=== PATIENT | female | born 1945 | race Hispanic/Latino ===

== ENCOUNTER 2017-03-20 16:22 | Inpatient (IN) | payer MEDICARE, MEDICAID ==
[2017-03-20 16:25] VITALS: BMI 25.6
--- NOTE | 2017-03-20 16:30 | EDPD ---
HPI Stroke - General Time Seen by Provider: 03/20/17 16:26 Historian: Patient - History of Present Illness Narrative History of Present Illness (Free Text): 03/20/17 16:27 72 year old female whose past medical history includes diabetes, hypertension, hepatitis c, liver cirrhosis on Lactulose, presents to the emergency department with right facial droop and right upper extremity and right lower extremity weakness since 15:30 today. Patient's glucose in the field was >130. History limited due to acuity of patient's condition. Date:: 03/20/17 rTPA Inclusion/Exclusion - Refusal of Treatment Patient Refused Treatment: No - Inclusion Criteria for Altepase Patient is 18 years or Older: Yes The Clinical Diagnosis of Ischemic Stroke That is Causing a Potentially Disabling Neurological Deficit: No Time of Onset is Well Established to be Less Than 270 Minute Before Treatment Would Begin: Yes Risk/Benefit Discussed With Patient/Family Member Present: Yes Past Medical History - Provider Review Nursing Documentation Reviewed: Yes - Past History Past History: Unable to Obtain - Infectious Disease Hx of Infectious Diseases: None - Tetanus Immunization Tetanus Immunization: Unknown - Cardiac Hx Cardiac Disorders: Yes Hx Hypertension: Yes - Neurological Hx Headaches: Yes - Endocrine/Metabolic Hx Diabetes Mellitus Type 2: Yes - Hematological/Oncological Hx Hepatitis C: Yes - Musculoskeletal/Rheumatological Hx Falls: No - Gastrointestinal Hx Gastrointestinal Disorders: Yes (HEPATIC ENCEPHALOPATHY) - Genitourinary/Gynecological Hx Genitourinary Disorders: No Hx Reproductive Disorders: No - Psychiatric Hx Depression: No Hx Emotional Abuse: No Hx Physical Abuse: No Hx Substance Use: No - Past Surgical History Past Surgical History: Unable to Obtain - Surgical History Hx Hysterectomy: Yes - Suicidal Assessment Feels Threatened In Home Enviroment: No Family/Social History - Family/Social History Family History: Non-Contributory - DrBaljinder Review Nursing documentation reviewed.: Yes Allergies/Home Meds Allergies/Adverse Reactions: Allergies No Known Allergies Allergy (Verified 03/20/17 16:32) Home Medications: Home Meds Medication Instructions Recorded Confirmed Metoprolol Tartrate [Lopressor] 25 mg PO BID 05/31/12 03/20/17 Rifaximin [Xifaxan] 550 mg PO BID 05/31/12 03/20/17 Vitamin B Complex & Vitamin C 1 tab PO DAILY 05/31/12 03/20/17 [Strovite] Insulin Glargine,Hum.rec.anlog 20 unit SC DAILY 08/30/12 03/20/17 [Lantus] Calcium Carbonate/Vitamin D3 1 each PO BID 03/20/17 03/20/17 [Oyster Shell Calcium-Vit D Tab] Enalapril Maleate [Vasotec] 2.5 mg PO DAILY 03/20/17 03/20/17 Ferrous Sulfate [Feosol] 325 mg PO BID 03/20/17 03/20/17 Folic Acid 1 mg PO DAILY 03/20/17 03/20/17 Furosemide [Lasix] 20 mg PO DAILY 03/20/17 03/20/17 Insulin Lispro [Humalog (Insulin 5 unit SQ AC 03/20/17 03/20/17 Lispro)] Lactulose 10 gm PO DAILY 03/20/17 03/20/17 Levothyroxine [Synthroid] 25 mcg PO DAILY 03/20/17 03/20/17 Olopatadine HCl [Pataday 2.5 ml] 2.5 ml OU DAILY 03/20/17 03/20/17 Pantoprazole [Protonix EC Tab] 20 mg PO DAILY 03/20/17 03/20/17 Potassium Chloride [Klor-Con M20] 20 meq PO DAILY 03/20/17 03/20/17 Review of Systems - Review of Systems Systems not reviewed;Unavailable: Acuity of Condition ED Stroke Physical Exam - Physical Exam Narrative Physical Exam (Text): - Physical exam Patient appears age appropriate - Systems Exam Head: Present: Atraumatic, Normocephalic Pupils: Present: PERRL Extraocular Muscles: Present: EOMI Conjunctiva: Present: Normal Mouth: Present: Moist Mucous Membranes Neck: Present: Normal Range of Motion. No: MIDLINE TENDERNESS, Paraspinal Tenderness Respiratory/Chest: Present: Protecting airway without difficulty, Clear to Auscultation, Good Air Exchange. No: Respiratory Distress, Accessory Muscle Use , Tachypneic Cardiovascular: Present: Regular Rate and Rhythm, Normal S1, S2, Peripheral Pulses Present. No: Murmurs Abdomen: Present: Normal Bowel Sounds, No: Tenderness, Peritoneal Signs, Rebound, Guarding, Distention Back: Present: Normal Inspection. No: Midline Tenderness, Paraspinal Tenderness Upper Extremity: Present: Normal Inspection. No: Cyanosis, Edema Lower Extremity: Present: Normal Inspection. No: Edema Neurological: Present: Following commands without difficulty. Right facial droop. Loss of right nasolabial fold. Unable to move right upper or right lower extremity. Skin: Present: Warm, Dry, Normal Color. No: Rashes Lymphatic: Present: OX3, NI, NC Psychiatric: Present: Alert, Normal Concentration Medical Decision Making ED Course and Treatment: Impression: 72 year old female whose past medical history includes hepatitis c, liver cirrhosis on Lactulose, presents to the emergency department with right facial droop and right upper extremity and right lower extremity weakness since 15:30 today. On physical exam, patient has right facial droop, loss of right nasolabial fold , unable to move right upper or right lower extremity. Differential Diagnosis include but are not limited to: Hemorrhagic stroke vs ischemic stroke vs TIA Plan: -- CT Head, EKG, Chest x-ray -- Labs -- Reassess and disposition Prior Visits: Notes and results from previous visits were reviewed. Patient last seen in the ED on 02/25/13 for confusion and weakness, and admitted for altered mental status. Progress Notes: 03/20/17 16:24 Code Stroke was called. 03/20/17 16:35 Case discussed in detail with Dr. Romain Arredondo, who states to to f/u CT brain and INR PROCEDURE: CT HEAD WITHOUT CONTRAST. Retail Pharmacy Manager : Sanjay Kingsley MD Report Date : 03/20/2017 16:45:59 IMPRESSION: Acute hemorrhage in the region of the posterior limb of the internal capsule on the left with a small amount of blood in both temporal horns. 03/20/17 16:55 Case discussed in detail with Dr. Jimenez who states he reviewed the images, and there is no intervention or suggestions from their standpoint. States to call neurologist for management. EKG shows NSR at [address]-segment elevations, normal intervals. with no prior for comparison. Interpreted by me. 03/20/17 17:[address] Micha Arredondo, who states to admit to ICU and follow up INR. No interventions at this time. 03/20/17 17:[address] Zavaleta from ICU who accepts patient. 03/20/17 17:[address] Richardson, accepted pt to his service Chest xray interpreted by ED physician shows no pneumothorax, no cardiomegaly, no infiltrates - Critical Care Critical Care Minutes: 30 minutes - RAD Interpretation Radiology Orders: 03/20/17 16:24 HEAD W/O (CODE STROKE) [CT] Stat Prospecting Driller: Radiologist - EKG Interpretation Interpreted by ED Physician: Yes Type: 12 lead EKG - Scribe Statement The provider has reviewed the documentation as recorded by the Ronaldoibe Joce Ly Provider Scribe Attestation: All medical record entries made by the Scribe were at my direction and personally dictated by me. I have reviewed the chart and agree that the record accurately reflects my personal performance of the history, physical exam, medical decision making, and the department course for this patient. I have also personally directed, reviewed, and agree with the discharge instructions and disposition. NIHSS Scale ([place]) Time Performed: 16:24 - How Severe is the Stoke Baseline Level of Consciousness: 0=Alert LOC to Questions: 0=Both comments correct LOC to commands: 0=Obeys both correctly Best Gaze: 0=Normal Visual: 0=No visual loss Facial: 2=Partial (lower face paralysis) Motor Arm - Left: 0=No drift Motor Arm - Right: 4=No movement Motor Leg - Left: 0=No drift Motor Leg - Right: 4=No movement Limb Ataxia: 0=Absent Sensory: 0=Normal Best Language: 0=No aphasia Dysarthia: 0=Normal articulation Extinction & Inattention (Neglect): 0=Normal, no object Score: 10 Risk Level: Mod Stroke Risk Disposition/Present on Arrival - Present on Arrival Any Indicators Present on Arrival: No History of DVT/PE: No History of Uncontrolled Diabetes: No Urinary Catheter: No History Surgical Site Infection Following: None - Disposition Have Diagnosis and Disposition been Completed?: Yes Diagnosis: Hemorrhagic stroke Disposition: HOSPITALIZED Disposition Time: 17:24 Patient Plan: Admission Condition: CRITICAL Referrals: Giovany Richardson MD [Primary Care Provider] - Follow up with primary
--- NOTE | 2017-03-20 16:48 | CT ---
PROCEDURE: CT HEAD WITHOUT CONTRAST. HISTORY: code stroke COMPARISON: None available. TECHNIQUE: Axial computed tomography images were obtained through the head/brain without intravenous contrast. Radiation dose: Total exam DLP = 789 mGy-cm. This CT exam was performed using one or more of the following dose reduction techniques: Automated exposure control, adjustment of the mA and/or kV according to patient size, and/or use of iterative reconstruction technique. FINDINGS: HEMORRHAGE: There is an acute hemorrhage in the left basal ganglia in the region of the posterior limb of the internal capsule. This measures 10 x 16 mm on image 30 series 2. A small amount of blood can also be seen in both temporal horns. Findings were discussed with Dr. Mcghee at 4:40 p.m. BRAIN: Chronic microvascular changes are seen in the periventricular white matter VENTRICLES: Unremarkable. No hydrocephalus. CALVARIUM: Unremarkable. PARANASAL SINUSES: Unremarkable as visualized. No significant inflammatory changes. MASTOID AIR CELLS: Unremarkable as visualized. No inflammatory changes. OTHER FINDINGS: None. IMPRESSION: Acute hemorrhage in the region of the posterior limb of the internal capsule on the left with a small amount of blood in both temporal horns.
[2017-03-20 16:50] LABS: ADD MANUAL DIFF? NO
[2017-03-20 17:00] LABS: EOS # 0.1 (0.0-0.7); EOS % 3.8 % (1.5-5.0); GRAN # 1.09 (1.4-6.5); GRAN % 32.1 % (50.0-68.0); HEMATOCRIT 32.7 % (36.0-48.0); LYMPH # 1.8 (1.2-3.4); LYMPH % 51.5 % (22.0-35.0); MEAN CELL VOLUME 94.8 fL (80.0-105.0); MEAN CORPUSCULAR HEMOGLOBIN 32.5 pg (25.0-35.0); MEAN CORPUSCULAR HGB CONC 34.3 g/dl (31.0-37.0); MEAN PLATELET VOLUME 12.7 fl (7.0-11.0); MONO # 0.4 (0.1-0.6); MONO % 12.6 % (1.0-6.0); PLATELET COUNT 56 10^3/uL (120.0-450.0); RED CELL DISTRIBUTION WIDTH 15.7 % (11.5-14.5); WHITE BLOOD COUNT 3.4 10^3/ul (4.5-11.0)
[2017-03-20 17:03] LABS: ALB/GLOB RATIO 0.7 (1.1-1.8); ALKALINE PHOSPHATASE 94 U/L (38-133); ALT/SGPT 77 U/L (7-56); AST/SGOT 88 U/L (15-39); BILIRUBIN,TOTAL 1.9 mg/dL (0.2-1.3); BLOOD UREA NITROGEN 16 mg/dL (7-21); CALCIUM 8.9 mg/dL (8.4-10.5); CARBON DIOXIDE 23 mmol/L (21-33); CHLORIDE 111 mmol/L (98-107); CHOLESTEROL 165 mg/dL (130-200); GFR AFRICAN-AMERICAN > 60; GLUCOSE,RANDOM 107 mg/dL (70-110); POTASSIUM 4.1 mmol/L (3.6-5.0); SODIUM 139 mmol/L (132-148)
[2017-03-20 17:14] LABS: TROPONIN I < 0.01 ng/mL
--- NOTE | 2017-03-20 17:43 | RAD ---
HISTORY: cva COMPARISON: 02/25/2013 FINDINGS: LUNGS: No active pulmonary disease. PLEURA: No significant pleural effusion identified, no pneumothorax apparent. CARDIOVASCULAR: Normal. OSSEOUS STRUCTURES: No significant abnormalities. VISUALIZED UPPER ABDOMEN: Normal. OTHER FINDINGS: None. IMPRESSION: No active disease.
[2017-03-20] MEDS ORDERED: Phytonadione 10 MG in Sodium Chloride 0.9% 50 ML IV ONE (17:44)
[2017-03-20] MEDS ORDERED: Metoprolol 1 mg/ml Inj IVP PRN (17:45)
[2017-03-20 17:46] LABS: INR 1.28 (0.93-1.08); PARTIAL THROMBOPLASTIN TIME 29.6 Seconds (23.7-30.8)
--- NOTE | 2017-03-20 17:58 | CP.PCM.CON ---
<Clem Hampton - Last Filed: 03/20/17 17:49> History of Present Illness - History of Present Illness History of Present Illness: Clem Hampton D.O., Internal Medicine Resident, ICU Consultation Note CC: right sided weakness since 3pm 72 year old [place] female with a PMH of HTN, DM, and hepatitis C from a transfusion in 1972 who [place] [facility] with complaints of sudden right sided weakness since 3pm today. Most of the history is provided by the daughter who is present at bedside. Per daughter, she received a call from the patient that she was feeling unwell. Patient usually walks around with a walker but does have some generalized weakness for a long time. Patient suddenly felt weaker than usual and had to sit down and then she made the call to the daughter. This has never happened before, daughter states the patient has not complained of any headaches or confusion recently, no notably inciting events, no issues last night as the daughter spoke to her at around 9pm last night. Daughter notes that she also seems to be slurring her words. Otherwise no other complaints, no aggravating or alleviating factors. PMH: as above PSH: hysterectomy SH: denied alcohol, tobacco, or drug use Meds: reviewed Allergies: NKA Review of Systems - Review of Systems Systems not reviewed;Unavailable: Altered Mental Status Past Patient History - Infectious Disease Hx of Infectious Diseases: None - Tetanus Immunizations Tetanus Immunization: Unknown - Past Social History Smoking Status: Never Smoked - CARDIAC Hx Cardiac Disorders: Yes Hx Hypertension: Yes - ENDOCRINE/METABOLIC Hx Diabetes Mellitus Type 2: Yes - HEMATOLOGICAL/ONCOLOGICAL Hx Hepatitis C: Yes - MUSCULOSKELETAL/RHEUMATOLOGICAL Hx Falls: No - GASTROINTESTINAL Hx Gastrointestinal Disorders: Yes (HEPATIC ENCEPHALOPATHY) - GENITOURINARY/GYNECOLOGICAL Hx Genitourinary Disorders: No Hx Reproductive Disorders: No - PSYCHIATRIC Hx Depression: No Hx Emotional Abuse: No Hx Physical Abuse: No Hx Substance Use: No - SURGICAL HISTORY Hx Hysterectomy: Yes - ANESTHESIA Hx Anesthesia: Yes Hx Anesthesia Reactions: No Hx Malignant Hyperthermia: No Meds Allergies/Adverse Reactions: Allergies Allergy/AdvReac Type Severity Reaction Status Date / Time No Known Allergies Allergy Verified 03/20/17 18:12 - Medications Medications: Current Medications Phytonadione 10 mg/ Sodium (Chloride) 51 mls @ 100 mls/hr IV ONCE ONE Stop: 03/20/17 18:14 Insulin Human Regular (Humulin R Low) 0 units SC ACHS MELINA PRN Reason: Protocol Lactulose (Enulose) 20 gm PO Q8H [facility]ELINA Metoprolol Tartrate (Lopressor) 5 mg IVP Q6H PRN PRN Reason: SBP >180 Ondansetron HCl (Zofran Inj) 4 mg IVP Q6H PRN PRN Reason: Nausea/Vomiting Pantoprazole Sodium (Protonix Inj) 40 mg IVP DAILY MELINA Rifaximin (Xifaxan) 550 mg NG BID MELINA PRN Reason: Protocol Physical Exam - Constitutional Additional comments: well developed, well nourished elderly [place] female in NAD - Head Exam Head Exam: ATRAUMATIC, NORMOCEPHALIC - Eye Exam Eye Exam: EOMI, PERRL. absent: Conjunctival injection, Scleral icterus - ENT Exam ENT Exam: Mucous Membranes Moist, Normal Oropharynx - Neck Exam Additional comments: soft, supple - Respiratory Exam Respiratory Exam: Clear to Auscultation Bilateral. absent: Rales, Rhonchi, Wheezes - Cardiovascular Exam Cardiovascular Exam: RRR, +S1, +S2. absent: Gallop, Rubs - GI/Abdominal Exam GI & Abdominal Exam: Normal Bowel Sounds, Soft. absent: Distended, Tenderness - Extremities Exam Additional comments: BL LE +2 pitting edema, small petechiae diffusely on legs - Neurological Exam Additional comments: awake, somewhat alert, follows simple commands in [place], right side 0/5 strength diffusely, left side 3/5 diffusely, 4-/5 left robotics technologist, right facial numbness, no tongue deviation, no ptosis - Skin Skin Exam: Dry, Intact, Petechiae (LE), Warm Results - Labs Result Diagrams: 03/20/17 16:47 03/20/17 16:47 Assessment & Plan - Assessment and Plan (Free Text) Assessment: 72 year old [place] female with a PMH of HTN, DM, and hepatitis C from a transfusion in 1972 who presented with complaints of sudden right sided weakness since 3pm today, found to have ICH. Plan: Neurologic Acute hemorrhage in left internal capsule, blood in both temporal horns on head CT Neurochecks q1h Vitals q2 Maintain SBP 120-140 ER discussed with neurosurgery Dr. Jimenez who reviewed images, no intervention ER also discussed with neurology Dr. Arredondo Ordered platelets due to thrombocytopenia Cardiovascular Maintain SBP 120-[address] Pulmonary Maintain O2Sat >92%, currently on R/A, maintaining airway GI Hx hepatitis C, pending PT/PTT NPO for now NG insertion for lactulose Continued home xifaxan Renal/Electrolytes/Fluids Ordered lasix x1 after platelet transfusions Strict IxOs Infectious disease Afebrile No leukocytosis Endocrine Hx hypothyrodisim on levothyroxine at home, DM on insulin Accuchecks q6h w/ RISS-low Hematologic Hx of anemia, on folic acid/B vitamins/ferrous sulfate Thrombocytopenia likely 2/2 GI/DVT ppx: protonix/SCDs/NO ANTICOAGULATION Patient was seen and examined at bedside and case was discussed at length with attending physician. - Date & Time Date: 03/20/17 Time: 17:30 <Vonda Zavaleta MD - Last Filed: 03/20/17 18:56> Meds - Medications Medications: Current Medications Furosemide (Lasix) 40 mg IVP ONCE ONE Stop: 03/21/17 00:02 Insulin Human Regular (Humulin R Low) 0 units SC Q6H MELINA PRN Reason: Protocol Last Admin: 03/20/17 18:30 Dose: Not Given Lactulose (Enulose) 20 gm PO Q8H [facility] Metoprolol Tartrate (Lopressor) 5 mg IVP Q6H PRN PRN Reason: SBP >180 Ondansetron HCl (Zofran Inj) 4 mg IVP Q6H PRN PRN Reason: Nausea/Vomiting Pantoprazole Sodium (Protonix Inj) 40 mg IVP DAILY [facility] Last Admin: 03/20/17 18:10 Dose: 40 mg Rifaximin (Xifaxan) 550 mg NG BID [facility] PRN Reason: Protocol Results - Vital Signs Recent Vital Signs: Last Vital Signs Temp 98 F 03/20/17 18:29 Pulse 68 03/20/17 18:29 Resp 19 03/20/17 18:29 BP 145/86 03/20/17 18:29 Pulse Ox 100 03/20/17 18:29 - Labs Result Diagrams: 03/20/17 16:47 03/20/17 16:47 Labs: Laboratory Results - last 24 hr 03/20/17 18:13 Blood Type Confirm A POSITIVE Attending/Attestation - Attestation I have personally seen and examined this patient.: Yes I have fully participated in the care of the patient.: Yes I have reviewed all pertinent clinical information: Yes Notes (Text): 03/20/17 18:49 72 y/o F who was brought in the ER with R sided weakness around 330 witnessed by the home care nurse. At that time the patient was also having slurred speech and lethargy. Found to have an ICH in the ER with depressed mental status Pt follows some simple commands but is very weak and lethargic Protecting her airway but is pooling some secretions and likely has LARRY Hx of Hep C > 30 yrs . TBILI 1.9, monitor NGT or DF to be placed and Lactulose to be started to prevent Hepatic encephalopathy Labs show Platelets 56k, will need to keep platelets > 100K in ICH. INR<1.5 . 6 pack platelets ordered .G.I to be consulted.Correct coagulopathy Neurochecks q1hrs SBp appx 140-160. Lopressor prn IVP as needed Neurosurgery consulted and Neurology as well. Repeat Head CT needed in the a.m. No surgical intervention at this point. Family requests Full code At risk for intubation dvt p SCD CC time 65 min
[2017-03-20] MEDS: Insulin Reg-LOW-Coverage SC SCH (18:30)
[2017-03-20] MEDS ORDERED: Phytonadione 10 mg/ml Inj (Adult) ONE (18:31)
[2017-03-20] MEDS ORDERED: Pneumococcal 23-Valent Vaccine IM ONE (19:40)
[2017-03-20] MEDS ORDERED: Insulin Reg-LOW-Coverage SC SCH (22:00)
[2017-03-21] MEDS: Insulin Reg-LOW-Coverage SC SCH ×4 (00:45→18:02)
[2017-03-21 01:02] LABS: ADD MANUAL DIFF? NO
[2017-03-21 01:07] LABS: EOS # 0.1 (0.0-0.7); EOS % 3.5 % (1.5-5.0); GRAN # 1.15 (1.4-6.5); GRAN % 40.4 % (50.0-68.0); HEMATOCRIT 29.6 % (36.0-48.0); LYMPH # 1.2 (1.2-3.4); LYMPH % 43.5 % (22.0-35.0); MEAN CELL VOLUME 93.7 fL (80.0-105.0); MEAN CORPUSCULAR HEMOGLOBIN 32.6 pg (25.0-35.0); MEAN CORPUSCULAR HGB CONC 34.8 g/dl (31.0-37.0); MEAN PLATELET VOLUME 10.9 fl (7.0-11.0); MONO # 0.4 (0.1-0.6); MONO % 12.6 % (1.0-6.0); PLATELET COUNT 80 10^3/uL (120.0-450.0); RED CELL DISTRIBUTION WIDTH 15.7 % (11.5-14.5)
[2017-03-21 01:15] LABS: WHITE BLOOD COUNT 2.9 10^3/ul (4.5-11.0)
[2017-03-21 06:19] LABS: ADD MANUAL DIFF? NO
[2017-03-21 06:23] LABS: EOS # 0.1 (0.0-0.7); EOS % 2.9 % (1.5-5.0); GRAN # 1.73 (1.4-6.5); GRAN % 62.5 % (50.0-68.0); HEMATOCRIT 26.7 % (36.0-48.0); LYMPH # 0.6 (1.2-3.4); LYMPH % 20.9 % (22.0-35.0); MEAN CELL VOLUME 93.4 fL (80.0-105.0); MEAN CORPUSCULAR HEMOGLOBIN 32.2 pg (25.0-35.0); MEAN CORPUSCULAR HGB CONC 34.5 g/dl (31.0-37.0); MEAN PLATELET VOLUME 9.3 fl (7.0-11.0); MONO # 0.4 (0.1-0.6); MONO % 13.7 % (1.0-6.0); PLATELET COUNT 123 10^3/uL (120.0-450.0); RED CELL DISTRIBUTION WIDTH 15.4 % (11.5-14.5)
[2017-03-21 06:28] LABS: WHITE BLOOD COUNT 2.8 10^3/ul (4.5-11.0)
[2017-03-21 06:31] LABS: INR 1.24 (0.93-1.08); PARTIAL THROMBOPLASTIN TIME 28.9 Seconds (23.7-30.8)
[2017-03-21 06:40] LABS: ALB/GLOB RATIO 0.8 (1.1-1.8); ALKALINE PHOSPHATASE 92 U/L (38-133); ALT/SGPT 71 U/L (7-56); AST/SGOT 72 U/L (15-39); BILIRUBIN,TOTAL 1.8 mg/dL (0.2-1.3); BLOOD UREA NITROGEN 14 mg/dL (7-21); CALCIUM 9.1 mg/dL (8.4-10.5); CARBON DIOXIDE 29 mmol/L (21-33); CHLORIDE 108 mmol/L (95-110); GFR AFRICAN-AMERICAN > 60; GLUCOSE,RANDOM 136 mg/dL (70-110); POTASSIUM 3.5 mmol/L (3.6-5.0); SODIUM 142 mmol/L (132-148); TOTAL PROTEIN 6.5 g/dL (5.8-8.3)
--- NOTE | 2017-03-21 07:58 | RAD ---
HISTORY: NGT insertion COMPARISON: 03/20/2017 at 5:15 p.m. FINDINGS: LUNGS: No active pulmonary disease. PLEURA: No significant pleural effusion identified, no pneumothorax apparent. CARDIOVASCULAR: Normal heart size. Nasogastric tube not visualized. OSSEOUS STRUCTURES: No significant abnormalities. VISUALIZED UPPER ABDOMEN: Normal. OTHER FINDINGS: None. IMPRESSION: No active disease.
--- NOTE | 2017-03-21 08:01 | RAD ---
HISTORY: placement of NG tube COMPARISON: 03/20/2017 FINDINGS: LUNGS: No active pulmonary disease. PLEURA: No significant pleural effusion identified, no pneumothorax apparent. CARDIOVASCULAR: Nasogastric tube extends to upper central abdomen. OSSEOUS STRUCTURES: No significant abnormalities. VISUALIZED UPPER ABDOMEN: Normal. OTHER FINDINGS: None. IMPRESSION: No active disease. Nasogastric tube in grossly appropriate position.
[2017-03-21] MEDS ORDERED: Magnesium Sulfate 2 GM in Sodium Chloride 0.9% 100 ML IVPB ONE (09:23)
--- NOTE | 2017-03-21 09:56 | CP.PCM.CON ---
<Crow Kerr - Last Filed: 03/21/17 13:12> History of Present Illness - History of Present Illness History of Present Illness: PGY4 GI Fellow Consult Note Patient is a 72yo Frisian speaking female with PMHx significant for HTN, DM and HCV (treatment naive) who presented to the hospital with sudden onset right sided weakness and slurred speech. At 3PM yesterday, the patient's caregiver noted sudden onset right sided hemiparesis, with slurred speech and called 911. On arrival to the ED, a CT head without contrast revealed a hemorrhagic CVA and patient was admitted to the CCU for ongoing care. Neurosurgery was consulted but have no plans for intervention at this juncture. The patient's daughter is at bedside and states that she has suffered with multiple bouts of hepatic encephalopathy from decompensated cirrhosis as a result of her untreated HCV infection. She is on Lactulose and Xifaxin at home, managed by her primary care provider. She has no primary supervisor packing or tree thinner. Patient currently is somnolent and does not respond verbally at present. She does react to tactile stimuli, though she has no movement in the right upper extremity with any stimulation. PMHx: See HPI PSHx: Hysterectomy FHx: Discussed with daughter at bedside and denies any significant family history Social: Denies tobacco, EtOH or illicit drug use Endo: >10 years ago at [facility]; no records available Review of Systems - Review of Systems Systems not reviewed;Unavailable: Acuity of Condition Past Patient History - Infectious Disease Hx of Infectious Diseases: None - Tetanus Immunizations Tetanus Immunization: Unknown - Past Social History Smoking Status: Never Smoked - CARDIAC Hx Cardiac Disorders: Yes Hx Hypertension: Yes - PULMONARY Hx Respiratory Disorders: No - NEUROLOGICAL Hx Neurological Disorder: Yes HX Cerebrovascular Accident: Yes (HEMORRHAGIC STROKE V/S ISCHEMIC STROKEV/S TIA 03-20-17) Hx Seizures: Yes (?03-20-17) Other/Comment: 03-20-17 CAT SCAN SHOWED HEMORRHAGE TO L BASAL GANGLIA 10X 16 MM. - HEENT Hx HEENT Problems: Yes Hx Cataracts: Yes (BILATERAL SX) - RENAL Hx Chronic Kidney Disease: No - ENDOCRINE/METABOLIC Hx Endocrine Disorders: Yes Hx Diabetes Mellitus Type 2: Yes Hx Hypothyroidism: Yes - HEMATOLOGICAL/ONCOLOGICAL Hx Blood Disorders: Yes Hx Hepatitis C: Yes (BLOOD TRANSFUSION IN [place] 1972) - INTEGUMENTARY Hx Dermatological Problems: Yes (MULTIPLE BRUISING,BILATERAL LE PITTING EDEMA) - MUSCULOSKELETAL/RHEUMATOLOGICAL Hx Musculoskeletal Disorders: Yes (INTRACTABLE BACK PAIN,PINCHED NERVE) Hx Back Pain: Yes (HAD STEROID INJECTIONS TO BACK) Hx Falls: Yes Hx Herniated Disk: Yes Hx Unsteady Gait: Yes (WALKER) - GASTROINTESTINAL Hx Gastrointestinal Disorders: Yes (HEPATIC ENCEPHALOPATHY) Hx Liver Failure: Yes (LIVER CIRRHOSIS) - GENITOURINARY/GYNECOLOGICAL Hx Genitourinary Disorders: No - PSYCHIATRIC Hx Psychophysiologic Disorder: No Hx Depression: No Hx Emotional Abuse: No Hx Physical Abuse: No Hx Substance Use: No - SURGICAL HISTORY Hx Surgeries: Yes (BILATERAL CATARACT SURGERY) Hx Hysterectomy: Yes - ANESTHESIA Hx Anesthesia: Yes Hx Anesthesia Reactions: No Hx Malignant Hyperthermia: No Meds Allergies/Adverse Reactions: Allergies Allergy/AdvReac Type Severity Reaction Status Date / Time No Known Allergies Allergy Verified 03/20/17 18:12 - Medications Medications: Current Medications Potassium Chloride (Potassium Chloride 10 Meq/100 Ml) 10 meq in 100 mls @ 100 mls/hr IVPB Q2H [facility] Stop: 03/21/17 10:14 Last Admin: 03/21/17 09:27 Dose: 100 mls/hr Magnesium Sulfate 2 gm/ Sodium (Chloride) 104 mls @ 102 mls/hr IVPB ONCE ONE Stop: 03/21/17 10:24 Insulin Human Regular (Humulin R Low) 0 units SC Q6H [facility]ELINA PRN Reason: Protocol Last Admin: 03/21/17 06:48 Dose: Not Given Lactulose (Enulose) 20 gm PO Q8H [facility] Last Admin: 03/21/17 09:27 Dose: 20 gm Metoprolol Tartrate (Lopressor) 5 mg IVP Q6H PRN PRN Reason: SBP >180 Ondansetron HCl (Zofran Inj) 4 mg IVP Q6H PRN PRN Reason: Nausea/Vomiting Pantoprazole Sodium (Protonix Inj) 40 mg IVP DAILY [facility] Last Admin: 03/20/17 18:10 Dose: 40 mg Potassium Chloride (Potassium Chloride Oral Soln) 40 meq PO Q4 [facility] Stop: 03/21/17 16:01 Rifaximin (Xifaxan) 550 mg NG BID MELINA PRN Reason: Protocol Last Admin: 03/21/17 09:26 Dose: 550 mg Physical Exam - Constitutional Additional comments: lethargic, difficult to arouse - Eye Exam Eye Exam: absent: PERRL (left pupil pinpoint) - ENT Exam ENT Exam: Mucous Membranes Dry Additional comments: NGT in place - Respiratory Exam Respiratory Exam: Clear to Auscultation Bilateral. absent: Rales, Rhonchi, Wheezes - Cardiovascular Exam Cardiovascular Exam: RRR, +S1, +S2 - GI/Abdominal Exam GI & Abdominal Exam: Normal Bowel Sounds, Soft. absent: Distended, Firm, Guarding, Organomegaly, Rigid, Tenderness - Extremities Exam Additional comments: B/L upper and lower extremity edema noted - Neurological Exam Additional comments: Unable to follow commands; withdraws from painful stimuli in LUE/LE, RLE - Skin Skin Exam: Dry, Warm Results - Vital Signs Recent Vital Signs: Last Vital Signs Temp 98.0 F 03/21/17 04:00 Pulse 63 03/21/17 09:30 Resp 19 03/21/17 09:30 BP 134/65 03/21/17 09:00 Pulse Ox 99 03/21/17 07:50 - Labs Result Diagrams: 03/21/17 05:20 03/21/17 05:20 Labs: Laboratory Results - last 24 hr 03/20/17 03/21/17 03/21/17 18:13 00:45 01:38 WBC 2.9 L* RBC 3.16 L Hgb 10.3 L Hct 29.6 L MCV 93.7 MCH 32.6 MCHC 34.8 RDW 15.7 H Plt Count 80 L MPV 10.9 Gran % 40.4 L Lymph % (Auto) 43.5 H Kidder % (Auto) 12.6 H Eos % (Auto) 3.5 Baso % (Auto) 0.0 Gran # 1.15 L Lymph # 1.2 Kidder # 0.4 Eos # 0.1 Baso # 0.00 PT INR APTT Sodium Potassium Chloride Carbon Dioxide Anion Gap BUN Creatinine Est GFR ( Amer) Est GFR (Non-Af Amer) POC Glucose (mg/dL) 140 H Random Glucose Calcium Magnesium Total Bilirubin AST ALT Alkaline Phosphatase Ammonia Total Protein Albumin Globulin Albumin/Globulin Ratio Blood Type Confirm A POSITIVE 03/21/17 03/21/17 03/21/17 05:20 05:20 05:20 WBC 2.8 L* RBC 2.86 L Hgb 9.2 L Hct 26.7 L MCV 93.4 MCH 32.2 MCHC 34.5 RDW 15.4 H Plt Count 123 MPV 9.3 Gran % 62.5 Lymph % (Auto) 20.9 L Kidder % (Auto) 13.7 H Eos % (Auto) 2.9 Baso % (Auto) 0.0 Gran # 1.73 Lymph # 0.6 L Kidder # 0.4 Eos # 0.1 Baso # 0.00 PT 13.4 H INR 1.24 H APTT 28.9 Sodium 142 Potassium 3.5 L Chloride 108 Carbon Dioxide 29 Anion Gap 9 L BUN 14 Creatinine 1.0 Est GFR ( Amer) > 60 Est GFR (Non-Af Amer) 54 POC Glucose (mg/dL) Random Glucose 136 H Calcium 9.1 Magnesium Total Bilirubin 1.8 H AST 72 H ALT 71 H Alkaline Phosphatase 92 Ammonia Total Protein 6.5 Albumin 3.0 Globulin 3.5 Albumin/Globulin Ratio 0.8 L Blood Type Confirm 03/21/17 03/21/17 03/21/17 05:20 06:06 06:47 WBC RBC Hgb Hct MCV MCH MCHC RDW Plt Count MPV Gran % Lymph % (Auto) Kidder % (Auto) Eos % (Auto) Baso % (Auto) Gran # Lymph # Kidder # Eos # Baso # PT INR APTT Sodium Potassium Chloride Carbon Dioxide Anion Gap BUN Creatinine Est GFR ( Amer) Est GFR (Non-Af Amer) POC Glucose (mg/dL) 163 H 166 H Random Glucose Calcium Magnesium Total Bilirubin AST ALT Alkaline Phosphatase Ammonia 42 H Total Protein Albumin Globulin Albumin/Globulin Ratio Blood Type Confirm 03/21/17 07:30 WBC RBC Hgb Hct MCV MCH MCHC RDW Plt Count MPV Gran % Lymph % (Auto) Kidder % (Auto) Eos % (Auto) Baso % (Auto) Gran # Lymph # Kidder # Eos # Baso # PT INR APTT Sodium Potassium Chloride Carbon Dioxide Anion Gap BUN Creatinine Est GFR ( Amer) Est GFR (Non-Af Amer) POC Glucose (mg/dL) Random Glucose Calcium Magnesium 1.6 L Total Bilirubin AST ALT Alkaline Phosphatase Ammonia Total Protein Albumin Globulin Albumin/Globulin Ratio Blood Type Confirm Assessment & Plan - Assessment and Plan (Free Text) Assessment: Patient is a 72yo Frisian speaking female with PMHx significant for HTN, DM and HCV (treatment naive) who presented to the hospital with sudden onset right sided weakness and slurred speech. -Hemorrhagic CVA -H/O HCV, untreated -Decompensated cirrhosis complicated by hepatic encephalopathy -DM -HTN Plan: -NGT has been placed -Continue Lactulose 20g TID, titrate to 2-3 BM/day -Xifaxin 550mg PO BID -Suspect altered mentation predominantly driven by newly diagnosed hemorrhagic CVA; neurology following and neurosurgery consulted in ED with no plans at this time for intervention -Repeat CT head w/o contrast to be performed today -Check Hepatitis serologies as we have no documentation of this previously -Check abdominal U/S; would benefit from triple phase liver CT but will defer for now -Autoimmune work up for tomorrow morning: DEANGELO, AMA, SMA, LKM Ab - Date & Time Date: 03/21/17 Time: 09:30 <Gary Cortez - Last Filed: 03/21/17 15:17> Meds - Medications Medications: Current Medications Sodium Chloride (Sodium Chloride 0.9%) 1,000 mls @ 75 mls/hr IV .[id number] [facility] Last Admin: 03/21/17 13:00 Dose: 75 mls/hr Insulin Human Regular (Humulin R Low) 0 units SC Q6H [facility] PRN Reason: Protocol Last Admin: 03/21/17 13:19 Dose: Not Given Lactulose (Enulose) 20 gm PO Q8H [facility] Last Admin: 03/21/17 09:27 Dose: 20 gm Metoprolol Tartrate (Lopressor) 5 mg IVP Q6H PRN PRN Reason: SBP >180 Ondansetron HCl (Zofran Inj) 4 mg IVP Q6H PRN PRN Reason: Nausea/Vomiting Pantoprazole Sodium (Protonix Inj) 40 mg IVP DAILY [facility] Last Admin: 03/21/17 10:00 Dose: 40 mg Potassium Chloride (Potassium Chloride Oral Soln) 40 meq PO Q4 [facility] Stop: 03/21/17 16:01 Last Admin: 03/21/17 13:30 Dose: 40 meq Rifaximin (Xifaxan) 550 mg NG BID MELINA PRN Reason: Protocol Last Admin: 03/21/17 09:26 Dose: 550 mg Results - Vital Signs Recent Vital Signs: Last Vital Signs Temp 98.0 F 03/21/17 04:00 Pulse 64 03/21/17 14:30 Resp 18 03/21/17 14:30 BP 142/72 03/21/17 13:00 Pulse Ox 99 03/21/17 07:50 - Labs Result Diagrams: 03/21/17 05:20 03/21/17 14:20 Labs: Laboratory Results - last 24 hr 03/20/17 03/21/17 03/21/17 18:13 00:45 01:38 WBC 2.9 L* RBC 3.16 L Hgb 10.3 L Hct 29.6 L MCV 93.7 MCH 32.6 MCHC 34.8 RDW 15.7 H Plt Count 80 L MPV 10.9 Gran % 40.4 L Lymph % (Auto) 43.5 H Kidder % (Auto) 12.6 H Eos % (Auto) 3.5 Baso % (Auto) 0.0 Gran # 1.15 L Lymph # 1.2 Kidder # 0.4 Eos # 0.1 Baso # 0.00 PT INR APTT Sodium Potassium Chloride Carbon Dioxide Anion Gap BUN Creatinine Est GFR ( Amer) Est GFR (Non-Af Amer) POC Glucose (mg/dL) 140 H Random Glucose Calcium Magnesium Total Bilirubin AST ALT Alkaline Phosphatase Ammonia Total Protein Albumin Globulin Albumin/Globulin Ratio Blood Type Confirm A POSITIVE 03/21/17 03/21/17 03/21/17 05:20 05:20 05:20 WBC 2.8 L* RBC 2.86 L Hgb 9.2 L Hct 26.7 L MCV 93.4 MCH 32.2 MCHC 34.5 RDW 15.4 H Plt Count 123 MPV 9.3 Gran % 62.5 Lymph % (Auto) 20.9 L Kidder % (Auto) 13.7 H Eos % (Auto) 2.9 Baso % (Auto) 0.0 Gran # 1.73 Lymph # 0.6 L Kidder # 0.4 Eos # 0.1 Baso # 0.00 PT 13.4 H INR 1.24 H APTT 28.9 Sodium 142 Potassium 3.5 L Chloride 108 Carbon Dioxide 29 Anion Gap 9 L BUN 14 Creatinine 1.0 Est GFR ( Amer) > 60 Est GFR (Non-Af Amer) 54 POC Glucose (mg/dL) Random Glucose 136 H Calcium 9.1 Magnesium Total Bilirubin 1.8 H AST 72 H ALT 71 H Alkaline Phosphatase 92 Ammonia Total Protein 6.5 Albumin 3.0 Globulin 3.5 Albumin/Globulin Ratio 0.8 L Blood Type Confirm 03/21/17 03/21/17 03/21/17 05:20 06:06 06:47 WBC RBC Hgb Hct MCV MCH MCHC RDW Plt Count MPV Gran % Lymph % (Auto) Kidder % (Auto) Eos % (Auto) Baso % (Auto) Gran # Lymph # Kidder # Eos # Baso # PT INR APTT Sodium Potassium Chloride Carbon Dioxide Anion Gap BUN Creatinine Est GFR ( Amer) Est GFR (Non-Af Amer) POC Glucose (mg/dL) 163 H 166 H Random Glucose Calcium Magnesium Total Bilirubin AST ALT Alkaline Phosphatase Ammonia 42 H Total Protein Albumin Globulin Albumin/Globulin Ratio Blood Type Confirm 03/21/17 03/21/17 03/21/17 07:30 12:40 14:20 WBC RBC Hgb Hct MCV MCH MCHC RDW Plt Count MPV Gran % Lymph % (Auto) Kidder % (Auto) Eos % (Auto) Baso % (Auto) Gran # Lymph # Kidder # Eos # Baso # PT INR APTT Sodium 140 Potassium 4.0 Chloride 109 H Carbon Dioxide 26 Anion Gap 9 L BUN 14 Creatinine 1.0 Est GFR ( Amer) > 60 Est GFR (Non-Af Amer) 54 POC Glucose (mg/dL) 158 H Random Glucose 126 H Calcium 8.9 Magnesium 1.6 L 2.0 Total Bilirubin AST ALT Alkaline Phosphatase Ammonia Total Protein Albumin Globulin Albumin/Globulin Ratio Blood Type Confirm 03/21/17 14:20 WBC RBC Hgb Hct MCV MCH MCHC RDW Plt Count MPV Gran % Lymph % (Auto) Kidder % (Auto) Eos % (Auto) Baso % (Auto) Gran # Lymph # Kidder # Eos # Baso # PT INR APTT Sodium Potassium Chloride Carbon Dioxide Anion Gap BUN Creatinine Est GFR ( Amer) Est GFR (Non-Af Amer) POC Glucose (mg/dL) Random Glucose Calcium Magnesium Total Bilirubin AST ALT Alkaline Phosphatase Ammonia 63 H Total Protein Albumin Globulin Albumin/Globulin Ratio Blood Type Confirm Attending/Attestation - Attestation I have personally seen and examined this patient.: Yes I have fully participated in the care of the patient.: Yes I have reviewed all pertinent clinical information: Yes Notes (Text): 05/30/17 15:15 72 year old female with h/o HTN, DM and HCV and presumed cirrhosis admitted with hemorrhagic CVA. 1. Hepatitis C cirrhosis 2. Hepatic encephalopathy Plan: -recommend lactulose and rifaxmin therapy empirically -neuro eval and workup for CVA -recommend US abdo to eval liver and r/o ascites -diet as tolerated -will follow
--- NOTE | 2017-03-21 10:32 | HP ---
REASON FOR ADMISSION: Slurred speech, right side weakness. HISTORY OF PRESENT ILLNESS: This 72-year-old female with history of diabetes, insulin dependent; chr onic hep C, hypothyroidism, came in to the hospital because of sudden onset of right-sided weakness. The patient was doing okay till the day of admission and all of a sudden she felt right side weakness and her speech was impaired. She spoke to the homemaker to call her daughter who brought her to the Emergency Room. Initial evaluation and CT shows a temporal lobe area, ____, posterior part of the int ernal capsule bleed, and right hemiplegia. She denied any fever, any chills, any falls. No nausea, no vomiting. PAST MEDICAL HISTORY: As I mentioned, insulin-dependent diabetes, chronic osteoarthritis. The patie nt also has hypothyroidism. She has history of hepatic encephalopathy several times. ALLERGIES: No known allergies. HOME MEDICATIONS: Insulin - Lantus (glargine insulin) 20 units at night, vitamin D and C, Xifaxan, p otassium 20 p.o. daily, Protonix 20 p.o. daily, Pataday for eye itching 1 drop each eye once a day, m etoprolol 25 mg b.i.d., Synthroid 25 mcg once a day, Lactulose 10 grams once a day, insulin Lispro wh ich is 5 units three times a day, Lasix 20 p.o. once a day, folic acid once a day, Feosol 325 once a day, Vasotec 2.5 once a day, calcium with vitamin D 1000 b.i.d. REVIEW OF SYSTEMS: Chronic osteoarthritis, she has also generalized weakness, incontinence. PHYSICAL EXAMINATION: The patient came through the ER to the unit. The patient was seen in the unit. VITAL SIGNS: Her temperature 98, heart rate 73, blood pressure 145/86, respiration 17. HEAD AND NECK: Normal. No JVD, no thyromegaly. CHEST: Clear. Good air entry. CARDIAC: First sound, second sound regular, normal. ABDOMEN: Soft, nontender. EXTREMITIES: Minimal edema. NEUROLOGIC: Right hemiplegia and ____ 5. Also her speech is slurred, but she is able to express word s. LABORATORY DATA: 03/20/2017: White count 3.4, hemoglobin 11.2, hematocrit 32.7, platelets 56. PT/I NR: PT 15.8, INR 1.28 (a little bit high), PTT 29.6. Sodium 139, potassium 4.1, chloride 111, bicarb 23, BUN 16, creatinine 1. Liver function tests: Total bilirubin 1.9, AST 88, ALT 77, alk phos is no rmal. The patient also has troponin when she came in that was negative. LDL is 42, cholesterol total 165, HDL is 47. Also, the patient has reports that show CT of the head which shows positive bleed. A chest x-ray als o was done which shows lung with no active pulmonary disease. IMPRESSION AND PLAN: 1. Acute intracranial bleed with right hemiplegia and dysarthria. The plan is to continue her meds, platelets transfusions, vitamin K. Get GI and get hematology to evaluate her coagulopathy. Will cons ider physical therapy and speech therapy with swallow eval. Will continue current treatment. Also, th e patient will need rehab for 4-6 weeks. 2. Diabetes, insulin dependent. She is n.p.o. at this time. Will continue insulin coverage. 3. Hepatic encephalopathy. Continue Xifaxan, continue Lactulose through the NG tube. Follow up lab levels tomorrow morning. Continue GI prophylaxis with Protonix 40 mg once a day. Giovany Richardson MD cc: [phone] TT: 03/21/2017 09:11:25 il
[2017-03-21] MEDS ORDERED: Morphine 2 mg/ml ISec IVP STA (11:05)
[2017-03-21] MEDS: Sodium Chloride 0.9% 1,000 ML IV SCH (13:00)
[2017-03-21] MEDS: Potassium Chloride 40 mEq/30 ml LIQ UD PO SCH ×2 (13:30→16:57)
--- NOTE | 2017-03-21 13:58 | CON ---
DATE: 03/21/2017 The patient is a 72-year-old lady with a history of hepatitis C, diabetes, hypertension, who presented this time with sudden onset of right-sided weakness. The patient was in her usual state of health up until yesterday when her symptoms appeared. Her speech became impaired. However, she managed to tell her avionics safety inspector to call the daughter and ambulance. Initial CAT scan of the head upon arrival to [facility] ER revealed acute hemorrhage in the posterior part of the internal capsule. No nausea, no vomiting, no diarrhea , no constipation. PAST MEDICAL HISTORY: Diabetes mellitus, osteoarthritis, hepatitis C, hypothyroidism, and high blood pressure. ALLERGIES: NKDA. MEDICATIONS AT HOME: Glargine insulin 20 units at night, vitamin D and C, Xifaxan, potassium, Protonix, metoprolol, Synthroid, lactulose, insulin lispro, Lasix, folic acid, Feosol, Vasotec, calcium with vitamin D. FAMILY HISTORY: Noncontributory. REVIEW OF SYSTEMS: Review of 12 organ system, other than mentioned in history of present illness, is negative. PHYSICAL EXAMINATION: VITAL SIGNS: Blood pressure 139/63, heart rate 64, respiratory rate 18, oxygen saturation 99% on nasal cannula. HEAD AND NECK: Atraumatic. LUNGS: Clear to auscultation bilaterally. HEART: Regular rate and rhythm. S1, S2 distant. ABDOMEN: Soft, nontender, nondistended. MUSCULOSKELETAL: Trace bilateral pedal and ankle edema. NEUROLOGICAL: The patient moves all extremities spontaneously. The patient is open eyes on command; however, not cooperative with exam. SKIN: Moist. PSYCHIATRIC: The patient is very sleepy, lethargic and responds only to painful stimuli. LABORATORY DATA: WBC 2.8, hemoglobin 9.2, platelet count 123. Sodium 142, potassium 3.5 (supplemented). AST 72, ALT 71. Ammonia level 42. Magnesium 1.6 (supplemented). Albumin 3. INR 1.24. MEDICATION IN THE HOSPITAL: Regular insulin sliding scale low protocol, lactulose, magnesium supplementation, metoprolol p.r.n., Zofran p.r.n., Protonix , vitamin K, Xifaxan, potassium supplementation. Assessment and Plan: 72 yo with acute hemorrhagic CVA, admitted to ICU for airways monitoring and BP control. Now easily arousable, able to protect her airways. BP is well within 140-160 systolic range. Platelets 125, no other coagulopathy. neurosurgery service suggested no neurosurgical intervention. NPO, speech and swallow eval, echo, carotid doppler, PT/OT, early mobilization. Repeated CTH-no expansion. Euvolemia, euglycemia, normothermia. DVT/GI prophylaxis. Neuro input is pending ccm time 40 min Esteban Isaacs MD cc: [id number] TT: 03/21/2017 12:46:47 Confirmation # [id number] Dictation # [id number] 03/21/2017 12:57:37 ROHAN
--- NOTE | 2017-03-21 14:35 | CT ---
PROCEDURE: CT HEAD WITHOUT CONTRAST. HISTORY: L IC Hemorrhagic stroke COMPARISON: None available. TECHNIQUE: Axial computed tomography images were obtained through the head/brain without intravenous contrast. Radiation dose: Total exam DLP = 1354 mGy-cm. This CT exam was performed using one or more of the following dose reduction techniques: Automated exposure control, adjustment of the mA and/or kV according to patient size, and/or use of iterative reconstruction technique. FINDINGS: HEMORRHAGE: There is no change in the appearance of the left basal ganglia hematoma which measures approximately 10 x 15 mm. There is a small amount of blood in the right temporal horn. The blood in the left temporal horn has resolved. BRAIN: No mass effect or edema. Chronic microvascular changes VENTRICLES: Unremarkable. No hydrocephalus. CALVARIUM: Unremarkable. PARANASAL SINUSES: Unremarkable as visualized. No significant inflammatory changes. MASTOID AIR CELLS: Unremarkable as visualized. No inflammatory changes. OTHER FINDINGS: None. IMPRESSION: Stable appearance of left basal ganglia hematoma. Decreased blood in the temporal horns
[2017-03-21 14:52] LABS: BLOOD UREA NITROGEN 14 mg/dL (7-21); CALCIUM 8.9 mg/dL (8.4-10.5); CARBON DIOXIDE 26 mmol/L (21-33); CHLORIDE 109 mmol/L (98-107); GFR AFRICAN-AMERICAN > 60; GLUCOSE,RANDOM 126 mg/dL (70-110); SODIUM 140 mmol/L (132-148)
[2017-03-21 15:50] LABS: ADD MANUAL DIFF? NO
[2017-03-21 15:54] LABS: EOS # 0.1 (0.0-0.7); GRAN % 62.1 % (50.0-68.0); HEMATOCRIT 28.2 % (36.0-48.0); LYMPH # 0.9 (1.2-3.4); LYMPH % 24.9 % (22.0-35.0); MEAN CELL VOLUME 95.9 fL (80.0-105.0); MEAN CORPUSCULAR HEMOGLOBIN 32.3 pg (25.0-35.0); MEAN CORPUSCULAR HGB CONC 33.7 g/dl (31.0-37.0); MEAN PLATELET VOLUME 10.3 fl (7.0-11.0); MONO # 0.4 (0.1-0.6); PLATELET COUNT 125 10^3/uL (120.0-450.0); RED CELL DISTRIBUTION WIDTH 15.9 % (11.5-14.5); WHITE BLOOD COUNT 3.5 10^3/ul (4.5-11.0)
--- NOTE | 2017-03-21 19:10 | CON ---
DATE: 03/21/2017 CHIEF COMPLAINT: Right side weakness. HISTORY OF PRESENT ILLNESS: A 72-year-old Omani woman with past medical history of hepatitis C, h ypertension, diabetes, had hepatitis C from transfusion in 1972 who presented to the ER on 03/20/2017 with complaints of onset of right-sided weakness. The patient usually walks around with a walker, bu t does have some generalized weakness for a long time, but suddenly felt more weak on the right than usual and some slurred speech and was slurring her words; therefore, came to the hospital for further evaluation. Given she was not a TPA candidate given that she had a left basal ganglia hemorrhage on her CT scan. Repeat CAT scan today showed stable appearance of the left basal ganglia hemorrhage an d decreased blood in the temporal horn. She still has some mild right-sided weakness. Blood pressur es are stable. She is slightly drowsy. She has pancytopenia. Hemoglobin is 9.5 today, which is low . Magnesium was 1.6, which is low and ammonia level is 63, which is elevated. She is on Xifaxan and lactulose. PAST MEDICAL HISTORY: History of diabetes, hypertension, hepatitis C from transfusion in 1992. REVIEW OF SYSTEMS: A 14-point review of systems is negative except for the HPI. FAMILY HISTORY: Noncontributory. SOCIAL HISTORY: No illicit drug use, smoking or ETOH abuse. ALLERGIES: No known drug allergies. MEDICATIONS: Reviewed via nurse's reconciliation sheet. FAMILY HISTORY: Noncontributory. PHYSICAL EXAMINATION: VITAL SIGNS: Temperature afebrile, pulse rate is 60, blood pressure 134/65, respiratory rate of 23. GENERAL: The patient is drowsy, in no acute distress. HEENT: Atraumatic, normocephalic. PERRLA. Extraocular muscles intact. NECK: Supple, no JVD, no adenopathy noted. LUNGS: Clear to auscultation. No adventitious sounds. HEART: S1, S2, normal rate and rhythm. No murmurs, rubs, or gallops. ABDOMEN: Soft, nontender, nondistended. Bowel sounds are present. EXTREMITIES: No clubbing, no cyanosis. Peripheral pulses 2+ felt bilaterally. Has bilateral lower extremity ____ pitting edema ____ diffusely on the legs. NEUROLOGIC: The patient is alert but drowsy. Follows simple commands in Omani. Speech is slight ly dysarthric. Cranial nerves: Mild right facial droop on cranial nerves; otherwise, the rest is in tact. MOTOR: Right-sided weakness, moves the left side without any difficulty. Toes are upgoing bilateral ly. SENSORY: Withdraws to localized noxious stimulus. Decreased light touch up to the calves bilaterall y. Decreased vibration of the toes. DTRs are 2+ throughout and 1 at both knees and absent at the an kles. COORDINATION AND GAIT: Deferred for now. LABORATORY DATA: Sodium is 140, potassium 4, chloride 109, carbon dioxide 26, BUN of 14, creatinine at 1. Random glucose 126 and ____. ASSESSMENT AND PLAN: This is a 72-year-old O[place]i woman with past medical history of hypertension, diabetes, hepatitis C from transfusion in 1972 who presented with complaints of sudden onset right-s ided weakness, found to have an acute left basal ganglial bleed which today's repeat CAT scan shows l ess blood in the temporal horns and stable acute left basal ganglia hemorrhage. Blood pressure is st able. At this time, her left basal ganglia hemorrhage is likely secondary to transient hypertension, superimposed underlying hepatitis C, making it very liable for the patient to have a bleed. At this time, recommend: 1. Follow up her H and H and platelet count given her pancytopenia and thrombocytopenia. Order her platelets. 2. Keep the blood pressure between 120-140 mmHg. 3. Monitor electrolytes and correct accordingly. 4. Monitor ammonia levels and continue with lactulose as well as Xifaxan for underlying hepatitis C. 5. Monitor electrolytes and correct accordingly and will need acute rehabilitation for right-sided w eakness and physical and occupational therapy assessment. No antiplatelet or any anticoagulation mouna gs. No antiplatelets for at least 3 weeks from the onset of bleed and continue with Protonix and seq uential compression devices for deep venous thrombosis prophylaxis. At this time, continue with curr ent present medical management. Thank you for this consult. Micha Arredondo MD cc: [phone] TT: 03/21/2017 19:10:06 Confirmation # [id number] Dictation # [id number] rn
[2017-03-22] MEDS: Insulin Reg-LOW-Coverage SC SCH ×4 (00:59→17:41)
[2017-03-22] MEDS: Sodium Chloride 0.9% 1,000 ML IV SCH ×2 (01:05→17:42)
--- NOTE | 2017-03-22 02:04 | CARD ---
APPROVED REPORT EKG Measurement Heart [id number] HI [id number] <Conclusion> Normal sinus rhythm Cannot rule out Anterior infarct, age undetermined Abnormal ECG
--- NOTE | 2017-03-22 05:45 | CP.PCM.PN ---
Subjective - Date & Time of Evaluation Date of Evaluation: 03/22/17 Time of Evaluation: 05:27 - Subjective Subjective: S:Patient was seen at bedside because nurse calls and asks for tylenol for generalized body ache. She is NPO, failed swallow evaluation, had feeding tube in. Patient does not respond to any questions. As per a relative of hers sitting next to her , she moans some times. Pertinent medical record was reviewed. O: Last Vital Signs 3 Temp 98.7 F 03/21/17 16:00 Pulse 66 03/21/17 18:50 Resp 25 H 03/21/17 18:50 BP 144/48 L 03/21/17 18:00 Pulse Ox 100 03/21/17 18:50 Awake, not in distress. HEENT: Feeding tube in place. LUNGS: Normal breathing patten. A:Generalized body ache. P:Tylenol 650 mg PO x 1 via feeding tube. Objective - Vital Signs/Intake and Output Vital Signs (last 24 hours): Temp Pulse Resp BP Pulse Ox 98.7 F 66 25 H 144/48 L 100 03/21/17 16:00 03/21/17 18:50 03/21/17 18:50 03/21/17 18:00 03/21/17 18:50 Intake and Output: 03/21/17 03/22/17 18:59 06:59 Intake Total 2120 0 Output Total 500 300 Balance 1620 -300 - Medications Medications: Current Medications Sodium Chloride (Sodium Chloride 0.9%) 1,000 mls @ 75 mls/hr IV .[id number] [facility] Last Admin: 03/22/17 01:05 Dose: 75 mls/hr Insulin Human Regular (Humulin R Low) 0 units SC Q6H [facility]ELINA PRN Reason: Protocol Last Admin: 03/22/17 00:59 Dose: 2 units Lactulose (Enulose) 20 gm PO Q8H [facility] Last Admin: 03/22/17 00:59 Dose: 20 gm Metoprolol Tartrate (Lopressor) 5 mg IVP Q6H PRN PRN Reason: SBP >180 Ondansetron HCl (Zofran Inj) 4 mg IVP Q6H PRN PRN Reason: Nausea/Vomiting Pantoprazole Sodium (Protonix Inj) 40 mg IVP DAILY [facility] Last Admin: 03/21/17 10:00 Dose: 40 mg Rifaximin (Xifaxan) 550 mg NG BID MELINA PRN Reason: Protocol Last Admin: 03/21/17 18:05 Dose: 550 mg - Labs Labs: 03/21/17 15:40 03/21/17 14:20 PT 13.4 Seconds (9.9-11.8) H 03/21/17 05:20 INR 1.24 (0.93-1.08) H 03/21/17 05:20 APTT 28.9 Seconds (23.7-30.8) 03/21/17 05:20
[2017-03-22 07:25] LABS: BASO # 0.01 K/mm3 (0.0-2.0); BASO % 0.3 % (0.0-3.0); EOS # 0.1 (0.0-0.7); EOS % 3.1 % (1.5-5.0); GRAN # 1.49 (1.4-6.5); GRAN % 51.2 % (50.0-68.0); HEMATOCRIT 25.6 % (36.0-48.0); MEAN CELL VOLUME 96.2 fL (80.0-105.0); MEAN CORPUSCULAR HGB CONC 33.2 g/dl (31.0-37.0); MEAN PLATELET VOLUME 10.5 fl (7.0-11.0); MONO # 0.4 (0.1-0.6); MONO % 12.4 % (1.0-6.0); PLATELET COUNT 104 10^3/uL (120.0-450.0); RED CELL DISTRIBUTION WIDTH 16.2 % (11.5-14.5)
[2017-03-22 07:37] LABS: INR 1.22 (0.93-1.08); PARTIAL THROMBOPLASTIN TIME 30.1 Seconds (23.7-30.8)
[2017-03-22 07:39] LABS: ALB/GLOB RATIO 0.7 (1.1-1.8); BILIRUBIN,TOTAL 1.8 mg/dL (0.2-1.3); CALCIUM 8.3 mg/dL (8.4-10.5); POTASSIUM 4.3 mmol/L (3.6-5.0); TOTAL PROTEIN 6.1 g/dL (5.8-8.3)
[2017-03-22 07:42] LABS: WHITE BLOOD COUNT 2.9 10^3/ul (4.5-11.0)
[2017-03-22 07:43] LABS: ADD MANUAL DIFF? NO
--- NOTE | 2017-03-22 08:29 | US ---
HISTORY: Elevated LFTs, H/O cirrhosis COMPARISON: None. TECHNIQUE: Sonographic evaluation of the abdomen. FINDINGS: LIVER: Measures 13.8 cm. There is diffuse increased echogenicity of the liver parenchyma. No mass. No intrahepatic bile duct dilatation. GALLBLADDER: The gallbladder is contracted. There is a 7 mm stone in the neck of the gallbladder. No evidence of pericholecystic fluid or positive sonographic Mota's sign. COMMON BILE DUCT: Measures 5.7 mm. No stones. No dilatation. PANCREAS: Unremarkable as visualized. No mass. No ductal dilatation. RIGHT KIDNEY: Measures 10.5cm. Normal echogenicity. No calculus, mass, or hydronephrosis. LEFT KIDNEY: Measures 10.5cm. Normal echogenicity. No calculus, mass, or hydronephrosis. SPLEEN: Enlarged and measures 15.3 cm. Normal echotexture. AORTA: No aneurysmal dilatation. IVC: Unremarkable. OTHER FINDINGS: None. IMPRESSION: Hepatic steatosis. Cholelithiasis Splenomegaly.
--- NOTE | 2017-03-22 11:34 | CP.PCM.PN ---
<Crow Kerr - Last Filed: 03/22/17 14:34> Subjective - Date & Time of Evaluation Date of Evaluation: 03/22/17 Time of Evaluation: 11:30 - Subjective Subjective: PGY4 GI Fellow Progress Note Patient seen and examined bedside this morning. Objective - Vital Signs/Intake and Output Vital Signs (last 24 hours): Temp Pulse Resp BP Pulse Ox 98.3 F 73 20 121/82 98 03/22/17 07:49 03/22/17 07:49 03/22/17 07:49 03/22/17 07:49 03/22/17 07:49 Intake and Output: 03/22/17 03/22/17 06:59 18:59 Intake Total 0 Output Total 300 Balance -300 - Medications Medications: Current Medications Sodium Chloride (Sodium Chloride 0.9%) 1,000 mls @ 75 mls/hr IV .[id number] [facility] Last Admin: 03/22/17 01:05 Dose: 75 mls/hr Insulin Human Regular (Humulin R Low) 0 units SC Q6H MELINA PRN Reason: Protocol Last Admin: 03/22/17 08:45 Dose: 2 units Lactulose (Enulose) 20 gm PO Q8H [facility] Last Admin: 03/22/17 10:05 Dose: 20 gm Metoprolol Tartrate (Lopressor) 5 mg IVP Q6H PRN PRN Reason: SBP >180 Ondansetron HCl (Zofran Inj) 4 mg IVP Q6H PRN PRN Reason: Nausea/Vomiting Pantoprazole Sodium (Protonix Inj) 40 mg IVP DAILY [facility] Last Admin: 03/22/17 10:05 Dose: 40 mg Rifaximin (Xifaxan) 550 mg NG BID MELINA PRN Reason: Protocol Last Admin: 03/22/17 10:05 Dose: 550 mg Tramadol HCl (Ultram) 50 mg PO Q8 PRN PRN Reason: Pain, moderate (4-7) Last Admin: 03/22/17 10:04 Dose: 50 mg - Labs Labs: 03/22/17 07:00 03/22/17 07:00 PT 13.2 Seconds (9.9-11.8) H 03/22/17 07:00 INR 1.22 (0.93-1.08) H 03/22/17 07:00 APTT 30.1 Seconds (23.7-30.8) 03/22/17 07:00 Assessment and Plan - Assessment and Plan (Free Text) Assessment: Patient is a 72yo Turkmen speaking female with PMHx significant for HTN, DM and HCV (treatment naive) who presented to the hospital with sudden onset right sided weakness and slurred speech. 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 -Cholelithiasis -DM -HTN Plan: -Continue therapy with Lactulose/Xifaxin as ordered; titrate lactulose to 2-3BM/ day -Follow neurology recommendations for hemorrhagic CVA -HCV Ab +; check genotype/viral load -Autoimmune work pending: DEANGELO, AMA, SMA, LKM-Ab -Patient would benefit from screening EGD/colonoscopy which can be performed as outpatient once she is more stable -Will eventually need triple phase liver CT, can be performed when acute issues resolve <Laura Pineda MD - Last Filed: 03/22/17 15:01> Objective - Vital Signs/Intake and Output Vital Signs (last 24 hours): Temp Pulse Resp BP Pulse Ox 98.3 F 73 20 121/82 98 03/22/17 07:49 03/22/17 07:49 03/22/17 07:49 03/22/17 07:49 03/22/17 07:49 Intake and Output: 03/22/17 03/22/17 06:59 18:59 Intake Total 0 Output Total 300 Balance -300 - Medications Medications: Current Medications Sodium Chloride (Sodium Chloride 0.9%) 1,000 mls @ 75 mls/hr IV .[id number] [facility] Last Admin: 03/22/17 01:05 Dose: 75 mls/hr Insulin Human Regular (Humulin R Low) 0 units SC Q6H [facility] PRN Reason: Protocol Last Admin: 03/22/17 14:00 Dose: 1 units Lactulose (Enulose) 20 gm PO Q8H [facility] Last Admin: 03/22/17 10:05 Dose: 20 gm Metoprolol Tartrate (Lopressor) 5 mg IVP Q6H PRN PRN Reason: SBP >180 Ondansetron HCl (Zofran Inj) 4 mg IVP Q6H PRN PRN Reason: Nausea/Vomiting Pantoprazole Sodium (Protonix Inj) 40 mg IVP DAILY [facility] Last Admin: 03/22/17 10:05 Dose: 40 mg Rifaximin (Xifaxan) 550 mg NG BID MELINA PRN Reason: Protocol Last Admin: 03/22/17 10:05 Dose: 550 mg Tramadol HCl (Ultram) 50 mg PO Q8 PRN PRN Reason: Pain, moderate (4-7) Last Admin: 03/22/17 10:04 Dose: 50 mg - Labs Labs: 03/22/17 07:00 03/22/17 07:00 PT 13.2 Seconds (9.9-11.8) H 03/22/17 07:00 INR 1.22 (0.93-1.08) H 03/22/17 07:00 APTT 30.1 Seconds (23.7-30.8) 03/22/17 07:00 Attending/Attestation - Attestation I have personally seen and examined this patient.: Yes I have fully participated in the care of the patient.: Yes I have reviewed all pertinent clinical information, including history, physical exam and plan: Yes Notes (Text): 03/22/17 14:57 Patient seen with GI fellow. This is a 72 yr old [place] F with HCv cirrhosis and portal HTn treatment naive admitted with left basal ganglia hemorrhagic infarct and is now right sided paraplegic. GI consult requested for altered mental status ? HE. Unable to assess patient as she does not answer questions. She has eyes rolling upwards at the bedside with daughters present. May have multi factorial effect of HE. Will increase lactulose dose to titrate to 2 BM/ day. Will benefit from repeat MRI brain to assess progression. As per daughter right hand movements worse today. Will follow
--- NOTE | 2017-03-22 14:49 | PN ---
DATE: 03/21/2017 The patient was seen on 03/21/2017 in ICU. She is stable. Clinically, no change from the day before. No distress, no fever, no nausea or vomiting. She still has NG tube in. PHYSICAL EXAMINATION: VITAL SIGNS: Temperature 98.3, heart rate 66, blood pressure ____, saturating 100%. HEAD AND NECK: Normal. No JVD, no thyromegaly. CHEST: Clear. Good air entry. CARDIAC: First and second sounds are normal. ABDOMEN: Soft, nontender. EXTREMITIES: No edema. NEUROLOGIC: She has right hemiplegia. She is able to talk and express her name and questions. MENTAL STATUS: She is alert, awake and oriented x 3. LABORATORY DATA: Shows white count 3.5, hemoglobin 9.5, hematocrit 28.2, platelets 125. Chemistry s hows sodium 140, potassium 4, chloride 109, bicarbonate 20, BUN 14, creatinine 1, blood sugar 126, ca lcium 8.9, magnesium is 2. The patient also had ammonia level 63. Repeat CT shows no significant jaspreet nge. No increase in the size of the bleeding. IMPRESSION AND PLAN: 1. Acute intracranial bleed, cerebrovascular accident, with resultant right hemiplegia. Continue NG feeding now. We are going to get speech therapy, speech eval and swallow eval. The patient will al so get physical therapy eval. Discussed with the family in detail. 2. Chronic hepatitis C, cirrhosis, probably will get an abdominal ultrasound, GI consult, ____. Will follow up clinically. 3. Coagulopathy, low platelets, status post transfusions. PT/INR is less than 1.5, which is good. W ill continue current treatment. She got vitamin D. She is on sequential compression devices for bot h legs. Continue current eval. Will get Dr. Hernandez for further evaluation. 4. The patient also has diabetes, using insulin. Continue insulin coverage for now. Also will cont inue on Xifaxan, lactulose for ____ encephalopathy. At this time, the patient seems stable. Continu e Lopressor every 6 hours for blood pressure and for heart rate. The patient seems stable. Continue current treatment. Follow up clinically. Giovany Richardson MD cc: [phone] TT: 03/22/2017 14:48:49 Confirmation # [id number] Dictation # [id number] rn
--- NOTE | 2017-03-22 14:52 | US ---
PROCEDURE: Bilateral carotid artery duplex ultrasound HISTORY: Carotid stenosis PHYSICIAN(S): Marko Fernandes MD. TECHNIQUE: Duplex sonography and color-flow Doppler were used to evaluate the carotid bifurcations and limited segments of the vertebral arteries bilaterally. The exam is somewhat limited by tortuous vessels. FINDINGS: There is mild smooth heterogeneous plaque noted at the carotid bifurcations bilaterally. The peak systolic velocity in the proximal right internal carotid artery is 89 cm/sec. This corresponds to a 20 to 39% proximal right ICA stenosis. Normal systolic velocities are noted in the proximal right external carotid artery. There is antegrade flow in the right vertebral artery. The peak systolic velocity in the proximal left internal carotid artery is 109 cm/sec. This corresponds to a 20 to 39% proximal left ICA stenosis. Normal systolic velocities are noted in the proximal left external carotid artery. There is antegrade flow in the left vertebral artery. IMPRESSION: 1. Bilateral 20-39% proximal ICA stenoses. 2. Antegrade flow in both vertebral arteries.
--- NOTE | 2017-03-22 15:28 | PN ---
DATE: 03/22/2017 REFERRING PHYSICIAN: Dr. Richardson. SUBJECTIVE: She is lying in the bed, head at 45 degrees. Has a nasogastric tube. Very emotional, c rying. IV infiltrate in the right hand has some swelling. No vomiting, no hematuria, no diarrhea, no leg swelling reported. OBJECTIVE: GENERAL: No acute distress. VITAL SIGNS: Temp is 98, heart rate is 73, respiratory rate is 20, blood pressure 121/82, pulse ox 9 8% on nasal cannula. HEENT: Moist mucous membrane. Crowded airway. Mallampati score is 4. NECK: Supple. No JVD. LUNGS: Has fair airflow with scattered rhonchi. HEART: S1, S2. ABDOMEN: Soft, nontender. No organomegaly. EXTREMITIES: There is no edema. NEUROLOGIC: Awake, alert. Does follow simple commands, aphasic. MEDICATIONS: She is on lactulose 20 grams p.o. q. 8 hours, insulin coverage, metoprolol tartrate 5 m g IV q. 6 hours p.r.n., Protonix 40 mg IV daily, IV fluid normal saline 75 mL per hour, Ultram 50 mg q. 8 hours p.r.n., Xifaxan 550 mg nasogastric tube twice a day and Zofran on a p.r.n. basis. LABORATORY DATA: Shows hemoglobin 8.5, hematocrit 25.6, WBC 2.9, platelet is 104. INR 1.22, PTT is 30. Sodium 140, potassium 4.3, chloride 109, bicarbonate 26, BUN 16, creatinine 1.1. Glucose is 183 , calcium is 8.3, AST 66, ALT 60, alkaline phosphatase 79. Ammonia level is 64, albumin is 2.5 . Hepatitis C antibody is positive. Repeat CAT scan of the head done yesterday shows left basal soledad glia hematoma, decreased blood in the temporal horn. IMPRESSION AND PLAN: Hemorrhagic cerebrovascular accident, hepatitis C antibodies are positive, hist ory of diabetes, hypertension, may have component of sleep apnea syndrome, oropharyngeal dysphagia re quiring feeding tube. Will suggest repeating a dysphagia evaluation. Aspiration precautions. Gastr ic prophylaxis. Sequential compression device to lower extremities. Continue IV fluids. Will place her on BiPAP 07/28 with 35 while sleeping. Will follow with you. Alexandre Benito MD cc: [phone] TT: 03/22/2017 15:27:23 Confirmation # [id number] Dictation # [id number] rn
--- NOTE | 2017-03-22 19:23 | CT ---
PROCEDURE: CT HEAD WITHOUT CONTRAST. HISTORY: R/O new stroke COMPARISON: Comparison is made to the previous study dated 03/21/2017 TECHNIQUE: Axial computed tomography images were obtained through the head/brain without intravenous contrast. Radiation dose: Total exam DLP = 725.84 MGy-cm. This CT exam was performed using one or more of the following dose reduction techniques: Automated exposure control, adjustment of the mA and/or kV according to patient size, and/or use of iterative reconstruction technique. FINDINGS: HEMORRHAGE: Re- demonstration of acute/ subacute left basal ganglia hematoma measures 14 x 12 millimeter. No evidence of other acute intraparenchymal hemorrhage. BRAIN: No mass effect or edema. Moderate white matter changes are again noted. VENTRICLES: Unremarkable. No hydrocephalus. CALVARIUM: Unremarkable. PARANASAL SINUSES: Mild mucosal thickening in the sinuses. MASTOID AIR CELLS: Unremarkable as visualized. No inflammatory changes. OTHER FINDINGS: None. IMPRESSION: Stable left basal ganglia 14 x 12 millimeter acute/subacute hematoma. No significant interval change in the brain since the previous exam.
[2017-03-22] MEDS: Lidocaine 5% Patch TD SCH (21:22)
--- NOTE | 2017-03-22 21:59 | CARD ---
APPROVED REPORT EXAM: Two-dimensional and M-mode echocardiogram with Doppler and color Doppler. INDICATION S/P ICH 2D DIMENSIONS Left Atrium (2D)4.3 (1.6-4.0cm)IVSd1.2 (0.7-1.1cm) LVDd4.3 (3.9-5.9cm)PWd1.1 (0.7-1.1cm) LVDs2.8 (2.5-4.0cm)FS (%) 34.5 % LVEF (%)63.9 (>50%) M-Mode DIMENSIONS Aortic Root2.40 (2.2-3.7cm)Aortic Cusp Exc.1.70 (1.5-2.0cm) Aortic Valve AoV Peak Rlzjavpm978.0cm/Tracee Peak GR.16mmHg Mitral Valve MV E Lwtfutrd984.0cm/sMV A Ndamrlqk61.1cm/sE/A ratio1.3 TDI E/Lateral E'0.0E/Medial E'0.0 Tricuspid Valve TR Peak [id number]/sRAP [id number] Peak Gr.30mmHg [id number] LEFT VENTRICLE The left ventricle is normal size. There is borderline concentric left ventricular hypertrophy. The left ventricular function is normal. The left ventricular ejection fraction is within the normal range. There is normal LV segmental wall motion. Transmitral Doppler flow pattern is Grade I-abnormal relaxation pattern. RIGHT VENTRICLE The right ventricle is normal size. There is normal right ventricular wall thickness. The right ventricular systolic function is normal. ATRIA The left atrium is mildly dilated. The right atrium is mildly dilated. AORTIC VALVE The aortic valve is mildly thickened. No aortic regurgitation is present. There is no aortic valvular stenosis. MITRAL VALVE The mitral valve is moderately thickened. Mitral regurgitation is mild. TRICUSPID VALVE There is mild pulmonary hypertension. PULMONIC VALVE There is trace to mild pulmonic valvular regurgitation. GREAT VESSELS The aortic root is normal in size. The IVC is dilated. The IVC collapses <50% with inspiration. <Conclusion> The left ventricle is normal size. There is borderline concentric left ventricular hypertrophy. The left ventricular function is normal. The left ventricular ejection fraction is within the normal range. There is normal LV segmental wall motion. Transmitral Doppler flow pattern is Grade I-abnormal relaxation pattern. Mitral regurgitation is mild. There is mild pulmonary hypertension.
[2017-03-23] MEDS: Insulin Reg-LOW-Coverage SC SCH ×3 (01:08→12:08)
[2017-03-23] MEDS: Sodium Chloride 0.9% 1,000 ML IV SCH (02:30)
[2017-03-23 07:54] LABS: EOS # 0.1 (0.0-0.7); EOS % 4.5 % (1.5-5.0); GRAN # 1.34 (1.4-6.5); GRAN % 50.8 % (50.0-68.0); HEMATOCRIT 25.4 % (36.0-48.0); LYMPH # 0.7 (1.2-3.4); MEAN CELL VOLUME 95.8 fL (80.0-105.0); MEAN CORPUSCULAR HEMOGLOBIN 32.1 pg (25.0-35.0); MEAN CORPUSCULAR HGB CONC 33.5 g/dl (31.0-37.0); MEAN PLATELET VOLUME 10.3 fl (7.0-11.0); MONO # 0.4 (0.1-0.6); MONO % 16.7 % (1.0-6.0); PLATELET COUNT 84 10^3/uL (120.0-450.0); RED CELL DISTRIBUTION WIDTH 15.8 % (11.5-14.5)
[2017-03-23 08:08] LABS: ALB/GLOB RATIO 0.7 (1.1-1.8); ALKALINE PHOSPHATASE 81 U/L (38-133); ALT/SGPT 65 U/L (7-56); AST/SGOT 70 U/L (15-39); BILIRUBIN,TOTAL 1.4 mg/dL (0.2-1.3); BLOOD UREA NITROGEN 13 mg/dL (7-21); CARBON DIOXIDE 25 mmol/L (21-33); CHLORIDE 109 mmol/L (98-107); GFR AFRICAN-AMERICAN > 60; GLUCOSE,RANDOM 203 mg/dL (70-110); POTASSIUM 4.2 mmol/L (3.6-5.0); SODIUM 139 mmol/L (132-148); TOTAL PROTEIN 6.2 g/dL (5.8-8.3)
[2017-03-23 08:29] LABS: ADD MANUAL DIFF? NO; WHITE BLOOD COUNT 2.6 10^3/ul (4.5-11.0)
--- NOTE | 2017-03-23 08:50 | US ---
PROCEDURE: Right upper extremity venous US CLINICAL HISTORY: Arm pain and swelling Evaluate for deep venous thrombosis. PHYSICIAN(S): Marko Fernandes M.D FINDINGS: The visualized rightinternal jugular vein is sonographically normal and compressible. No evidence of obstruction or thrombus is seen. The visualized segments of the right subclavian vein are patent with normal waveforms. No sonographic evidence of obstruction or thrombosis is seen. The visualized deep venous system of the proximal right upper extremity is sonographically normal and compressible. IMPRESSION: 1. No sonographic evidence for deep venous thrombosis in the visualized segments of the right upper extremity.
[2017-03-23 09:02] LABS: IRON 68 ug/dL (45-180)
[2017-03-23] MEDS ORDERED: Lidocaine 5% Patch TD SCH (10:00)
[2017-03-23] MEDS: Lidocaine 5% Patch TD SCH (10:50)
--- NOTE | 2017-03-23 11:14 | PN ---
DATE: 03/23/2017 NEUROLOGY FOLLOWUP CHIEF COMPLAINT: Follow up for right-sided weakness. SUBJECTIVE: The patient is seen and examined at bedside. The patient still has right-sided weakness . The repeat CAT scan showed stable left basal ganglia, 14 x 12 mm subacute hematoma. No significan t interval change from the previous examination. GI is on board. She is still pancytopenic, and her ammonia level is still elevated at 71, making her more encephalopathic. GI is on board. She is on lactulose. Ultrasound of her right upper extremity is negative for any DVT. Her platelet count is 8 4, which is low. PAST MEDICAL HISTORY: Diabetes, hypertension, hepatitis C from transfusion in 1992. use. REVIEW OF SYSTEMS: A 14-point review of systems is negative except for the HPI. FAMILY HISTORY: Noncontributory. SOCIAL HISTORY: No illicit drug use, smoking, or ETOH abuse. ALLERGIES: No known drug allergies. MEDICATIONS: Reviewed via nurse's reconciliation sheet. FAMILY HISTORY: Noncontributory. PHYSICAL EXAMINATION: VITAL SIGNS: Temperature 97.2, pulse rate ____6, blood pressure 1____2/79, respiratory rate of 18, o xygen saturation 100% via room air. GENERAL: The patient is lying in bed, drowsy, in no acute distress. HEENT: Atraumatic, normocephalic. PERRLA. Extraocular muscles intact. NECK: Supple. No JVD. No adenopathy noted. LUNGS: Clear to auscultation. No adventitious sounds. HEART: S1, S2, normal rate and rhythm. No murmurs, rubs, or gallops. ABDOMEN: Soft, nontender, nondistended. Bowel sounds are present. EXTREMITIES: No clubbing, no cyanosis. Peripheral pulses are 2+ felt bilaterally. Has bilateral lo wer extremity edema. NEUROLOGIC: Drowsy, alert, follows simple commands ____. Speech is dysarthric. Mild right facial d tone on cranial nerve examination. Otherwise the rest is intact. MOTOR: Right side weakness over the left side without any difficulty. Toes are upgoing bilaterally. SENSORY: Withdraws to localized noxious stimulus, light touch. Pinprick is decreased up to the calv es bilaterally. Decreased vibration at the toes. DEEP TENDON REFLEXES: 2+ throughout, 1 at both knees and absent at the ankles. COORDINATION AND GAIT: Deferred for now. LABORATORY DATA: WBC is 2.6, hemoglobin of 8.____, hematocrit 25.4, platelet count of 84. Ammonia l evel is 71. Sodium is 139, potassium 4.2, chloride 109, carbon dioxide 25, BUN of 13, creatinine 0.8 . Random glucose 203. ASSESSMENT AND PLAN: This is a 72-year-old [place] woman with past medical history of hypertension, diabetes mellitus, hepatitis C from transfusions in 1992 who presented with sudden onset of right-si ded weakness, found to have acute left basal ganglia bleed, and repeat CAT scan shows stable subacute ____ 14 mm x 12 mm hematoma with no significant interval change from previous examination. Her bloo d pressure is stable at this time. Her left basal ganglia is likely secondary to transient ____tensi on superimposed on underlying hepatitis C, making her coagulopathic, and very liable to bleed at this time. She also has elevated ammonia level, making her mostly hepatic encephalopathic as well. ____ to all her overall left basal ganglia bleed. At this time, recommend: 1. No antiplatelets for at least 3 weeks from the onset of the bleed. 2. Follow her H and H and platelet counts ____ pancytopenia and thrombocytopenia. Follow up with he matology. 3. Follow up with GI in regard to her hepatic encephalopathy given her elevated ____ of 71. She croft s have some mild asterixis on examination. 4. Monitor her electrolytes and correct accordingly. 5. She will likely need acute rehabilitation and speech and physical and occupational therapy. 6. Continue with her lactulose and Xifaxan for underlying hepatitis C and hepatic encephalopathy. A t this time, continue with current present medical management. No further neurologic workup ____ at this time. Micha Arredondo MD cc: [phone] TT: 03/23/2017 10:58:00 Confirmation # [id number] Dictation # [id number] 03/23/2017 10:13:26
--- NOTE | 2017-03-23 12:17 | CP.PCM.PN ---
<Crow Kerr - Last Filed: 03/23/17 12:13> Subjective - Date & Time of Evaluation Date of Evaluation: 03/23/17 Time of Evaluation: 07:15 - Subjective Subjective: PGY4 GI Fellow Progress Note Patient seen and examined bedside this morning. Daughter at bedside to assist with translation as patient is Albanian speaking. The patient remains confused and somnolent. She has not had a BM in about 24H. 12 system ROS limited given clinical condition. Objective - Vital Signs/Intake and Output Vital Signs (last 24 hours): Temp Pulse Resp BP Pulse Ox 97.2 F L 66 18 152/79 H 100 03/23/17 07:42 03/23/17 07:42 03/23/17 07:42 03/23/17 07:42 03/23/17 07:42 Intake and Output: 03/23/17 03/23/17 06:59 18:59 Intake Total 1180 Output Total 350 Balance 830 - Medications Medications: Current Medications Sodium Chloride (Sodium Chloride 0.9%) 1,000 mls @ 75 mls/hr IV .[id number] [facility] Last Admin: 03/23/17 02:30 Dose: 75 mls/hr Insulin Human Regular (Humulin R Low) 0 units SC Q6H [facility]ELINA PRN Reason: Protocol Last Admin: 03/23/17 12:08 Dose: 3 units Lactulose (Enulose) 30 gm PO Q1H [facility] Stop: 03/23/17 23:01 Lidocaine (Lidoderm) 2 ea TD DAILY [facility] Last Admin: 03/23/17 10:50 Dose: 2 ea Metoprolol Tartrate (Lopressor) 5 mg IVP Q6H PRN PRN Reason: SBP >180 Mupirocin (Bactroban Ointment) 1 gm TOP BID [facility] Last Admin: 03/23/17 10:48 Dose: 1 applic Ondansetron HCl (Zofran Inj) 4 mg IVP Q6H PRN PRN Reason: Nausea/Vomiting Pantoprazole Sodium (Protonix Inj) 40 mg IVP DAILY [facility] Last Admin: 03/23/17 10:50 Dose: 40 mg Rifaximin (Xifaxan) 550 mg NG BID [facility]EL[facility] PRN Reason: Protocol Last Admin: 03/23/17 10:49 Dose: 550 mg Tramadol HCl (Ultram) 50 mg PO Q8 PRN PRN Reason: Pain, moderate (4-7) Last Admin: 03/23/17 10:49 Dose: 50 mg - Labs Labs: 03/23/17 07:00 03/23/17 07:00 PT 13.2 Seconds (9.9-11.8) H 03/22/17 07:00 INR 1.22 (0.93-1.08) H 03/22/17 07:00 APTT 30.1 Seconds (23.7-30.8) 03/22/17 07:00 - Constitutional Appears: Confused - Eye Exam Additional comments: left pinpoint pupil - ENT Exam ENT Exam: Mucous Membranes Moist - Respiratory Exam Respiratory Exam: Clear to Ausculation Bilateral. absent: Rales, Rhonchi, Wheezes - Cardiovascular Exam Cardiovascular Exam: RRR, +S1, +S2 - GI/Abdominal Exam GI & Abdominal Exam: Soft, Normal Bowel Sounds. absent: Distended, Firm, Guarding, Rigid, Tenderness, Organomegaly - Extremities Exam Additional comments: RUE edematous - Neurological Exam Neurological Exam: Altered. absent: Alert, Oriented x3 - Skin Skin Exam: Dry, Warm Assessment and Plan - Assessment and Plan (Free Text) Assessment: Patient is a 72yo Albanian speaking female with PMHx significant for HTN, DM and HCV (treatment naive) who presented to the hospital with sudden onset right sided weakness and slurred speech. 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 -Cholelithiasis -DM -HTN Plan: -Lactulose 30gm PO Q1H until patient has 2 BM -Continue Xifaxin 550mg PO BID -Neurology recommendations for hemorrhagic CVA -HCV Ab +; Genotype/viral load pending -Autoimmune work pending: DEANGELO, AMA, SMA, LKM-Ab -Patient would benefit from screening EGD/colonoscopy which can be performed as outpatient once she is more stable -Will eventually need triple phase liver CT, can be performed when acute issues resolve -Diet advanced to puree with nectar thick liquids; encourage 1:1 when feeding <Twila Raza - Last Filed: 03/23/17 13:13> Objective - Vital Signs/Intake and Output Vital Signs (last 24 hours): Temp Pulse Resp BP Pulse Ox 97.2 F L 66 18 152/79 H 100 03/23/17 07:42 03/23/17 07:42 03/23/17 07:42 03/23/17 07:42 03/23/17 07:42 Intake and Output: 03/23/17 03/23/17 06:59 18:59 Intake Total 1180 Output Total 350 Balance 830 - Medications Medications: Current Medications Sodium Chloride (Sodium Chloride 0.9%) 1,000 mls @ 75 mls/hr IV .[id number] [facility] Last Admin: 03/23/17 02:30 Dose: 75 mls/hr Insulin Human Regular (Humulin R Low) 0 units SC Q6H [facility] PRN Reason: Protocol Last Admin: 03/23/17 12:08 Dose: 3 units Lactulose (Enulose) 30 gm PO Q1H [facility] Stop: 03/23/17 23:01 Last Admin: 03/23/17 13:04 Dose: 30 gm Lidocaine (Lidoderm) 2 ea TD DAILY [facility] Last Admin: 03/23/17 10:50 Dose: 2 ea Metoprolol Tartrate (Lopressor) 5 mg IVP Q6H PRN PRN Reason: SBP >180 Mupirocin (Bactroban Ointment) 1 gm TOP BID [facility] Last Admin: 03/23/17 10:48 Dose: 1 applic Ondansetron HCl (Zofran Inj) 4 mg IVP Q6H PRN PRN Reason: Nausea/Vomiting Pantoprazole Sodium (Protonix Inj) 40 mg IVP DAILY [facility] Last Admin: 03/23/17 10:50 Dose: 40 mg Rifaximin (Xifaxan) 550 mg NG BID [facility] PRN Reason: Protocol Last Admin: 03/23/17 10:49 Dose: 550 mg Tramadol HCl (Ultram) 50 mg PO Q8 PRN PRN Reason: Pain, moderate (4-7) Last Admin: 03/23/17 10:49 Dose: 50 mg - Labs Labs: 03/23/17 07:00 03/23/17 07:00 PT 13.2 Seconds (9.9-11.8) H 03/22/17 07:00 INR 1.22 (0.93-1.08) H 03/22/17 07:00 APTT 30.1 Seconds (23.7-30.8) 03/22/17 07:00 Attending/Attestation - Attestation I have personally seen and examined this patient.: Yes I have fully participated in the care of the patient.: Yes I have reviewed all pertinent clinical information, including history, physical exam and plan: Yes Notes (Text): Patient seen and examined with GI fellow. Agree with his note as documented above with the following additions/exceptions. This is a 72 yom with HTN, DM and HCV cirrhosis admitted with altered mental status and slurred speech, found to have basal ganglia intracranial hemorrhage. Likely multifactorial component to alteration in mental status including stroke, possible HE. She remains somnolent at times. Continue rifaximin, titrate lactulose to 2-3 BM/day (none reportedly yesterday). Monitor LFTs. Current MELD-Na=10. She will ultimately need EGD for variceal screening as well as triple phase CT of liver, which can be done electively pending resolution of acute medical issues. 03/23/17 13:11
--- NOTE | 2017-03-23 16:21 | PN ---
DATE: 03/22/2017 The patient came from CT. She is complaining of back pain, lower back pain, especially ____. She al so has right arm swelling. Just came for ultrasound of her right upper extremity ____. The patient has no chest pain, not shortness of breath. PHYSICAL EXAMINATION: GENERAL: She is alert, awake, looking lethargic a little bit, but she responds properly to ____. Th e patient is otherwise stable. VITAL SIGNS: Temperature 98.5, heart rate 66, blood pressure 152/75, respiration 20, saturation 99% on room air. HEAD AND NECK: Normal. No JVD, no thyromegaly. CHEST: Clear. CARDIAC: First sound, second sound normal. ABDOMEN: Soft, nontender. EXTREMITIES: No edema. SCDs on. Right upper extremity mildly edematous. There is some skin excoriat ion on the dorsum of the hand from the tape around IV site. NEUROLOGIC: Right hemiplegia. The patient has ____ power in the right lower extremity. LABORATORY DATA: 1. The patient had swallow eval; she passed, pureed diet. 2. Blood work shows white count 2.9, hemoglobin 8.5, hematocrit 25.6, platelets 104. 3. The patient had chemistry which shows sodium 140, potassium 4.3, chloride 109, bicarb 26, BUN 16, creatinine 1.1, blood sugar 183, calcium 8.3, and patient had iron saturation as normal, her bilirub in total 1.8. Her AST and ALT are mildly elevated at 111 and 64. IMPRESSION AND PLAN: 1. Acute basal ganglia bleed with ____ right hemiplegia, etiology unclear. The patient will need an MRI. Will discuss with the neurology consult, Dr. Arredondo. At this time, continue current treatment . NG tube is still in; will discontinue that in the morning. If the patient is tolerating and able to swallow meds, we will do that. 2. Right upper arm extremity swelling. Negative venous Doppler. Probably patient slept on that levon e. Will keep the hand elevated. Will give Bactroban to the ulcerated area and also will follow up o n that. 3. Hepatic encephalopathy. The patient does have end-stage liver disease with recurrent encephalopa thy in the past. She continues her Xifaxan and lactulose. 4. Diabetes. Continue insulin coverage. Continue the same regimen. Will monitor it more frequentl y. 5. Patient placement. This patient will have a permanent disability with ____; needs rehab for 4 we eks at least to see how much residual deficit she will end up with. If continues to be a problem, wi ll discuss with the family about placement choices. 6. We will continue current treatment. Will follow up clinically. Continue IV Protonix. Continue SCDs for DVT prophylaxis. Giovany Richardson MD cc: [phone] TT: 03/23/2017 11:19:37 Confirmation # [id number] Dictation # [id number] mn 03/23/2017 15:21:23
--- NOTE | 2017-03-23 18:36 | US ---
HISTORY: Leg pain and swelling. Evaluate for DVT PHYSICIAN(S): Marko Fernandes MD. TECHNIQUE: Duplex sonography and color-flow Doppler with graded compression were used to evaluate the deep venous systems of both lower extremities. FINDINGS: The visualized deep venous systems of both lower extremities are sonographically normal and compressible. Normal wave forms and augmentation are seen. There is no sonographic evidence for deep venous thrombosis in the visualized segments of both lower extremities. IMPRESSION: No sonographic evidence for deep venous thrombosis in the visualized segments of both lower extremities.
--- NOTE | 2017-03-23 20:03 | CP.PCM.PN ---
Subjective - Date & Time of Evaluation Date of Evaluation: 03/23/17 Time of Evaluation: 20:02 - Subjective Subjective: Family members requested to see patient. As per them patient was having sob. Patient was seen at bed side. Has been moaning all the time. As per family members , she was having sob 15 minutes ago but now it is ok.But is having body aches. VSS 99, 94 ,99% RA 176/81 72 year old woman was admitted with right facial droop, right sided upper and lower extremities weakness. Has PMH of IDDM, HTN ,hypothyroidism, osteoarthritis, Hepatitis C from blood transfusion , hepatic encephalopathy, hystrectomy. Objective - Vital Signs/Intake and Output Vital Signs (last 24 hours): Temp Pulse Resp BP Pulse Ox 99 F 94 H 20 176/81 H 99 03/23/17 19:57 03/23/17 19:57 03/23/17 19:57 03/23/17 19:57 03/23/17 19:57 - Medications Medications: Current Medications Sodium Chloride (Sodium Chloride 0.9%) 1,000 mls @ 75 mls/hr IV .[id number] [facility] Last Admin: 03/23/17 02:30 Dose: 75 mls/hr Insulin Human Regular (Humulin R) 0 units SC ACHS [facility] PRN Reason: Protocol Lactulose (Enulose) 30 gm PO TID [facility] Lidocaine (Lidoderm) 2 ea TD DAILY [facility] Last Admin: 03/23/17 10:50 Dose: 2 ea Metoprolol Tartrate (Lopressor) 5 mg IVP Q6H PRN PRN Reason: SBP >180 Mupirocin (Bactroban Ointment) 1 gm TOP BID [facility] Last Admin: 03/23/17 17:08 Dose: 1 applic Ondansetron HCl (Zofran Inj) 4 mg IVP Q6H PRN PRN Reason: Nausea/Vomiting Pantoprazole Sodium (Protonix Inj) 40 mg IVP DAILY [facility] Last Admin: 03/23/17 10:50 Dose: 40 mg Rifaximin (Xifaxan) 550 mg NG BID [facility] PRN Reason: Protocol Last Admin: 03/23/17 17:08 Dose: 550 mg Tramadol HCl (Ultram) 50 mg PO Q8 PRN PRN Reason: Pain, moderate (4-7) Last Admin: 03/23/17 10:49 Dose: 50 mg - Labs Labs: 03/23/17 07:00 03/23/17 07:00 PT 13.2 Seconds (9.9-11.8) H 03/22/17 07:00 INR 1.22 (0.93-1.08) H 03/22/17 07:00 APTT 30.1 Seconds (23.7-30.8) 03/22/17 07:00 - Constitutional Appears: Well, No Acute Distress - Head Exam Head Exam: ATRAUMATIC - Eye Exam Eye Exam: Normal appearance - ENT Exam ENT Exam: Normal External Ear Exam - Neck Exam Neck Exam: Normal Inspection - Respiratory Exam Respiratory Exam: NORMAL BREATHING PATTERN - Cardiovascular Exam Cardiovascular Exam: absent: JVD - GI/Abdominal Exam GI & Abdominal Exam: absent: Distended - Rectal Exam Rectal Exam: Deferred - Extremities Exam Extremities Exam: Normal Inspection - Back Exam Back Exam: NORMAL INSPECTION - Neurological Exam Neurological Exam: Alert - Psychiatric Exam Psychiatric exam: Normal Affect, Normal Mood - Skin Skin Exam: Normal Color Assessment and Plan - Assessment and Plan (Free Text) Assessment: Body aches. CVA. Right hemiparesis. IDDM. OA. Hypothyroidism. Plan: Tramodol 50 mg PO stat. Continue present management.
[2017-03-23 20:47] LABS: ALB/GLOB RATIO 0.7 (1.1-1.8); ALKALINE PHOSPHATASE 71 U/L (38-133); ALT/SGPT 62 U/L (7-56); AST/SGOT 62 U/L (15-39); BILIRUBIN,TOTAL 1.1 mg/dL (0.2-1.3); BLOOD UREA NITROGEN 10 mg/dL (7-21); CALCIUM 7.2 mg/dL (8.4-10.5); CARBON DIOXIDE 23 mmol/L (21-33); CHLORIDE 113 mmol/L (98-107); GFR AFRICAN-AMERICAN > 60; GLUCOSE,RANDOM 210 mg/dL (70-110); POTASSIUM 3.6 mmol/L (3.6-5.0); SODIUM 141 mmol/L (132-148); TOTAL PROTEIN 5.5 g/dL (5.8-8.3)
[2017-03-23] MEDS: Insulin Regular 1 UNITS/0.01 ML ML SC SCH (21:01)
--- NOTE | 2017-03-24 00:54 | CON ---
DATE: 03/23/[address]. Espinoza on the medical floor. CHIEF COMPLAINT: Pancytopenia. HISTORY OF PRESENT ILLNESS: The patient is a 72-year-old Chinese female, speaks little [place]ander, with family at the bedside, resting comfortably, known to be status post an acute intracranial bleed with hemiplegia on the right and dysarthria with history of hepatitis C positivity with hepatic encephalop athy, diabetes mellitus history. Dr. Espinoza has asked to consult regarding her pancytopenic indices with the patient in no acute distress at this time. ALLERGIES: No known allergies. MEDICATIONS: At home included insulin, Xifaxan, Protonix, metoprolol, Synthroid, lactulose, Feosol, Vasotec. PAST MEDICAL HISTORY: Insulin-dependent diabetes mellitus, chronic hepatitis C, hypothyroidism, and hepatic encephalopathy history, severe arthritis, incontinence. Now recently diagnosed acute intracr anial bleed. FAMILY HISTORY AND SOCIAL HISTORY: Noncontributory. REVIEW OF SYSTEMS: Essentially negative to questioning except as above. PHYSICAL EXAMINATION: VITAL SIGNS: Temperature 99, pulse 94, respirations 20, blood pressure 176/81, pulse ox 99%. GENERAL: She opens her eyes to command. Family at the bedside, translating, with of the right side, dysarthria. NECK: Supple. HEART: Regular rate. LUNGS: Clear. ABDOMEN: Soft, nontender. EXTREMITIES: on the right. NEUROLOGIC: Right hemiplegia with slurred speech. SKIN: Otherwise, warm, dry. LABORATORY DATA: The patient's labs were done on admission, white blood cell count of 3.4, today 2.6 with an absolute neutrophil count of 1.34, hemoglobin 8.5, on admission was 11.2, with a platelet co unt of 79,000, on admission it was 56,000. Her INR yesterday was 1.22. Chem metabolic panel from to day shows a nonfasting glucose of 210, hemoglobin A1c of 5.1, calcium 7.2, AST of 62, ALT of 62 also. Her antimicrobial antibody was negative with DEANGELO screen pending. Serology shows hepatitis C antibo dy positive, hepatitis A, B negative. She had other testing done including extremity ultrasounds yes terday, which were read as no evidence of DVT in both lower extremities and no DVT in the right upper extremity. She had carotid ultrasounds, which were done 2 days prior, which showed bilateral 20-39% proximal ICA stenosis, antegrade flow in both vertebral arteries. She had a CAT scan of her head, 3 readings, first one on 03/20/2017. CAT scan of the head that day showed acute hemorrhage in the reg ion of the posterior limb of the internal capsule on the left with small amount of blood in both temp oral horns. Her most recent CT of the head was done yesterday and it was read as stable left basal g anglia 14 x 12 mm acute hematoma and no significant change since previous exam. An echocardiogram wa s done yesterday and it was read as mild pulmonary hypertension, ejection fraction normal range. She had abdominal ultrasound done 2 days prior and it was read as hepatic steatosis, cholelithiasis, spl enomegaly. ASSESSMENT: Pancytopenia, hepatitis C positivity, acute intracranial bleed, right hemiplegia, dysart hria, diabetes mellitus, hepatic encephalopathy. PLAN: After conversation with Dr. Espinoza, we will order for a liver, spleen scan with a pancytopeni c workup, consideration for Neupogen to be given as indicated. Will type and cross for 2 units of pa cked red cells on hold with no further transfusions of platelets unless there is active bleeding or t he platelet count is below 20,000 with symptoms as the patient has been transfused 4 units of frozen platelets at this point. The prognosis for this patient is guarded. We will monitor clinically and with labs as above, with consideration for a consult with infectious disease air quality consultant as indicated for her hepatitis C. Gavin Merritt MD cc: [phone] TT: 03/24/2017 00:54:23 Confirmation # [id number] Dictation # [id number] mn
[2017-03-24 06:50] LABS: ADD MANUAL DIFF? NO
[2017-03-24 07:14] LABS: BASO # 0.01 K/mm3 (0.0-2.0); BASO % 0.3 % (0.0-3.0); EOS # 0.2 (0.0-0.7); EOS % 5.1 % (1.5-5.0); GRAN # 1.46 (1.4-6.5); GRAN % 49.7 % (50.0-68.0); HEMATOCRIT 25.9 % (36.0-48.0); LYMPH # 0.9 (1.2-3.4); LYMPH % 30.6 % (22.0-35.0); MEAN CELL VOLUME 96.3 fL (80.0-105.0); MEAN CORPUSCULAR HEMOGLOBIN 32.3 pg (25.0-35.0); MEAN CORPUSCULAR HGB CONC 33.6 g/dl (31.0-37.0); MONO # 0.4 (0.1-0.6); MONO % 14.3 % (1.0-6.0); PLATELET COUNT 79 10^3/uL (120.0-450.0); RED CELL DISTRIBUTION WIDTH 15.8 % (11.5-14.5)
[2017-03-24 07:16] LABS: RETIC% 4.34 % (0.5-1.5)
[2017-03-24 07:22] LABS: WHITE BLOOD COUNT 2.9 10^3/ul (4.5-11.0)
[2017-03-24 07:30] LABS: ALB/GLOB RATIO 0.7 (1.1-1.8); ALKALINE PHOSPHATASE 76 U/L (38-133); ALT/SGPT 64 U/L (7-56); AST/SGOT 66 U/L (15-39); BILIRUBIN,TOTAL 1.4 mg/dL (0.2-1.3); BLOOD UREA NITROGEN 10 mg/dL (7-21); CALCIUM 8.1 mg/dL (8.4-10.5); CARBON DIOXIDE 25 mmol/L (21-33); CHLORIDE 109 mmol/L (98-107); GFR AFRICAN-AMERICAN > 60; GLUCOSE,RANDOM 118 mg/dL (70-110); SODIUM 138 mmol/L (132-148); TOTAL PROTEIN 5.9 g/dL (5.8-8.3)
[2017-03-24] MEDS: Insulin Regular 1 UNITS/0.01 ML ML SC SCH ×3 (08:25→17:37)
--- NOTE | 2017-03-24 08:25 | CP.PCM.PN ---
<Crow Kerr - Last Filed: 03/24/17 08:22> Subjective - Date & Time of Evaluation Date of Evaluation: 03/24/17 Time of Evaluation: 06:30 - Subjective Subjective: PGY4 GI Fellow Progress Note Patient seen and examined bedside this morning. The patient's daughter is bedside to assist with translation. Patient more alert today adn denies any complaints other than chronic back pain. Passed multiple BM yesterday. Some SOB overnight which resolved spontaneously. 12 system ROS performed and negative except where stated. Objective - Vital Signs/Intake and Output Vital Signs (last 24 hours): Temp Pulse Resp BP Pulse Ox 99 F 94 H 20 176/81 H 99 03/23/17 19:57 03/23/17 19:57 03/23/17 19:57 03/23/17 19:57 03/23/17 19:57 Intake and Output: 03/24/17 03/24/17 06:59 18:59 Intake Total 0 Output Total 7 Balance -7 - Medications Medications: Current Medications Sodium Chloride (Sodium Chloride 0.9%) 1,000 mls @ 75 mls/hr IV .[id number] [facility] Last Admin: 03/23/17 02:30 Dose: 75 mls/hr Insulin Human Regular (Humulin R) 0 units SC ACHS [facility] PRN Reason: Protocol Last Admin: 03/23/17 21:01 Dose: Not Given Lactulose (Enulose) 30 gm PO TID [facility] Last Admin: 03/24/17 07:30 Dose: Not Given Lidocaine (Lidoderm) 2 ea TD DAILY [facility] Last Admin: 03/23/17 10:50 Dose: 2 ea Metoprolol Tartrate (Lopressor) 5 mg IVP Q6H PRN PRN Reason: SBP >180 Mupirocin (Bactroban Ointment) 1 gm TOP BID [facility] Last Admin: 03/23/17 17:08 Dose: 1 applic Ondansetron HCl (Zofran Inj) 4 mg IVP Q6H PRN PRN Reason: Nausea/Vomiting Pantoprazole Sodium (Protonix Inj) 40 mg IVP DAILY [facility] Last Admin: 03/23/17 10:50 Dose: 40 mg Rifaximin (Xifaxan) 550 mg NG BID [facility] PRN Reason: Protocol Last Admin: 03/23/17 17:08 Dose: 550 mg Tramadol HCl (Ultram) 50 mg PO Q8 PRN PRN Reason: Pain, moderate (4-7) Last Admin: 03/23/17 20:58 Dose: 50 mg - Labs Labs: 03/24/17 06:40 03/24/17 06:40 PT 13.2 Seconds (9.9-11.8) H 03/22/17 07:00 INR 1.22 (0.93-1.08) H 03/22/17 07:00 APTT 30.1 Seconds (23.7-30.8) 03/22/17 07:00 - Constitutional Appears: No Acute Distress, Chronically Ill - Eye Exam Eye Exam: EOMI - ENT Exam ENT Exam: Mucous Membranes Moist - Respiratory Exam Respiratory Exam: Clear to Ausculation Bilateral. absent: Rales, Rhonchi, Wheezes - Cardiovascular Exam Cardiovascular Exam: RRR, +S1, +S2 - GI/Abdominal Exam GI & Abdominal Exam: Soft, Normal Bowel Sounds. absent: Distended, Firm, Guarding, Rigid, Tenderness, Organomegaly - Extremities Exam Additional comments: RUE edematous, cannot move - Neurological Exam Neurological Exam: Alert, Awake, Oriented x3 Neuro motor strength exam: Right Upper Extremity: 0 - Psychiatric Exam Psychiatric exam: Normal Affect, Normal Mood - Skin Skin Exam: Dry, Warm Assessment and Plan - Assessment and Plan (Free Text) Assessment: Patient is a 72yo Italian speaking female with PMHx significant for HTN, DM and HCV (treatment naive) who presented to the hospital with sudden onset right sided weakness and slurred speech. 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 -Cholelithiasis -DM -HTN Plan: -Patient had multiple BM yesterday -Lactulose 30g PO TID; titrate to 2-3 BM per day, must avoid constipation -Continue Xifaxin 550mg PO BID -Neurology recommendations for hemorrhagic CVA -HCV Ab +; Genotype/viral load pending -AMA, SMA negative -DEANGELO, LKM-Ab pending -Patient would benefit from screening EGD/colonoscopy which can be performed as outpatient once she is more stable -Will eventually need triple phase liver CT, can be performed when acute issues resolve -Can remove NGT and stop tube feeding as pt tolerating PO <Petey Hoyos - Last Filed: 03/24/17 13:15> Objective - Vital Signs/Intake and Output Vital Signs (last 24 hours): Temp Pulse Resp BP Pulse Ox 98.9 F 88 21 145/77 98 03/24/17 06:00 03/24/17 06:00 03/24/17 06:00 03/24/17 06:00 03/24/17 06:00 Intake and Output: 03/24/17 03/24/17 06:59 18:59 Intake Total 0 120 Output Total 7 Balance -7 120 - Medications Medications: Current Medications Sodium Chloride (Sodium Chloride 0.9%) 1,000 mls @ 75 mls/hr IV .[id number] [facility] Last Admin: 03/23/17 02:30 Dose: 75 mls/hr Insulin Human Regular (Humulin R) 0 units SC ACHS [facility] PRN Reason: Protocol Last Admin: 03/24/17 12:10 Dose: Not Given Lactulose (Enulose) 30 gm PO TID [facility] Last Admin: 03/24/17 09:14 Dose: 30 gm Lidocaine (Lidoderm) 2 ea TD DAILY [facility] Last Admin: 03/24/17 09:15 Dose: 2 ea Metoprolol Tartrate (Lopressor) 5 mg IVP Q6H PRN PRN Reason: SBP >180 Mupirocin (Bactroban Ointment) 1 gm TOP BID [facility] Last Admin: 03/24/17 09:22 Dose: 1 applic Ondansetron HCl (Zofran Inj) 4 mg IVP Q6H PRN PRN Reason: Nausea/Vomiting Pantoprazole Sodium (Protonix Inj) 40 mg IVP DAILY [facility] Last Admin: 03/24/17 09:15 Dose: 40 mg Rifaximin (Xifaxan) 550 mg NG BID [facility] PRN Reason: Protocol Last Admin: 03/24/17 09:21 Dose: 550 mg Tramadol HCl (Ultram) 50 mg PO Q8 PRN PRN Reason: Pain, moderate (4-7) Last Admin: 03/23/17 20:58 Dose: 50 mg - Labs Labs: 03/24/17 06:40 03/24/17 06:40 PT 13.2 Seconds (9.9-11.8) H 03/22/17 07:00 INR 1.22 (0.93-1.08) H 03/22/17 07:00 APTT 30.1 Seconds (23.7-30.8) 03/22/17 07:00 Attending/Attestation - Attestation I have personally seen and examined this patient.: Yes I have fully participated in the care of the patient.: Yes I have reviewed all pertinent clinical information, including history, physical exam and plan: Yes Notes (Text): 03/24/17 13:09 I have seen and examined patient with GI fellow, patient's daughter at bedside. No acute events overnight. She endorses ongoing lower back pain but denies abdominal pain, nausea, vomiting, fever/chills. She continues to receive NGT feeds, though she was able to tolerate puree consistency diet PO yesterday without difficulty. She had three loose bowel movements yesterday. HCV decompensated cirrhosis DM / HTN Acute hemorrhagic CVA with resulting right sided weakness, dysphagia, dysarthria - Continue with lactulose (titrate so patient has 3 bowel movements daily) and xifaxan for prevention of HE - Follow up neurology recommendations - Follow up additional HCV studies and autoimmune panel - Suggest dedicated triple phase liver CT following resolution of acute neurologic symptoms - Since patient has been able to tolerate puree diet, would suggest removal of NGT to allow for more patient comfort. Strict aspiration precautions during feeding with head of bed elevation. - Patient would benefit from elective endoscopic evaluation for variceal and colon cancer screening which can be performed as outpatient - No ongoing GI issues, will sign off case. Please reconsult as necessary, thank you.
[2017-03-24 08:27] VITALS: TEMP 98.9; O2SAT 98
[2017-03-24] MEDS: Lidocaine 5% Patch TD SCH (09:15)
--- NOTE | 2017-03-24 10:58 | CP.PCM.CON ---
History of Present Illness - History of Present Illness History of Present Illness: 72 year old female with PMH of HTN, DM, chronic hepatitis C with no history of treatment with history of hepatic encephalopathy and decompensated liver cirrhosis is currently admitted in [facility] because of CVA with right sided weakness and slurred speech and is currently being treated medically for this. The patient also has bouts of confusion and somnolence and is currently also being treated for hepatic encephalopathy with Xifaxan and Lactulose. Infectious diseases consult is requested to further evaluate her Hepatitis C. Currently the patient is mostly asleep but wakes up to tactile stimuli but full review of systems is unobtainable because of the patient's mental status. There is no note of fever, has loose bowel movement but is being given Lactulose, no convulsions, no vomiting. Review of Systems - Review of Systems Systems not reviewed;Unavailable: Altered Mental Status Past Patient History - Infectious Disease Hx of Infectious Diseases: None - Tetanus Immunizations Tetanus Immunization: Unknown - Past Social History Smoking Status: Never Smoked - CARDIAC Hx Cardiac Disorders: No Hx Congestive Heart Failure: No Hx Hypercholesterolemia: No Hx Hypertension: Yes - PULMONARY Hx Chronic Obstructive Pulmonary Disease (COPD): No Hx Pneumonia: No - NEUROLOGICAL HX Cerebrovascular Accident: No - HEENT Hx HEENT Problems: Yes Hx Cataracts: Yes (BILATERAL SX) - RENAL Hx Renal Failure: No - ENDOCRINE/METABOLIC Hx Diabetes Mellitus Type 1: Yes Hx Diabetes Mellitus Type 2: No Hx Hypothyroidism: No - HEMATOLOGICAL/ONCOLOGICAL Hx Cancer: No - INTEGUMENTARY Hx Dermatological Problems: Yes (MULTIPLE BRUISING,BILATERAL LE PITTING EDEMA) - MUSCULOSKELETAL/RHEUMATOLOGICAL Hx Arthritis: No Hx Rheumatoid Arthritis: No - GASTROINTESTINAL Hx Gastroesophageal Reflux: No - GENITOURINARY/GYNECOLOGICAL Hx Genitourinary Disorders: No - PSYCHIATRIC Hx Psychophysiologic Disorder: No Hx Depression: No Hx Emotional Abuse: No Hx Physical Abuse: No Hx Substance Use: No - SURGICAL HISTORY Hx Surgeries: Yes (BILATERAL CATARACT SURGERY) Hx Hysterectomy: Yes - ANESTHESIA Hx Anesthesia: Yes Hx Anesthesia Reactions: No Hx Malignant Hyperthermia: No Meds Allergies/Adverse Reactions: Allergies Allergy/AdvReac Type Severity Reaction Status Date / Time No Known Allergies Allergy Verified 03/20/17 18:12 - Medications Medications: Current Medications Sodium Chloride (Sodium Chloride 0.9%) 1,000 mls @ 75 mls/hr IV .[id number] [facility] Last Admin: 03/23/17 02:30 Dose: 75 mls/hr Insulin Human Regular (Humulin R) 0 units SC ACHS [facility] PRN Reason: Protocol Last Admin: 03/23/17 21:01 Dose: Not Given Lactulose (Enulose) 30 gm PO TID [facility] Lidocaine (Lidoderm) 2 ea TD DAILY [facility] Last Admin: 03/23/17 10:50 Dose: 2 ea Metoprolol Tartrate (Lopressor) 5 mg IVP Q6H PRN PRN Reason: SBP >180 Mupirocin (Bactroban Ointment) 1 gm TOP BID [facility] Last Admin: 03/23/17 17:08 Dose: 1 applic Ondansetron HCl (Zofran Inj) 4 mg IVP Q6H PRN PRN Reason: Nausea/Vomiting Pantoprazole Sodium (Protonix Inj) 40 mg IVP DAILY [facility] Last Admin: 03/23/17 10:50 Dose: 40 mg Rifaximin (Xifaxan) 550 mg NG BID [facility] PRN Reason: Protocol Last Admin: 03/23/17 17:08 Dose: 550 mg Tramadol HCl (Ultram) 50 mg PO Q8 PRN PRN Reason: Pain, moderate (4-7) Last Admin: 03/23/17 20:58 Dose: 50 mg Physical Exam - Constitutional Appears: Non-toxic, No Acute Distress - Head Exam Head Exam: NORMAL INSPECTION - Neck Exam Neck exam: Negative for: Lymphadenopathy, Meningismus - Respiratory Exam Respiratory Exam: Decreased Breath Sounds - Cardiovascular Exam Cardiovascular Exam: +S1, +S2 - GI/Abdominal Exam GI & Abdominal Exam: Distended (some distention noted), Soft. absent: Guarding , Rebound, Rigid, Tenderness Results - Vital Signs Recent Vital Signs: Last Vital Signs Temp 99 F 03/23/17 19:57 Pulse 94 H 03/23/17 19:57 Resp 20 03/23/17 19:57 BP 176/81 H 03/23/17 19:57 Pulse Ox 99 03/23/17 19:57 - Labs Result Diagrams: 03/24/17 06:40 03/24/17 06:40 Labs: Laboratory Results - last 24 hr 03/22/17 03/22/17 03/23/17 07:00 07:00 06:30 WBC RBC Hgb Hct MCV MCH MCHC RDW Plt Count Manual Plt Count MPV Gran % Lymph % (Auto) [place] % (Auto) Eos % (Auto) Baso % (Auto) Gran # Lymph # [place] # Eos # Baso # Sodium Potassium Chloride Carbon Dioxide Anion Gap BUN Creatinine Est GFR ( Amer) Est GFR (Non-Af Amer) Random Glucose Calcium Iron 68 TIBC 244 L % Saturation 28 Ferritin 405.0 Total Bilirubin AST ALT Alkaline Phosphatase Ammonia Total Protein Albumin Globulin Albumin/Globulin Ratio Anti-Mitochondrial Ab Negative Smooth Muscle Ab Titer TEST NOT PERFORMED Anti-Smooth Muscle Ab Negative 03/23/17 03/23/17 03/23/17 07:00 07:00 07:00 WBC 2.6 L* RBC 2.65 L Hgb 8.5 L Hct 25.4 L MCV 95.8 MCH 32.1 MCHC 33.5 RDW 15.8 H Plt Count 84 L Manual Plt Count 79 L* MPV 10.3 Gran % 50.8 Lymph % (Auto) 28.0 [place] % (Auto) 16.7 H Eos % (Auto) 4.5 Baso % (Auto) 0.0 Gran # 1.34 L Lymph # 0.7 L [place] # 0.4 Eos # 0.1 Baso # 0.00 Sodium 139 Potassium 4.2 Chloride 109 H Carbon Dioxide 25 Anion Gap 9 L BUN 13 Creatinine 0.8 Est GFR ( Amer) > 60 Est GFR (Non-Af Amer) > 60 Random Glucose 203 H Calcium 8.0 L Iron TIBC % Saturation Ferritin Total Bilirubin 1.4 H AST 70 H ALT 65 H Alkaline Phosphatase 81 Ammonia Total Protein 6.2 Albumin 2.5 L Globulin 3.7 Albumin/Globulin Ratio 0.7 L Anti-Mitochondrial Ab Smooth Muscle Ab Titer Anti-Smooth Muscle Ab 03/23/17 03/23/17 07:30 20:30 WBC RBC Hgb Hct MCV MCH MCHC RDW Plt Count Manual Plt Count MPV Gran % Lymph % (Auto) [place] % (Auto) Eos % (Auto) Baso % (Auto) Gran # Lymph # [place] # Eos # Baso # Sodium 141 Potassium 3.6 Chloride 113 H Carbon Dioxide 23 Anion Gap 9 L BUN 10 Creatinine 0.7 Est GFR ( Amer) > 60 Est GFR (Non-Af Amer) > 60 Random Glucose 210 H Calcium 7.2 L Iron TIBC % Saturation Ferritin Total Bilirubin 1.1 AST 62 H ALT 62 H Alkaline Phosphatase 71 Ammonia 71 H Total Protein 5.5 L Albumin 2.2 L Globulin 3.3 Albumin/Globulin Ratio 0.7 L Anti-Mitochondrial Ab Smooth Muscle Ab Titer Anti-Smooth Muscle Ab Assessment & Plan - Assessment and Plan (Free Text) Plan: Assessment Hepatitis C without history of treatment, with probable association of decompensated liver cirrhosis and hepatic encephalopathy acute hemorrhagic CVA with right sided weakness and speech affectation HTN DM Plan Will follow up HCV RNA PCR (virus load), Hepatitis C genotype If Hepatitis C is going to be treated, it is best done as an outpatient because of need for further work up and administrative issues will monitor clinically
--- NOTE | 2017-03-24 11:35 | PN ---
DATE: 03/23/2017 The patient had a CVA. She still has the NG tube feeding. She passed swallow eval. She is alert, a wake, oriented x 3. She is in bed, no distress. PHYSICAL EXAMINATION: VITAL SIGNS: Temperature 98.3, heart rate 99, blood pressure 155/74, respirations 18, saturation 97% . HEAD AND NECK: Normal. No JVD, no thyromegaly. CHEST: Clear, good air entry. CARDIAC: First sound, second sound normal. ABDOMEN: Soft, obese, nontender. EXTREMITIES: No edema. SCDs on. NEUROLOGIC: Right hemiplegia. LABORATORY FINDINGS: Sodium 141, potassium 3.6, chloride 113, bicarb 23, BUN 10, creatinine 0.7, blo od sugar 210, calcium 7.2. Liver enzymes: AST and ALT elevated, ammonia level 71. The patient also has total protein 6.2 and her albumin 2.5. The patient also had ultrasound of her lower extremities, which came back negative. Also, ultrasound of the abdomen shows fatty liver, cholelithiasis, splenomegaly. Head CT: No change from previous C T, stable. Stable the bleeding site left basal ganglia. IMPRESSION: 1. Acute intracranial bleed with right hemiplegia, stable. The patient clinically passed swallow ev aluation. We will discontinue the nasogastric tube. Continue lactulose. Continue current medicatio ns. Pureed diet seems tolerated well. 2. Chronic liver disease, hepatitis C, cirrhosis, splenomegaly, high ammonia. Continue lactulose, X ifaxan. 3. Hypertension, diabetes, stable. Continue insulin coverage. PLAN: To transfer the patient to acute rehabilitation and follow up clinically. She also had a low grade fever. We will get Dr. Noam Plaza to evaluate the patient for hepatitis C, at the same time any possible infection, aspiration. Continue current treatment. Giovany Richardson MD cc: [phone] TT: 03/24/2017 11:34:53 Confirmation # [id number] Dictation # [id number]
--- NOTE | 2017-03-24 12:55 | CP.PCM.PCO ---
Physician Communication Note - Physician Communication Note Physician Communication Note: PT WILL NEED ACUTE REHAB. C/W PRESENT MX.
--- NOTE | 2017-03-24 14:30 | NM ---
PROCEDURE: Liver-spleen scan HISTORY: pancytopenia COMPARISON: 03/21/2017 abdominal ultrasound TECHNIQUE: 5.0 mCi technetium 99 M sulfur colloid administered intravenously. FINDINGS: Liver: Heterogeneous uptake in the liver identified. No focal abnormalities. Spleen: Splenomegaly and increased accumulation of radionuclide in the spleen relative to the liver. Reticuloendothelial system: Shift of activity visualized osseous structures. IMPRESSION: Heterogeneous uptake in the liver consistent with hepatocellular disease. Splenomegaly, increased uptake in the spleen and reticuloendothelial system consistent with hepatocellular dysfunction without discrete/focal hepatic abnormality.
[2017-03-24 17:12] VITALS: BP 145/76; PULSE 80; RESP 24
[2017-03-24 22:11] LABS: LKM-1 Ab (IgG) <=20.0 U (<=20.0)
--- NOTE | 2017-03-25 06:43 | PN ---
DATE: 03/24/2017 The patient is in room 362, bed 1. SUBJECTIVE: A 72-year-old female admitted with acute CVA, has an NG tube feeding, had swallowing tavares l which was improved. The patient's tube is going to be discontinued. The patient is awake, alert, and oriented x 3, in no significant distress. The patient speaks only her [place] language. Most of the information is obtained through the family and the hospital records. We were consulted to see th e patient for anemia, thrombocytopenia, pancytopenia, along with hepatosplenomegaly all of which are related to her chronic hep C which may need to be treated. Hepatosplenomegaly was further evaluated with a liver, spleen scan which shows patient has heterogeneous uptake in the liver with lateralizati on of the sulfur colloid to the bone marrow in the ____ suggestive of primary hepatic cirrhosis. PHYSICAL EXAMINATION: VITAL SIGNS: T-max is 98.4, heart rate is 99, blood pressure is 155/74, respirations 18, O2 sat is 9 7%. HEENT: Head is normocephalic, atraumatic. No thyromegaly is noted. Oropharynx reveals no oropharyn geal lesions. LUNGS: Clear to percussion and auscultation. HEART: Reveals S1 and S2 to be normal. ABDOMEN: Soft, obese, nontender. No rebound, rigidity or guarding is noted. EXTREMITIES: Reveal no cyanosis, clubbing or edema. The patient has SCD on. NEUROLOGIC: The patient has right hemiplegia. LABORATORY DATA: Reveals a sodium of 141, K is 3.6, chloride 113, bicarb 23, BUN 10, creatinine 0.7, blood sugar of 210. Calcium 7.2, AST and ALT are elevated with ammonia of 71, total protein is 6.2 with an albumin of 2.5. The patient tends to be pancytopenic with both suppression with of the white count and platelet count significantly. ASSESSMENT NOTES AND PLAN: The patient has acute intracranial bleed with right hemiplegia, chronic l iver disease with hepatitis C, cirrhosis, splenomegaly, encephalopathy secondary to high ammonia, on lactulose and Xifaxan, hypertension. Most likely the bleed is related to the hypertension rather joellen n the thrombocytopenia. The patient is being transferred to an acute rehab, would recommend continui ng followup on the counts to see if they are not dropping further. Once the patient is decided to be started on any antiviral therapy, one of the things that could be given for the thrombocytopenia is a pill, Promacta, with the understanding that liver function is compromised. I will speak to Dr. Tyrone drew and discuss the management should the counts falling further beyond the levels they are at this _ ___. The patient's current platelet count appears to be at least above 50,000 consistently and no ma melecio intervention at this time is required. White count is 2.9 and the ANC at this time is 1400, hemo globin is 8.7, hematocrit 25.9. Thank you for allowing me to participate in the management of this patient. Melva Espinoza MD cc: [phone] TT: 03/25/2017 06:43:20 Confirmation # [id number] Dictation # [id number] tn
[2017-03-27 13:07] LABS: HEPARIN-IND PLATELET AB Negative (Negative)
--- NOTE | 2017-03-27 18:52 | DS ---
HISTORY OF PRESENT ILLNESS: The patient was admitted with acute intracranial bleed with right hemipl egia. The patient has been seen by neurologist, Dr. Micha Arredondo. The patient was seen also by GI f or her hepatitis C, liver cirrhosis, splenomegaly -- and . The patient also seen by Dr. Espinoza for her thrombocytopenia and pancytopenia. She had also multiple testing, including a chest x-ray, which shows no active disease; ultrasound of the upper extremity and lower extremity, w hich was negative for any clots; a CT of the head, which shows left intracranial bleed in basal gangl ia area. She also had a carotid ultrasound and echocardiography also. Echocardiogram shows good LV function, no masses, no clots. The patient also had 20% to 39% carotid stenosis, which is clinically insignificant, and antegrade flow of both carotid arteries. Liver, spleen scan: There is heterogeno us uptake, which was consistent with hepatocellular disease, splenomegaly, increased uptake in the sp ashanti and reticuloendothelial system consistent with hepatocellular dysfunction without discrete hepat ic abnormalities. The patient was stable on day of discharge. PHYSICAL EXAMINATION: VITAL SIGNS: Temperature 98, heart rate 80, blood pressure 145/76, blood pressure 24, saturation 98% . HEAD AND NECK: Normal. No JVD, no thyromegaly, NG tube out. CHEST: Clear. CARDIAC: First and second sounds are normal. ABDOMEN: Soft, nontender. EXTREMITIES: No edema. NEUROLOGIC: Right hemiplegia. The patient able to talk and swallow. LABORATORY DATA: White count 2.9, hemoglobin 8.7, platelets 79. Chemistry: She had sodium of 138, potassium 4, chloride 109, bicarb 25, BUN 10, creatinine 0.8, blood sugar 118, calcium 8.1, total amadou irubin 1.4, AST 66, ALT 64, alkaline phosphatase is normal. DISCHARGE DIAGNOSES: 1. Acute intracranial bleed, probably due to chronic hypertension and atherosclerosis of the arterie s and also patient does have, which could make the bleeding worse, low platelets and chronic liver di sease. 2. Chronic liver disease. 3. Hepatitis C. 4. Splenomegaly. 5. Ammoniacal encephalopathy. The patient currently and continuously has been on Xifaxan and lactulo se, which she has been doing well with that. Continue that. 6. Hypertension. Continue current medications. She is taking metoprolol 25 b.i.d. and she is takin g VIVIEN inhibitors, enalapril 2.5 mg daily. Blood pressure seems stable. We targeted blood pressure a t 150/80; we do not want it lower than that. 7. Diabetes-insulin. Using insulin. Continue Humalog 5 units before meals. 8. The patient also has hypothyroidism. We will continue levothyroxine 25 mcg per day. PLAN: The patient needs to follow up, continue vitamins, continue also Lantus insulin 20 units daily . Continue vitamin D, folic acid, Lasix 20 mg p.o. daily, lactulose, Xifaxan, potassium and will foll ow up after rehabilitation. The patient will be discharged to [facility] for acute rehab and discussed the case with the daughter of the patient and will continue followup. Giovany Richardson MD cc: [phone] TT: 03/27/2017 18:52:05 ln
== END 2017-03-24 19:37 | DRG 65 ==
LOC: ED 16:22 → ERH 17:25 → CCU 18:29 → 3RNO 03-21 20:36
PROVIDERS: ADMIT Internal Medicine; ATTEND Internal Medicine
PROC: 30233R1 Transfusion of Nonautologous Platelets into Peripheral Vein, Percutaneous Approach (ICD-10-PCS; principal; 2017-03-20)
PROC: 5A09357 Assistance with Respiratory Ventilation, Less than 24 Consecutive Hours, Continuous Positive Airway Pressure (ICD-10-PCS; 2017-03-22)
DX: I61.8 Other nontraumatic intracerebral hemorrhage (principal); G81.91 Hemiplegia, unspecified affecting right dominant side; R47.1 Dysarthria and anarthria; R29.810 Facial weakness; D61.818 Other pancytopenia; K76.6 Portal hypertension; R13.10 Dysphagia, unspecified; K74.60 Unspecified cirrhosis of liver; K72.90 Hepatic failure, unspecified without coma; E11.9 Type 2 diabetes mellitus without complications; D68.9 Coagulation defect, unspecified; E03.9 Hypothyroidism, unspecified; B18.2 Chronic viral hepatitis C; I10 Essential (primary) hypertension; M19.90 Unspecified osteoarthritis, unspecified site; K80.20 Calculus of gallbladder without cholecystitis without obstruction; M79.89 Other specified soft tissue disorders; R16.2 Hepatomegaly with splenomegaly, not elsewhere classified; G89.29 Other chronic pain; Z79.4 Long term (current) use of insulin; Z90.710 Acquired absence of both cervix and uterus

== ENCOUNTER 2017-05-11 18:44 | Inpatient (IN) | payer MEDICARE, MEDICAID ==
[2017-05-11] MEDS ORDERED: Morphine 4 mg/ml ISec IVP STA (19:18)
--- NOTE | 2017-05-11 19:29 | ED PDOC ---
Arrival/HPI - General Chief Complaint: Abdominal Pain Time Seen by Provider: 05/11/17 18:55 Historian: Patient - History of Present Illness Narrative History of Present Illness (Text): 05/11/17 19:21 A 72 year old female, whose past medical history includes hepatitis c, liver cirrhosis, diabetes, hypertension and CVA with residual right sided weakness, was sent into the emergency department from [facility] for diffuse abdominal pain. Patient reports she has been experiencing intermittent abdominal pain for some time now but states her pain worsened today. Patient notes fever, nausea and one episode of non-bilious non-bloody vomiting. Family reports patient always has non-bloody diarrhea because she takes Laxatives. Patient denies any urinary symptoms, chest pain, shortness of breath, cough or any other complaints. PMD: Dr. Richardson Symptom Course: Intermittent, Worsening (today) Quality: Other Context: Other ([facility]) Past Medical History - Provider Review Nursing Documentation Reviewed: Yes - Past History Past History: Unable to Obtain - Infectious Disease Hx of Infectious Diseases: None - Tetanus Immunization Tetanus Immunization: Unknown - Cardiac Hx Cardiac Disorders: Yes Hx Hypertension: Yes - Pulmonary Hx Respiratory Disorders: No Hx Chronic Obstructive Pulmonary Disease (COPD): No Hx Pneumonia: No - Neurological Hx Neurological Disorder: Yes HX Cerebrovascular Accident: Yes - HEENT Hx HEENT Disorder: Yes Hx Cataracts: Yes (BILATERAL SX) - Renal Hx Renal Disorder: No Hx Renal Failure: No - Endocrine/Metabolic Hx Endocrine Disorders: Yes Hx Diabetes Mellitus Type 2: Yes Hx Hypothyroidism: Yes - Hematological/Oncological Hx Blood Disorders: No Hx Cancer: No - Integumentary Hx Dermatological Disorder: No - Musculoskeletal/Rheumatological Hx Musculoskeletal Disorders: Yes Hx Arthritis: Yes (OA) - Gastrointestinal Hx Gastrointestinal Disorders: No Hx Gastroesophageal Reflux: No - Genitourinary/Gynecological Hx Genitourinary Disorders: No - Psychiatric Hx Psychophysiologic Disorder: No Hx Depression: No Hx Emotional Abuse: No Hx Physical Abuse: No Hx Substance Use: No - Past Surgical History Past Surgical History: Unable to Obtain - Surgical History Hx Hysterectomy: Yes - Anesthesia Hx Anesthesia: Yes Hx Anesthesia Reactions: No Hx Malignant Hyperthermia: No - Suicidal Assessment Feels Threatened In Home Enviroment: No Family/Social History - Physician Review Nursing Documentation Reviewed: Yes Family/Social History: No Known Family HX Smoking Status: Never Smoked Hx Alcohol Use: No Hx Substance Use: No Hx Substance Use Treatment: No Allergies/Home Meds Allergies/Adverse Reactions: Allergies No Known Allergies Allergy (Verified 05/11/17 18:52) Home Medications: Home Meds Medication Instructions Recorded Confirmed Rifaximin [Xifaxan] 550 mg PO BID 05/31/12 05/11/17 Insulin Glargine,Hum.rec.anlog 10 unit SC HS 08/30/12 05/11/17 [Lantus] Insulin Lispro [Humalog (Insulin 0 unit SQ .8AM, 5PM 03/20/17 05/11/17 Lispro)] Escitalopram Oxalate [Lexapro] 5 mg PO DAILY 05/11/17 05/11/17 Lactulose [Lactulose] 40 gm PO TID 05/11/17 05/11/17 Lidocaine [Lidocaine] 1 patch TD DAILY 05/11/17 05/11/17 Loratadine [Loratadine] 10 mg PO DAILY 05/11/17 05/11/17 Losartan Potassium [Losartan 25 mg PO DAILY 05/11/17 05/11/17 Potassium] Pantoprazole [Protonix EC Tab] 40 mg PO DAILY 05/11/17 05/11/17 SITagliptin [Januvia] 100 mg PO DAILY 05/11/17 05/11/17 Vitamin B Complex [Vitamin B 1 tab PO DAILY 05/11/17 05/11/17 Complex] metFORMIN [glucOPHAGE] 500 mg PO BID 05/11/17 05/11/17 traMADol [Ultram] 50 mg PO Q8 PRN 05/11/17 05/11/17 traZODone [Desyrel] 25 mg PO HS 05/11/17 05/11/17 Review of Systems - Physician Review All systems were reviewed & negative as marked: Yes - Review of Systems Constitutional: Fevers Respiratory: absent: SOB Cardiovascular: absent: Chest Pain Gastrointestinal: Abdominal Pain, Diarrhea, Nausea, Vomiting Genitourinary Female: absent: Dysuria, Frequency, Hematuria, Urine Output Changes Physical Exam Vital Signs Reviewed: Yes Vital Signs Temp Pulse Resp BP Pulse Ox 05/11/17 22:31 109 H 18 107/49 L 94 L 05/11/17 22:15 112 H 18 112/59 L 95 05/11/17 21:45 111 H 16 102/54 L 05/11/17 18:55 102.9 F H 123 H 22 95 05/11/17 18:53 102.9 F H Temperature: Febrile Pulse: Tachycardic Respiratory Rate: Normal Appearance: Positive for: Well-Appearing, Non-Toxic, Comfortable Pain Distress: None Mental Status: Positive for: Alert and Oriented X 3 Finger Stick Blood Glucose: 362 - Systems Exam Head: Present: Atraumatic, Normocephalic Pupils: Present: PERRL Extroacular Muscles: Present: EOMI Conjunctiva: Present: Normal Mouth: Present: Moist Mucous Membranes Neck: Present: Normal Range of Motion Respiratory/Chest: Present: Clear to Auscultation, Good Air Exchange. No: Respiratory Distress, Accessory Muscle Use Cardiovascular: Present: Regular Rate and Rhythm, Normal S1, S2. No: Murmurs Abdomen: Present: Tenderness (Diffuse tenderness with palpation), Normal Bowel Sounds, Guarding. No: Distention, Peritoneal Signs Back: Present: Normal Inspection Upper Extremity: Present: Normal Inspection. No: Cyanosis, Edema Lower Extremity: Present: Normal Inspection. No: Edema Neurological: Present: GCS=15, CN II-XII Intact, Speech Normal Skin: Present: Warm, Dry, Normal Color. No: Rashes Psychiatric: Present: Alert, Oriented x 3, Normal Insight, Normal Concentration Medical Decision Making ED Course and Treatment: 05/11/17 19:21 Impression: A 72 year old female with diffuse abdominal pain. Patient notes nausea, non- bilious non-bloody vomiting and diarrhea. Differential Diagnosis included but are not limited to: Appendicitis vs. Diverticulitis vs. Gastroenteritis vs Spontaneous Bacterial Peritonitis rule out sepsis Plan: -- Abdomen and Pelvis CT -- Chest xray -- EKG -- Labs -- Blood and Urine culture -- Urinalysis -- Tylenol, Morphine, Zofran and IV fluids -- Reassess and disposition Progress Notes: EKG shows sinus tachycardia at [address]-segment elevations, normal intervals, normal axis. Interpreted by me. Report Date: 05/11/17 21:39 EXAM: CT Abdomen and Pelvis With Intravenous Contrast Dictated and Authenticated by: Gino Hoffman MD IMPRESSION: 1. Colitis, nonspecific. Consider inflammatory or infectious etiologies. 2. Apparent appendicitis. Clinical correlation is needed. 3. RIGHT pleural effusion with compressive atelectasis. 4. Cirrhosis with portal hypertension. 5. Cholelithiasis with nonspecific pericholecystic fluid. 6. Pancreatic lesion, indeterminate. Recommend MRI for further characterization. 7. Probable fibroid uterus. 8. Kidney lesion, indeterminate. Recommend nonemergent ultrasound or MRI. 9. Incidental/non-acute findings are described above. Thank you for allowing us to participate in the care of your patient. Case discussed with Dr. Richardson who agrees to an ICU consult. Requested Dr. Beckford for Surgery; Dr. Hernandez for GI; and Dr. Jain for ID. Discussed with Dr. Patel who will evaluate patient. HR 112bpm and BP 102/54 after 2 L of fluids. Pain controlled. 05/11/17 22:04 Case discussed with Psychiatric Attendant Dr. Randolph who will discuss the case with Dr. Hopkins. Pending call back from Dr. Hopkins. 05/11/17 22:39 Dr[address] Patel will place patient in the ICU. - Lab Interpretations Lab Results: 05/11/17 18:59 05/11/17 18:59 Lab Results 05/11/17 21:25: Urine Color Dark yellow, Urine Appearance Sl cloudy, Urine pH 6.0, Ur Specific [place] >= 1.030, Urine Protein 100 H, Urine Glucose (UA) 250 H , Urine Ketones Trace H, Urine Blood Moderate H, Urine Nitrate Negative, Urine Bilirubin Small H, Urine Urobilinogen 0.2, Ur Leukocyte Esterase Negative, Urine RBC 2 - 5, Urine WBC 0 - 2, Ur Epithelial Cells 1 - 3, Urine Bacteria Trace 05/11/17 20:02: Ammonia 36 H 05/11/17 20:02: Blood Type A POSITIVE, Antibody Screen Negative, BBK History Checked Patient has bt 05/11/17 18:59: Sodium 135, Chloride 99, Potassium 4.1, Carbon Dioxide 27, Anion Gap 13, BUN 16, Creatinine 0.9, Est GFR ( Amer) > 60, Est GFR (Non- Af Amer) > 60, Random Glucose 295 H, Calcium 8.3 L, Phosphorus 3.3, Magnesium 1.5 L, Total Bilirubin 2.7 H, AST 52 H, ALT 47, Alkaline Phosphatase 98, Total Protein 6.8, Albumin 2.7 L, Globulin 4.1, Albumin/Globulin Ratio 0.7 L 05/11/17 18:59: pO2 30, VBG pH 7.33, VBG pCO2 53.0, VBG HCO3 27.9, VBG Total CO2 29.5 H, VBG O2 Sat (Calc) 63.4, VBG Base Excess 1.0, VBG Potassium 4.2, Sodium 136.0, Chloride 101.0, Glucose 303 H, Lactate 5.3 H*, FiO2 21.0, Venous Blood Potassium 4.2 05/11/17 18:59: PT 14.0 H, INR 1.30 H, APTT 28.6 05/11/17 18:59: WBC 2.3 L* D, RBC 3.49 L, Hgb 11.2 L, Hct 33.5 L, MCV 96.0, MCH 32.1, MCHC 33.4, RDW 15.0 H, Plt Count 57 L, MPV 12.0 H, Neutrophils % (Manual) 70, Band Neutrophils % 15 H*, Lymphocytes % (Manual) 13 L, Monocytes % (Manual) 4 I have reviewed the lab results: Yes - RAD Interpretation Radiology Orders: 05/11/17 19:15 CHEST PORTABLE [RAD] Stat 05/11/17 19:17 ABD & PELVIS IV CONTRAST ONLY [CT] Stat - Medication Orders Current Medication Orders: Sodium Chloride (Sodium Chloride 0.9%) 1,000 mls @ 999 mls/hr IV .Q1H1M STA Stop: 05/11/17 22:50 Last Admin: 05/11/17 22:07 Dose: 999 mls/hr Discontinued Medications Acetaminophen (Tylenol 325mg Tab) 975 mg PO STAT STA Stop: 05/11/17 19:26 Last Admin: 05/11/17 21:08 Dose: 975 mg Sodium Chloride 2,450 ml/ IV (SUPPLIES) 2,450 mls @ 4,898.82 mls/hr IV ONCE ONE PRN Reason: 60 ML/KG/HR Stop: 05/11/17 19:16 Last Admin: 05/11/17 19:53 Dose: 4,898.82 mls/hr Metronidazole (Flagyl) 500 mg in 100 mls @ 100 mls/hr IVPB STAT STA PRN Reason: Protocol Stop: 05/11/17 21:02 Last Admin: 05/11/17 20:39 Dose: 100 mls/hr Vancomycin HCl (Vancomycin 1gm) 1 gm in 250 mls @ 167 mls/hr IVPB STAT STA PRN Reason: Protocol Stop: 05/11/17 21:32 Piperacillin Sod/Tazobactam Sod (Zosyn 4.5 Gm In Ns 100ml) 4.5 gm in 100 mls @ 200 mls/hr IVPB STAT STA PRN Reason: Protocol Stop: 05/11/17 20:32 Last Admin: 05/11/17 22:13 Dose: 200 mls/hr Iohexol (Omnipaque 350 100 Ml) Confirm Administered Dose 350 mg .ROUTE .STK-MED ONE Stop: 05/11/17 20:19 Lactulose (Enulose) 20 gm PO ONCE STA Stop: 05/11/17 20:53 Last Admin: 05/11/17 22:13 Dose: 20 gm Morphine Sulfate (Morphine) 4 mg IVP STAT STA Stop: 05/11/17 19:19 Last Admin: 05/11/17 19:53 Dose: 4 mg Re-Assess: KATE Pain Assessment Document 05/11/17 20:53 HI (Rec: 05/11/17 21:33 MA [id number]) Pain Reassessment Is this a pain reassessment? Yes Sleep Is patient sleeping during reassessment? No Presence of Pain Presence of Pain No Ondansetron HCl (Zofran Inj) 4 mg IVP STAT STA Stop: 05/11/17 19:19 Last Admin: 05/11/17 19:54 Dose: 4 mg - Scribe Statement The provider has reviewed the documentation as recorded by the Benigno Aragon Provider Ronaldoibe Attestation: All medical record entries made by the Benigno were at my direction and personally dictated by me. I have reviewed the chart and agree that the record accurately reflects my personal performance of the history, physical exam, medical decision making, and the department course for this patient. I have also personally directed, reviewed, and agree with the discharge instructions and disposition. Disposition/Present on Arrival - Present on Arrival Any Indicators Present on Arrival: No History of DVT/PE: No History of Uncontrolled Diabetes: No Urinary Catheter: No History of Decub. Ulcer: No History Surgical Site Infection Following: None - Disposition Have Diagnosis and Disposition been Completed?: Yes Diagnosis: Severe sepsis, Colitis, Appendicitis Disposition: HOSPITALIZED Disposition Time: 21:56 Patient Plan: Admission Patient Problems: Current Active Problems Problem Status Onset Severe sepsis Acute Colitis Acute Appendicitis Acute Condition: FAIR Discharge Instructions (ExitCare): Sepsis (ED) Referrals: Giovany Richardson MD [Primary Care Provider] - Follow up with primary
[2017-05-11 19:40] LABS: VENOUS BLOOD GAS PO2 30 mm/Hg (30-55); VENOUS BLOOD PH 7.33 (7.32-7.43)
[2017-05-11 19:49] LABS: ALB/GLOB RATIO 0.7 (1.1-1.8); ALBUMIN 2.7 g/dL (3.0-4.8); ALT/SGPT 47 U/L (7-56); AST/SGOT 52 U/L (15-39); BLOOD UREA NITROGEN 16 mg/dL (7-21); CALCIUM 8.3 mg/dL (8.4-10.5); GFR AFRICAN-AMERICAN > 60; GFR NON-AFRICAN AMERICAN > 60; MAGNESIUM 1.5 mg/dL (1.7-2.2)
[2017-05-11 19:54] LABS: HEMOGLOBIN 11.2 gm/dL (12.0-16.0); MEAN CORPUSCULAR HEMOGLOBIN 32.1 pg (25.0-35.0); MEAN CORPUSCULAR HGB CONC 33.4 g/dl (31.0-37.0); PLATELET COUNT 57 10^3/uL (120.0-450.0); RBC 3.49 10^6/uL (3.5-6.1)
[2017-05-11 20:00] LABS: INR 1.3 (0.93-1.08); PARTIAL THROMBOPLASTIN TIME 28.6 Seconds (23.7-30.8)
[2017-05-11 20:01] LABS: WHITE BLOOD COUNT 2.3 10^3/ul (4.5-11.0)
[2017-05-11] MEDS ORDERED: metroNIDAZOLE IV 500 mg/100 ml 500 MG/100 ML BAG IVPB STA (20:03)
[2017-05-11] MEDS ORDERED: Piperacill/Tazo 4.5gm in NS 4.5 GM/100 ML BAG IVPB STA (20:03)
[2017-05-11] MEDS ORDERED: Vancomycin 1gm in NS 250ml 1 GM/250 ML BAG IVPB STA (20:03)
[2017-05-11] MEDS ORDERED: Iohexol 350 MG/100 ML VIAL ONE (20:18)
[2017-05-11 21:00] LABS: NEUTROPHIL 70 % (50.0-70.0)
[2017-05-11 21:01] LABS: BAND 15 % (0-2); LYMPHOCYTE 13 % (22.0-35.0); MONOCYTE 4 % (1.0-6.0)
--- NOTE | 2017-05-11 21:39 | CT ---
EXAM: CT Abdomen and Pelvis With Intravenous Contrast CLINICAL HISTORY: 72 years old, female; Pain; Abdominal pain; Generalized; Prior surgery; Surgery type: Hysterectomy; Additional info: Abd pain R/O diverticulitis R/O appy TECHNIQUE: Axial computed tomography images of the abdomen and pelvis with intravenous contrast. This CT exam was performed using one or more of the following dose reduction techniques: automated exposure control, adjustment of the mA and/or kV according to patient size, and/or use of iterative reconstruction technique. Coronal and sagittal reformatted images were created and reviewed. CONTRAST: 94 mL of omni 350 administered intravenously. COMPARISON: No relevant prior studies available. FINDINGS: Limitations: Motion artifact - mild. Lower thorax: Mild cardiomegaly. Trace to small RIGHT pleural effusion. Minimal peripheral consolidation RIGHT lower lobe. Subcentimeter nodule vs focal scarring LEFT upper lobe. ABDOMEN: Liver: Mildly lobulated contour. Gallbladder and bile ducts: Gallstone. No ductal dilation. Fluid around gallbladder. Pancreas: 2.3 x 2.2 x 2.9 cm hypodense lesion within/about uncinate process of pancreas. Spleen: Mild splenomegaly. Adrenals: No mass. Kidneys and ureters: Too small to characterize lesion within LEFT kidney. 2.4 x 1.1 x 1.3 cm lesion within LEFT kidney, indeterminate by CT criteria. No hydronephrosis. Stomach and bowel: Moderate mural thickening of large bowel with few areas of sparing. No obstruction. Appendix: Apparent enlarged appendix, measuring up to 1.7 cm in diameter. Apparent mild stranding about appendix. PELVIS: Bladder: Unremarkable. Reproductive: Lobulated, heterogeneous uterus with few coarse calcifications. ABDOMEN and PELVIS: Intraperitoneal space: Small to moderate free fluid within abdomen and pelvis. No free air. Bones/joints: Degenerative changes of spine. No acute fracture. Soft tissues: Mild stranding within subcutaneous tissues. Vasculature: Multiple varices within abdomen. Mild atherosclerotic disease. No aneurysm. Lymph nodes: Several subcentimeter/few borderline enlarged lymph nodes within the upper abdomen. Few subcentimeter short axis lymph nodes within cardiophrenic angle. IMPRESSION: 1. Colitis, nonspecific. Consider inflammatory or infectious etiologies. 2. Apparent appendicitis. Clinical correlation is needed. 3. RIGHT pleural effusion with compressive atelectasis. 4. Cirrhosis with portal hypertension. 5. Cholelithiasis with nonspecific pericholecystic fluid. 6. Pancreatic lesion, indeterminate. Recommend MRI for further characterization. 7. Probable fibroid uterus. 8. Kidney lesion, indeterminate. Recommend nonemergent ultrasound or MRI. 9. Incidental/non-acute findings are described above.
[2017-05-11 21:43] LABS: URINE BILIRUBIN SMALL (NEGATIVE); URINE BLOOD MODERATE (NEGATIVE); URINE GLUCOSE (UA) 250 mg/dL (NEGATIVE); URINE LEUKOCYTE ESTERASE NEGATIVE Leu/uL (NEGATIVE); URINE NITRATE NEGATIVE (NEGATIVE); URINE PROTEIN 100 mg/dL (<30 mg/dL); URINE UROBILINOGEN 0.2 E.U./dL (<1 E.U./dL)
[2017-05-11 21:45] LABS: URINE APPEARANCE SL CLOUDY (CLEAR); URINE COLOR DARK YELLOW (YELLOW)
[2017-05-11] MEDS ORDERED: Sodium Chloride 0.9% 1,000 ML IV STA (21:50)
[2017-05-11 22:06] LABS: URINE BACTERIA TRACE (NEG); URINE WBC 0 - 2 /hpf (0-6)
[2017-05-11] MEDS ORDERED: Acetaminophen 650mg/20.3ml solution UD PO PRN (22:48)
[2017-05-11] MEDS ORDERED: Morphine 4 mg/ml ISec IVP PRN (22:53)
--- NOTE | 2017-05-11 23:04 | CP.PCM.CON ---
History of Present Illness - History of Present Illness History of Present Illness: General Surgery Dr. Hopkins 72 y/o Estonian-speaking F w/ PMHx of HTN, CVA, DM2, hypothyroidism, Hep C, cirrhosis BIBA from [facility] c/o abd pain, According to family at bedside, pt c/o abd pain x3 days however, pain significantly worse today. Daughter reports pt yelling in pain prior to EMS being called. Daughter reports NBNB vomiting x2 episodes today. According to the pt's daughter, the pt has never before experienced abd pain like this. Daughter admits to pt feeling feverish w / chills. Pt has diarrhea 2/2 daily lactulose, however, daughter denies any melena or BRBPR. Pt denies SOB, CP. PMHx: see above Meds: reviewed in chart NKDA PSHx: hysterectomy, cataracts B/L SHx: denies tobacco, EtOH, drugs FHx: noncontributory. Review of Systems - Review of Systems All systems: reviewed and no additional remarkable complaints except (see HPI) Past Patient History - Infectious Disease Hx of Infectious Diseases: None - Tetanus Immunizations Tetanus Immunization: Unknown - Past Social History Smoking Status: Never Smoked - CARDIAC Hx Cardiac Disorders: Yes Hx Hypertension: Yes - PULMONARY Hx Respiratory Disorders: No Hx Chronic Obstructive Pulmonary Disease (COPD): No Hx Pneumonia: No - NEUROLOGICAL Hx Neurological Disorder: Yes HX Cerebrovascular Accident: Yes - HEENT Hx HEENT Problems: Yes Hx Cataracts: Yes (BILATERAL SX) - RENAL Hx Chronic Kidney Disease: No Hx Renal Failure: No - ENDOCRINE/METABOLIC Hx Endocrine Disorders: Yes Hx Diabetes Mellitus Type 2: Yes Hx Hypothyroidism: Yes - HEMATOLOGICAL/ONCOLOGICAL Hx Blood Disorders: No Hx Cancer: No - INTEGUMENTARY Hx Dermatological Problems: No - MUSCULOSKELETAL/RHEUMATOLOGICAL Hx Musculoskeletal Disorders: Yes Hx Arthritis: Yes (OA) - GASTROINTESTINAL Hx Gastrointestinal Disorders: No Hx Gastroesophageal Reflux: No - GENITOURINARY/GYNECOLOGICAL Hx Genitourinary Disorders: No - PSYCHIATRIC Hx Psychophysiologic Disorder: No Hx Depression: No Hx Emotional Abuse: No Hx Physical Abuse: No Hx Substance Use: No - SURGICAL HISTORY Hx Hysterectomy: Yes - ANESTHESIA Hx Anesthesia: Yes Hx Anesthesia Reactions: No Hx Malignant Hyperthermia: No Meds Allergies/Adverse Reactions: Allergies Allergy/AdvReac Type Severity Reaction Status Date / Time No Known Allergies Allergy Verified 05/11/17 18:52 - Medications Medications: Current Medications Metronidazole (Flagyl) 500 mg in 100 mls @ 100 mls/hr IVPB Q8 MELINA PRN Reason: Protocol Piperacillin Sod/Tazobactam Sod (Zosyn 3.375 In Ns 100ml) 100 mls @ 200 mls/hr IVPB Q6 MELINA PRN Reason: Protocol Stop: 05/12/17 06:29 Morphine Sulfate (Morphine) 4 mg IVP Q4H PRN PRN Reason: Pain, severe (8-10) Ondansetron HCl (Zofran Inj) 4 mg IVP Q4H PRN PRN Reason: Nausea/Vomiting Physical Exam - Constitutional Appears: Toxic, No Acute Distress - Head Exam Head Exam: NORMAL INSPECTION - Eye Exam Eye Exam: Normal appearance - ENT Exam ENT Exam: Mucous Membranes Moist - Respiratory Exam Respiratory Exam: Wheezes (L > R), NORMAL BREATHING PATTERN. absent: Accessory Muscle Use, Rales, Rhonchi, Respiratory Distress - Cardiovascular Exam Cardiovascular Exam: Tachycardia, REGULAR RHYTHM. absent: Bradycardia - GI/Abdominal Exam GI & Abdominal Exam: Distended, Guarding, Normal Bowel Sounds, Soft, Tenderness (TTP RLQ/LLQ). absent: Rebound, Rigid Additional comments: (-) Rosving's sign - Neurological Exam Neurological exam: Alert - Psychiatric Exam Psychiatric exam: Normal Affect, Normal Mood - Skin Skin Exam: Diaphoretic, Intact, Normal Color, Warm Results - Vital Signs Recent Vital Signs: Last Vital Signs Temp 102.9 F H 05/11/17 18:55 Pulse 109 H 05/11/17 22:31 Resp 18 05/11/17 22:31 BP 107/49 L 05/11/17 22:31 Pulse Ox 94 L 05/11/17 22:31 - Labs Result Diagrams: 05/11/17 18:59 05/11/17 18:59 Labs: Laboratory Results - last 24 hr 05/11/17 05/11/17 05/11/17 18:59 18:59 18:59 WBC 2.3 L* D RBC 3.49 L Hgb 11.2 L Hct 33.5 L MCV 96.0 MCH 32.1 MCHC 33.4 RDW 15.0 H Plt Count 57 L MPV 12.0 H Neutrophils % (Manual) 70 Band Neutrophils % 15 H* Lymphocytes % (Manual) 13 L Monocytes % (Manual) 4 PT 14.0 H INR 1.30 H APTT 28.6 pO2 30 VBG pH 7.33 VBG pCO2 53.0 VBG HCO3 27.9 VBG Total CO2 29.5 H VBG O2 Sat (Calc) 63.4 VBG Base Excess 1.0 VBG Potassium 4.2 Sodium 136.0 Chloride 101.0 Glucose 303 H Lactate 5.3 H* FiO2 21.0 Potassium Carbon Dioxide Anion Gap BUN Creatinine Est GFR ( Amer) Est GFR (Non-Af Amer) Random Glucose Calcium Phosphorus Magnesium Total Bilirubin AST ALT Alkaline Phosphatase Ammonia Total Protein Albumin Globulin Albumin/Globulin Ratio Venous Blood Potassium 4.2 Urine Color Urine Appearance Urine pH Ur Specific [place] Urine Protein Urine Glucose (UA) Urine Ketones Urine Blood Urine Nitrate Urine Bilirubin Urine Urobilinogen Ur Leukocyte Esterase Urine RBC Urine WBC Ur Epithelial Cells Urine Bacteria Blood Type Antibody Screen BBK History Checked 05/11/17 05/11/17 05/11/17 18:59 20:02 20:02 WBC RBC Hgb Hct MCV MCH MCHC RDW Plt Count MPV Neutrophils % (Manual) Band Neutrophils % Lymphocytes % (Manual) Monocytes % (Manual) PT INR APTT pO2 VBG pH VBG pCO2 VBG HCO3 VBG Total CO2 VBG O2 Sat (Calc) VBG Base Excess VBG Potassium Sodium 135 Chloride 99 Glucose Lactate FiO2 Potassium 4.1 Carbon Dioxide 27 Anion Gap 13 BUN 16 Creatinine 0.9 Est GFR ( Amer) > 60 Est GFR (Non-Af Amer) > 60 Random Glucose 295 H Calcium 8.3 L Phosphorus 3.3 Magnesium 1.5 L Total Bilirubin 2.7 H AST 52 H ALT 47 Alkaline Phosphatase 98 Ammonia 36 H Total Protein 6.8 Albumin 2.7 L Globulin 4.1 Albumin/Globulin Ratio 0.7 L Venous Blood Potassium Urine Color Urine Appearance Urine pH Ur Specific [place] Urine Protein Urine Glucose (UA) Urine Ketones Urine Blood Urine Nitrate Urine Bilirubin Urine Urobilinogen Ur Leukocyte Esterase Urine RBC Urine WBC Ur Epithelial Cells Urine Bacteria Blood Type A POSITIVE Antibody Screen Negative BBK History Checked Patient has bt 05/11/17 21:25 WBC RBC Hgb Hct MCV MCH MCHC RDW Plt Count MPV Neutrophils % (Manual) Band Neutrophils % Lymphocytes % (Manual) Monocytes % (Manual) PT INR APTT pO2 VBG pH VBG pCO2 VBG HCO3 VBG Total CO2 VBG O2 Sat (Calc) VBG Base Excess VBG Potassium Sodium Chloride Glucose Lactate FiO2 Potassium Carbon Dioxide Anion Gap BUN Creatinine Est GFR ( Amer) Est GFR (Non-Af Amer) Random Glucose Calcium Phosphorus Magnesium Total Bilirubin AST ALT Alkaline Phosphatase Ammonia Total Protein Albumin Globulin Albumin/Globulin Ratio Venous Blood Potassium Urine Color Dark yellow Urine Appearance Sl cloudy Urine pH 6.0 Ur Specific [place] >= 1.030 Urine Protein 100 H Urine Glucose (UA) 250 H Urine Ketones Trace H Urine Blood Moderate H Urine Nitrate Negative Urine Bilirubin Small H Urine Urobilinogen 0.2 Ur Leukocyte Esterase Negative Urine RBC 2 - 5 Urine WBC 0 - 2 Ur Epithelial Cells 1 - 3 Urine Bacteria Trace Blood Type Antibody Screen BBK History Checked - Imaging and Cardiology CT scan - abdomen Status: Image reviewed by me, Report reviewed by me Assessment & Plan - Assessment and Plan (Free Text) Assessment: 72 y/o F w/ abd pain and sepsis 2/2 colitis vs appendicitis - NPO, IVF - ID consult; previously seen by Dr. Plaza - IV Abx - f/u GI recs - pain management - anti-emetic - serial abd exams - GI/DVT PPx - Possible OR tomorrow Will discuss w/ Dr. Sandeep Randolph DO PGY2
[2017-05-11 23:05] LABS: VENOUS BLOOD GAS BASE EXCESS -0.2 mmol/L (0.0-2.0); VENOUS BLOOD GAS PO2 138 mm/Hg (30-55); VENOUS BLOOD PH 7.34 (7.32-7.43)
--- NOTE | 2017-05-11 23:17 | CP.PCM.CON ---
<LEXI CURTIS - Last Filed: 05/11/17 23:13> History of Present Illness - History of Present Illness History of Present Illness: Pt is a 72 year old Mohawk speaking female with a PMHx of DM, HTN, hepatitis C, cirrhosis, and CVA with right sided residual weakness, who presents today with a c/o diffuse abdominal pain. The pt was transferred from [facility] due to worsening abdominal pain over the last 3 days. Pt states that she has intermittent abdominal pain that is usually self-limiting, but is worsened and remained constant today. The pain radiates from side to side. Pt denies any alleviating or aggravating factors. Family at bedside reports pt was unable to tolerate diet today and had 2 episodes NBNB vomiting. Pt admits to diarrhea 2/2 lacutose, but denies any hematochezia or melena. Pt admits to fever with chills. Pt denied CP, SOB, pruritis, weight loss, or any acute skin changes. Family denied any acute changes in mental status. PMHx: DM, HTN, hepatitis C, cirrhosis, CVA (03/20/17) PSH: hysterectomy, b/l cataract Social: denies tobacco use, illicit drug use, and current alcohol use FMH: HTN, DM Allergies: denies Meds: reviewed and as per chart Review of Systems - Review of Systems All systems: reviewed and no additional remarkable complaints except (12 point ROS negative other than that stated in HPI) Past Patient History - Infectious Disease Hx of Infectious Diseases: None - Tetanus Immunizations Tetanus Immunization: Unknown - Past Social History Smoking Status: Never Smoked - CARDIAC Hx Cardiac Disorders: Yes Hx Hypertension: Yes - PULMONARY Hx Respiratory Disorders: No Hx Chronic Obstructive Pulmonary Disease (COPD): No Hx Pneumonia: No - NEUROLOGICAL Hx Neurological Disorder: Yes HX Cerebrovascular Accident: Yes - HEENT Hx HEENT Problems: Yes Hx Cataracts: Yes (BILATERAL SX) - RENAL Hx Chronic Kidney Disease: No Hx Renal Failure: No - ENDOCRINE/METABOLIC Hx Endocrine Disorders: Yes Hx Diabetes Mellitus Type 2: Yes Hx Hypothyroidism: Yes - HEMATOLOGICAL/ONCOLOGICAL Hx Blood Disorders: No Hx Cancer: No - INTEGUMENTARY Hx Dermatological Problems: No - MUSCULOSKELETAL/RHEUMATOLOGICAL Hx Musculoskeletal Disorders: Yes Hx Arthritis: Yes (OA) - GASTROINTESTINAL Hx Gastrointestinal Disorders: No Hx Gastroesophageal Reflux: No - GENITOURINARY/GYNECOLOGICAL Hx Genitourinary Disorders: No - PSYCHIATRIC Hx Psychophysiologic Disorder: No Hx Depression: No Hx Emotional Abuse: No Hx Physical Abuse: No Hx Substance Use: No - SURGICAL HISTORY Hx Hysterectomy: Yes - ANESTHESIA Hx Anesthesia: Yes Hx Anesthesia Reactions: No Hx Malignant Hyperthermia: No Meds Allergies/Adverse Reactions: Allergies Allergy/AdvReac Type Severity Reaction Status Date / Time No Known Allergies Allergy Verified 05/11/17 18:52 - Medications Medications: Current Medications Acetaminophen (Tylenol 650mg/20.3ml Solution Ud) 650 mg PO Q6H PRN PRN Reason: Temperature Metronidazole (Flagyl) 500 mg in 100 mls @ 100 mls/hr IVPB Q8 MELINA PRN Reason: Protocol Piperacillin Sod/Tazobactam Sod (Zosyn 3.375 In Ns 100ml) 100 mls @ 200 mls/hr IVPB Q6 MELINA PRN Reason: Protocol Stop: 05/12/17 06:29 Morphine Sulfate (Morphine) 4 mg IVP Q4H PRN PRN Reason: Pain, severe (8-10) Ondansetron HCl (Zofran Inj) 4 mg IVP Q4H PRN PRN Reason: Nausea/Vomiting Pantoprazole Sodium (Protonix Inj) 40 mg IVP DAILY MELINA Rifaximin (Xifaxan) 550 mg PO BID MELINA PRN Reason: Protocol Physical Exam - Head Exam Head Exam: ATRAUMATIC, NORMOCEPHALIC - Eye Exam Eye Exam: EOMI, PERRL. absent: Scleral icterus - ENT Exam ENT Exam: Mucous Membranes Moist - Neck Exam Neck exam: Positive for: Full Rom. Negative for: Lymphadenopathy, Tenderness, Thyromegaly - Respiratory Exam Respiratory Exam: Clear to Auscultation Bilateral. absent: Rales, Rhonchi, Wheezes - Cardiovascular Exam Cardiovascular Exam: RRR, +S1, +S2. absent: Diastolic murmur, Gallop, Rubs, Systolic Murmur - GI/Abdominal Exam GI & Abdominal Exam: Distended, Guarding, Tenderness (diffuse, non-peritoneal.) . absent: Organomegaly, Rebound Additional comments: No fluid wave. No Caput medusa. - Extremities Exam Additional comments: B/L LE edema +1/4, no palmar erythema - Neurological Exam Neurological exam: Alert, Oriented x3 Additional comments: No asterixis - Psychiatric Exam Psychiatric exam: Normal Affect - Skin Skin Exam: Dry, Intact, Normal Color, Warm Additional comments: No jaundice or spider angiomas Results - Vital Signs Recent Vital Signs: Last Vital Signs Temp 99.4 F 05/11/17 23:06 Pulse 108 H 05/11/17 23:06 Resp 18 05/11/17 23:06 BP 116/63 05/11/17 23:06 Pulse Ox 92 L 05/11/17 23:06 - Labs Result Diagrams: 05/11/17 18:59 05/11/17 18:59 Labs: Laboratory Results - last 24 hr 05/11/17 05/11/17 05/11/17 18:59 18:59 18:59 WBC 2.3 L* D RBC 3.49 L Hgb 11.2 L Hct 33.5 L MCV 96.0 MCH 32.1 MCHC 33.4 RDW 15.0 H Plt Count 57 L MPV 12.0 H Neutrophils % (Manual) 70 Band Neutrophils % 15 H* Lymphocytes % (Manual) 13 L Monocytes % (Manual) 4 PT 14.0 H INR 1.30 H APTT 28.6 pO2 30 VBG pH 7.33 VBG pCO2 53.0 VBG HCO3 27.9 VBG Total CO2 29.5 H VBG O2 Sat (Calc) 63.4 VBG Base Excess 1.0 VBG Potassium 4.2 Sodium 136.0 Chloride 101.0 Glucose 303 H Lactate 5.3 H* FiO2 21.0 Potassium Carbon Dioxide Anion Gap BUN Creatinine Est GFR ( Amer) Est GFR (Non-Af Amer) Random Glucose Calcium Phosphorus Magnesium Total Bilirubin AST ALT Alkaline Phosphatase Ammonia Total Protein Albumin Globulin Albumin/Globulin Ratio Venous Blood Potassium 4.2 Urine Color Urine Appearance Urine pH Ur Specific Murray Urine Protein Urine Glucose (UA) Urine Ketones Urine Blood Urine Nitrate Urine Bilirubin Urine Urobilinogen Ur Leukocyte Esterase Urine RBC Urine WBC Ur Epithelial Cells Urine Bacteria Blood Type Antibody Screen BBK History Checked 05/11/17 05/11/17 05/11/17 18:59 20:02 20:02 WBC RBC Hgb Hct MCV MCH MCHC RDW Plt Count MPV Neutrophils % (Manual) Band Neutrophils % Lymphocytes % (Manual) Monocytes % (Manual) PT INR APTT pO2 VBG pH VBG pCO2 VBG HCO3 VBG Total CO2 VBG O2 Sat (Calc) VBG Base Excess VBG Potassium Sodium 135 Chloride 99 Glucose Lactate FiO2 Potassium 4.1 Carbon Dioxide 27 Anion Gap 13 BUN 16 Creatinine 0.9 Est GFR ( Amer) > 60 Est GFR (Non-Af Amer) > 60 Random Glucose 295 H Calcium 8.3 L Phosphorus 3.3 Magnesium 1.5 L Total Bilirubin 2.7 H AST 52 H ALT 47 Alkaline Phosphatase 98 Ammonia 36 H Total Protein 6.8 Albumin 2.7 L Globulin 4.1 Albumin/Globulin Ratio 0.7 L Venous Blood Potassium Urine Color Urine Appearance Urine pH Ur Specific Murray Urine Protein Urine Glucose (UA) Urine Ketones Urine Blood Urine Nitrate Urine Bilirubin Urine Urobilinogen Ur Leukocyte Esterase Urine RBC Urine WBC Ur Epithelial Cells Urine Bacteria Blood Type A POSITIVE Antibody Screen Negative BBK History Checked Patient has bt 05/11/17 05/11/17 21:25 23:01 WBC RBC Hgb Hct MCV MCH MCHC RDW Plt Count MPV Neutrophils % (Manual) Band Neutrophils % Lymphocytes % (Manual) Monocytes % (Manual) PT INR APTT pO2 138 H VBG pH 7.34 VBG pCO2 48.0 VBG HCO3 25.9 VBG Total CO2 27.4 VBG O2 Sat (Calc) 99.7 H VBG Base Excess -0.2 L VBG Potassium 3.9 Sodium 137.0 Chloride 109.0 H Glucose 242 H Lactate 2.8 H FiO2 21.0 Potassium Carbon Dioxide Anion Gap BUN Creatinine Est GFR ( Amer) Est GFR (Non-Af Amer) Random Glucose Calcium Phosphorus Magnesium Total Bilirubin AST ALT Alkaline Phosphatase Ammonia Total Protein Albumin Globulin Albumin/Globulin Ratio Venous Blood Potassium 3.9 Urine Color Dark yellow Urine Appearance Sl cloudy Urine pH 6.0 Ur Specific Murray >= 1.030 Urine Protein 100 H Urine Glucose (UA) 250 H Urine Ketones Trace H Urine Blood Moderate H Urine Nitrate Negative Urine Bilirubin Small H Urine Urobilinogen 0.2 Ur Leukocyte Esterase Negative Urine RBC 2 - 5 Urine WBC 0 - 2 Ur Epithelial Cells 1 - 3 Urine Bacteria Trace Blood Type Antibody Screen BBK History Checked Assessment & Plan - Assessment and Plan (Free Text) Assessment: 72 yo F with PMHx of DM, HTN, hepatitis C, cirrhosis, and CVA will be admitted to the ICU for evaluation and treatment to r/o abdominal pain 2/2 pancreatitis vs appendicitis vs SBP with febrile illness, hemodynamic instability, and elevated lactate. Neuro -Monitor closely -AAO x3 -Maintain normothermia Cardio -Albumin 25% given and hold HTN meds due to hypotension -IVF resuscitation as needed, but limit due to h/o liver disease -Maintain MAP >65, no pressure support needed at this time Pulm -Maintain O2 sat >90%, no supplemental O2 needed at this time GI -Abdominal pain 2/2 pancreatitis vs appendicitis vs SBP with lactate of 5.3 -CT showed colitis, appendicitis, cirrhosis with portal htn, cholelithiasis, indeterminate pancreatic lesion -MRI ordered to correlate CT pancreatic lesion finding -F/u GI consult -Surgery consulted, spoke to surgical services assistant, surgical intervention pending IR assessment -IR consult for diagnostic paracentesis r/o SBP -H/o cirrhosis/hep c/hepatic encephalopathy, cont lactulose and Rifaximin -Morphine prn for pain, Zofran for nausea -NPO -Protonix PPx Nephro -Strict I's and O's -Daily weights -Replenish electrolyes as needed Endo -Maintain euglycemia -Hold insulin due to NPO -Monitor blood glucose Heme/ID -F/u ID consult -Cont Flagyl, Zosyn -Monitor H/H -Leukopenia -Cont tylenol prn for fever -SCDs Pt was seen and discussed in detail with Dr. Patel. <Amanda MORRIS,Henry - Last Filed: 05/13/17 08:11> Meds - Medications Medications: Current Medications Acetaminophen (Tylenol 650mg/20.3ml Solution Ud) 650 mg PO Q6H PRN PRN Reason: Temperature Last Admin: 05/12/17 22:19 Dose: 650 mg Metronidazole (Flagyl) 500 mg in 100 mls @ 100 mls/hr IVPB Q8 MELINA PRN Reason: Protocol Last Admin: 05/13/17 05:00 Dose: 100 mls/hr Meropenem 1g/NS 100mL IVPB (Meropenem 1g/Ns 100ml Ivpb) 1 gm in 100 mls @ 100 mls/hr IVPB Q12H [facility] PRN Reason: Protocol Stop: 05/19/17 06:46 Last Admin: 05/13/17 06:27 Dose: 100 mls/hr Sodium Chloride (Sodium Chloride 0.9%) 1,000 mls @ 100 mls/hr IV .Q10H [facility] Last Admin: 05/12/17 20:54 Dose: 100 mls/hr Insulin Human Regular (Humulin R Low) 0 units SC ACHS MELINA PRN Reason: Protocol Last Admin: 05/13/17 08:03 Dose: Not Given Lactulose (Enulose) 20 gm PO DAILY [facility] Last Admin: 05/12/17 09:36 Dose: 20 gm Morphine Sulfate (Morphine) 2 mg IVP Q4 PRN PRN Reason: Pain, severe (8-10) Last Admin: 05/12/17 21:49 Dose: 2 mg Ondansetron HCl (Zofran Inj) 4 mg IVP Q4H PRN PRN Reason: Nausea/Vomiting Pantoprazole Sodium (Protonix Inj) 40 mg IVP DAILY [facility] Last Admin: 05/12/17 09:36 Dose: 40 mg Rifaximin (Xifaxan) 550 mg PO BID MELINA PRN Reason: Protocol Last Admin: 05/12/17 09:36 Dose: 550 mg Results - Vital Signs Recent Vital Signs: Last Vital Signs Temp 99 F 05/13/17 04:00 Pulse 103 H 05/13/17 06:30 Resp 22 05/13/17 06:30 BP 132/69 05/13/17 05:00 Pulse Ox 93 L 05/13/17 06:30 - Labs Result Diagrams: 05/13/17 06:15 05/13/17 06:15 Labs: Laboratory Results - last 24 hr 05/12/17 05/12/17 05/12/17 05:26 06:30 06:30 WBC RBC Hgb Hct MCV MCH MCHC RDW Plt Count MPV PT INR pO2 VBG pH VBG pCO2 VBG HCO3 VBG Total CO2 VBG O2 Sat (Calc) VBG Base Excess VBG Potassium Sodium Chloride Glucose Lactate FiO2 Potassium Carbon Dioxide Anion Gap BUN Creatinine Est GFR ( Amer) Est GFR (Non-Af Amer) POC Glucose (mg/dL) Random Glucose Calcium Transferrin 123.68 L Ferritin Total Bilirubin AST ALT Alkaline Phosphatase Total Protein Albumin Globulin Albumin/Globulin Ratio Amylase Lipase Vitamin B12 Folate Venous Blood Potassium Complement C3 56.0 L Complement C4 10.2 L HIV 1&2 Ag/Ab, 4th Gen Nonreactive 05/12/17 05/12/17 05/12/17 06:30 08:21 10:00 WBC RBC Hgb Hct MCV MCH MCHC RDW Plt Count MPV PT 16.0 H INR 1.48 H pO2 VBG pH VBG pCO2 VBG HCO3 VBG Total CO2 VBG O2 Sat (Calc) VBG Base Excess VBG Potassium Sodium Chloride Glucose Lactate FiO2 Potassium Carbon Dioxide Anion Gap BUN Creatinine Est GFR ( Amer) Est GFR (Non-Af Amer) POC Glucose (mg/dL) 288 H Random Glucose Calcium Transferrin Ferritin 386.0 Total Bilirubin AST ALT Alkaline Phosphatase Total Protein Albumin Globulin Albumin/Globulin Ratio Amylase Lipase Vitamin B12 > 1000 H Folate 14.9 Venous Blood Potassium Complement C3 Complement C4 HIV 1&2 Ag/Ab, 4th Gen 05/12/17 05/12/17 05/13/17 10:15 11:16 06:15 WBC 10.8 RBC 2.99 L Hgb 9.6 L Hct 29.0 L MCV 97.0 MCH 32.1 MCHC 33.1 RDW 15.8 H Plt Count 60 L MPV 12.1 H PT INR pO2 52 VBG pH 7.26 L VBG pCO2 56.0 VBG HCO3 25.1 VBG Total CO2 26.8 VBG O2 Sat (Calc) 91.3 H VBG Base Excess -2.8 L VBG Potassium 4.8 Sodium 138.0 Chloride 109.0 H Glucose 244 H Lactate 2.7 H FiO2 21.0 Potassium Carbon Dioxide Anion Gap BUN Creatinine Est GFR ( Amer) Est GFR (Non-Af Amer) POC Glucose (mg/dL) 277 H Random Glucose Calcium Transferrin Ferritin Total Bilirubin AST ALT Alkaline Phosphatase Total Protein Albumin Globulin Albumin/Globulin Ratio Amylase Lipase Vitamin B12 Folate Venous Blood Potassium 4.8 Complement C3 Complement C4 HIV 1&2 Ag/Ab, 4th Gen 05/13/17 06:15 WBC RBC Hgb Hct MCV MCH MCHC RDW Plt Count MPV PT INR pO2 VBG pH VBG pCO2 VBG HCO3 VBG Total CO2 VBG O2 Sat (Calc) VBG Base Excess VBG Potassium Sodium 141 Chloride 110 H Glucose Lactate FiO2 Potassium 3.9 Carbon Dioxide 24 Anion Gap 11 BUN 28 H Creatinine 1.3 Est GFR ( Amer) 48 Est GFR (Non-Af Amer) 40 POC Glucose (mg/dL) Random Glucose 151 H Calcium 7.1 L Transferrin Ferritin Total Bilirubin 1.7 H AST 40 H ALT 40 Alkaline Phosphatase 57 Total Protein 6.0 Albumin 2.4 L Globulin 3.7 Albumin/Globulin Ratio 0.6 L Amylase 53 Lipase 45 Vitamin B12 Folate Venous Blood Potassium Complement C3 Complement C4 HIV 1&2 Ag/Ab, 4th Gen Attending/Attestation - Attestation I have personally seen and examined this patient.: Yes I have fully participated in the care of the patient.: Yes I have reviewed all pertinent clinical information: Yes Notes (Text): 05/13/17 08:10 -I agree with the above consult note completed by the resident physician.
[2017-05-11] MEDS: Albumin Human 25% (12.5 gm/50 ml) IV ONE (23:22)
[2017-05-11 23:41] LABS: HEMOGLOBIN 9.7 gm/dL (12.0-16.0); MEAN CELL VOLUME 95.3 fL (80.0-105.0); MEAN CORPUSCULAR HEMOGLOBIN 32.6 pg (25.0-35.0); MEAN CORPUSCULAR HGB CONC 34.2 g/dl (31.0-37.0); MEAN PLATELET VOLUME 11.7 fl (7.0-11.0); RBC 2.98 10^6/uL (3.5-6.1); WHITE BLOOD COUNT 6.9 10^3/ul (4.5-11.0)
[2017-05-12] MEDS ORDERED: Phytonadione 10 mg/ml Inj (Adult) SC STA (00:04)
[2017-05-12 00:08] LABS: ALB/GLOB RATIO 0.6 (1.1-1.8); ALBUMIN 2.2 g/dL (3.0-4.8); ALT/SGPT 43 U/L (7-56); AST/SGOT 49 U/L (15-39); BLOOD UREA NITROGEN 16 mg/dL (7-21); CALCIUM 7.1 mg/dL (8.4-10.5); GFR AFRICAN-AMERICAN > 60; GFR NON-AFRICAN AMERICAN > 60
[2017-05-12] MEDS: Albumin Human 25% (12.5 gm/50 ml) IV ONE (00:10)
[2017-05-12 01:11] VITALS: BMI 32.8
--- NOTE | 2017-05-12 01:43 | PCM.SEPTIC ---
<EVERLEXI - Last Filed: 05/12/17 01:40> Sepsis Progress Note - Reassessment Type Date of Evaluation: 05/12/17 Time of Evaluation: 02:00 Reassessment Type: Non-invasive reassessment - Non Invasive Reassessment Were the most recent vital sign reviewed: Yes Vital Sign (Latest): Temp Pulse Resp BP Pulse Ox 99.1 F 97 H 14 105/55 L 100 05/12/17 00:40 05/12/17 00:40 05/12/17 00:40 05/12/17 00:40 05/12/17 00:16 Cardiovascular: Yes: Regular Rate, Rhythm, Edema. No: Gallop, JVD, Murmur Respiratory: Yes: Crackles. No: Accessory Muscle Use, Rhonchi, Wheezing, Respiratory Distress Capillary Refill: Normal (Less than 2 sec) Pulses: Normal Radial, Normal Dorsalis Pedis, Normal Posterior Tibialis Skin: Normal Color, Warm, Dry - Invasive Reassessment (complete 2 of 4) Was a Central Venous Pressure Measurement obtained within 6 Hours after the presentation of septic shock: No Was a central venous oxygen measurement obtained within 6 hours after the presentation of septic shock: Yes Sv02: 138 Was a bedside cardiovascular ultrasound performed within 6 hours after the presentation of septic shock: No Was a passive leg raise performed or was a fluid challenge performed within 6 hrs of the initial fluid bolus: No Passive Leg Raise Result: Not Applicable Fluid Challenge performed: No <Henry Patel MD - Last Filed: 05/13/17 23:53> Sepsis Progress Note - Non Invasive Reassessment Vital Sign (Latest): Temp Pulse Resp BP Pulse Ox 97.7 F 112 H 28 H 160/68 H 91 L 05/13/17 20:00 05/13/17 23:20 05/13/17 23:20 05/13/17 23:00 05/13/17 23:20 Attending/Attestation - Attestation I have personally seen and examined this patient.: Yes I have fully participated in the care of the patient.: Yes I have reviewed all pertinent clinical information, including history, physical exam and plan: Yes Notes (Text): 05/13/17 23:52 -I agree with the above sepsis note completed by the resident physician.
[2017-05-12] MEDS: Piperacillin/Tazobact 3.375 gm 100 ML IVPB SCH ×2 (01:52→06:20)
[2017-05-12] MEDS ORDERED: Magnesium Sulfate 2 GM in Sodium Chloride 0.9% 100 ML IVPB ONE (05:28)
[2017-05-12] MEDS: metroNIDAZOLE IV 500 mg/100 ml 500 MG/100 ML BAG IVPB SCH ×3 (05:40→21:10)
[2017-05-12] MEDS: Sodium Chloride 0.9% 1,000 ML IV SCH ×2 (06:53→20:54)
[2017-05-12] MEDS: Meropenem 1g/NS 100mL IVPB 1 GM/100 ML PIGGYBACK IVPB SCH ×2 (06:54→17:52)
[2017-05-12 07:06] LABS: VENOUS BLOOD GAS BASE EXCESS -1.8 mmol/L (0.0-2.0); VENOUS BLOOD GAS PO2 68 mm/Hg (30-55); VENOUS BLOOD PH 7.28 (7.32-7.43)
[2017-05-12 07:10] LABS: ALB/GLOB RATIO 0.7 (1.1-1.8); ALBUMIN 2.3 g/dL (3.0-4.8); CALCIUM 7.3 mg/dL (8.4-10.5)
[2017-05-12 07:20] LABS: % IRON SATURATION 6 % (20-55); IRON 12 ug/dL (45-180); TOTAL IRON BINDING CAPACITY 203 ug/dL (265-497)
--- NOTE | 2017-05-12 07:30 | RAD ---
HISTORY: Sepsis Patient COMPARISON: 03/21/2017. FINDINGS: LUNGS: The lungs are clear. There are low lung volumes. PLEURA: No significant pleural effusion identified, no pneumothorax apparent. CARDIOVASCULAR: Normal. OSSEOUS STRUCTURES: No significant abnormalities. VISUALIZED UPPER ABDOMEN: Normal. OTHER FINDINGS: None. IMPRESSION: No active pulmonary disease.
--- NOTE | 2017-05-12 07:49 | CP.PCM.PN ---
Subjective - Date & Time of Evaluation Date of Evaluation: 05/12/17 Time of Evaluation: 07:00 - Subjective Subjective: General Surgery- Dr. Hopkins Pt S&E at bedside this AM. Pt was admitted last night for severe abdominal pain. Currently states pain is significantly decreased. Denies N/V +Flatus. Denies CP/SOB, [place]. Objective - Vital Signs/Intake and Output Vital Signs (last 24 hours): Temp Pulse Resp BP Pulse Ox 99.1 F 97 H 14 105/55 L 100 05/12/17 00:40 05/12/17 00:40 05/12/17 00:40 05/12/17 00:40 05/12/17 00:16 Intake and Output: 05/12/17 05/12/17 06:59 18:59 Intake Total 400 Balance 400 - Medications Medications: Current Medications Acetaminophen (Tylenol 650mg/20.3ml Solution Ud) 650 mg PO Q6H PRN PRN Reason: Temperature Metronidazole (Flagyl) 500 mg in 100 mls @ 100 mls/hr IVPB Q8 [facility] PRN Reason: Protocol Last Admin: 05/12/17 05:40 Dose: 100 mls/hr Vancomycin HCl (Vancomycin 1gm) 1 gm in 250 mls @ 167 mls/hr IVPB Q12H [facility] PRN Reason: Protocol Meropenem 1g/NS 100mL IVPB (Meropenem 1g/Ns 100ml Ivpb) 1 gm in 100 mls @ 100 mls/hr IVPB Q12H [facility] PRN Reason: Protocol Stop: 05/19/17 06:46 Last Admin: 05/12/17 06:54 Dose: 100 mls/hr Sodium Chloride (Sodium Chloride 0.9%) 1,000 mls @ 100 mls/hr IV .Q10H [facility] Last Admin: 05/12/17 06:53 Dose: 100 mls/hr Insulin Human Regular (Humulin R Low) 0 units SC ACHS [facility] PRN Reason: Protocol Lactulose (Enulose) 20 gm PO DAILY M[facility]INA Morphine Sulfate (Morphine) 4 mg IVP Q4H PRN PRN Reason: Pain, severe (8-10) Ondansetron HCl (Zofran Inj) 4 mg IVP Q4H PRN PRN Reason: Nausea/Vomiting Pantoprazole Sodium (Protonix Inj) 40 mg IVP DAILY [facility]INA Rifaximin (Xifaxan) 550 mg PO BID [facility] PRN Reason: Protocol Last Admin: 05/11/17 23:24 Dose: 550 mg - Labs Labs: 05/12/17 06:30 PT 14.0 Seconds (9.9-11.8) H 05/11/17 18:59 INR 1.30 (0.93-1.08) H 05/11/17 18:59 APTT 28.6 Seconds (23.7-30.8) 05/11/17 18:59 - Constitutional Appears: No Acute Distress - Eye Exam Eye Exam: EOMI - ENT Exam ENT Exam: Mucous Membranes Moist - Respiratory Exam Respiratory Exam: NORMAL BREATHING PATTERN. absent: Accessory Muscle Use - Cardiovascular Exam Cardiovascular Exam: REGULAR RHYTHM, +S1, +S2 - GI/Abdominal Exam GI & Abdominal Exam: Soft, Normal Bowel Sounds. absent: Distended, Firm, Tenderness - Neurological Exam Neurological Exam: Awake, Oriented x3 - Skin Skin Exam: Normal Color Assessment and Plan - Assessment and Plan (Free Text) Assessment: 72F w/ RLQ abdominal pain and sepsis 2/2 colitis vs appendicitis Plan: - cyst on Pancreas noted on CT scan - IR today for Paracentesis and possible drain placement - NPO, IVF - IV Abx - pain management - serial abd exams - GI/DVT PPx Will discuss w/ Dr. Sandeep Lorenzana PGY1
[2017-05-12 07:52] LABS: HEMOGLOBIN 9.6 gm/dL (12.0-16.0); MEAN CELL VOLUME 96.3 fL (80.0-105.0); MEAN CORPUSCULAR HEMOGLOBIN 32.1 pg (25.0-35.0); MEAN CORPUSCULAR HGB CONC 33.3 g/dl (31.0-37.0); MEAN PLATELET VOLUME 10.7 fl (7.0-11.0); RBC 2.99 10^6/uL (3.5-6.1); RED CELL DISTRIBUTION WIDTH 15.3 % (11.5-14.5); WHITE BLOOD COUNT 9.2 10^3/ul (4.5-11.0)
[2017-05-12] MEDS ORDERED: Vancomycin 1gm in NS 250ml 1 GM/250 ML BAG IVPB SCH (08:00)
[2017-05-12] MEDS: Insulin Reg-LOW-Coverage SC SCH ×4 (08:24→21:19)
--- NOTE | 2017-05-12 09:30 | CP.PCM.PN ---
<AI HENRY - Last Filed: 05/12/17 11:40> Subjective - Date & Time of Evaluation Date of Evaluation: 05/12/17 Time of Evaluation: 09:27 - Subjective Subjective: ICU PGY1 Progress Note: Pt seen and examined at bedside. Pt admitted overnight for severe sepsis 2/2 likely SBP, pancreatitis, colitis, appendicitis? This AM, pt still c/o diffuse abdominal pain, more in the RLQ and LLQ, states her abdominal distention has reduced since last night. denies n/v/f/c, sob, cp, new focal weakness, paresthesias, urinary frequency/urgency/burning. Objective - Vital Signs/Intake and Output Vital Signs (last 24 hours): Temp Pulse Resp BP Pulse Ox 99.1 F 97 H 14 105/55 L 100 05/12/17 00:40 05/12/17 00:40 05/12/17 00:40 05/12/17 00:40 05/12/17 00:16 Intake and Output: 05/12/17 05/12/17 06:59 18:59 Intake Total 400 Balance 400 - Medications Medications: Current Medications Acetaminophen (Tylenol 650mg/20.3ml Solution Ud) 650 mg PO Q6H PRN PRN Reason: Temperature Metronidazole (Flagyl) 500 mg in 100 mls @ 100 mls/hr IVPB Q8 MELINA PRN Reason: Protocol Last Admin: 05/12/17 05:40 Dose: 100 mls/hr Vancomycin HCl (Vancomycin 1gm) 1 gm in 250 mls @ 167 mls/hr IVPB Q12H MELINA PRN Reason: Protocol Last Admin: 05/12/17 08:14 Dose: 167 mls/hr Meropenem 1g/NS 100mL IVPB (Meropenem 1g/Ns 100ml Ivpb) 1 gm in 100 mls @ 100 mls/hr IVPB Q12H MELINA PRN Reason: Protocol Stop: 05/19/17 06:46 Last Admin: 05/12/17 06:54 Dose: 100 mls/hr Sodium Chloride (Sodium Chloride 0.9%) 1,000 mls @ 100 mls/hr IV .Q10H MELINA Last Admin: 05/12/17 06:53 Dose: 100 mls/hr Insulin Human Regular (Humulin R Low) 0 units SC ACHS MELINA PRN Reason: Protocol Last Admin: 05/12/17 08:24 Dose: 3 units Lactulose (Enulose) 20 gm PO DAILY [facility] Morphine Sulfate (Morphine) 4 mg IVP Q4H PRN PRN Reason: Pain, severe (8-10) Ondansetron HCl (Zofran Inj) 4 mg IVP Q4H PRN PRN Reason: Nausea/Vomiting Pantoprazole Sodium (Protonix Inj) 40 mg IVP DAILY [facility] Rifaximin (Xifaxan) 550 mg PO BID MELINA PRN Reason: Protocol Last Admin: 05/11/17 23:24 Dose: 550 mg - Labs Labs: 05/12/17 06:30 05/12/17 06:30 PT 14.0 Seconds (9.9-11.8) H 05/11/17 18:59 INR 1.30 (0.93-1.08) H 05/11/17 18:59 APTT 28.6 Seconds (23.7-30.8) 05/11/17 18:59 - Constitutional Appears: No Acute Distress - Head Exam Head Exam: ATRAUMATIC, NORMOCEPHALIC - Eye Exam Eye Exam: PERRL. absent: Scleral icterus - ENT Exam ENT Exam: Mucous Membranes Moist - Respiratory Exam Respiratory Exam: Decreased Breath Sounds - Cardiovascular Exam Cardiovascular Exam: RRR, +S1, +S2. absent: Gallop, Murmur - GI/Abdominal Exam GI & Abdominal Exam: Soft, Tenderness, Hypoactive Bowel Sounds Additional comments: TTP in epigastric, RLQ, and LLQ. +McBurney's point and guarding. No rebound tenderness, Rovsing's, rigidity. No caput medusae, shifting dullness or fluid wave sign. - Extremities Exam Extremities Exam: absent: Calf Tenderness, Pedal Edema - Neurological Exam Neurological Exam: Alert, Awake, Oriented x3 - Psychiatric Exam Psychiatric exam: Normal Mood - Skin Skin Exam: Dry, Intact, Warm Additional comments: No palmar erythema, spider agiomas, jaundice. Assessment and Plan - Assessment and Plan (Free Text) Assessment: 72F, with PMH cirrhosis, hep C, recent CVA with right sided weakness, HTN, DM, admitted to ICU for severe sepsis 2/2 likely cholecystitis vs appendicitis, vs colitis, less likely SBP and pancreatitis. Will obtain abdominal U/S to better visualize cholecystitis and liver pathology. C/w Merrem for colitis per ID. BP stable, will hold IVF in the setting of cirrhosis. Plan: Neuro -AAO x3. - NH3 36. pt on lactulose and rifaximin at VT. will hold bc of colitis. -Monitor closely Cardio - Hypotensive on admission, s/p 2L IVF in Ed and albumin 25%, - BP 105/55, will hold IVF for now, cont to hold all antiHTN, prn boluses to maintain BP -Maintain MAP >65 Pulm -on NC, Maintain O2 sat >90% GI -Abdominal pain 2/2 likely cholecystitis, colitis vs appendicitis, less likely SBP with lactate of 5.3 on admission - Lactate 2.7 this AM, cont to trend - f/u MRCP per GI (Dr. Hernandez) -CT showed colitis, appendicitis, cirrhosis with portal htn, cholelithiasis, indeterminate pancreatic lesion, fibroid uterus - Obtain Abdominal US for liver and GB pathology. -MRI ordered to correlate CT pancreatic lesion (2.3x2.2x2.9cm) finding -F/u GI consult -Surgery consulted, spoke to surgical scheduler, surgical intervention pending IR assessment -IR consult for diagnostic paracentesis r/o SBP -T. bili 2.6 elevated, AST, ALT 38/41. Cont to monitor. -H/o cirrhosis/hep c/hepatic encephalopathy, hold lactulose and Rifaximin in the setting of colitis -Morphine prn for pain, Zofran for nausea -NPO -Protonix PPx Nephro -Strict I's and O's - UO 350cc this AM - will put in stokes -Replenish electrolyes as needed Endo - BG 230-280's -Maintain euglycemia -Hold insulin due to NPO -Monitor blood glucose Heme/ID - ID consult appreciated. C/w Merrem -s/p 1 dose of flagyl and zosyn in ED -Hgb 11.2->9.6 this AM, likely dilutional - wbc 2.3 on admission (which is her baseline) --> elevated 9.2 this AM, leukocytosis. - plts 57->38 this AM. plts low 2/2 likely cirrhosis and sepsis now. -Cont tylenol prn for fever -SCDs DVT ppx:SCDs bc low platelets GI ppx: protonix Pt was seen and discussed with PGY2 and Dr. Zavaleta. Ai Henry, PGY1 <Meghann MORRIS,Loulouoral H - Last Filed: 05/12/17 13:42> Objective - Vital Signs/Intake and Output Vital Signs (last 24 hours): Temp Pulse Resp BP Pulse Ox 99.1 F 87 18 102/51 L 100 05/12/17 00:40 05/12/17 10:10 05/12/17 10:10 05/12/17 10:00 05/12/17 10:10 Intake and Output: 05/12/17 05/12/17 06:59 18:59 Intake Total 400 Balance 400 - Medications Medications: Current Medications Acetaminophen (Tylenol 650mg/20.3ml Solution Ud) 650 mg PO Q6H PRN PRN Reason: Temperature Metronidazole (Flagyl) 500 mg in 100 mls @ 100 mls/hr IVPB Q8 MELINA PRN Reason: Protocol Last Admin: 05/12/17 05:40 Dose: 100 mls/hr Meropenem 1g/NS 100mL IVPB (Meropenem 1g/Ns 100ml Ivpb) 1 gm in 100 mls @ 100 mls/hr IVPB Q12H MELINA PRN Reason: Protocol Stop: 05/19/17 06:46 Last Admin: 05/12/17 06:54 Dose: 100 mls/hr Sodium Chloride (Sodium Chloride 0.9%) 1,000 mls @ 100 mls/hr IV .Q10H MELINA Last Admin: 05/12/17 06:53 Dose: 100 mls/hr Insulin Human Regular (Humulin R Low) 0 units SC ACHS MELINA PRN Reason: Protocol Last Admin: 05/12/17 08:24 Dose: 3 units Lactulose (Enulose) 20 gm PO DAILY [facility] Last Admin: 05/12/17 09:36 Dose: 20 gm Morphine Sulfate (Morphine) 4 mg IVP Q4H PRN PRN Reason: Pain, severe (8-10) Ondansetron HCl (Zofran Inj) 4 mg IVP Q4H PRN PRN Reason: Nausea/Vomiting Pantoprazole Sodium (Protonix Inj) 40 mg IVP DAILY [facility] Last Admin: 05/12/17 09:36 Dose: 40 mg Rifaximin (Xifaxan) 550 mg PO BID MELINA PRN Reason: Protocol Last Admin: 05/12/17 09:36 Dose: 550 mg - Labs Labs: 05/12/17 06:30 05/12/17 06:30 PT 16.0 Seconds (9.9-11.8) H 05/12/17 10:00 INR 1.48 (0.93-1.08) H 05/12/17 10:00 APTT 28.6 Seconds (23.7-30.8) 05/11/17 18:59 Attending/Attestation - Attestation I have personally seen and examined this patient.: Yes I have fully participated in the care of the patient.: Yes I have reviewed all pertinent clinical information, including history, physical exam and plan: Yes Notes (Text): 05/12/17 13:39 72 y/o F w/ Liver cirrhosis presents with abd pain from multiple sources CT abd/ Pelvis shows colitis, possible appendicitis and GB wall thickening and fluid. WBC elevated from this patient's baseline . Sepsis with adequate fluids and albumin given, currently normotensive and not tacycardic. On empiric abx w/ ID following. US RUQ pending to evaluate GB . MRCP per GI also ordered. T Bili elevated in the setting of Liver Cirrhosis. Not encephalopathic currently , lactulose on hold . Platelets > 20k ,INR<2. HGB>7 dvt p SCD PPI CC time 65 min Surgical consult pending.
[2017-05-12 10:25] LABS: VENOUS BLOOD GAS BASE EXCESS -2.8 mmol/L (0.0-2.0); VENOUS BLOOD GAS PO2 52 mm/Hg (30-55); VENOUS BLOOD PH 7.26 (7.32-7.43)
--- NOTE | 2017-05-12 10:33 | CP.PCM.CON ---
History of Present Illness - History of Present Illness History of Present Illness: 72 year old female with PMH of HTN, DM, chronic hepatitis C with no history of treatment with history of hepatic encephalopathy and decompensated liver cirrhosis, history of CVA with residual right sided weakness was [facility] in from the senior living because of worsening abdominal pain which started about 3 days ago, associated with nausea but no vomiting. She is currently taking lactulose which makes her stools loose and she has BM's several times a day. She denies fever or chills, no hematochezia or melena, no headache or dizzines,s no chest pain, no SOB, no rhinorrhea, no cough or colds, no dysphagia. In the ED, CT abdomen and pelvis is showing colitis and pancreatic lesion. Infectious diseases consult is requested to further evaluate and manage. Review of Systems - Review of Systems All systems: reviewed and no additional remarkable complaints except (as per HPI ) Past Patient History - Infectious Disease Hx of Infectious Diseases: None - Tetanus Immunizations Tetanus Immunization: Unknown - Past Social History Smoking Status: Never Smoked - CARDIAC Hx Cardiac Disorders: Yes Hx Hypertension: Yes - PULMONARY Hx Respiratory Disorders: No Hx Chronic Obstructive Pulmonary Disease (COPD): No Hx Pneumonia: No - NEUROLOGICAL Hx Neurological Disorder: Yes HX Cerebrovascular Accident: Yes - HEENT Hx HEENT Problems: Yes Hx Cataracts: Yes (BILATERAL SX) - RENAL Hx Chronic Kidney Disease: No Hx Renal Failure: No - ENDOCRINE/METABOLIC Hx Endocrine Disorders: Yes Hx Diabetes Mellitus Type 2: Yes Hx Hypothyroidism: Yes - HEMATOLOGICAL/ONCOLOGICAL Hx Blood Disorders: No Hx Cancer: No - INTEGUMENTARY Hx Dermatological Problems: No - MUSCULOSKELETAL/RHEUMATOLOGICAL Hx Musculoskeletal Disorders: Yes Hx Arthritis: Yes (OA) Hx Falls: Yes - GASTROINTESTINAL Hx Gastrointestinal Disorders: No Hx Gastroesophageal Reflux: No - GENITOURINARY/GYNECOLOGICAL Hx Genitourinary Disorders: No - PSYCHIATRIC Hx Psychophysiologic Disorder: No Hx Depression: No Hx Emotional Abuse: No Hx Physical Abuse: No - SURGICAL HISTORY Hx Hysterectomy: Yes - ANESTHESIA Hx Anesthesia: Yes Hx Anesthesia Reactions: No Hx Malignant Hyperthermia: No Meds Allergies/Adverse Reactions: Allergies Allergy/AdvReac Type Severity Reaction Status Date / Time No Known Allergies Allergy Verified 05/11/17 18:52 - Medications Medications: Current Medications Acetaminophen (Tylenol 650mg/20.3ml Solution Ud) 650 mg PO Q6H PRN PRN Reason: Temperature Metronidazole (Flagyl) 500 mg in 100 mls @ 100 mls/hr IVPB Q8 MELINA PRN Reason: Protocol Last Admin: 05/12/17 05:40 Dose: 100 mls/hr Vancomycin HCl (Vancomycin 1gm) 1 gm in 250 mls @ 167 mls/hr IVPB Q12H MELINA PRN Reason: Protocol Insulin Human Regular (Humulin R Low) 0 units SC ACHS MELINA PRN Reason: Protocol Lactulose (Enulose) 20 gm PO DAILY [facility] Morphine Sulfate (Morphine) 4 mg IVP Q4H PRN PRN Reason: Pain, severe (8-10) Ondansetron HCl (Zofran Inj) 4 mg IVP Q4H PRN PRN Reason: Nausea/Vomiting Pantoprazole Sodium (Protonix Inj) 40 mg IVP DAILY [facility] Rifaximin (Xifaxan) 550 mg PO BID MELINA PRN Reason: Protocol Last Admin: 05/11/17 23:24 Dose: 550 mg Physical Exam - Constitutional Appears: Non-toxic, No Acute Distress - Head Exam Head Exam: NORMAL INSPECTION - ENT Exam ENT Exam: Mucous Membranes Moist - Neck Exam Neck exam: Negative for: Lymphadenopathy, Meningismus - Respiratory Exam Respiratory Exam: Decreased Breath Sounds - Cardiovascular Exam Cardiovascular Exam: +S1, +S2 - GI/Abdominal Exam GI & Abdominal Exam: Guarding, Soft, Tenderness (diffuse). 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
[2017-05-12 10:38] LABS: INR 1.48 (0.93-1.08)
[2017-05-12 12:18] LABS: COMPLEMENT C4 10.2 mg/dL (14.0-44.0)
--- NOTE | 2017-05-12 12:43 | CP.PCM.CON ---
<Letha Lopez - Last Filed: 05/12/17 12:40> History of Present Illness - History of Present Illness History of Present Illness: Seen and examined, the chart was reviewed earlier this morning. Request for consult is for ascites/colitis/AP/rule out SBP. HPI: This is a 72-year-old Persian speaking female post-daughter is at the bedside, patient has a PET at medical history of hepatitis C, liver cirrhosis, CVA with right-sided residual weakness, diabetes mellitus, hypertension and to the emergency room from [facility] for complaints of diffuse abdominal pain. The patient's abdominal pain has been increasing over the past 3 days. Patient appetite is poor unable to tolerate diet yesterday and had 2 episodes of vomitus that were nonbilious and nonbloody. Found to have elevated LDH, code spesis called. The patient does admit to having diarrhea, patient is on lactulose denies any melena or bright red blood per rectum. On admission the patient had a CT scan of abdomen and pelvis with IV contrast only which reported gallbladder stones, hypodense lesion in the pancreas, nonspecific colitis, in her appendicitis, and cirrhosis with portal hypertension. The patient does complain of diffuse abdominal pain but the pain is more right- sided. No reports of any fever or chills. PMH: hepatitis C, cirrhosis, hypertension, recent CVA with right-sided weakness , diabetes mellitus PSH: bilateral cataracts, hysterectomy Social history: Denies tobacco EtOH, or drugs. Allergies: No known drug allergies Family history: Hypertension/diabetes mellitus Medications: Reviewed as per MAR ROS: Systems reviewed with positive finding see HPI Past Patient History - Infectious Disease Hx of Infectious Diseases: None - Tetanus Immunizations Tetanus Immunization: Unknown - Past Social History Smoking Status: Never Smoked - CARDIAC Hx Cardiac Disorders: Yes Hx Hypertension: Yes - PULMONARY Hx Respiratory Disorders: No Hx Chronic Obstructive Pulmonary Disease (COPD): No Hx Pneumonia: No - NEUROLOGICAL Hx Neurological Disorder: Yes HX Cerebrovascular Accident: Yes - HEENT Hx HEENT Problems: Yes Hx Cataracts: Yes (BILATERAL SX) - RENAL Hx Chronic Kidney Disease: No Hx Renal Failure: No - ENDOCRINE/METABOLIC Hx Endocrine Disorders: Yes Hx Diabetes Mellitus Type 2: Yes Hx Hypothyroidism: Yes - HEMATOLOGICAL/ONCOLOGICAL Hx Blood Disorders: No Hx Cancer: No - INTEGUMENTARY Hx Dermatological Problems: No - MUSCULOSKELETAL/RHEUMATOLOGICAL Hx Musculoskeletal Disorders: Yes Hx Arthritis: Yes (OA) Hx Falls: Yes - GASTROINTESTINAL Hx Gastrointestinal Disorders: No Hx Gastroesophageal Reflux: No - GENITOURINARY/GYNECOLOGICAL Hx Genitourinary Disorders: No - PSYCHIATRIC Hx Psychophysiologic Disorder: No Hx Depression: No Hx Emotional Abuse: No Hx Physical Abuse: No - SURGICAL HISTORY Hx Hysterectomy: Yes - ANESTHESIA Hx Anesthesia: Yes Hx Anesthesia Reactions: No Hx Malignant Hyperthermia: No Meds Allergies/Adverse Reactions: Allergies Allergy/AdvReac Type Severity Reaction Status Date / Time No Known Allergies Allergy Verified 05/11/17 18:52 - Medications Medications: Current Medications Acetaminophen (Tylenol 650mg/20.3ml Solution Ud) 650 mg PO Q6H PRN PRN Reason: Temperature Metronidazole (Flagyl) 500 mg in 100 mls @ 100 mls/hr IVPB Q8 MELINA PRN Reason: Protocol Last Admin: 05/12/17 05:40 Dose: 100 mls/hr Meropenem 1g/NS 100mL IVPB (Meropenem 1g/Ns 100ml Ivpb) 1 gm in 100 mls @ 100 mls/hr IVPB Q12H MELINA PRN Reason: Protocol Stop: 05/19/17 06:46 Last Admin: 05/12/17 06:54 Dose: 100 mls/hr Sodium Chloride (Sodium Chloride 0.9%) 1,000 mls @ 100 mls/hr IV .Q10H [facility] Last Admin: 05/12/17 06:53 Dose: 100 mls/hr Insulin Human Regular (Humulin R Low) 0 units SC ACHS MELINA PRN Reason: Protocol Last Admin: 05/12/17 08:24 Dose: 3 units Lactulose (Enulose) 20 gm PO DAILY [facility] Last Admin: 05/12/17 09:36 Dose: 20 gm Morphine Sulfate (Morphine) 4 mg IVP Q4H PRN PRN Reason: Pain, severe (8-10) Ondansetron HCl (Zofran Inj) 4 mg IVP Q4H PRN PRN Reason: Nausea/Vomiting Pantoprazole Sodium (Protonix Inj) 40 mg IVP DAILY [facility] Last Admin: 05/12/17 09:36 Dose: 40 mg Rifaximin (Xifaxan) 550 mg PO BID MELINA PRN Reason: Protocol Last Admin: 05/12/17 09:36 Dose: 550 mg Physical Exam - Constitutional Appears: No Acute Distress - Head Exam Head Exam: NORMOCEPHALIC - Eye Exam Eye Exam: Normal appearance. absent: Scleral icterus - ENT Exam ENT Exam: Mucous Membranes Moist - Neck Exam Neck exam: Positive for: Normal Inspection - Respiratory Exam Respiratory Exam: NORMAL BREATHING PATTERN. absent: Decreased Breath Sounds, Respiratory Distress - Cardiovascular Exam Cardiovascular Exam: +S1, +S2 - GI/Abdominal Exam GI & Abdominal Exam: Distended, Normal Bowel Sounds, Soft, Tenderness (diffuse tendeness, but > right quaderant). absent: Guarding, Organomegaly, Rebound - Extremities Exam Extremities exam: Positive for: pedal edema, pedal pulses present. Negative for : calf tenderness - Neurological Exam Neurological exam: Alert, Oriented x3 Additional comments: no asterixis - Skin Skin Exam: Dry, Warm Results - Vital Signs Recent Vital Signs: Last Vital Signs Temp 99.1 F 05/12/17 00:40 Pulse 87 05/12/17 10:10 Resp 18 05/12/17 10:10 BP 102/51 L 05/12/17 10:00 Pulse Ox 100 05/12/17 10:10 - Labs Result Diagrams: 05/12/17 06:30 05/12/17 06:30 Labs: Laboratory Results - last 24 hr 05/12/17 05/12/17 05/12/17 06:30 06:30 06:30 WBC 9.2 D RBC 2.99 L Hgb 9.6 L Hct 28.8 L MCV 96.3 MCH 32.1 MCHC 33.3 RDW 15.3 H Plt Count 38 L* MPV 10.7 PT INR pO2 VBG pH VBG pCO2 VBG HCO3 VBG Total CO2 VBG O2 Sat (Calc) VBG Base Excess VBG Potassium Sodium 138 Chloride 106 Glucose Lactate FiO2 Potassium 4.8 Carbon Dioxide 24 Anion Gap 13 BUN 18 Creatinine 1.2 Est GFR ( Amer) 53 Est GFR (Non-Af Amer) 44 POC Glucose (mg/dL) Random Glucose 239 H Calcium 7.3 L Iron TIBC % Saturation Transferrin Ferritin Total Bilirubin 2.6 H AST 38 ALT 41 Alkaline Phosphatase 63 Total Protein 5.8 Albumin 2.3 L Globulin 3.5 Albumin/Globulin Ratio 0.7 L Venous Blood Potassium Complement C3 56.0 L Complement C4 10.2 L Blood Type Antibody Screen Crossmatch BBK History Checked 05/12/17 05/12/1705/12/17 06:30 06:30 06:30 WBC RBC Hgb Hct MCV MCH MCHC RDW Plt Count MPV PT INR pO2 68 H VBG pH 7.28 L VBG pCO2 55.0 VBG HCO3 25.8 VBG Total CO2 27.5 VBG O2 Sat (Calc) 96.8 H VBG Base Excess -1.8 L VBG Potassium 4.9 Sodium 138.0 Chloride 108.0 H Glucose 257 H Lactate 2.7 H FiO2 21.0 Potassium Carbon Dioxide Anion Gap BUN Creatinine Est GFR ( Amer) Est GFR (Non-Af Amer) POC Glucose (mg/dL) Random Glucose Calcium Iron TIBC % Saturation Transferrin 123.68 L Ferritin Total Bilirubin AST ALT Alkaline Phosphatase Total Protein Albumin Globulin Albumin/Globulin Ratio Venous Blood Potassium 4.9 Complement C3 Complement C4 Blood Type A POSITIVE Antibody Screen Negative Crossmatch See Detail BBK History Checked Patient has bt 05/12/17 05/12/17 05/12/17 06:30 06:30 08:21 WBC RBC Hgb Hct MCV MCH MCHC RDW Plt Count MPV PT INR pO2 VBG pH VBG pCO2 VBG HCO3 VBG Total CO2 VBG O2 Sat (Calc) VBG Base Excess VBG Potassium Sodium Chloride Glucose Lactate FiO2 Potassium Carbon Dioxide Anion Gap BUN Creatinine Est GFR ( Amer) Est GFR (Non-Af Amer) POC Glucose (mg/dL) 288 H Random Glucose Calcium Iron 12 L TIBC 203 L % Saturation 6 L Transferrin Ferritin 386.0 Total Bilirubin AST ALT Alkaline Phosphatase Total Protein Albumin Globulin Albumin/Globulin Ratio Venous Blood Potassium Complement C3 Complement C4 Blood Type Antibody Screen Crossmatch BBK History Checked 05/12/17 05/12/17 05/12/17 10:00 10:15 11:16 WBC RBC Hgb Hct MCV MCH MCHC RDW Plt Count MPV PT 16.0 H INR 1.48 H pO2 52 VBG pH 7.26 L VBG pCO2 56.0 VBG HCO3 25.1 VBG Total CO2 26.8 VBG O2 Sat (Calc) 91.3 H VBG Base Excess -2.8 L VBG Potassium 4.8 Sodium 138.0 Chloride 109.0 H Glucose 244 H Lactate 2.7 H FiO2 21.0 Potassium Carbon Dioxide Anion Gap BUN Creatinine Est GFR ( Amer) Est GFR (Non-Af Amer) POC Glucose (mg/dL) 277 H Random Glucose Calcium Iron TIBC % Saturation Transferrin Ferritin Total Bilirubin AST ALT Alkaline Phosphatase Total Protein Albumin Globulin Albumin/Globulin Ratio Venous Blood Potassium 4.8 Complement C3 Complement C4 Blood Type Antibody Screen Crossmatch BBK History Checked Assessment & Plan - Assessment and Plan (Free Text) Assessment: Assessment: S/P Code Sepsis Abdominal pain Rule out acute appendicitis Ascites History of hepatitis C Liver cirrhosis Nonspecific colitis Hypodense lesion in the pancreas CVA with right-sided weakness Diabetes mellitus Plan: request for MRCP/MRI Abdomen w/o contrast, further evaluate pancreas Pending eval for paracentesis with IR Abdominal ultrasound Nothing by mouth Continue IV fluids for hydration Continue IV antibiotics as per ID Continue PPI on Xifaxine, on Lactulose DVT prophylaxis, SCD boots Monitor electrolytes Thank you for this consult and for allowing us to participate in patient's care , we'll make further recommendations based upon patient's clinical course. Patient was seen and discussed with Dr. Hernandez. <Dante Hernandez V - Last Filed: 05/12/17 23:33> Meds - Medications Medications: Current Medications Acetaminophen (Tylenol 650mg/20.3ml Solution Ud) 650 mg PO Q6H PRN PRN Reason: Temperature Last Admin: 05/12/17 22:19 Dose: 650 mg Metronidazole (Flagyl) 500 mg in 100 mls @ 100 mls/hr IVPB Q8 MELINA PRN Reason: Protocol Last Admin: 05/12/17 21:10 Dose: 100 mls/hr Meropenem 1g/NS 100mL IVPB (Meropenem 1g/Ns 100ml Ivpb) 1 gm in 100 mls @ 100 mls/hr IVPB Q12H MELINA PRN Reason: Protocol Stop: 05/19/17 06:46 Last Admin: 05/12/17 17:52 Dose: 100 mls/hr Sodium Chloride (Sodium Chloride 0.9%) 1,000 mls @ 100 mls/hr IV .Q10H MELINA Last Admin: 05/12/17 20:54 Dose: 100 mls/hr Insulin Human Regular (Humulin R Low) 0 units SC ACHS MELINA PRN Reason: Protocol Last Admin: 05/12/17 21:19 Dose: Not Given Lactulose (Enulose) 20 gm PO DAILY MELINA Last Admin: 05/12/17 09:36 Dose: 20 gm Morphine Sulfate (Morphine) 2 mg IVP Q4 PRN PRN Reason: Pain, severe (8-10) Last Admin: 05/12/17 21:49 Dose: 2 mg Ondansetron HCl (Zofran Inj) 4 mg IVP Q4H PRN PRN Reason: Nausea/Vomiting Pantoprazole Sodium (Protonix Inj) 40 mg IVP DAILY [facility] Last Admin: 05/12/17 09:36 Dose: 40 mg Rifaximin (Xifaxan) 550 mg PO BID MELINA PRN Reason: Protocol Last Admin: 05/12/17 09:36 Dose: 550 mg Results - Vital Signs Recent Vital Signs: Last Vital Signs Temp 100 F H 05/12/17 22:19 Pulse 98 H 05/12/17 20:00 Resp 14 05/12/17 20:00 BP 130/61 05/12/17 20:00 Pulse Ox 98 05/12/17 20:00 - Labs Result Diagrams: 05/12/17 06:30 05/12/17 06:30 Labs: Laboratory Results - last 24 hr 05/12/17 05/12/17 05/12/17 06:30 06:30 06:30 WBC 9.2 D RBC 2.99 L Hgb 9.6 L Hct 28.8 L MCV 96.3 MCH 32.1 MCHC 33.3 RDW 15.3 H Plt Count 38 L* MPV 10.7 PT INR pO2 VBG pH VBG pCO2 VBG HCO3 VBG Total CO2 VBG O2 Sat (Calc) VBG Base Excess VBG Potassium Sodium 138 Chloride 106 Glucose Lactate FiO2 Potassium 4.8 Carbon Dioxide 24 Anion Gap 13 BUN 18 Creatinine 1.2 Est GFR ( Amer) 53 Est GFR (Non-Af Amer) 44 POC Glucose (mg/dL) Random Glucose 239 H Calcium 7.3 L Iron TIBC % Saturation Transferrin Ferritin Total Bilirubin 2.6 H AST 38 ALT 41 Alkaline Phosphatase 63 Total Protein 5.8 Albumin 2.3 L Globulin 3.5 Albumin/Globulin Ratio 0.7 L Vitamin B12 Folate Venous Blood Potassium Complement C3 56.0 L Complement C4 10.2 L Blood Type Antibody Screen Crossmatch BBK History Checked 05/12/17 05/12/17 05/12/17 06:30 06:30 06:30 WBC RBC Hgb Hct MCV MCH MCHC RDW Plt Count MPV PT INR pO2 68 H VBG pH 7.28 L VBG pCO2 55.0 VBG HCO3 25.8 VBG Total CO2 27.5 VBG O2 Sat (Calc) 96.8 H VBG Base Excess -1.8 L VBG Potassium 4.9 Sodium 138.0 Chloride 108.0 H Glucose 257 H Lactate 2.7 H FiO2 21.0 Potassium Carbon Dioxide Anion Gap BUN Creatinine Est GFR ( Amer) Est GFR (Non-Af Amer) POC Glucose (mg/dL) Random Glucose Calcium Iron TIBC % Saturation Transferrin 123.68 L Ferritin Total Bilirubin AST ALT Alkaline Phosphatase Total Protein Albumin Globulin Albumin/Globulin Ratio Vitamin B12 Folate Venous Blood Potassium 4.9 Complement C3 Complement C4 Blood Type A POSITIVE Antibody Screen Negative Crossmatch See Detail BBK History Checked Patient has bt 05/12/17 05/12/17 05/12/17 06:30 06:30 08:21 WBC RBC Hgb Hct MCV MCH MCHC RDW Plt Count MPV PT INR pO2 VBG pH VBG pCO2 VBG HCO3 VBG Total CO2 VBG O2 Sat (Calc) VBG Base Excess VBG Potassium Sodium Chloride Glucose Lactate FiO2 Potassium Carbon Dioxide Anion Gap BUN Creatinine Est GFR ( Amer) Est GFR (Non-Af Amer) POC Glucose (mg/dL) 288 H Random Glucose Calcium Iron 12 L TIBC 203 L % Saturation 6 L Transferrin Ferritin 386.0 Total Bilirubin AST ALT Alkaline Phosphatase Total Protein Albumin Globulin Albumin/Globulin Ratio Vitamin B12 > 1000 H Folate 14.9 Venous Blood Potassium Complement C3 Complement C4 Blood Type Antibody Screen Crossmatch BBK History Checked 05/12/17 05/12/17 05/12/17 10:00 10:15 11:16 WBC RBC Hgb Hct MCV MCH MCHC RDW Plt Count MPV PT 16.0 H INR 1.48 H pO2 52 VBG pH 7.26 L VBG pCO2 56.0 VBG HCO3 25.1 VBG Total CO2 26.8 VBG O2 Sat (Calc) 91.3 H VBG Base Excess -2.8 L VBG Potassium 4.8 Sodium 138.0 Chloride 109.0 H Glucose 244 H Lactate 2.7 H FiO2 21.0 Potassium Carbon Dioxide Anion Gap BUN Creatinine Est GFR ( Amer) Est GFR (Non-Af Amer) POC Glucose (mg/dL) 277 H Random Glucose Calcium Iron TIBC % Saturation Transferrin Ferritin Total Bilirubin AST ALT Alkaline Phosphatase Total Protein Albumin Globulin Albumin/Globulin Ratio Vitamin B12 Folate Venous Blood Potassium 4.8 Complement C3 Complement C4 Blood Type Antibody Screen Crossmatch BBK History Checked Attending/Attestation - Attestation I have personally seen and examined this patient.: Yes I have fully participated in the care of the patient.: Yes I have reviewed all pertinent clinical information: Yes Notes (Text): t
[2017-05-12 12:44] LABS: FOLATE 14.9 ng/mL
--- NOTE | 2017-05-12 13:55 | US ---
HISTORY: r/o gallstones COMPARISON: CT abdomen and pelvis from 05/11/2017 TECHNIQUE: Sonographic evaluation of the abdomen. FINDINGS: LIVER: Measures 14.4 cm. Normal echogenicity of the liver parenchyma with nodular contour. No mass. No intrahepatic bile duct dilatation. GALLBLADDER: The gallbladder is distended and there are multiple gallstones without wall thickening or pericholecystic fluid. The sonographic Mota's sign is negative. COMMON BILE DUCT: Measures 6.3 mm. No stones. No dilatation. PANCREAS: Obscured by excessive bowel gas. RIGHT KIDNEY: Measures 10.6cm. Normal echogenicity. No calculus, mass, or hydronephrosis. LEFT KIDNEY: Measures 10.4cm. Normal echogenicity. No calculus, mass, or hydronephrosis. SPLEEN: Mild splenomegaly. The spleen measures 15.3 cm AORTA: Obscured by excessive bowel gas. IVC: Obscured by excessive bowel gas. OTHER FINDINGS: There is mild perihepatic ascites. IMPRESSION: Findings are most compatible with hepatic cirrhosis and mild splenomegaly. Cholelithiasis.
--- NOTE | 2017-05-12 16:22 | CARD ---
APPROVED REPORT EKG Measurement Heart [id number] <Conclusion> Sinus tachycardia Otherwise normal ECG
[2017-05-12] MEDS ORDERED: Morphine 4 mg/ml ISec IVP PRN (21:43)
[2017-05-12] MEDS: Morphine 2 mg/ml ISec IVP PRN (21:49)
[2017-05-13] MEDS: metroNIDAZOLE IV 500 mg/100 ml 500 MG/100 ML BAG IVPB SCH (05:00)
[2017-05-13] MEDS: Meropenem 1g/NS 100mL IVPB 1 GM/100 ML PIGGYBACK IVPB SCH ×2 (06:27→18:44)
[2017-05-13 06:33] LABS: ALB/GLOB RATIO 0.6 (1.1-1.8); ALBUMIN 2.4 g/dL (3.0-4.8); CALCIUM 7.1 mg/dL (8.4-10.5)
[2017-05-13 06:39] LABS: HEMOGLOBIN 9.6 gm/dL (12.0-16.0); MEAN CORPUSCULAR HEMOGLOBIN 32.1 pg (25.0-35.0); MEAN CORPUSCULAR HGB CONC 33.1 g/dl (31.0-37.0); MEAN PLATELET VOLUME 12.1 fl (7.0-11.0); RBC 2.99 10^6/uL (3.5-6.1); RED CELL DISTRIBUTION WIDTH 15.8 % (11.5-14.5); WHITE BLOOD COUNT 10.8 10^3/ul (4.5-11.0)
[2017-05-13] MEDS: Insulin Reg-LOW-Coverage SC SCH ×4 (08:03→21:45)
--- NOTE | 2017-05-13 09:30 | CP.PCM.HP ---
History of Present Illness - History of Present Illness History of Present Illness: patient brought in er after [facility] nurse called the office that patient hadvomiting , and abdominal pain. in er she had fever 102. patient had this symptoms x 3 days got worse latley,no chest pain, no dyspnea,on lactulose with diarhea bm. Present on Admission - Present on Admission Any Indicators Present on Admission: Yes History of DVT/PE: No History of Uncontrolled Diabetes: Yes Urinary Catheter: No Decubitus Ulcer Present: No Decubitus Ulcer Location: non History Surgical Site Infection Following: None Review of Systems - Constitutional Constitutional: Daytime Sleepiness, Weakness - Gastrointestinal Gastrointestinal: Abdominal Pain, Diarrhea - Genitourinary Genitourinary: Urinary Incontinence - Psychiatric Psychiatric: Change in Appetite - Endocrine Endocrine: Polyuria Past Patient History - Infectious Disease Hx of Infectious Diseases: None - Tetanus Immunizations Tetanus Immunization: Unknown - Past Social History Smoking Status: Never Smoked - CARDIAC Hx Cardiac Disorders: Yes Hx Hypertension: Yes - PULMONARY Hx Respiratory Disorders: No Hx Chronic Obstructive Pulmonary Disease (COPD): No Hx Pneumonia: No - NEUROLOGICAL Hx Neurological Disorder: Yes HX Cerebrovascular Accident: Yes - HEENT Hx HEENT Problems: Yes Hx Cataracts: Yes (BILATERAL SX) - RENAL Hx Chronic Kidney Disease: No Hx Renal Failure: No - ENDOCRINE/METABOLIC Hx Endocrine Disorders: Yes Hx Diabetes Mellitus Type 2: Yes Hx Hypothyroidism: Yes - HEMATOLOGICAL/ONCOLOGICAL Hx Blood Disorders: No Hx Cancer: No - INTEGUMENTARY Hx Dermatological Problems: No - MUSCULOSKELETAL/RHEUMATOLOGICAL Hx Musculoskeletal Disorders: Yes Hx Arthritis: Yes (OA) Hx Falls: Yes - GASTROINTESTINAL Hx Gastrointestinal Disorders: No Hx Gastroesophageal Reflux: No - GENITOURINARY/GYNECOLOGICAL Hx Genitourinary Disorders: No - PSYCHIATRIC Hx Psychophysiologic Disorder: No Hx Depression: No Hx Emotional Abuse: No Hx Physical Abuse: No - SURGICAL HISTORY Hx Hysterectomy: Yes - ANESTHESIA Hx Anesthesia: Yes Hx Anesthesia Reactions: No Hx Malignant Hyperthermia: No Meds Allergies/Adverse Reactions: Allergies Allergy/AdvReac Type Severity Reaction Status Date / Time No Known Allergies Allergy Verified 05/11/17 18:52 Physical Exam - Constitutional Appears: Older Than Stated Age - Head Exam Head Exam: ATRAUMATIC - Eye Exam Eye Exam: EOMI, Normal appearance, PERRL Pupil Exam: Fixed - ENT Exam ENT Exam: Mucous Membranes Moist, Normal Exam - Respiratory Exam Respiratory Exam: Decreased Breath Sounds - Cardiovascular Exam Cardiovascular Exam: REGULAR RHYTHM - GI/Abdominal Exam GI & Abdominal Exam: Normal Bowel Sounds, Soft, Tenderness - Rectal Exam Rectal Exam: Deferred Additional comments: tenderness.generalised ,soft.,bs positive Results - Vital Signs Recent Vital Signs: Last Vital Signs Temp 99 F 05/13/17 04:00 Pulse 106 H 05/13/17 08:40 Resp 21 05/13/17 08:40 BP 143/65 05/13/17 08:00 Pulse Ox 92 L 05/13/17 08:40 - Labs Result Diagrams: 05/13/17 06:15 05/13/17 06:15 Labs: Laboratory Results - last 24 hr 05/12/17 05/12/17 05/12/17 05:26 06:30 06:30 WBC RBC Hgb Hct MCV MCH MCHC RDW Plt Count MPV PT INR pO2 VBG pH VBG pCO2 VBG HCO3 VBG Total CO2 VBG O2 Sat (Calc) VBG Base Excess VBG Potassium Sodium Chloride Glucose Lactate FiO2 Potassium Carbon Dioxide Anion Gap BUN Creatinine Est GFR ( Amer) Est GFR (Non-Af Amer) POC Glucose (mg/dL) Random Glucose Calcium Transferrin 123.68 L Ferritin Total Bilirubin AST ALT Alkaline Phosphatase Total Protein Albumin Globulin Albumin/Globulin Ratio Amylase Lipase Vitamin B12 Folate Venous Blood Potassium Complement C3 56.0 L Complement C4 10.2 L HIV 1&2 Ag/Ab, 4th Gen Nonreactive 05/12/17 05/12/17 05/12/17 06:30 10:00 10:15 WBC RBC Hgb Hct MCV MCH MCHC RDW Plt Count MPV PT 16.0 H INR 1.48 H pO2 52 VBG pH 7.26 L VBG pCO2 56.0 VBG HCO3 25.1 VBG Total CO2 26.8 VBG O2 Sat (Calc) 91.3 H VBG Base Excess -2.8 L VBG Potassium 4.8 Sodium 138.0 Chloride 109.0 H Glucose 244 H Lactate 2.7 H FiO2 21.0 Potassium Carbon Dioxide Anion Gap BUN Creatinine Est GFR ( Amer) Est GFR (Non-Af Amer) POC Glucose (mg/dL) Random Glucose Calcium Transferrin Ferritin 386.0 Total Bilirubin AST ALT Alkaline Phosphatase Total Protein Albumin Globulin Albumin/Globulin Ratio Amylase Lipase Vitamin B12 > 1000 H Folate 14.9 Venous Blood Potassium 4.8 Complement C3 Complement C4 HIV 1&2 Ag/Ab, 4th Gen 05/12/17 05/13/17 05/13/17 11:16 06:15 06:15 WBC 10.8 RBC 2.99 L Hgb 9.6 L Hct 29.0 L MCV 97.0 MCH 32.1 MCHC 33.1 RDW 15.8 H Plt Count 60 L MPV 12.1 H PT INR pO2 VBG pH VBG pCO2 VBG HCO3 VBG Total CO2 VBG O2 Sat (Calc) VBG Base Excess VBG Potassium Sodium 141 Chloride 110 H Glucose Lactate FiO2 Potassium 3.9 Carbon Dioxide 24 Anion Gap 11 BUN 28 H Creatinine 1.3 Est GFR ( Amer) 48 Est GFR (Non-Af Amer) 40 POC Glucose (mg/dL) 277 H Random Glucose 151 H Calcium 7.1 L Transferrin Ferritin Total Bilirubin 1.7 H AST 40 H ALT 40 Alkaline Phosphatase 57 Total Protein 6.0 Albumin 2.4 L Globulin 3.7 Albumin/Globulin Ratio 0.6 L Amylase 53 Lipase 45 Vitamin B12 Folate Venous Blood Potassium Complement C3 Complement C4 HIV 1&2 Ag/Ab, 4th Gen Assessment & Plan - Assessment and Plan (Free Text) Assessment: 72 female diabetic, liver cirhosis, ascitis , recent rt hemiplegia due to hemorhagic stroke, on lactulose, c/o fever . abdominal pain , tender . bandemia, . will admitt. icu due to sepsis. Plan: iv zosyn, flagyle,vancomycin, id consult, gi consult, critrical care insult, surgergical consult. colitis. sbp. appendicitis less likely. . iv fluid. xifaxan , .consult intervensional radiology consult..see orders - Date & Time Date: 05/12/17 Time: 11:00
[2017-05-13] MEDS: Insulin Detemir 100 units/ml Vial (Levemir) SC SCH (10:38)
--- NOTE | 2017-05-13 11:36 | PN ---
DATE: 05/13/2017 SUBJECTIVE: The patient is in bed, in no acute distress, nontoxic. No fevers. PHYSICAL EXAMINATION VITAL SIGNS: Temperature is 98, blood pressure is 140/60, and respiratory rate of 16. HEENT: Examination of HEENT Is unremarkable. NECK: Supple. LUNGS: Decreased breath sounds. HEART: Normal S1 and S2. ABDOMEN: Soft and nontender. LABORATORY DATA: Examination reveals the patient's white count of 10.0000, hemoglobin of 9, and platelets of 60. Chemistry reveals BUN of 28 and creatinine of 1.3. Urinalysis is noted and HIV is negative. Microbiology reveals a urine culture negative and blood cultures are negative. Abdominal ultrasound is noted compatible with hepatic cirrhosis and mild splenomegaly and chololithiasis, and CAT scan of the abdomen and pelvis is noted. ASSESSMENT AND PLAN: This is a 72-year-old female originally from [place], who has a past medical history of hypertension, diabetes, chronic hepatitis C and history of hepatic encephalopathy and decompensated liver cirrhosis, history of cerebrovascular accident, residual right-sided weakness and chronic obstructive lung disease, hysterectomy, sepsis due to acute colitis, pancreatic lesion and chronic hepatitis C and liver cirrhosis, currently on meropenem with negative blood cultures, and negative urine cultures. Also, on Flagyl, we will discontinue the Flagyl and meropenem as adequate an aerobic coverage with awaiting for magnetic resonance cholangiopancreatography. We will follow with you. Niles Jain MD
--- NOTE | 2017-05-13 11:59 | PN ---
DATE: 05/13/2017 SUBJECTIVE: The patient is resting in bed with family at bedside. She has broken [place] but does state that she has some mild lower abdominal pain. No nauseousness or vomiting this morning. No diarrhea. No complaints of fever or chills. No shortness of breath, cough or wheezing. PHYSICAL EXAMINATION: Note that, VITAL SIGNS: Her temperature is 99, her pulse is 106, respirations are 21, blood pressure is 143/56. SKIN: Warm and dry. HEENT: Head is atraumatic and normocephalic. Eyes reactive to light. Ear, nose and throat seem to be within normal limits. NECK: Supple. No JVD. No thyroid enlargement. No lymph nodes. HEART: Regular rate and rhythm. Normal S1, S2. LUNGS: Reveal good breath sounds bilaterally. ABDOMEN: Soft. Decreased bowel sounds. Tenderness to palpation in lower abdominal regions. GENITALIA AND RECTAL: Deferred. MUSCULOSKELETAL: No joint deformities. EXTREMITIES: Reveal trace lower extremity edema. NEUROLOGICAL: She seemed to be grossly intact. LABORATORY DATA: Her white count is 10.8, hemoglobin is 9.6, hematocrit 29.0 and platelets of 60,000. The patient's sodium is 141, potassium 3.9, chloride 110, CO2 of 24 with a BUN of 28, creatinine of 1.3, and a glucose of 151. The patient's ultrasound of the abdomen had revealed hepatic cirrhosis and mild splenomegaly. IMPRESSION: This patient has liver cirrhosis and possible colitis or cholecystitis. It is noted on ultrasound that she has a splenomegaly and carries a diagnosis of hepatitis C, anemia, thrombocytopenia, diabetes, hypertension and cerebrovascular accident. PLAN: We will continue to monitor closely in the ICU. The patient is getting metronidazole as well as meropenem as well as morphine for pain and Protonix. She is on IV fluids and Zofran for any nauseousness. We will continue to follow closely and treat aggressively along with the other consultants and the primary care doctor. Michael Green MD
--- NOTE | 2017-05-13 12:16 | CP.PCM.PN ---
Subjective - Date & Time of Evaluation Date of Evaluation: 05/13/17 Time of Evaluation: 08:50 - Subjective Subjective: SURGERY PROGRESS NOTE FOR DR. NEWELL 72F seen and examined at bedside. Patient resting comfortably. Pain is improving but localized to RUQ, denies nausea, vomiting. Normal bowel movements. Objective - Vital Signs/Intake and Output Vital Signs (last 24 hours): Temp Pulse Resp BP Pulse Ox 99 F 104 H 22 135/68 92 L 05/13/17 04:00 05/13/17 11:50 05/13/17 11:50 05/13/17 11:00 05/13/17 11:50 Intake and Output: 05/13/17 05/13/17 06:59 18:59 Intake Total 1500 Output Total 650 Balance 850 - Medications Medications: Current Medications Acetaminophen (Tylenol 650mg/20.3ml Solution Ud) 650 mg PO Q6H PRN PRN Reason: Temperature Last Admin: 05/12/17 22:19 Dose: 650 mg Meropenem 1g/NS 100mL IVPB (Meropenem 1g/Ns 100ml Ivpb) 1 gm in 100 mls @ 100 mls/hr IVPB Q12H [facility] PRN Reason: Protocol Stop: 05/19/17 06:46 Last Admin: 05/13/17 06:27 Dose: 100 mls/hr Sodium Chloride (Sodium Chloride 0.9%) 1,000 mls @ 100 mls/hr IV .Q10H [facility] Last Admin: 05/12/17 20:54 Dose: 100 mls/hr Insulin Detemir (Levemir) 10 unit SC DAILY [facility] Insulin Human Regular (Humulin R Low) 0 units SC ACHS [facility] PRN Reason: Protocol Last Admin: 05/13/17 08:03 Dose: Not Given Lactulose (Enulose) 20 gm PO DAILY [facility] Last Admin: 05/12/17 09:36 Dose: 20 gm Morphine Sulfate (Morphine) 2 mg IVP Q4 PRN PRN Reason: Pain, severe (8-10) Last Admin: 05/12/17 21:49 Dose: 2 mg Ondansetron HCl (Zofran Inj) 4 mg IVP Q4H PRN PRN Reason: Nausea/Vomiting Pantoprazole Sodium (Protonix Inj) 40 mg IVP DAILY [facility] Last Admin: 05/13/17 09:52 Dose: 40 mg Rifaximin (Xifaxan) 550 mg PO BID [facility] PRN Reason: Protocol Last Admin: 05/12/17 09:36 Dose: 550 mg - Labs Labs: 05/13/17 06:15 05/13/17 06:15 PT 16.0 Seconds (9.9-11.8) H 05/12/17 10:00 INR 1.48 (0.93-1.08) H 05/12/17 10:00 APTT 28.6 Seconds (23.7-30.8) 05/11/17 18:59 - Constitutional Appears: Non-toxic, No Acute Distress - Respiratory Exam Respiratory Exam: Clear to Ausculation Bilateral, NORMAL BREATHING PATTERN - Cardiovascular Exam Cardiovascular Exam: REGULAR RHYTHM, +S1, +S2 - GI/Abdominal Exam GI & Abdominal Exam: Soft, Tenderness (RUQ moderate). absent: Distended, Firm, Guarding, Rigid, Rebound - Neurological Exam Neurological Exam: Alert, Awake Assessment and Plan - Assessment and Plan (Free Text) Assessment: 72F w/ RLQ abdominal pain and sepsis 2/2 colitis, pancreatic lesion with lymph node involvement US: hepatic cirrhosis, cholelithiasis Plan: - NPO, IVF - IV Abx - pain management - serial abd exams - GI/DVT PPx Will discuss w/ Dr. Sandeep Gibson PGY2
[2017-05-13] MEDS: Sodium Chloride 0.9% 1,000 ML IV SCH ×2 (12:34→23:00)
[2017-05-13] MEDS: guaiFENesin 200 mg/10 ml Syrup UD PO PRN (20:45)
[2017-05-13] MEDS: Morphine 2 mg/ml ISec IVP PRN (21:32)
--- NOTE | 2017-05-14 06:09 | CP.PCM.PN ---
Subjective - Date & Time of Evaluation Date of Evaluation: 05/14/17 Time of Evaluation: 06:07 - Subjective Subjective: SURGERY NOTE FOR DR. NEWELL 72F seen and examined at bedside. Patient resting comfortable. 5 episodes Diarrhea - green and mucus as per nurse. Pain controlled. No vomiting. Objective - Vital Signs/Intake and Output Vital Signs (last 24 hours): Temp Pulse Resp BP Pulse Ox 98.7 F 105 H 20 137/56 L 98 05/14/17 00:00 05/14/17 04:00 05/14/17 04:00 05/14/17 04:00 05/14/17 04:00 Intake and Output: 05/13/17 05/14/17 18:59 06:59 Intake Total 1450 620 Output Total 660 Balance 790 620 - Medications Medications: Current Medications Acetaminophen (Tylenol 650mg/20.3ml Solution Ud) 650 mg PO Q6H PRN PRN Reason: Temperature Last Admin: 05/12/17 22:19 Dose: 650 mg Atenolol (Tenormin) 25 mg PO DAILY [facility] Guaifenesin (Robitussin) 200 mg PO Q4H PRN PRN Reason: Cough and congestion Last Admin: 05/13/17 20:45 Dose: 200 mg Meropenem 1g/NS 100mL IVPB (Meropenem 1g/Ns 100ml Ivpb) 1 gm in 100 mls @ 100 mls/hr IVPB Q12H [facility] PRN Reason: Protocol Stop: 05/19/17 06:46 Last Admin: 05/13/17 18:44 Dose: 100 mls/hr Sodium Chloride (Sodium Chloride 0.9%) 1,000 mls @ 100 mls/hr IV .Q10H [facility] Last Admin: 05/13/17 23:00 Dose: 100 mls/hr Insulin Detemir (Levemir) 10 unit SC DAILY [facility] Last Admin: 05/13/17 10:38 Dose: Not Given Insulin Human Regular (Humulin R Low) 0 units SC ACHS [facility] PRN Reason: Protocol Last Admin: 05/13/17 21:45 Dose: Not Given Lactulose (Enulose) 20 gm PO DAILY [facility] Last Admin: 05/12/17 09:36 Dose: 20 gm Morphine Sulfate (Morphine) 2 mg IVP Q4 PRN PRN Reason: Pain, severe (8-10) Last Admin: 05/13/17 21:32 Dose: 2 mg Ondansetron HCl (Zofran Inj) 4 mg IVP Q4H PRN PRN Reason: Nausea/Vomiting Pantoprazole Sodium (Protonix Inj) 40 mg IVP DAILY [facility] Last Admin: 05/13/17 09:52 Dose: 40 mg Rifaximin (Xifaxan) 550 mg PO BID [facility] PRN Reason: Protocol Last Admin: 05/12/17 09:36 Dose: 550 mg - Labs Labs: 05/13/17 06:15 05/13/17 06:15 PT 16.0 Seconds (9.9-11.8) H 05/12/17 10:00 INR 1.48 (0.93-1.08) H 05/12/17 10:00 APTT 28.6 Seconds (23.7-30.8) 05/11/17 18:59 - Constitutional Appears: Non-toxic, No Acute Distress - Respiratory Exam Respiratory Exam: Clear to Ausculation Bilateral, NORMAL BREATHING PATTERN - Cardiovascular Exam Cardiovascular Exam: REGULAR RHYTHM, +S1, +S2 - GI/Abdominal Exam GI & Abdominal Exam: Soft, Tenderness (mildly tender in RUQ). absent: Distended , Firm, Guarding, Rigid, Rebound Assessment and Plan - Assessment and Plan (Free Text) Assessment: 72F w/ RLQ abdominal pain and sepsis 2/2 colitis, pancreatic lesion with lymph node involvement US: hepatic cirrhosis, cholelithiasis Plan: - IV Abx - pain management - serial abd exams - GI/DVT PPx - f/u C-diff microbiology - MRCP as per GI Will discuss w/ Dr. Sandeep Gibson PGY2
[2017-05-14 06:25] LABS: HEMOGLOBIN 9.7 gm/dL (12.0-16.0); MEAN PLATELET VOLUME 11.3 fl (7.0-11.0); RBC 3.03 10^6/uL (3.5-6.1); RED CELL DISTRIBUTION WIDTH 16.1 % (11.5-14.5); WHITE BLOOD COUNT 7.9 10^3/ul (4.5-11.0)
[2017-05-14] MEDS: Meropenem 1g/NS 100mL IVPB 1 GM/100 ML PIGGYBACK IVPB SCH ×2 (06:45→18:03)
[2017-05-14] MEDS: Insulin Reg-LOW-Coverage SC SCH ×4 (08:20→21:40)
[2017-05-14] MEDS: guaiFENesin 200 mg/10 ml Syrup UD PO PRN ×3 (08:31→17:35)
[2017-05-14] MEDS: Insulin Detemir 100 units/ml Vial (Levemir) SC SCH (09:02)
[2017-05-14] MEDS: Sodium Chloride 0.9% 1,000 ML IV SCH (09:05)
[2017-05-14 10:02] LABS: ALB/GLOB RATIO 0.6 (1.1-1.8); ALBUMIN 2.4 g/dL (3.0-4.8); ALT/SGPT 27 U/L (7-56); AST/SGOT 40 U/L (15-39); BLOOD UREA NITROGEN 24 mg/dL (7-21); CALCIUM 7.2 mg/dL (8.4-10.5); GFR AFRICAN-AMERICAN > 60; GFR NON-AFRICAN AMERICAN > 60
--- NOTE | 2017-05-14 10:04 | CP.PCM.PN ---
Subjective - Subjective Subjective: daughter was at bedside. Patient feels better abdominal discomfort has decreased Objective - Vital Signs/Intake and Output Vital Signs (last 24 hours): Temp Pulse Resp BP Pulse Ox 97.7 F 111 H 16 168/91 H 95 05/13/17 20:00 05/13/17 21:00 05/13/17 21:00 05/13/17 21:00 05/13/17 21:00 Intake and Output: 05/13/17 05/14/17 18:59 06:59 Intake Total 1450 Output Total 660 Balance 790 - Medications Medications: Current Medications Acetaminophen (Tylenol 650mg/20.3ml Solution Ud) 650 mg PO Q6H PRN PRN Reason: Temperature Last Admin: 05/12/17 22:19 Dose: 650 mg Atenolol (Tenormin) 25 mg PO DAILY [facility] Guaifenesin (Robitussin) 200 mg PO Q4H PRN PRN Reason: Cough and congestion Last Admin: 05/13/17 20:45 Dose: 200 mg Meropenem 1g/NS 100mL IVPB (Meropenem 1g/Ns 100ml Ivpb) 1 gm in 100 mls @ 100 mls/hr IVPB Q12H [facility] PRN Reason: Protocol Stop: 05/19/17 06:46 Last Admin: 05/13/17 18:44 Dose: 100 mls/hr Sodium Chloride (Sodium Chloride 0.9%) 1,000 mls @ 100 mls/hr IV .Q10H [facility] Last Admin: 05/13/17 12:34 Dose: 100 mls/hr Insulin Detemir (Levemir) 10 unit SC DAILY [facility] Last Admin: 05/13/17 10:38 Dose: Not Given Insulin Human Regular (Humulin R Low) 0 units SC ACHS [facility] PRN Reason: Protocol Last Admin: 05/13/17 16:38 Dose: Not Given Lactulose (Enulose) 20 gm PO DAILY [facility] Last Admin: 05/12/17 09:36 Dose: 20 gm Morphine Sulfate (Morphine) 2 mg IVP Q4 PRN PRN Reason: Pain, severe (8-10) Last Admin: 05/12/17 21:49 Dose: 2 mg Ondansetron HCl (Zofran Inj) 4 mg IVP Q4H PRN PRN Reason: Nausea/Vomiting Pantoprazole Sodium (Protonix Inj) 40 mg IVP DAILY [facility] Last Admin: 05/13/17 09:52 Dose: 40 mg Rifaximin (Xifaxan) 550 mg PO BID [facility] PRN Reason: Protocol Last Admin: 05/12/17 09:36 Dose: 550 mg - Labs Labs: 05/13/17 06:15 05/13/17 06:15 PT 16.0 Seconds (9.9-11.8) H 05/12/17 10:00 INR 1.48 (0.93-1.08) H 05/12/17 10:00 APTT 28.6 Seconds (23.7-30.8) 05/11/17 18:59 - Head Exam Head Exam: ATRAUMATIC, NORMOCEPHALIC - Eye Exam Eye Exam: EOMI Pupil Exam: PERRL - ENT Exam ENT Exam: Mucous Membranes Dry, Mucous Membranes Moist, Normal External Ear Exam - Neck Exam Neck Exam: Normal Inspection. absent: Lymphadenopathy - Respiratory Exam Respiratory Exam: Clear to Ausculation Bilateral, NORMAL BREATHING PATTERN. absent: Accessory Muscle Use, Rales, Wheezes - Cardiovascular Exam Cardiovascular Exam: +S1, +S2. absent: JVD - GI/Abdominal Exam GI & Abdominal Exam: Distended, Soft, Tenderness. absent: Mass Additional comments: tenderness is significantly improved. Mild tenderness present on deep palpation - Neurological Exam Neurological Exam: Alert, Oriented x3 Assessment and Plan - Assessment and Plan (Free Text) Assessment: this 72-year-old patient with the diabetes mellitus cirrhosis secondary hep C admitted with sepsis colitis, gallstones with normal common bile duct. CT also showed an uncinate process hypoechoic lesion in the pancreas. MRI still pending Clinically patient is improving on antibiotics Status post CVA. Patient was transferred from longterm for abdominal pain Plan: 1. Sepsis colitis clinically improving continue the antibiotics 2. Gallstones normal CBD LFTs normal except mildly elevated total bilirubin 3. Cirrhosis of the liver secondary to the hep C 4. 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 Pancreatic lesion awaiting for MRI 6. Other problems include diabetes mellitus status post CVA Discussed with the resident We will start the patient on clear liquids discussed with Dr. Richardson
--- NOTE | 2017-05-14 10:12 | PN ---
DATE: 05/14/2017 SUBJECTIVE: The patient is resting in bed and note that she speaks middle to no [place]. She has no nauseous, vomiting overnight and no diarrhea. The patient has no significant abdominal pain at this time. PHYSICAL EXAMINATION: VITAL SIGNS: Her temperature is 100, her pulse is 107, respirations are 21, and BP is 152/72. The patient has O2 saturation on room air of 96%. HEENT: Head is atraumatic and normocephalic. Eyes reactive to light. Ear, nose and throat seem to be within normal limits. NECK: Supple. No JVD. No thyroid enlargement. No lymph nodes. HEART: Regular rate and rhythm. Normal S1 and S2, but tachycardiac. LUNGS: Reveal slight decreased breath sounds at the bases. ABDOMEN: Soft, slightly tender in lower abdominal regions. GENITALIA AND RECTAL: Deferred. MUSCULOSKELETAL: No joint deformities. EXTREMITIES: Reveal trace lower extremity edema. NEUROLOGICAL: She seemed to be grossly intact. LABORATORY DATA: Her white count is 7.9, hemoglobin is 9.7, hematocrit 29.4, and platelets of 83,000. The patient's sodium is 141, potassium 3.9, chloride 110, CO2 of 24, with a BUN of 28, creatinine of 1.3, and glucose of 215. IMPRESSION: The patient has liver cirrhosis with possible colitis or cholecystitis. Ultrasound did reveal splenomegaly. She carries a diagnosis of hepatitis C, anemia, thrombocytopenia, diabetes, hypertension and past history of cerebrovascular accident. PLAN: We will continue to monitor closely in the ICU. The patient is getting metronidazole and meropenem as well as morphine for pain. We will continue with Protonix and Zofran and follow up closely. Michael Green MD
--- NOTE | 2017-05-14 10:29 | PN ---
DATE: 05/14/2017 SUBJECTIVE: The patient is in bed, was seen earlier this morning in the unit. No fevers and no chills. PHYSICAL EXAMINATION VITAL SIGNS: Temperature is 100, blood pressure is 150/72, heart rate is 107, respiratory rate of 21. HEENT: Unremarkable. NECK: Supple. LUNGS: Decreased breath sounds. HEART: Normal S1 and S2. ABDOMEN: Soft, nontender. LABORATORY DATA: Reveals a white count of 7.9, hemoglobin of 9, platelets of 83. Coagulation is noted. Chemistry reveals the patient's BUN of 28, creatinine of 1.3. Urinalysis is noted. Immunology is noted. Serology; his HIV is negative. Microbiology reveals a blood cultures have no growth. Urine culture have no growth and HIV is negative. Review of the orders reveals that the patient to be on meropenem and Dr. note is reviewed and Dr note is reviewed from yesterday. ASSESSMENT AND PLAN: This is a 72-year-old [place] female, originally from [place] with hypertension, diabetes, chronic hepatitis C and history of hepatic encephalopathy and decompensated liver cirrhosis, history of cerebrovascular accident, residual right-sided weakness and chronic obstructive lung disease, hysterectomy, sepsis due to acute colitis, pancreatic lesion and hepatitis C and liver cirrhosis and currently on meropenem. Culture is negative. We will follow with you. Niles Jain MD
[2017-05-14] MEDS ORDERED: Iohexol 240 (50 ml) ONE (15:46)
[2017-05-14] MEDS ORDERED: Albuterol-Ipratrop 3 mg / 0.5 (3 ml) UD IH STA (18:57)
--- NOTE | 2017-05-14 22:52 | CP.PCM.PN ---
Subjective - Date & Time of Evaluation Date of Evaluation: 05/13/17 Time of Evaluation: 17:00 - Subjective Subjective: feel better no fever or chills no vomiting feel thiristy less pain , bm diarhea. Objective - Vital Signs/Intake and Output Vital Signs (last 24 hours): Temp Pulse Resp BP Pulse Ox 98.9 F 90 23 126/63 94 L 05/14/17 20:00 05/14/17 22:30 05/14/17 22:30 05/14/17 22:00 05/14/17 22:30 Intake and Output: 05/14/17 05/15/17 18:59 06:59 Intake Total 2600 Output Total 300 Balance 2300 - Medications Medications: Current Medications Acetaminophen (Tylenol 650mg/20.3ml Solution Ud) 650 mg PO Q6H PRN PRN Reason: Temperature Last Admin: 05/12/17 22:19 Dose: 650 mg Atenolol (Tenormin) 25 mg PO DAILY [facility] Last Admin: 05/14/17 09:01 Dose: 25 mg Guaifenesin (Robitussin) 200 mg PO Q4H PRN PRN Reason: Cough and congestion Last Admin: 05/14/17 17:35 Dose: 200 mg Meropenem 1g/NS 100mL IVPB (Meropenem 1g/Ns 100ml Ivpb) 1 gm in 100 mls @ 100 mls/hr IVPB Q12H [facility] PRN Reason: Protocol Stop: 05/19/17 06:46 Last Admin: 05/14/17 18:03 Dose: 100 mls/hr Sodium Chloride (Sodium Chloride 0.9%) 1,000 mls @ 100 mls/hr IV .Q10H [facility] Last Admin: 05/14/17 09:05 Dose: 100 mls/hr Insulin Detemir (Levemir) 10 unit SC DAILY [facility] Last Admin: 05/14/17 09:02 Dose: 10 unit Insulin Human Regular (Humulin R Low) 0 units SC ACHS [facility] PRN Reason: Protocol Last Admin: 05/14/17 21:40 Dose: Not Given Lactulose (Enulose) 20 gm PO DAILY [facility] Last Admin: 05/12/17 09:36 Dose: 20 gm Morphine Sulfate (Morphine) 2 mg IVP Q4 PRN PRN Reason: Pain, severe (8-10) Last Admin: 05/13/17 21:32 Dose: 2 mg Ondansetron HCl (Zofran Inj) 4 mg IVP Q4H PRN PRN Reason: Nausea/Vomiting Pantoprazole Sodium (Protonix Inj) 40 mg IVP DAILY [facility] Last Admin: 05/14/17 09:00 Dose: 40 mg Rifaximin (Xifaxan) 550 mg PO BID [facility] PRN Reason: Protocol Last Admin: 05/12/17 09:36 Dose: 550 mg Rifaximin (Xifaxan) 550 mg PO BID [facility] PRN Reason: Protocol Last Admin: 05/14/17 17:02 Dose: 550 mg - Labs Labs: 05/14/17 05:45 05/14/17 09:14 PT 16.0 Seconds (9.9-11.8) H 05/12/17 10:00 INR 1.48 (0.93-1.08) H 05/12/17 10:00 APTT 28.6 Seconds (23.7-30.8) 05/11/17 18:59 - Constitutional Appears: Non-toxic - Head Exam Head Exam: ATRAUMATIC, NORMAL INSPECTION, NORMOCEPHALIC - Eye Exam Eye Exam: EOMI, Normal appearance, PERRL - ENT Exam ENT Exam: Mucous Membranes Moist, Normal Exam - Neck Exam Neck Exam: Full ROM, Normal Inspection. absent: Lymphadenopathy - Respiratory Exam Respiratory Exam: Clear to Ausculation Bilateral, NORMAL BREATHING PATTERN - Cardiovascular Exam Cardiovascular Exam: REGULAR RHYTHM, +S1, +S2. absent: Murmur - GI/Abdominal Exam GI & Abdominal Exam: Soft, Tenderness, Normal Bowel Sounds - Rectal Exam Rectal Exam: Deferred - Neurological Exam Neuro motor strength exam: Right Upper Extremity: 3, Right Lower Extremity: 2/1 - Psychiatric Exam Psychiatric exam: Normal Affect, Normal Mood - Skin Skin Exam: Normal Color Assessment and Plan - Assessment and Plan (Free Text) Assessment: 72 female colitis, r/o c difficle. fell better Plan: start clear liquid, iv antibiotics,'. f/up with consults
[2017-05-14] MEDS: Morphine 2 mg/ml ISec IVP PRN (23:32)
[2017-05-15] MEDS: Sodium Chloride 0.9% 1,000 ML IV SCH (04:31)
[2017-05-15] MEDS: guaiFENesin 200 mg/10 ml Syrup UD PO PRN (04:54)
--- NOTE | 2017-05-15 05:47 | CP.PCM.PN ---
Subjective - Date & Time of Evaluation Date of Evaluation: 05/14/17 Time of Evaluation: 12:45 - Subjective Subjective: Lactulose has been on hold as the patient has significant loose bowel movements. Patient more alert.Patient is tolerating clear liquid diet. Patient 's daughter was at bedside. Discussed with the resident at length patient feels much better abdominal discomfort has significantly improved Objective - Vital Signs/Intake and Output Vital Signs (last 24 hours): Temp Pulse Resp BP Pulse Ox 98.9 F 90 23 126/63 94 L 05/14/17 20:00 05/14/17 22:30 05/14/17 22:30 05/14/17 22:00 05/14/17 22:30 Intake and Output: 05/14/17 05/15/17 18:59 06:59 Intake Total 2600 Output Total 300 Balance 2300 - Medications Medications: Current Medications Acetaminophen (Tylenol 650mg/20.3ml Solution Ud) 650 mg PO Q6H PRN PRN Reason: Temperature Last Admin: 05/12/17 22:19 Dose: 650 mg Atenolol (Tenormin) 25 mg PO DAILY [facility] Last Admin: 05/14/17 09:01 Dose: 25 mg Guaifenesin (Robitussin) 200 mg PO Q4H PRN PRN Reason: Cough and congestion Last Admin: 05/14/17 17:35 Dose: 200 mg Meropenem 1g/NS 100mL IVPB (Meropenem 1g/Ns 100ml Ivpb) 1 gm in 100 mls @ 100 mls/hr IVPB Q12H [facility] PRN Reason: Protocol Stop: 05/19/17 06:46 Last Admin: 05/14/17 18:03 Dose: 100 mls/hr Sodium Chloride (Sodium Chloride 0.9%) 1,000 mls @ 100 mls/hr IV .Q10H [facility] Last Admin: 05/14/17 09:05 Dose: 100 mls/hr Insulin Detemir (Levemir) 10 unit SC DAILY [facility] Last Admin: 05/14/17 09:02 Dose: 10 unit Insulin Human Regular (Humulin R Low) 0 units SC ACHS [facility] PRN Reason: Protocol Last Admin: 05/14/17 21:40 Dose: Not Given Lactulose (Enulose) 20 gm PO DAILY [facility] Last Admin: 05/12/17 09:36 Dose: 20 gm Morphine Sulfate (Morphine) 2 mg IVP Q4 PRN PRN Reason: Pain, severe (8-10) Last Admin: 05/13/17 21:32 Dose: 2 mg Ondansetron HCl (Zofran Inj) 4 mg IVP Q4H PRN PRN Reason: Nausea/Vomiting Pantoprazole Sodium (Protonix Inj) 40 mg IVP DAILY [facility] Last Admin: 05/14/17 09:00 Dose: 40 mg Rifaximin (Xifaxan) 550 mg PO BID [facility] PRN Reason: Protocol Last Admin: 05/12/17 09:36 Dose: 550 mg Rifaximin (Xifaxan) 550 mg PO BID [facility] PRN Reason: Protocol Last Admin: 05/14/17 17:02 Dose: 550 mg - Labs Labs: 05/14/17 05:45 05/14/17 09:14 PT 16.0 Seconds (9.9-11.8) H 05/12/17 10:00 INR 1.48 (0.93-1.08) H 05/12/17 10:00 APTT 28.6 Seconds (23.7-30.8) 05/11/17 18:59 - Head Exam Head Exam: ATRAUMATIC, NORMOCEPHALIC - Eye Exam Eye Exam: EOMI - ENT Exam ENT Exam: Mucous Membranes Moist - Neck Exam Neck Exam: Full ROM, Normal Inspection - Respiratory Exam Respiratory Exam: NORMAL BREATHING PATTERN. absent: Rhonchi, Stridor - Cardiovascular Exam Cardiovascular Exam: +S1, +S2. absent: JVD - GI/Abdominal Exam GI & Abdominal Exam: Soft, Normal Bowel Sounds Additional comments: Mild tenderness on deep palpation in the right side of the abdomen lower quadrant no rebound or guarding significant improvement - Extremities Exam Extremities Exam: Full ROM. absent: Calf Tenderness - Neurological Exam Neurological Exam: Alert, Awake Assessment and Plan - Assessment and Plan (Free Text) Assessment: this 72-year-old patient with the diabetes mellitus cirrhosis secondary hep C admitted with sepsis colitis Rule out appendicitis, gallstones with normal common bile duct. CT also showed an uncinate process hypoechoic lesion in the pancreas. MRI still pending Clinically patient is improving on antibiotics Status post CVA. [facility] Plan: Discussed with the resident at length CT scan was reviewed again right-sided colitis versus appendicitis right colon and cecal area has significant inflammatory changes present. Patient is clinically improving in view of the long segment of the right colon involvement we need to also rule out ischemic colitis especially in the setting of the patient's diabetic history of CVA in the past. The reasonable thing is to consider CT of the abdomen and pelvis with by mouth contrast to further evaluate the area. We will continue the clear liquid diet. Repeat CT scan reviewed Gallstones CBD normal Pancreatic lesion in the uncinate, Awaiting follow-up MRI
[2017-05-15] MEDS: Meropenem 1g/NS 100mL IVPB 1 GM/100 ML PIGGYBACK IVPB SCH ×2 (06:04→17:47)
[2017-05-15 07:01] LABS: HEMOGLOBIN 9.4 gm/dL (12.0-16.0); MEAN CELL VOLUME 96.3 fL (80.0-105.0); MEAN CORPUSCULAR HEMOGLOBIN 31.8 pg (25.0-35.0); RBC 2.96 10^6/uL (3.5-6.1); RED CELL DISTRIBUTION WIDTH 15.4 % (11.5-14.5); WHITE BLOOD COUNT 4.6 10^3/ul (4.5-11.0)
[2017-05-15] MEDS: Insulin Reg-LOW-Coverage SC SCH ×4 (07:30→22:57)
--- NOTE | 2017-05-15 07:45 | CT ---
PROCEDURE: CT Abdomen and Pelvis with contrast HISTORY: colitis COMPARISON: Prior abdomen pelvis CT examination 05/11/2017, with contrast. TECHNIQUE: Contrast dose: None Radiation dose: Total exam DLP = 1201 mGy-cm. This CT exam was performed using one or more of the following dose reduction techniques: Automated exposure control, adjustment of the mA and/or kV according to patient size, and/or use of iterative reconstruction technique. FINDINGS: LOWER THORAX: Interval bilateral pleural effusions are now identified moderate the right and mild on the left consider compression atelectasis about the bilateral lower lobes. Cardiomegaly appears stable. No pericardial effusion. LIVER: Marginal nodularity in the periphery of the liver is suggested likely indicative at least an element of cirrhosis, once again. Lack images contrast limits evaluation of solid viscera. No prominent ductal dilatation is appreciated. GALLBLADDER AND BILE DUCTS: The gallbladder is distended with cholelithiasis of the dependent portion. There is likely a limited amount of ionic contrast excreted the gallbladder prior intravenous contrast enhanced CT 05/11/2017. . PANCREAS: Previously demonstrated 2.9 cm lesion of the pancreatic head is obscured by artifact from the patient's arms but is likely unchanged. SPLEEN: Splenomegaly noted to 15.0 cm once again. ADRENALS: Unremarkable. No mass. KIDNEYS AND URETERS: Unremarkable. No hydronephrosis. No solid mass. VASCULATURE: Unremarkable. No aortic aneurysm. BOWEL: Thickening of ascending and descending colon colon segments is questioned however motion artifacts from respiration limit the evaluation of colon. APPENDIX: Appendix not identified on the current examination and prior to lack venous contrast administration PERITONEUM: Mild perihepatic and perisplenic ascites appreciated as well as limited pelvic ascites at this time. An anasarca pattern of injected fat both within the abdomen as well as extra abdominal is appreciated in the interval. LYMPH NODES: Unremarkable. No enlarged lymph nodes. BLADDER: Unremarkable. REPRODUCTIVE: Fibroid uterine changes are again appreciated BONES: Advanced inferior lumbar spinal degenerate disease changes are appreciated. OTHER FINDINGS: None. IMPRESSION: 1. [id number] segmental colitis is suggested affecting the ascending and descending colon segments. Further clinical correlation is advised. 2. The appendix is not identified. Further clinical correlation is advised at the right lower quadrant as ascites and reactive mesenteric changes throughout the abdomen obscure this area as well. 3. Cholelithiasis within a distended gallbladder. Mild abdominal pelvic ascites appreciated. Cholecystitis is not favored. 4. Cirrhotic liver. Splenomegaly. 5. Moderate right and mild left interval pleural effusions are identified bilaterally.
[2017-05-15] MEDS ORDERED: Albuterol-Ipratrop 3 mg / 0.5 (3 ml) UD IH STA (07:57)
--- NOTE | 2017-05-15 08:46 | CP.PCM.PN ---
Subjective - Date & Time of Evaluation Date of Evaluation: 05/15/17 Time of Evaluation: 07:35 - Subjective Subjective: General Surgery Dr. Hopkins Pt S&E @bedside. SIA. arnoldo N/V, F/C. improved abd pain. tolerating CLD. Objective - Vital Signs/Intake and Output Vital Signs (last 24 hours): Temp Pulse Resp BP Pulse Ox 98.2 F 82 22 160/70 H 100 05/15/17 08:00 05/15/17 08:00 05/15/17 08:00 05/15/17 08:00 05/15/17 08:00 Intake and Output: 05/15/17 05/15/17 06:59 18:59 Intake Total 1430 Output Total 100 Balance 1330 - Medications Medications: Current Medications Acetaminophen (Tylenol 650mg/20.3ml Solution Ud) 650 mg PO Q6H PRN PRN Reason: Temperature Last Admin: 05/12/17 22:19 Dose: 650 mg Atenolol (Tenormin) 25 mg PO DAILY [facility] Last Admin: 05/14/17 09:01 Dose: 25 mg Guaifenesin (Robitussin) 200 mg PO Q4H PRN PRN Reason: Cough and congestion Last Admin: 05/15/17 04:54 Dose: 200 mg Meropenem 1g/NS 100mL IVPB (Meropenem 1g/Ns 100ml Ivpb) 1 gm in 100 mls @ 100 mls/hr IVPB Q12H [facility] PRN Reason: Protocol Stop: 05/19/17 06:46 Last Admin: 05/15/17 06:04 Dose: 100 mls/hr Sodium Chloride (Sodium Chloride 0.9%) 1,000 mls @ 100 mls/hr IV .Q10H [facility] Last Admin: 05/15/17 04:31 Dose: 100 mls/hr Insulin Detemir (Levemir) 10 unit SC DAILY [facility] Last Admin: 05/14/17 09:02 Dose: 10 unit Insulin Human Regular (Humulin R Low) 0 units SC ACHS [facility] PRN Reason: Protocol Last Admin: 05/15/17 07:30 Dose: 1 units Lactulose (Enulose) 20 gm PO DAILY [facility] Last Admin: 05/12/17 09:36 Dose: 20 gm Morphine Sulfate (Morphine) 2 mg IVP Q4 PRN PRN Reason: Pain, severe (8-10) Last Admin: 05/14/17 23:32 Dose: 2 mg Ondansetron HCl (Zofran Inj) 4 mg IVP Q4H PRN PRN Reason: Nausea/Vomiting Pantoprazole Sodium (Protonix Inj) 40 mg IVP DAILY [facility] Last Admin: 05/14/17 09:00 Dose: 40 mg Rifaximin (Xifaxan) 550 mg PO BID [facility] PRN Reason: Protocol Last Admin: 05/12/17 09:36 Dose: 550 mg Rifaximin (Xifaxan) 550 mg PO BID [facility] PRN Reason: Protocol Last Admin: 05/14/17 17:02 Dose: 550 mg - Labs Labs: 05/15/17 06:45 05/14/17 09:14 PT 16.0 Seconds (9.9-11.8) H 05/12/17 10:00 INR 1.48 (0.93-1.08) H 05/12/17 10:00 APTT 28.6 Seconds (23.7-30.8) 05/11/17 18:59 - Constitutional Appears: Non-toxic, No Acute Distress - Head Exam Head Exam: NORMAL INSPECTION - Eye Exam Eye Exam: Normal appearance - ENT Exam ENT Exam: Mucous Membranes Moist - Respiratory Exam Respiratory Exam: NORMAL BREATHING PATTERN. absent: Accessory Muscle Use, Respiratory Distress - Cardiovascular Exam Cardiovascular Exam: absent: Bradycardia, Tachycardia - GI/Abdominal Exam GI & Abdominal Exam: Soft. absent: Distended, Guarding, Tenderness, Rebound - Neurological Exam Neurological Exam: Alert, Awake - Psychiatric Exam Psychiatric exam: Normal Affect, Normal Mood - Skin Skin Exam: Dry, Intact, Normal Color, Warm Assessment and Plan - Assessment and Plan (Free Text) Assessment: 72 y/o F w/ RLQ abdominal pain and sepsis (resolved) 2/2 colitis - cont IV Abx - pain management - serial abd exams - advance diet per GI - f/u C.diff stool studies - GI/DVT PPx Pt discussed w/ Dr. Sandeep Randolph DO PGY2
[2017-05-15] MEDS: Insulin Detemir 100 units/ml Vial (Levemir) SC SCH (09:08)
[2017-05-15 09:46] LABS: ALB/GLOB RATIO 0.5 (1.1-1.8); ALT/SGPT 35 U/L (7-56); AST/SGOT 44 U/L (15-39); BLOOD UREA NITROGEN 21 mg/dL (7-21); GFR AFRICAN-AMERICAN > 60; GFR NON-AFRICAN AMERICAN > 60
--- NOTE | 2017-05-15 10:06 | CP.PCM.PN ---
<Letha Lopez - Last Filed: 05/15/17 10:19> Subjective - Date & Time of Evaluation Date of Evaluation: 05/15/17 Time of Evaluation: 09:00 - Subjective Subjective: S&E at bedside, OOB to chair. Awaiting for MRI this afternoon, no acute overnight events per nursing staff, patient denies, N/V or abdominal pain. Had a liquid green BM Objective - Vital Signs/Intake and Output Vital Signs (last 24 hours): Temp Pulse Resp BP Pulse Ox 98.2 F 88 22 184/93 H 100 05/15/17 08:00 05/15/17 09:53 05/15/17 09:50 05/15/17 09:09 05/15/17 09:50 Intake and Output: 05/15/17 05/15/17 06:59 18:59 Intake Total 1430 Output Total 100 Balance 1330 - Medications Medications: Current Medications Acetaminophen (Tylenol 650mg/20.3ml Solution Ud) 650 mg PO Q6H PRN PRN Reason: Temperature Last Admin: 05/12/17 22:19 Dose: 650 mg Atenolol (Tenormin) 25 mg PO DAILY [facility] Last Admin: 05/15/17 09:09 Dose: 25 mg Guaifenesin (Robitussin) 200 mg PO Q4H PRN PRN Reason: Cough and congestion Last Admin: 05/15/17 04:54 Dose: 200 mg Meropenem 1g/NS 100mL IVPB (Meropenem 1g/Ns 100ml Ivpb) 1 gm in 100 mls @ 100 mls/hr IVPB Q12H [facility] PRN Reason: Protocol Stop: 05/19/17 06:46 Last Admin: 05/15/17 06:04 Dose: 100 mls/hr Sodium Chloride (Sodium Chloride 0.9%) 1,000 mls @ 100 mls/hr IV .Q10H [facility] Last Admin: 05/15/17 04:31 Dose: 100 mls/hr Insulin Detemir (Levemir) 10 unit SC DAILY [facility] Last Admin: 05/15/17 09:08 Dose: 10 unit Insulin Human Regular (Humulin R Low) 0 units SC ACHS [facility] PRN Reason: Protocol Last Admin: 05/15/17 07:30 Dose: 1 units Lactulose (Enulose) 20 gm PO DAILY [facility] Last Admin: 05/12/17 09:36 Dose: 20 gm Morphine Sulfate (Morphine) 2 mg IVP Q4 PRN PRN Reason: Pain, severe (8-10) Last Admin: 05/14/17 23:32 Dose: 2 mg Ondansetron HCl (Zofran Inj) 4 mg IVP Q4H PRN PRN Reason: Nausea/Vomiting Pantoprazole Sodium (Protonix Inj) 40 mg IVP DAILY [facility] Last Admin: 05/15/17 09:09 Dose: 40 mg Rifaximin (Xifaxan) 550 mg PO BID [facility] PRN Reason: Protocol Last Admin: 05/12/17 09:36 Dose: 550 mg Rifaximin (Xifaxan) 550 mg PO BID [facility] PRN Reason: Protocol Last Admin: 05/15/17 09:10 Dose: 550 mg - Labs Labs: 05/15/17 06:45 05/15/17 06:45 PT 16.0 Seconds (9.9-11.8) H 05/12/17 10:00 INR 1.48 (0.93-1.08) H 05/12/17 10:00 APTT 28.6 Seconds (23.7-30.8) 05/11/17 18:59 - Constitutional Appears: No Acute Distress - Eye Exam Eye Exam: Normal appearance. absent: Scleral icterus - ENT Exam ENT Exam: Mucous Membranes Moist - Neck Exam Neck Exam: Normal Inspection - Respiratory Exam Respiratory Exam: NORMAL BREATHING PATTERN. absent: Respiratory Distress - Cardiovascular Exam Cardiovascular Exam: +S1, +S2 - GI/Abdominal Exam GI & Abdominal Exam: Distended, Soft, Normal Bowel Sounds. absent: Guarding, Tenderness, Organomegaly, Rebound - Extremities Exam Extremities Exam: Normal Capillary Refill. absent: Calf Tenderness, Pedal Edema - Neurological Exam Neurological Exam: Alert, Awake, Oriented x3 - Skin Skin Exam: Dry, Warm Assessment and Plan - Assessment and Plan (Free Text) Assessment: Assessment: S/P Code Sepsis Improved Abdominal pain Colitis, had rpeat ct scan with oral contrast, mild/mod segmental colitis Gallstones, no signs BG wall thickening or fluid Hypodense lesion in the pancreas Liver cirrhosis secondary Hepatitis C CVA with right-sided weakness Diabetes mellitus Plan: pending for MRCP/MRI Abdomen w/o contrast, further evaluate pancreas clear liquids Continue IV fluids for hydration on Merropenum Continue PPI on Xifaxine OFF Lactulose DVT prophylaxis, SCD boots Monitor electrolytes Seen and discussed with Dr. Hernandez. <Dante Hernandez V - Last Filed: 05/15/17 23:57> Objective - Vital Signs/Intake and Output Vital Signs (last 24 hours): Temp Pulse Resp BP Pulse Ox 98.8 F 79 22 158/89 H 100 05/15/17 16:00 05/15/17 16:00 05/15/17 16:00 05/15/17 16:00 05/15/17 16:00 Intake and Output: 05/15/17 05/16/17 18:59 06:59 Intake Total 1600 120 Output Total 320 200 Balance 1280 -80 - Medications Medications: Current Medications Acetaminophen (Tylenol 650mg/20.3ml Solution Ud) 650 mg PO Q6H PRN PRN Reason: Temperature Last Admin: 05/12/17 22:19 Dose: 650 mg Albuterol/Ipratropium (Duoneb 3 Mg/0.5 Mg (3 Ml) Ud) 3 ml IH [id number] PRN PRN Reason: Shortness of Breath Arformoterol Tartrate (Brovana) 15 mcg IH [id number] [facility] Last Admin: 05/15/17 20:06 Dose: 15 mcg Atenolol (Tenormin) 25 mg PO DAILY [facility] Last Admin: 05/15/17 09:09 Dose: 25 mg Budesonide (Pulmicort Respules) 0.25 mg IH [id number] [facility] Last Admin: 05/15/17 20:06 Dose: 0.25 mg Clonidine HCl (Catapres) 0.1 mg PO Q6H PRN PRN Reason: Systolic Blood Pressure Guaifenesin (Robitussin) 200 mg PO Q4H PRN PRN Reason: Cough and congestion Last Admin: 05/15/17 04:54 Dose: 200 mg Meropenem 1g/NS 100mL IVPB (Meropenem 1g/Ns 100ml Ivpb) 1 gm in 100 mls @ 100 mls/hr IVPB Q12H [facility] PRN Reason: Protocol Stop: 05/19/17 06:46 Last Admin: 05/15/17 17:47 Dose: 100 mls/hr Sodium Chloride (Sodium Chloride 0.45%) 1,000 mls @ 60 mls/hr IV .[id number] [facility] Last Admin: 05/15/17 11:21 Dose: 60 mls/hr Insulin Detemir (Levemir) 10 unit SC DAILY [facility] Last Admin: 05/15/17 09:08 Dose: 10 unit Insulin Human Regular (Humulin R Low) 0 units SC ACHS [facility] PRN Reason: Protocol Last Admin: 05/15/17 22:57 Dose: Not Given Lactulose (Enulose) 20 gm PO DAILY [facility] Last Admin: 05/12/17 09:36 Dose: 20 gm Losartan Potassium (Cozaar) 25 mg PO DAILY [facility] Last Admin: 05/15/17 11:20 Dose: 25 mg Morphine Sulfate (Morphine) 2 mg IVP Q4 PRN PRN Reason: Pain, severe (8-10) Last Admin: 05/14/17 23:32 Dose: 2 mg Ondansetron HCl (Zofran Inj) 4 mg IVP Q4H PRN PRN Reason: Nausea/Vomiting Pantoprazole Sodium (Protonix Inj) 40 mg IVP DAILY [facility] Last Admin: 05/15/17 09:09 Dose: 40 mg Rifaximin (Xifaxan) 550 mg PO BID [facility] PRN Reason: Protocol Last Admin: 05/12/17 09:36 Dose: 550 mg Rifaximin (Xifaxan) 550 mg PO BID [facility] PRN Reason: Protocol Last Admin: 05/15/17 17:05 Dose: 550 mg - Labs Labs: 05/15/17 06:45 05/15/17 06:45 PT 16.0 Seconds (9.9-11.8) H 05/12/17 10:00 INR 1.48 (0.93-1.08) H 05/12/17 10:00 APTT 28.6 Seconds (23.7-30.8) 05/11/17 18:59 Attending/Attestation - Attestation I have personally seen and examined this patient.: Yes I have fully participated in the care of the patient.: Yes I have reviewed all pertinent clinical information, including history, physical exam and plan: Yes Notes (Text): this
--- NOTE | 2017-05-15 10:11 | CP.PCM.PN ---
Subjective - Date & Time of Evaluation Date of Evaluation: 05/15/17 Time of Evaluation: 09:50 - Subjective Subjective: Comfortable on a chair, not in distress, no watery stools this morning, no fevers overnight, abdominal pain is better. Objective - Vital Signs/Intake and Output Vital Signs (last 24 hours): Temp Pulse Resp BP Pulse Ox 99 F 81 19 152/58 H 93 L 05/15/17 04:00 05/15/17 05:50 05/15/17 05:50 05/15/17 05:00 05/15/17 05:50 Intake and Output: 05/14/17 05/15/17 18:59 06:59 Intake Total 2600 1430 Output Total 300 100 Balance 2300 1330 - Medications Medications: Current Medications Acetaminophen (Tylenol 650mg/20.3ml Solution Ud) 650 mg PO Q6H PRN PRN Reason: Temperature Last Admin: 05/12/17 22:19 Dose: 650 mg Atenolol (Tenormin) 25 mg PO DAILY [facility] Last Admin: 05/14/17 09:01 Dose: 25 mg Guaifenesin (Robitussin) 200 mg PO Q4H PRN PRN Reason: Cough and congestion Last Admin: 05/15/17 04:54 Dose: 200 mg Meropenem 1g/NS 100mL IVPB (Meropenem 1g/Ns 100ml Ivpb) 1 gm in 100 mls @ 100 mls/hr IVPB Q12H [facility] PRN Reason: Protocol Stop: 05/19/17 06:46 Last Admin: 05/15/17 06:04 Dose: 100 mls/hr Sodium Chloride (Sodium Chloride 0.9%) 1,000 mls @ 100 mls/hr IV .Q10H [facility] Last Admin: 05/15/17 04:31 Dose: 100 mls/hr Insulin Detemir (Levemir) 10 unit SC DAILY [facility] Last Admin: 05/14/17 09:02 Dose: 10 unit Insulin Human Regular (Humulin R Low) 0 units SC ACHS [facility] PRN Reason: Protocol Last Admin: 05/14/17 21:40 Dose: Not Given Lactulose (Enulose) 20 gm PO DAILY [facility] Last Admin: 05/12/17 09:36 Dose: 20 gm Morphine Sulfate (Morphine) 2 mg IVP Q4 PRN PRN Reason: Pain, severe (8-10) Last Admin: 05/14/17 23:32 Dose: 2 mg Ondansetron HCl (Zofran Inj) 4 mg IVP Q4H PRN PRN Reason: Nausea/Vomiting Pantoprazole Sodium (Protonix Inj) 40 mg IVP DAILY [facility] Last Admin: 05/14/17 09:00 Dose: 40 mg Rifaximin (Xifaxan) 550 mg PO BID [facility] PRN Reason: Protocol Last Admin: 05/12/17 09:36 Dose: 550 mg Rifaximin (Xifaxan) 550 mg PO BID [facility] PRN Reason: Protocol Last Admin: 05/14/17 17:02 Dose: 550 mg - Labs Labs: 05/14/17 05:45 05/14/17 09:14 PT 16.0 Seconds (9.9-11.8) H 05/12/17 10:00 INR 1.48 (0.93-1.08) H 05/12/17 10:00 APTT 28.6 Seconds (23.7-30.8) 05/11/17 18:59 - Constitutional Appears: Non-toxic, No Acute Distress - Head Exam Head Exam: NORMAL INSPECTION - ENT Exam ENT Exam: Mucous Membranes Moist - Neck Exam Neck Exam: absent: Meningismus - Respiratory Exam Respiratory Exam: Decreased Breath Sounds - Cardiovascular Exam Cardiovascular Exam: +S1, +S2 - GI/Abdominal Exam GI & Abdominal Exam: Soft. 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
[2017-05-15] MEDS: Sodium Chloride 0.45% 1,000 ML IV SCH (11:21)
--- NOTE | 2017-05-15 13:02 | PN ---
DATE: 05/15/2017 SUBJECTIVE: The patient is seen and examined at bedside. She is comfortable. She talks in full sentences. She is not in respiratory or otherwise distress even though she is a little bit wheezing. She is receiving DuoNeb p.r.n. as well. PHYSICAL EXAMINATION: VITAL SIGNS: Respiratory rate 20, oxygen saturation 100% on room air, heart rate 81, blood pressure 160/78. HEAD AND NECK: Atraumatic. LUNGS: Few faint scattered wheezing bilaterally. HEART: Regular rate and rhythm. S1 and S2 normal. ABDOMEN: Soft, nontender, nondistended. MUSCULOSKELETAL: Trace bilateral pedal and ankle edema. NEUROLOGIC: The patient moves all extremities spontaneously. SKIN: Moist. PSYCHIATRIC: The patient is alert and oriented x3. LABORATORY DATA: WBC is 4.6, hemoglobin 9.4, platelet count 67. Sodium 138, potassium 4.2, chloride 110, carbon dioxide 22, BUN 24, creatinine 0.9, glucose 171. Total bilirubin 1.8, AST 40, ALT 27. INR 1.48. Albumin 2.4. HIV negative. Complement T3, T4 are low. MEDICATIONS: Tylenol p.r.n. (we will put on hold and we will try to avoid Tylenol in this end-stage liver disease). Patient is on atenolol, Robitussin p.r.n., Levemir, regular insulin sliding scale low protocol, meropenem, Zofran p.r.n., Protonix, rifaximin, normal saline 100 mL per hour. ASSESSMENT AND PLAN: This is a 72-year-old lady with history of hepatitis C, liver cirrhosis who presented to ICU with some colitis, which was decided to manage conservatively. Abdominal MRI was ordered to rule out intrahepatic biliary dilatation as well as extrahepatic biliary dilatation. MRI of the abdomen would also give a little bit better idea as to patency of mesenteric arteries to rule out ischemic colitis as well. Patient is slightly wheezing; however, she has never been diagnosed with chronic obstructive pulmonary disease. Nevertheless, I will put patient on Brovana, Pulmicort via nebulizer b.i.d. Patient is hemodynamically and respiratory-miguel stable. No surgical procedure is planned based on my conversation with surgical service. Patient tolerated clear liquids well even though now is n.p.o. for pending abdominal MRI. We will continue to target euvolemia, euglycemia, normothermia, and oxygen saturation more than 90%. We will continue with deep vein thrombosis and gastrointestinal prophylaxis. Her abdominal exam has improved. She is subjectively doing much better. No leukocytosis and patient is afebrile. ccm time 40 min Esteban Isaacs MD MTDNacho
--- NOTE | 2017-05-15 13:50 | CP.PCM.PN ---
<CARLAI - Last Filed: 05/15/17 13:47> Subjective - Date & Time of Evaluation Date of Evaluation: 05/15/17 Time of Evaluation: 10:00 - Subjective Subjective: ICU PGY1 Progress Note: Pt seen and examined at bedside. Pt had wheezing overnight, requiring 2 duoneb treatment. Pt also had a dry cough. This AM, pt denies sob, cp, f/c/n/v, abdominal pain. Objective - Vital Signs/Intake and Output Vital Signs (last 24 hours): Temp Pulse Resp BP Pulse Ox 98.7 F 80 16 149/74 100 05/15/17 11:51 05/15/17 11:51 05/15/17 11:51 05/15/17 11:20 05/15/17 11:51 Intake and Output: 05/15/17 05/15/17 06:59 18:59 Intake Total 1430 Output Total 100 Balance 1330 - Medications Medications: Current Medications Acetaminophen (Tylenol 650mg/20.3ml Solution Ud) 650 mg PO Q6H PRN PRN Reason: Temperature Last Admin: 05/12/17 22:19 Dose: 650 mg Atenolol (Tenormin) 25 mg PO DAILY [facility] Last Admin: 05/15/17 09:09 Dose: 25 mg Clonidine HCl (Catapres) 0.1 mg PO Q6H PRN PRN Reason: Systolic Blood Pressure Guaifenesin (Robitussin) 200 mg PO Q4H PRN PRN Reason: Cough and congestion Last Admin: 05/15/17 04:54 Dose: 200 mg Meropenem 1g/NS 100mL IVPB (Meropenem 1g/Ns 100ml Ivpb) 1 gm in 100 mls @ 100 mls/hr IVPB Q12H [facility] PRN Reason: Protocol Stop: 05/19/17 06:46 Last Admin: 05/15/17 06:04 Dose: 100 mls/hr Sodium Chloride (Sodium Chloride 0.45%) 1,000 mls @ 60 mls/hr IV .[id number] [facility] Last Admin: 05/15/17 11:21 Dose: 60 mls/hr Insulin Detemir (Levemir) 10 unit SC DAILY [facility] Last Admin: 05/15/17 09:08 Dose: 10 unit Insulin Human Regular (Humulin R Low) 0 units SC ACHS [facility] PRN Reason: Protocol Last Admin: 05/15/17 12:03 Dose: Not Given Lactulose (Enulose) 20 gm PO DAILY [facility] Last Admin: 05/12/17 09:36 Dose: 20 gm Losartan Potassium (Cozaar) 25 mg PO DAILY [facility] Last Admin: 05/15/17 11:20 Dose: 25 mg Morphine Sulfate (Morphine) 2 mg IVP Q4 PRN PRN Reason: Pain, severe (8-10) Last Admin: 05/14/17 23:32 Dose: 2 mg Ondansetron HCl (Zofran Inj) 4 mg IVP Q4H PRN PRN Reason: Nausea/Vomiting Pantoprazole Sodium (Protonix Inj) 40 mg IVP DAILY [facility] Last Admin: 05/15/17 09:09 Dose: 40 mg Rifaximin (Xifaxan) 550 mg PO BID [facility] PRN Reason: Protocol Last Admin: 05/12/17 09:36 Dose: 550 mg Rifaximin (Xifaxan) 550 mg PO BID [facility] PRN Reason: Protocol Last Admin: 05/15/17 09:10 Dose: 550 mg - Labs Labs: 05/15/17 06:45 05/15/17 06:45 PT 16.0 Seconds (9.9-11.8) H 05/12/17 10:00 INR 1.48 (0.93-1.08) H 05/12/17 10:00 APTT 28.6 Seconds (23.7-30.8) 05/11/17 18:59 - Constitutional Appears: No Acute Distress - Head Exam Head Exam: ATRAUMATIC, NORMOCEPHALIC - Eye Exam Eye Exam: PERRL - ENT Exam ENT Exam: Mucous Membranes Moist - Respiratory Exam Respiratory Exam: Decreased Breath Sounds Additional comments: mild crackles RLL - Cardiovascular Exam Cardiovascular Exam: RRR, +S1, +S2. absent: Gallop, Rubs, Murmur - GI/Abdominal Exam GI & Abdominal Exam: Soft, Normal Bowel Sounds. absent: Distended, Tenderness Additional comments: no fluid wave test - Extremities Exam Extremities Exam: absent: Calf Tenderness, Pedal Edema - Neurological Exam Neurological Exam: Alert, Awake, Oriented x3 - Skin Skin Exam: Dry, Intact, Warm Assessment and Plan - Assessment and Plan (Free Text) Assessment: 72F, with PMH hepC, cirrhosis, recent CVA with right sided weakness, HTN, DM, admitted to ICU for severe sepsis 2/2 likely colitis and also found to have cholelithiaisis with distended GB. Pt on IVF, CLD, OOB to chair, resolved abdominal pain, Merrem D4/7, will go for MRCP today per GI. Will downgrade to Med-surg. Plan: Neuro -AAO x3. - NH3 36. pt on lactulose and rifaximin at [place]. will consider resuming, previously held bc of colitis. Cardio - BP 140-160s/50-70s. - Hx of HTn. On atenolol, start losartan per PMD (Dr. Richardson) and clonidine prn for SBP>170. - Hypotensive on admission, s/p 2L IVF in Ed and albumin 25%, -Maintain MAP >65 Pulm -on RA, Maintain O2 sat >90% GI -Abdominal pain 2/2 likely colitis, also found to have cholelithiasis with distended GB, - on CLD, tolerating well. - f/u MRCP per GI (Dr. Hernandez) this afternoon. - lactate of 5.3 on admission. trended down. -CT showed colitis, appendicitis, cirrhosis with portal htn, cholelithiasis, indeterminate pancreatic lesion, fibroid uterus -Abdominal US shows gallstones, no cholecystitis. +hepatic cirrhosis and splenomegaly. -MRI ordered to correlate CT pancreatic lesion (2.3x2.2x2.9cm) finding -F/u GI consult -Surgery consulted, spoke to certified surgical first assistant, no surgical intervention. -IR initially consulted for diagnostic paracentesis r/o SBP, but not much ascitic fluid found. -T. bili 2.6 ->1.5 today, AST, ALT 44/35. Cont to monitor -H/o cirrhosis/hep c/hepatic encephalopathy, consider restarting lactulose and Rifaximin -Morphine prn for pain, Zofran for nausea -Protonix PPx Nephro -Strict I's and O's - UO not very accurate, on external suction cath. -Replenish electrolyes as needed Endo - BG 160-240s -Maintain euglycemia -On levemir and ISS Heme/ID - ID consult appreciated. C/w Merrem D4/7 -s/p 1 dose of flagyl and zosyn in ED -Hgb 9.4 this AM - wbc 2.3 on admission (which is her baseline) --> 9.2->4.6 today. - plts 57 this AM. thrombocytopenic 2/2 likely cirrhosis. -Cont tylenol prn for fever -SCDs DVT ppx: SCDs bc low platelets GI ppx: protonix Pt was seen and discussed with Dr. Isaacs. Ai Valera, PGY1 <Esteban Isaacs - Last Filed: 05/15/17 18:15> Objective - Vital Signs/Intake and Output Vital Signs (last 24 hours): Temp Pulse Resp BP Pulse Ox 98.8 F 79 22 158/89 H 100 05/15/17 16:00 05/15/17 16:00 05/15/17 16:00 05/15/17 16:00 05/15/17 16:00 Intake and Output: 05/15/17 05/15/17 06:59 18:59 Intake Total 1430 1600 Output Total 100 320 Balance 1330 1280 - Medications Medications: Current Medications Acetaminophen (Tylenol 650mg/20.3ml Solution Ud) 650 mg PO Q6H PRN PRN Reason: Temperature Last Admin: 05/12/17 22:19 Dose: 650 mg Albuterol/Ipratropium (Duoneb 3 Mg/0.5 Mg (3 Ml) Ud) 3 ml IH [id number] PRN PRN Reason: Shortness of Breath Arformoterol Tartrate (Brovana) 15 mcg IH [id number] [facility] Atenolol (Tenormin) 25 mg PO DAILY [facility] Last Admin: 05/15/17 09:09 Dose: 25 mg Budesonide (Pulmicort Respules) 0.25 mg IH [id number] [facility] Clonidine HCl (Catapres) 0.1 mg PO Q6H PRN PRN Reason: Systolic Blood Pressure Guaifenesin (Robitussin) 200 mg PO Q4H PRN PRN Reason: Cough and congestion Last Admin: 05/15/17 04:54 Dose: 200 mg Meropenem 1g/NS 100mL IVPB (Meropenem 1g/Ns 100ml Ivpb) 1 gm in 100 mls @ 100 mls/hr IVPB Q12H [facility] PRN Reason: Protocol Stop: 05/19/17 06:46 Last Admin: 05/15/17 17:47 Dose: 100 mls/hr Sodium Chloride (Sodium Chloride 0.45%) 1,000 mls @ 60 mls/hr IV .[id number] [facility] Last Admin: 05/15/17 11:21 Dose: 60 mls/hr Insulin Detemir (Levemir) 10 unit SC DAILY [facility] Last Admin: 05/15/17 09:08 Dose: 10 unit Insulin Human Regular (Humulin R Low) 0 units SC ACHS [facility] PRN Reason: Protocol Last Admin: 05/15/17 16:49 Dose: 1 units Lactulose (Enulose) 20 gm PO DAILY [facility] Last Admin: 05/12/17 09:36 Dose: 20 gm Losartan Potassium (Cozaar) 25 mg PO DAILY [facility] Last Admin: 05/15/17 11:20 Dose: 25 mg Morphine Sulfate (Morphine) 2 mg IVP Q4 PRN PRN Reason: Pain, severe (8-10) Last Admin: 05/14/17 23:32 Dose: 2 mg Ondansetron HCl (Zofran Inj) 4 mg IVP Q4H PRN PRN Reason: Nausea/Vomiting Pantoprazole Sodium (Protonix Inj) 40 mg IVP DAILY [facility] Last Admin: 05/15/17 09:09 Dose: 40 mg Rifaximin (Xifaxan) 550 mg PO BID [facility] PRN Reason: Protocol Last Admin: 05/12/17 09:36 Dose: 550 mg Rifaximin (Xifaxan) 550 mg PO BID [facility] PRN Reason: Protocol Last Admin: 05/15/17 17:05 Dose: 550 mg - Labs Labs: 05/15/17 06:45 05/15/17 06:45 PT 16.0 Seconds (9.9-11.8) H 05/12/17 10:00 INR 1.48 (0.93-1.08) H 05/12/17 10:00 APTT 28.6 Seconds (23.7-30.8) 05/11/17 18:59 Attending/Attestation - Attestation I have personally seen and examined this patient.: Yes I have fully participated in the care of the patient.: Yes I have reviewed all pertinent clinical information, including history, physical exam and plan: Yes Notes (Text): 05/15/17 18:[address] Isaacs note
--- NOTE | 2017-05-15 15:03 | MRI ---
PROCEDURE: Magnetic Resonance Cholangiopancreatography HISTORY: COMPARISON: Prior abdomen ultrasound dated 05/12/[address] without contrast 05/14/2017.. TECHNIQUE: Multiplanar, multisequence MR images of the abdomen were obtained, including heavily T2 weighted MRCP images of the biliary system. Rotating maximum intensity projection images of the biliary system were generated. FINDINGS: MRCP: Patient unable to suspend respiration and has resolved the MRCP portion of the examination is markedly artifact did as an is essentially nondiagnostic. Common bile duct appears to be upper limits normal size caliber at 6.5 mm. No definitive choledocholithiasis. The gallbladder is distended questionable pericholecystic fluid and cholecystitis is not completely excluded. Physical to evaluate for mural thickening in this examination impression motion artifacts. LIVER: Normal overall size with borderline cirrhotic peripheral margins. . GALLBLADDER: Discussed above. . SPLEEN: Splenomegaly to 15.5 cm without focal mass grossly evident. . PANCREAS: Poorly evaluated. . ADRENALS: Poorly evaluated. . KIDNEYS: No obstructive uropathy or gross mass associated bilaterally. AORTA: No aneurysm. ASCITES: Mild perihepatic and perisplenic ascites of uncertain origin. Given fluid in the bilateral extra abdominal flanks, anasarca is in question. OTHER FINDINGS: None. IMPRESSION: Grossly suboptimal MR study examination uterus are motion artifacts throughout the entire exam. The MRCP reconstruct data set is nondiagnostic. The common duct appears upper limits normal caliber without prominent intrahepatic biliary dilatation or definitive choledocholithiasis. Borderline cirrhotic liver pattern. Splenomegaly is evident. Mild perihepatic and perisplenic ascites. Findings suspicious for anasarca.
[2017-05-15] MEDS: Budesonide 0.25 mg/2 ml Inhal Susp UD IH SCH (20:06)
[2017-05-15] MEDS: Arformoterol 15 mcg/2 ml Inh Sol IH SCH (20:06)
[2017-05-16] MEDS: Morphine 2 mg/ml ISec IVP PRN ×2 (02:08→12:07)
[2017-05-16] MEDS: Sodium Chloride 0.45% 1,000 ML IV SCH ×2 (03:21→12:08)
[2017-05-16] MEDS: Meropenem 1g/NS 100mL IVPB 1 GM/100 ML PIGGYBACK IVPB SCH ×2 (06:00→21:38)
[2017-05-16 06:58] LABS: HEMOGLOBIN 9.9 gm/dL (12.0-16.0); MEAN CELL VOLUME 95.6 fL (80.0-105.0); MEAN CORPUSCULAR HEMOGLOBIN 30.9 pg (25.0-35.0); MEAN CORPUSCULAR HGB CONC 32.4 g/dl (31.0-37.0); MEAN PLATELET VOLUME 10.8 fl (7.0-11.0); RBC 3.2 10^6/uL (3.5-6.1); RED CELL DISTRIBUTION WIDTH 15.3 % (11.5-14.5); WHITE BLOOD COUNT 4.6 10^3/ul (4.5-11.0)
[2017-05-16 07:18] LABS: ALB/GLOB RATIO 0.6 (1.1-1.8); ALT/SGPT 33 U/L (7-56); AST/SGOT 40 U/L (15-39); BLOOD UREA NITROGEN 16 mg/dL (7-21); CALCIUM 7.2 mg/dL (8.4-10.5); GFR AFRICAN-AMERICAN > 60; GFR NON-AFRICAN AMERICAN > 60
[2017-05-16] MEDS: Insulin Reg-LOW-Coverage SC SCH ×4 (07:46→21:37)
--- NOTE | 2017-05-16 08:05 | CP.PCM.PN ---
Subjective - Date & Time of Evaluation Date of Evaluation: 05/15/17 Time of Evaluation: 11:00 - Subjective Subjective: feel better no abdominal pain , no nvd, gi miguel better, c diff negative, no new c/o tolerate liquid diet. no fever.bp is high on iv ns 100 cc/h. Objective - Vital Signs/Intake and Output Vital Signs (last 24 hours): Temp Pulse Resp BP Pulse Ox 98.8 F 79 22 158/89 H 100 05/15/17 16:00 05/15/17 16:00 05/15/17 16:00 05/15/17 16:00 05/15/17 16:00 Intake and Output: 05/16/17 05/16/17 06:59 18:59 Intake Total 940 Output Total 200 Balance 740 - Medications Medications: Current Medications Acetaminophen (Tylenol 650mg/20.3ml Solution Ud) 650 mg PO Q6H PRN PRN Reason: Temperature Last Admin: 05/12/17 22:19 Dose: 650 mg Albuterol/Ipratropium (Duoneb 3 Mg/0.5 Mg (3 Ml) Ud) 3 ml IH [id number] PRN PRN Reason: Shortness of Breath Arformoterol Tartrate (Brovana) 15 mcg IH [id number] [facility] Last Admin: 05/15/17 20:06 Dose: 15 mcg Atenolol (Tenormin) 25 mg PO DAILY [facility] Last Admin: 05/15/17 09:09 Dose: 25 mg Budesonide (Pulmicort Respules) 0.25 mg IH [id number] [facility] Last Admin: 05/15/17 20:06 Dose: 0.25 mg Clonidine HCl (Catapres) 0.1 mg PO Q6H PRN PRN Reason: Systolic Blood Pressure Guaifenesin (Robitussin) 200 mg PO Q4H PRN PRN Reason: Cough and congestion Last Admin: 05/15/17 04:54 Dose: 200 mg Meropenem 1g/NS 100mL IVPB (Meropenem 1g/Ns 100ml Ivpb) 1 gm in 100 mls @ 100 mls/hr IVPB Q12H [facility] PRN Reason: Protocol Stop: 05/19/17 06:46 Last Admin: 05/16/17 06:00 Dose: 100 mls/hr Sodium Chloride (Sodium Chloride 0.45%) 1,000 mls @ 60 mls/hr IV .[id number] [facility] Last Admin: 05/16/17 03:21 Dose: 60 mls/hr Insulin Detemir (Levemir) 10 unit SC DAILY [facility] Last Admin: 05/15/17 09:08 Dose: 10 unit Insulin Human Regular (Humulin R Low) 0 units SC ACHS [facility] PRN Reason: Protocol Last Admin: 05/15/17 22:57 Dose: Not Given Lactulose (Enulose) 20 gm PO DAILY [facility] Last Admin: 05/12/17 09:36 Dose: 20 gm Losartan Potassium (Cozaar) 25 mg PO DAILY [facility] Last Admin: 05/15/17 11:20 Dose: 25 mg Morphine Sulfate (Morphine) 2 mg IVP Q4 PRN PRN Reason: Pain, severe (8-10) Last Admin: 05/16/17 02:08 Dose: 2 mg Ondansetron HCl (Zofran Inj) 4 mg IVP Q4H PRN PRN Reason: Nausea/Vomiting Pantoprazole Sodium (Protonix Inj) 40 mg IVP DAILY [facility] Last Admin: 05/15/17 09:09 Dose: 40 mg Rifaximin (Xifaxan) 550 mg PO BID [facility] PRN Reason: Protocol Last Admin: 05/12/17 09:36 Dose: 550 mg Rifaximin (Xifaxan) 550 mg PO BID [facility] PRN Reason: Protocol Last Admin: 05/15/17 17:05 Dose: 550 mg - Labs Labs: 05/16/17 06:30 05/16/17 06:30 PT 16.0 Seconds (9.9-11.8) H 05/12/17 10:00 INR 1.48 (0.93-1.08) H 05/12/17 10:00 APTT 28.6 Seconds (23.7-30.8) 05/11/17 18:59 - Constitutional Appears: Well - Head Exam Head Exam: ATRAUMATIC, NORMAL INSPECTION, NORMOCEPHALIC - Eye Exam Eye Exam: EOMI, Normal appearance, PERRL Pupil Exam: NORMAL ACCOMODATION, PERRL - ENT Exam ENT Exam: Mucous Membranes Moist, Normal Exam - Respiratory Exam Respiratory Exam: Clear to Ausculation Bilateral, NORMAL BREATHING PATTERN - Cardiovascular Exam Cardiovascular Exam: REGULAR RHYTHM, +S1, +S2. absent: Murmur - GI/Abdominal Exam GI & Abdominal Exam: Soft, Normal Bowel Sounds. absent: Tenderness - Rectal Exam Rectal Exam: Deferred - Extremities Exam Extremities Exam: Full ROM, Normal Capillary Refill, Normal Inspection. absent : Joint Swelling, Pedal Edema - Back Exam Back Exam: NORMAL INSPECTION - Neurological Exam Neuro motor strength exam: Left Upper Extremity: 3, Left Lower Extremity: 2/1 - Psychiatric Exam Psychiatric exam: Normal Affect, Normal Mood - Skin Skin Exam: Dry, Intact, Normal Color, Warm Assessment and Plan - Assessment and Plan (Free Text) Assessment: colitis better with iv meropenem, flagyle , continue po liqiud, off lactulose for now , aaox3 cva cirhosis hep c on xifaxan 550 bid pancreatic lesion for mrcp as per gi hypertension will change iv fron ns to 1/2 ns 60 cc, ,clonidine prn, add cozaar , to atenolol, will monitor bp will tx to telemetry Plan: as above
[2017-05-16] MEDS: Arformoterol 15 mcg/2 ml Inh Sol IH SCH ×2 (08:06→19:52)
[2017-05-16] MEDS: Albuterol-Ipratrop 3 mg / 0.5 (3 ml) UD IH PRN ×2 (08:08→19:53)
[2017-05-16] MEDS: Budesonide 0.25 mg/2 ml Inhal Susp UD IH SCH ×2 (08:08→19:53)
--- NOTE | 2017-05-16 08:26 | CP.PCM.PN ---
Subjective - Date & Time of Evaluation Date of Evaluation: 05/16/17 Time of Evaluation: 08:21 - Subjective Subjective: PT S&E at bedside. NAEON. Patient admits to no pain. No N/V. ISS was placed at bedside and instructed on how to properly use it. Objective - Vital Signs/Intake and Output Vital Signs (last 24 hours): Temp Pulse Resp BP Pulse Ox 98.5 F 79 19 120/70 100 05/16/17 08:18 05/16/17 08:18 05/16/17 08:18 05/16/17 08:18 05/16/17 08:18 Intake and Output: 05/16/17 05/16/17 06:59 18:59 Intake Total 940 Output Total 200 Balance 740 - Medications Medications: Current Medications Acetaminophen (Tylenol 650mg/20.3ml Solution Ud) 650 mg PO Q6H PRN PRN Reason: Temperature Last Admin: 05/12/17 22:19 Dose: 650 mg Albuterol/Ipratropium (Duoneb 3 Mg/0.5 Mg (3 Ml) Ud) 3 ml IH [id number] PRN PRN Reason: Shortness of Breath Last Admin: 05/16/17 08:08 Dose: 3 ml Arformoterol Tartrate (Brovana) 15 mcg IH [id number] [facility] Last Admin: 05/16/17 08:06 Dose: 15 mcg Atenolol (Tenormin) 25 mg PO DAILY [facility] Last Admin: 05/15/17 09:09 Dose: 25 mg Budesonide (Pulmicort Respules) 0.25 mg IH [id number] [facility] Last Admin: 05/16/17 08:08 Dose: 0.25 mg Clonidine HCl (Catapres) 0.1 mg PO Q6H PRN PRN Reason: Systolic Blood Pressure Guaifenesin (Robitussin) 200 mg PO Q4H PRN PRN Reason: Cough and congestion Last Admin: 05/15/17 04:54 Dose: 200 mg Meropenem 1g/NS 100mL IVPB (Meropenem 1g/Ns 100ml Ivpb) 1 gm in 100 mls @ 100 mls/hr IVPB Q12H [facility] PRN Reason: Protocol Stop: 05/19/17 06:46 Last Admin: 05/16/17 06:00 Dose: 100 mls/hr Sodium Chloride (Sodium Chloride 0.45%) 1,000 mls @ 60 mls/hr IV .[id number] [facility] Last Admin: 05/16/17 03:21 Dose: 60 mls/hr Insulin Detemir (Levemir) 10 unit SC DAILY [facility] Last Admin: 05/15/17 09:08 Dose: 10 unit Insulin Human Regular (Humulin R Low) 0 units SC ACHS [facility] PRN Reason: Protocol Last Admin: 05/15/17 22:57 Dose: Not Given Lactulose (Enulose) 20 gm PO DAILY [facility] Last Admin: 05/12/17 09:36 Dose: 20 gm Losartan Potassium (Cozaar) 25 mg PO DAILY [facility] Last Admin: 05/15/17 11:20 Dose: 25 mg Morphine Sulfate (Morphine) 2 mg IVP Q4 PRN PRN Reason: Pain, severe (8-10) Last Admin: 05/16/17 02:08 Dose: 2 mg Ondansetron HCl (Zofran Inj) 4 mg IVP Q4H PRN PRN Reason: Nausea/Vomiting Pantoprazole Sodium (Protonix Inj) 40 mg IVP DAILY [facility] Last Admin: 05/15/17 09:09 Dose: 40 mg Rifaximin (Xifaxan) 550 mg PO BID [facility] PRN Reason: Protocol Last Admin: 05/12/17 09:36 Dose: 550 mg Rifaximin (Xifaxan) 550 mg PO BID [facility] PRN Reason: Protocol Last Admin: 05/15/17 17:05 Dose: 550 mg - Labs Labs: 05/16/17 06:30 05/16/17 06:30 PT 16.0 Seconds (9.9-11.8) H 05/12/17 10:00 INR 1.48 (0.93-1.08) H 05/12/17 10:00 APTT 28.6 Seconds (23.7-30.8) 05/11/17 18:59 - Constitutional Appears: No Acute Distress - Head Exam Head Exam: NORMAL INSPECTION, NORMOCEPHALIC - Eye Exam Eye Exam: EOMI, Normal appearance - ENT Exam ENT Exam: Mucous Membranes Moist - Neck Exam Neck Exam: Full ROM, Normal Inspection - Respiratory Exam Respiratory Exam: NORMAL BREATHING PATTERN. absent: Accessory Muscle Use, Prolonged Expiratory Phase, Respiratory Distress - Cardiovascular Exam Cardiovascular Exam: REGULAR RHYTHM - GI/Abdominal Exam GI & Abdominal Exam: Soft, Normal Bowel Sounds. absent: Bruit, Distended, Firm , Guarding, Rigid, Tenderness - Psychiatric Exam Psychiatric exam: Normal Affect, Normal Mood - Skin Skin Exam: Intact, Normal Color, Warm Assessment and Plan - Assessment and Plan (Free Text) Assessment: 72 F with abdominal pain, colitis Plan: c/w current medical management, no surgery indicated at this time c/w pain control c/w with liquid diet c/w IV Meropenem
[2017-05-16] MEDS: Insulin Detemir 100 units/ml Vial (Levemir) SC SCH (09:46)
--- NOTE | 2017-05-16 10:46 | CP.PCM.PN ---
<Letha Lopez - Last Filed: 05/16/17 10:45> Subjective - Date & Time of Evaluation Date of Evaluation: 05/16/17 Time of Evaluation: 09:05 - Subjective Subjective: S&E at bedside, chart reviewed. No N/V or abdominal pain. No acute overnight events, had loose stool, stool cdiff, negative, no melena or BRBPR. MRCP done yesterday, no acute findings, pancreas, poor study, non diagnostic;CBD normal upper limits, no prominent intrahepatic bile duct dilitation, or CBD stone, splenomegaly, ascites. Objective - Vital Signs/Intake and Output Vital Signs (last 24 hours): Temp Pulse Resp BP Pulse Ox 98.5 F 79 19 120/70 100 05/16/17 08:18 05/16/17 10:11 05/16/17 08:18 05/16/17 10:11 05/16/17 08:18 Intake and Output: 05/16/17 05/16/17 06:59 18:59 Intake Total 940 Output Total 200 Balance 740 - Medications Medications: Current Medications Acetaminophen (Tylenol 650mg/20.3ml Solution Ud) 650 mg PO Q6H PRN PRN Reason: Temperature Last Admin: 05/12/17 22:19 Dose: 650 mg Albuterol/Ipratropium (Duoneb 3 Mg/0.5 Mg (3 Ml) Ud) 3 ml IH [id number] PRN PRN Reason: Shortness of Breath Last Admin: 05/16/17 08:08 Dose: 3 ml Arformoterol Tartrate (Brovana) 15 mcg IH [id number] [facility] Last Admin: 05/16/17 08:06 Dose: 15 mcg Atenolol (Tenormin) 25 mg PO DAILY [facility] Last Admin: 05/16/17 10:11 Dose: 25 mg Budesonide (Pulmicort Respules) 0.25 mg IH [id number] [facility] Last Admin: 05/16/17 08:08 Dose: 0.25 mg Clonidine HCl (Catapres) 0.1 mg PO Q6H PRN PRN Reason: Systolic Blood Pressure Guaifenesin (Robitussin) 200 mg PO Q4H PRN PRN Reason: Cough and congestion Last Admin: 05/15/17 04:54 Dose: 200 mg Meropenem 1g/NS 100mL IVPB (Meropenem 1g/Ns 100ml Ivpb) 1 gm in 100 mls @ 100 mls/hr IVPB Q12H [facility]ELINA PRN Reason: Protocol Stop: 05/19/17 06:46 Last Admin: 05/16/17 06:00 Dose: 100 mls/hr Sodium Chloride (Sodium Chloride 0.45%) 1,000 mls @ 60 mls/hr IV .[id number] [facility] Last Admin: 05/16/17 03:21 Dose: 60 mls/hr Insulin Detemir (Levemir) 10 unit SC DAILY [facility] Last Admin: 05/16/17 09:46 Dose: Not Given Insulin Human Regular (Humulin R Low) 0 units SC ACHS [facility] PRN Reason: Protocol Last Admin: 05/16/17 07:46 Dose: Not Given Lactulose (Enulose) 20 gm PO DAILY [facility] Last Admin: 05/12/17 09:36 Dose: 20 gm Losartan Potassium (Cozaar) 25 mg PO DAILY [facility] Last Admin: 05/16/17 10:11 Dose: 25 mg Morphine Sulfate (Morphine) 2 mg IVP Q4 PRN PRN Reason: Pain, severe (8-10) Last Admin: 05/16/17 02:08 Dose: 2 mg Ondansetron HCl (Zofran Inj) 4 mg IVP Q4H PRN PRN Reason: Nausea/Vomiting Pantoprazole Sodium (Protonix Inj) 40 mg IVP DAILY [facility] Last Admin: 05/16/17 10:12 Dose: 40 mg Rifaximin (Xifaxan) 550 mg PO BID [facility] PRN Reason: Protocol Last Admin: 05/12/17 09:36 Dose: 550 mg Rifaximin (Xifaxan) 550 mg PO BID [facility] PRN Reason: Protocol Last Admin: 05/16/17 10:11 Dose: 550 mg - Labs Labs: 05/16/17 06:30 05/16/17 06:30 PT 16.0 Seconds (9.9-11.8) H 05/12/17 10:00 INR 1.48 (0.93-1.08) H 05/12/17 10:00 APTT 28.6 Seconds (23.7-30.8) 05/11/17 18:59 - Constitutional Appears: No Acute Distress - Head Exam Head Exam: NORMOCEPHALIC - Eye Exam Eye Exam: Normal appearance. absent: Scleral icterus - ENT Exam ENT Exam: Mucous Membranes Moist - Neck Exam Neck Exam: Normal Inspection - Respiratory Exam Respiratory Exam: Decreased Breath Sounds, NORMAL BREATHING PATTERN. absent: Respiratory Distress - Cardiovascular Exam Cardiovascular Exam: +S1, +S2 - GI/Abdominal Exam GI & Abdominal Exam: Distended, Soft, Normal Bowel Sounds. absent: Guarding, Tenderness, Rebound - Extremities Exam Extremities Exam: Pedal Edema (trace, better). absent: Calf Tenderness - Neurological Exam Neurological Exam: Alert, Awake, Oriented x3 Assessment and Plan - Assessment and Plan (Free Text) Assessment: Assessment: s/p Sepsis Improved Abdominal pain Colitis, had repeat ct scan with oral contrast, mild/mod segmental colitis Gallstones, no signs BG wall thickening or fluid Hypodense lesion in the pancreas, s/p MRCP, nondiagnostic, pancreas not visualized Liver cirrhosis secondary Hepatitis C CVA with right-sided weakness Diabetes mellitus Plan: clear liquids, increase as tolerated Continue IV fluids for hydration on Merropenum Continue PPI on Xifaxine OFF Lactulose DVT prophylaxis, SCD boots Monitor electrolytes Seen and discussed with Dr. Hernandez. <Dante Hernandez V - Last Filed: 05/16/17 23:49> Objective - Vital Signs/Intake and Output Vital Signs (last 24 hours): Temp Pulse Resp BP Pulse Ox 98.3 F 81 20 133/90 100 05/16/17 16:00 05/16/17 16:00 05/16/17 16:00 05/16/17 16:00 05/16/17 16:00 Intake and Output: 05/16/17 05/17/17 18:59 06:59 Intake Total 360 Output Total 600 Balance -240 - Medications Medications: Current Medications Acetaminophen (Tylenol 650mg/20.3ml Solution Ud) 650 mg PO Q6H PRN PRN Reason: Temperature Last Admin: 05/12/17 22:19 Dose: 650 mg Albuterol/Ipratropium (Duoneb 3 Mg/0.5 Mg (3 Ml) Ud) 3 ml IH [id number] PRN PRN Reason: Shortness of Breath Last Admin: 05/16/17 19:53 Dose: 3 ml Arformoterol Tartrate (Brovana) 15 mcg IH [id number] [facility] Last Admin: 05/16/17 19:52 Dose: 15 mcg Atenolol (Tenormin) 25 mg PO DAILY [facility] Last Admin: 05/16/17 10:11 Dose: 25 mg Budesonide (Pulmicort Respules) 0.25 mg IH [id number] [facility] Last Admin: 05/16/17 19:53 Dose: 0.25 mg Clonidine HCl (Catapres) 0.1 mg PO Q6H PRN PRN Reason: Systolic Blood Pressure Guaifenesin (Robitussin) 200 mg PO Q4H PRN PRN Reason: Cough and congestion Last Admin: 05/16/17 22:04 Dose: 200 mg Meropenem 1g/NS 100mL IVPB (Meropenem 1g/Ns 100ml Ivpb) 1 gm in 100 mls @ 100 mls/hr IVPB Q12 [facility] PRN Reason: Protocol Last Admin: 05/16/17 21:38 Dose: 100 mls/hr Insulin Detemir (Levemir) 10 unit SC DAILY [facility] Last Admin: 05/16/17 09:46 Dose: Not Given Insulin Human Regular (Humulin R Low) 0 units SC ACHS [facility] PRN Reason: Protocol Last Admin: 05/16/17 21:37 Dose: Not Given Lactulose (Enulose) 10 gm PO BID PRN PRN Reason: NO BM Last Admin: 05/16/17 17:30 Dose: 10 gm Lidocaine (Lidoderm) 2 ea TD DAILY [facility] Last Admin: 05/16/17 14:22 Dose: 2 ea Losartan Potassium (Cozaar) 25 mg PO DAILY [facility] Last Admin: 05/16/17 10:11 Dose: 25 mg Morphine Sulfate (Morphine) 2 mg IVP Q4 PRN PRN Reason: Pain, severe (8-10) Last Admin: 05/16/17 12:07 Dose: 2 mg Ondansetron HCl (Zofran Inj) 4 mg IVP Q4H PRN PRN Reason: Nausea/Vomiting Pantoprazole Sodium (Protonix Inj) 40 mg IVP DAILY [facility] Last Admin: 05/16/17 10:12 Dose: 40 mg Rifaximin (Xifaxan) 550 mg PO BID [facility] PRN Reason: Protocol Last Admin: 05/12/17 09:36 Dose: 550 mg Rifaximin (Xifaxan) 550 mg PO BID [facility] PRN Reason: Protocol Last Admin: 05/16/17 17:29 Dose: 550 mg - Labs Labs: 05/16/17 06:30 05/16/17 06:30 PT 16.0 Seconds (9.9-11.8) H 05/12/17 10:00 INR 1.48 (0.93-1.08) H 05/12/17 10:00 APTT 28.6 Seconds (23.7-30.8) 05/11/17 18:59 Attending/Attestation - Attestation I have personally seen and examined this patient.: Yes I have fully participated in the care of the patient.: Yes I have reviewed all pertinent clinical information, including history, physical exam and plan: Yes Notes (Text): th
--- NOTE | 2017-05-16 13:17 | RAD ---
HISTORY: cough COMPARISON: 05/11/2017 FINDINGS: LUNGS: No active pulmonary disease. PLEURA: No significant pleural effusion identified, no pneumothorax apparent. CARDIOVASCULAR: Mild cardiomegaly and mild vascular congestion OSSEOUS STRUCTURES: No significant abnormalities. VISUALIZED UPPER ABDOMEN: Normal. OTHER FINDINGS: None. IMPRESSION: Mild cardiomegaly and mild vascular congestion
[2017-05-16] MEDS: Lidocaine 5% Patch TD SCH (14:22)
[2017-05-16] MEDS: guaiFENesin 200 mg/10 ml Syrup UD PO PRN ×2 (14:32→22:04)
--- NOTE | 2017-05-16 16:00 | PN ---
DATE: 05/11/2017 SUBJECTIVE: The patient is in bed, was seen earlier this morning. No fevers and no chills. No nausea. PHYSICAL EXAMINATION: VITAL SIGNS: Temperature is 98, blood pressure is 158/80, respiratory rate of 16. HEENT: Unremarkable. NECK: Supple. LUNGS: Decreased breath sounds. HEART: Normal S1 and S2. ABDOMEN: Soft, nontender. LABORATORY DATA: Reveals white count of 4.2, hemoglobin of 9, platelets of 60. Coagulation is noted. Chemistry reveals BUN of 16, creatinine of 0.8. Urinalysis is noted and HIV is negative. Microbiology reveals stool C. diff is negative. Urine culture is negative. Blood culture is negative. MRSA not detected and orders reveal that the patient to be on IV meropenem. ASSESSMENT AND PLAN: A 72-year-old female with sepsis secondary to acute colitis, slowing improving; pancreatic lesion; MRCP results are reviewed in a patient with the chronic active hepatitis C without history of treatment and probable associated with acute decompensated liver cirrhosis and hepatic encephalopathy and hemorrhagic cerebrovascular accident with right-sided weakness and speech effect; hypertension and diabetes. Patient is currently on liquid diet and tolerating well. Once patient's diet is advanced, maybe able to switch to p.o. Flagyl and p.o. to complete therapy 3 to 5 days, within the next 24 hours, we will switch to p.o. antibiotics. Case discussed with Dr. Richardson. Niles Jain MD
[2017-05-17 06:45] LABS: EOS # 0.2 (0.0-0.7); EOS % 5.9 % (1.5-5.0); GRAN % 48.3 % (50.0-68.0); HEMOGLOBIN 9.4 gm/dL (12.0-16.0); LYMPH % 26.5 % (22.0-35.0); MEAN CELL VOLUME 95.3 fL (80.0-105.0); MEAN CORPUSCULAR HEMOGLOBIN 31.6 pg (25.0-35.0); MEAN CORPUSCULAR HGB CONC 33.2 g/dl (31.0-37.0); MEAN PLATELET VOLUME 10.1 fl (7.0-11.0); MONO # 0.8 (0.1-0.6); MONO % 19.3 % (1.0-6.0); PLATELET COUNT 60 10^3/uL (120.0-450.0); RBC 2.97 10^6/uL (3.5-6.1); RED CELL DISTRIBUTION WIDTH 15.4 % (11.5-14.5); WHITE BLOOD COUNT 3.9 10^3/ul (4.5-11.0)
[2017-05-17 07:12] LABS: ALB/GLOB RATIO 0.6 (1.1-1.8); ALT/SGPT 30 U/L (7-56); AST/SGOT 39 U/L (15-39); BLOOD UREA NITROGEN 16 mg/dL (7-21); CALCIUM 7.5 mg/dL (8.4-10.5); GFR AFRICAN-AMERICAN > 60; GFR NON-AFRICAN AMERICAN > 60
[2017-05-17] MEDS: guaiFENesin 200 mg/10 ml Syrup UD PO PRN ×2 (07:46→15:49)
[2017-05-17] MEDS: Arformoterol 15 mcg/2 ml Inh Sol IH SCH (07:50)
[2017-05-17] MEDS: Albuterol-Ipratrop 3 mg / 0.5 (3 ml) UD IH PRN (07:50)
[2017-05-17] MEDS: Budesonide 0.25 mg/2 ml Inhal Susp UD IH SCH (07:50)
[2017-05-17] MEDS: Insulin Reg-LOW-Coverage SC SCH ×2 (08:22→13:01)
[2017-05-17 08:41] VITALS: BP 133/77; PULSE 96; RESP 21; TEMP 98.8; O2SAT 99
[2017-05-17] MEDS: Meropenem 1g/NS 100mL IVPB 1 GM/100 ML PIGGYBACK IVPB SCH (09:16)
[2017-05-17] MEDS: Insulin Detemir 100 units/ml Vial (Levemir) SC SCH (09:19)
[2017-05-17] MEDS: Lidocaine 5% Patch TD SCH (09:19)
--- NOTE | 2017-05-17 10:10 | CP.PCM.PN ---
Subjective - Date & Time of Evaluation Date of Evaluation: 05/16/17 Time of Evaluation: 11:00 - Subjective Subjective: low back pain chronic ,she use lidoderm back in custodial. little cough x 2 days no fever, Objective - Vital Signs/Intake and Output Vital Signs (last 24 hours): Temp Pulse Resp BP Pulse Ox 98.8 F 96 H 21 133/77 99 05/17/17 08:40 05/17/17 09:20 05/17/17 08:40 05/17/17 09:20 05/17/17 08:40 Intake and Output: 05/17/17 05/17/17 06:59 18:59 Intake Total 460 240 Output Total 600 600 Balance -140 -360 - Medications Medications: Current Medications Acetaminophen (Tylenol 650mg/20.3ml Solution Ud) 650 mg PO Q6H PRN PRN Reason: Temperature Last Admin: 05/12/17 22:19 Dose: 650 mg Albuterol/Ipratropium (Duoneb 3 Mg/0.5 Mg (3 Ml) Ud) 3 ml IH [id number] PRN PRN Reason: Shortness of Breath Last Admin: 05/17/17 07:50 Dose: 3 ml Arformoterol Tartrate (Brovana) 15 mcg IH [id number] [facility] Last Admin: 05/17/17 07:50 Dose: 15 mcg Atenolol (Tenormin) 25 mg PO DAILY [facility] Last Admin: 05/17/17 09:20 Dose: 25 mg Budesonide (Pulmicort Respules) 0.25 mg IH [id number] [facility] Last Admin: 05/17/17 07:50 Dose: 0.25 mg Clonidine HCl (Catapres) 0.1 mg PO Q6H PRN PRN Reason: Systolic Blood Pressure Guaifenesin (Robitussin) 200 mg PO Q4H PRN PRN Reason: Cough and congestion Last Admin: 05/17/17 07:46 Dose: 200 mg Meropenem 1g/NS 100mL IVPB (Meropenem 1g/Ns 100ml Ivpb) 1 gm in 100 mls @ 100 mls/hr IVPB Q12 [facility] PRN Reason: Protocol Last Admin: 05/17/17 09:16 Dose: 100 mls/hr Insulin Detemir (Levemir) 10 unit SC DAILY [facility] Last Admin: 05/17/17 09:19 Dose: 10 unit Insulin Human Regular (Humulin R Low) 0 units SC ACHS [facility] PRN Reason: Protocol Last Admin: 05/17/17 08:22 Dose: 2 units Lactulose (Enulose) 10 gm PO BID PRN PRN Reason: NO BM Last Admin: 05/16/17 17:30 Dose: 10 gm Lidocaine (Lidoderm) 2 ea TD DAILY [facility] Last Admin: 05/17/17 09:19 Dose: 2 ea Losartan Potassium (Cozaar) 25 mg PO DAILY [facility] Last Admin: 05/17/17 09:19 Dose: 25 mg Morphine Sulfate (Morphine) 2 mg IVP Q4 PRN PRN Reason: Pain, severe (8-10) Last Admin: 05/16/17 12:07 Dose: 2 mg Ondansetron HCl (Zofran Inj) 4 mg IVP Q4H PRN PRN Reason: Nausea/Vomiting Pantoprazole Sodium (Protonix Inj) 40 mg IVP DAILY [facility] Last Admin: 05/17/17 09:20 Dose: 40 mg Rifaximin (Xifaxan) 550 mg PO BID [facility] PRN Reason: Protocol Last Admin: 05/12/17 09:36 Dose: 550 mg Rifaximin (Xifaxan) 550 mg PO BID [facility] PRN Reason: Protocol Last Admin: 05/17/17 09:19 Dose: 550 mg - Labs Labs: 05/17/17 06:00 05/17/17 06:00 PT 16.0 Seconds (9.9-11.8) H 05/12/17 10:00 INR 1.48 (0.93-1.08) H 05/12/17 10:00 APTT 28.6 Seconds (23.7-30.8) 05/11/17 18:59 - Constitutional Appears: Well - Head Exam Head Exam: ATRAUMATIC, NORMAL INSPECTION, NORMOCEPHALIC - Eye Exam Eye Exam: EOMI, Normal appearance, PERRL - Neck Exam Neck Exam: Full ROM, Normal Inspection. absent: Lymphadenopathy - Respiratory Exam Respiratory Exam: Clear to Ausculation Bilateral, NORMAL BREATHING PATTERN - Cardiovascular Exam Cardiovascular Exam: REGULAR RHYTHM, +S1, +S2. absent: Murmur - GI/Abdominal Exam GI & Abdominal Exam: Soft, Normal Bowel Sounds. absent: Tenderness - Rectal Exam Rectal Exam: Deferred - Back Exam Back Exam: tenderness - Neurological Exam Neurological Exam: Alert, Awake, CN II-XII Intact, Normal Gait, Oriented x3 - Psychiatric Exam Psychiatric exam: Normal Affect, Normal Mood - Skin Skin Exam: Normal Color Assessment and Plan (1) Colitis Status: Acute (2) Severe sepsis Status: Acute (3) Hemorrhagic stroke Status: Acute - Assessment and Plan (Free Text) Assessment: liver cirhosis. chronic hep c hypertension deconditioning chronic low back pain h/o hepatic encephalopathy Plan: continue current therapy. advance diet. continue lactulose,discussed with dr larose will switch to po antibiotics. will get chest x ray, and will give lidoderm 2 patches for low back pain, patient diet will be advanced .will discharge in am, for rehab , for pt,for deconditioning,and right hemiplegia.
--- NOTE | 2017-05-17 12:39 | CP.PCM.PN ---
Subjective - Date & Time of Evaluation Date of Evaluation: 05/17/17 Time of Evaluation: 09:40 - Subjective Subjective: S&E at bedside, no acute overnight events. Had 3/4 Bm back on lactulose, no bleeding, denies abdominal pain,tolerating full liquid diet. No reports of overt GI bleeding. Objective - Vital Signs/Intake and Output Vital Signs (last 24 hours): Temp Pulse Resp BP Pulse Ox 98.8 F 96 H 21 133/77 99 05/17/17 08:40 05/17/17 09:20 05/17/17 08:40 05/17/17 09:20 05/17/17 08:40 Intake and Output: 05/17/17 05/17/17 06:59 18:59 Intake Total 460 240 Output Total 600 600 Balance -140 -360 - Medications Medications: Current Medications Acetaminophen (Tylenol 650mg/20.3ml Solution Ud) 650 mg PO Q6H PRN PRN Reason: Temperature Last Admin: 05/12/17 22:19 Dose: 650 mg Albuterol/Ipratropium (Duoneb 3 Mg/0.5 Mg (3 Ml) Ud) 3 ml IH [id number] PRN PRN Reason: Shortness of Breath Last Admin: 05/17/17 07:50 Dose: 3 ml Arformoterol Tartrate (Brovana) 15 mcg IH [id number] [facility] Last Admin: 05/17/17 07:50 Dose: 15 mcg Atenolol (Tenormin) 25 mg PO DAILY [facility] Last Admin: 05/17/17 09:20 Dose: 25 mg Budesonide (Pulmicort Respules) 0.25 mg IH [id number] [facility] Last Admin: 05/17/17 07:50 Dose: 0.25 mg Clonidine HCl (Catapres) 0.1 mg PO Q6H PRN PRN Reason: Systolic Blood Pressure Guaifenesin (Robitussin) 200 mg PO Q4H PRN PRN Reason: Cough and congestion Last Admin: 05/17/17 07:46 Dose: 200 mg Meropenem 1g/NS 100mL IVPB (Meropenem 1g/Ns 100ml Ivpb) 1 gm in 100 mls @ 100 mls/hr IVPB Q12 [facility] PRN Reason: Protocol Last Admin: 05/17/17 09:16 Dose: 100 mls/hr Insulin Detemir (Levemir) 10 unit SC DAILY [facility] Last Admin: 05/17/17 09:19 Dose: 10 unit Insulin Human Regular (Humulin R Low) 0 units SC ACHS [facility] PRN Reason: Protocol Last Admin: 05/17/17 08:22 Dose: 2 units Lactulose (Enulose) 10 gm PO BID PRN PRN Reason: NO BM Last Admin: 05/16/17 17:30 Dose: 10 gm Lidocaine (Lidoderm) 2 ea TD DAILY [facility] Last Admin: 05/17/17 09:19 Dose: 2 ea Losartan Potassium (Cozaar) 25 mg PO DAILY [facility] Last Admin: 05/17/17 09:19 Dose: 25 mg Morphine Sulfate (Morphine) 2 mg IVP Q4 PRN PRN Reason: Pain, severe (8-10) Last Admin: 05/16/17 12:07 Dose: 2 mg Ondansetron HCl (Zofran Inj) 4 mg IVP Q4H PRN PRN Reason: Nausea/Vomiting Pantoprazole Sodium (Protonix Inj) 40 mg IVP DAILY [facility] Last Admin: 05/17/17 09:20 Dose: 40 mg Rifaximin (Xifaxan) 550 mg PO BID [facility] PRN Reason: Protocol Last Admin: 05/12/17 09:36 Dose: 550 mg Rifaximin (Xifaxan) 550 mg PO BID [facility] PRN Reason: Protocol Last Admin: 05/17/17 09:19 Dose: 550 mg - Labs Labs: 05/17/17 06:00 05/17/17 06:00 PT 16.0 Seconds (9.9-11.8) H 05/12/17 10:00 INR 1.48 (0.93-1.08) H 05/12/17 10:00 APTT 28.6 Seconds (23.7-30.8) 05/11/17 18:59 - Constitutional Appears: No Acute Distress - Head Exam Head Exam: NORMOCEPHALIC - Eye Exam Eye Exam: Normal appearance. absent: Scleral icterus - ENT Exam ENT Exam: Mucous Membranes Moist - Neck Exam Neck Exam: Normal Inspection - Respiratory Exam Respiratory Exam: NORMAL BREATHING PATTERN. absent: Respiratory Distress - Cardiovascular Exam Cardiovascular Exam: +S1, +S2 - GI/Abdominal Exam GI & Abdominal Exam: Distended, Soft, Normal Bowel Sounds. absent: Guarding, Tenderness, Organomegaly, Rebound - Extremities Exam Extremities Exam: absent: Calf Tenderness, Pedal Edema - Neurological Exam Neurological Exam: Alert, Awake, Oriented x3 - Skin Skin Exam: Dry, Warm Assessment and Plan - Assessment and Plan (Free Text) Assessment: Assessment: s/p Sepsis Improved Abdominal pain Appendicitis VS Colitis, had repeat ct scan with oral contrast, mild/mod segmental colitis Gallstones, no signs BG wall thickening or fluid, cbd ok Pancreatic cyst, s/p MRCP, nondiagnostic, pancreas not visualized Liver cirrhosis secondary Hepatitis C CVA with right-sided weakness Diabetes mellitus Plan: increase diet to mod carb, heart healthy on Merropenum Continue PPI on Xifaxine On Lactulose prn BM DVT prophylaxis, SCD boots Monitor electrolytes No planned GI interventions at this time, patient with multiple comorbidities, discuss w/ fx regarding further workup Seen and discussed with Dr. Hernandez.
--- NOTE | 2017-05-17 12:39 | CP.PCM.PN ---
Subjective - Date & Time of Evaluation Date of Evaluation: 05/17/17 Time of Evaluation: 12:36 - Subjective Subjective: General Surgery - DR. Hopkins Pt S&EBaljinder STOVALL. Pt denies any complaints including any abdominal pain, nausea or vomiting. Objective - Vital Signs/Intake and Output Vital Signs (last 24 hours): Temp Pulse Resp BP Pulse Ox 98.8 F 96 H 21 133/77 99 05/17/17 08:40 05/17/17 09:20 05/17/17 08:40 05/17/17 09:20 05/17/17 08:40 Intake and Output: 05/17/17 05/17/17 06:59 18:59 Intake Total 460 240 Output Total 600 600 Balance -140 -360 - Medications Medications: Current Medications Acetaminophen (Tylenol 650mg/20.3ml Solution Ud) 650 mg PO Q6H PRN PRN Reason: Temperature Last Admin: 05/12/17 22:19 Dose: 650 mg Albuterol/Ipratropium (Duoneb 3 Mg/0.5 Mg (3 Ml) Ud) 3 ml IH [id number] PRN PRN Reason: Shortness of Breath Last Admin: 05/17/17 07:50 Dose: 3 ml Arformoterol Tartrate (Brovana) 15 mcg IH [id number] [facility] Last Admin: 05/17/17 07:50 Dose: 15 mcg Atenolol (Tenormin) 25 mg PO DAILY [facility] Last Admin: 05/17/17 09:20 Dose: 25 mg Budesonide (Pulmicort Respules) 0.25 mg IH [id number] [facility] Last Admin: 05/17/17 07:50 Dose: 0.25 mg Clonidine HCl (Catapres) 0.1 mg PO Q6H PRN PRN Reason: Systolic Blood Pressure Guaifenesin (Robitussin) 200 mg PO Q4H PRN PRN Reason: Cough and congestion Last Admin: 05/17/17 07:46 Dose: 200 mg Meropenem 1g/NS 100mL IVPB (Meropenem 1g/Ns 100ml Ivpb) 1 gm in 100 mls @ 100 mls/hr IVPB Q12 [facility] PRN Reason: Protocol Last Admin: 05/17/17 09:16 Dose: 100 mls/hr Insulin Detemir (Levemir) 10 unit SC DAILY [facility] Last Admin: 05/17/17 09:19 Dose: 10 unit Insulin Human Regular (Humulin R Low) 0 units SC ACHS [facility] PRN Reason: Protocol Last Admin: 05/17/17 08:22 Dose: 2 units Lactulose (Enulose) 10 gm PO BID PRN PRN Reason: NO BM Last Admin: 05/16/17 17:30 Dose: 10 gm Lidocaine (Lidoderm) 2 ea TD DAILY [facility] Last Admin: 05/17/17 09:19 Dose: 2 ea Losartan Potassium (Cozaar) 25 mg PO DAILY [facility] Last Admin: 05/17/17 09:19 Dose: 25 mg Morphine Sulfate (Morphine) 2 mg IVP Q4 PRN PRN Reason: Pain, severe (8-10) Last Admin: 05/16/17 12:07 Dose: 2 mg Ondansetron HCl (Zofran Inj) 4 mg IVP Q4H PRN PRN Reason: Nausea/Vomiting Pantoprazole Sodium (Protonix Inj) 40 mg IVP DAILY [facility] Last Admin: 05/17/17 09:20 Dose: 40 mg Rifaximin (Xifaxan) 550 mg PO BID [facility] PRN Reason: Protocol Last Admin: 05/12/17 09:36 Dose: 550 mg Rifaximin (Xifaxan) 550 mg PO BID [facility] PRN Reason: Protocol Last Admin: 05/17/17 09:19 Dose: 550 mg - Labs Labs: 05/17/17 06:00 05/17/17 06:00 PT 16.0 Seconds (9.9-11.8) H 05/12/17 10:00 INR 1.48 (0.93-1.08) H 05/12/17 10:00 APTT 28.6 Seconds (23.7-30.8) 05/11/17 18:59 - Constitutional Appears: No Acute Distress - Head Exam Head Exam: ATRAUMATIC, NORMAL INSPECTION, NORMOCEPHALIC - Eye Exam Eye Exam: Normal appearance - Respiratory Exam Respiratory Exam: NORMAL BREATHING PATTERN. absent: Respiratory Distress - GI/Abdominal Exam GI & Abdominal Exam: Soft. absent: Distended, Guarding, Tenderness, Rebound - Neurological Exam Neurological Exam: Alert, Oriented x3 - Psychiatric Exam Psychiatric exam: Normal Affect, Normal Mood - Skin Skin Exam: Dry, Intact Assessment and Plan - Assessment and Plan (Free Text) Assessment: 72 F with abdominal pain, resolved -Continue care as per primary team -No surgical intervention -Regular diet -Surgery will Sign off, reconsult PRN MICHAEL Raymundo PGY3
--- NOTE | 2017-05-18 02:45 | PN ---
DATE: 05/17/2017 PHYSICAL EXAMINATION: GENERAL: The patient in bed, in no acute distress. VITAL SIGNS: Temperature is 98, blood pressure 130/70, respiratory rate of 21. HEENT: Unremarkable. NECK: Supple. HEART: Normal S1, S2. LUNGS: Decreased breath sound. ABDOMEN: Soft and nontender. LABORATORY DATA: Reveals white count of 3.9, hemoglobin of 9, and platelets 60. Chemistry reveals BUN of 16, creatinine of 0.7. Urinalysis is noted. HIV is negative. Stool for C. diff antigen and toxin is negative. ASSESSMENT AND PLAN: This is a 72-year-old female with sepsis with acute and pancreatic lesion. MRCP reviewed and noted chronic active hepatitis C without history of treatment associated with acute decompensated liver cirrhosis and hepatic encephalopathy and hemorrhagic cerebrovascular accident, right-sided weakness and hypertension, diabetic and switch to p.o. antibiotics. Complete therapy and followup as outpatient as discussed with Dr. Richardson. Niles Jain MD
== END 2017-05-17 17:09 | DRG 872 ==
LOC: ED 18:44 → ERH 23:42 → CCU 05-12 00:33 → 3RSO 05-15 18:09
PROVIDERS: ADMIT Internal Medicine; ATTEND Internal Medicine
PROC: 3E0F7GC Introduction of Other Therapeutic Substance into Respiratory Tract, Via Natural or Artificial Opening (ICD-10-PCS; principal; 2017-05-14)
DX: A41.9 Sepsis, unspecified organism (principal); R65.20 Severe sepsis without septic shock; K52.9 Noninfective gastroenteritis and colitis, unspecified; R18.8 Other ascites; K76.6 Portal hypertension; D69.6 Thrombocytopenia, unspecified; I69.351 Hemiplegia and hemiparesis following cerebral infarction affecting right dominant side; J44.9 Chronic obstructive pulmonary disease, unspecified; K74.60 Unspecified cirrhosis of liver; K37 Unspecified appendicitis; E11.9 Type 2 diabetes mellitus without complications; B18.2 Chronic viral hepatitis C; K72.10 Chronic hepatic failure without coma; I10 Essential (primary) hypertension; D64.9 Anemia, unspecified; R16.1 Splenomegaly, not elsewhere classified; K80.20 Calculus of gallbladder without cholecystitis without obstruction; G89.29 Other chronic pain; M54.5 Low back pain; E03.9 Hypothyroidism, unspecified; Z90.710 Acquired absence of both cervix and uterus

== ENCOUNTER 2017-12-05 17:18 | Inpatient (IN) | payer MEDICARE, MEDICAID ==
--- NOTE | 2017-12-05 17:35 | ED PDOC ---
Arrival/HPI - General Chief Complaint: Trauma Time Seen by Provider: 12/05/17 17:31 Historian: Patient - History of Present Illness Narrative History of Present Illness (Text): 12/05/17 17:35 72yo female with PMhx of hypertension, Diabetes, CVA bib BLS for upper back pain s/p trauma. Patient's daughter by the bedside states patient tripped while walking with her walker 3days ago and fell, landing on her back. States pain became increasingly worse. She took Ibuprofen 800mg last night with some relieve. Notes hitting the back of her head when she fell, but denies LOC, nausea, focal weakness, any other complaint. Past Medical History - Provider Review Nursing Documentation Reviewed: Yes - Past History Past History: Unable to Obtain - Infectious Disease Hx of Infectious Diseases: None - Tetanus Immunization Tetanus Immunization: Unknown - Cardiac Hx Cardiac Disorders: Yes Hx Hypertension: Yes - Pulmonary Hx Respiratory Disorders: No Hx Chronic Obstructive Pulmonary Disease (COPD): No - Neurological Hx Neurological Disorder: Yes HX Cerebrovascular Accident: Yes (R sided weakness/deficit) - HEENT Hx HEENT Disorder: Yes Hx Cataracts: Yes (BILATERAL SX) - Renal Hx Renal Failure: No - Endocrine/Metabolic Hx Endocrine Disorders: Yes Hx Diabetes Mellitus Type 2: Yes Hx Hypothyroidism: Yes - Hematological/Oncological Hx Blood Disorders: No Hx Cancer: No - Integumentary Hx Dermatological Disorder: No - Musculoskeletal/Rheumatological Hx Arthritis: Yes (OA) - Gastrointestinal Hx Gastrointestinal Disorders: No Hx Gastroesophageal Reflux: No - Genitourinary/Gynecological Hx Genitourinary Disorders: No - Psychiatric Hx Psychophysiologic Disorder: No Hx Depression: No Hx Emotional Abuse: No Hx Physical Abuse: No Hx Substance Use: No - Past Surgical History Past Surgical History: Unable to Obtain - Surgical History Hx Hysterectomy: Yes - Anesthesia Hx Anesthesia: Yes Hx Anesthesia Reactions: No Hx Malignant Hyperthermia: No - Suicidal Assessment Feels Threatened In Home Enviroment: No Family/Social History - Physician Review Nursing Documentation Reviewed: Yes Family/Social History: Unknown Family HX Smoking Status: Never Smoked Hx Alcohol Use: No Hx Substance Use: No Hx Substance Use Treatment: No Allergies/Home Meds Allergies/Adverse Reactions: Allergies No Known Allergies Allergy (Verified 12/05/17 17:32) Home Medications: Home Meds Medication Instructions Recorded Confirmed Ammonium Lactate 12% [Lac-Hydrin 1 appful TD DAILY 12/05/17 12/05/17 12% Cream (140 g)] Diclofenac Sodium [Voltaren] 1 appful TD DAILY 12/05/17 12/05/17 Escitalopram [Lexapro] 5 mg PO DAILY 12/05/17 12/05/17 Ferrous Sulfate [Feosol] 1 tab PO DAILY 12/05/17 12/05/17 Folic Acid [Folic Acid] 1 mg PO DAILY 12/05/17 12/05/17 Furosemide [Lasix] 20 mg PO DAILY 12/05/17 12/05/17 Insulin Glargine,Hum.rec.anlog 0 units SQ DAILY 12/05/17 12/05/17 [Lantus Solostar] Levothyroxine [Synthroid] 1 tab PO DAILY 12/05/17 12/05/17 Losartan Potassium [Losartan 25 mg PO DAILY 12/05/17 12/05/17 Potassium] Metoprolol Tartrate [Lopressor] 25 mg PO DAILY 12/05/17 12/05/17 Pantoprazole [Protonix Inj] 20 mg PO DAILY 12/05/17 12/05/17 Potassium Chloride [Klor-Con 10] 10 meq PO DAILY 12/05/17 12/05/17 Vitamin B Complex [Super B-50 1 tab PO DAILY 12/05/17 12/05/17 Complex] traZODone [Desyrel] 50 mg PO DAILY 12/05/17 12/05/17 Review of Systems - Physician Review All systems were reviewed & negative as marked: Yes - Review of Systems Constitutional: Normal Eyes: Normal ENT: Normal Respiratory: Normal Cardiovascular: Normal Gastrointestinal: Normal Genitourinary Female: Normal Musculoskeletal: Normal, Back Pain Skin: Normal Neurological: Normal Endocrine: Normal Hemo/Lymphatic: Normal Psychiatric: Normal Physical Exam Vital Signs Reviewed: Yes Vital Signs Temp Pulse Resp BP Pulse Ox 12/05/17 21:01 68 16 141/82 97 12/05/17 17:28 98.9 F 71 22 130/88 99 Temperature: Afebrile Blood Pressure: Normal Pulse: Regular Respiratory Rate: Normal Appearance: Positive for: Well-Appearing, Non-Toxic, Comfortable Pain Distress: None Mental Status: Positive for: Alert and Oriented X 3 - Systems Exam Head: Present: Atraumatic, Normocephalic Pupils: Present: PERRL Extroacular Muscles: Present: EOMI Conjunctiva: Present: Normal Mouth: Present: Moist Mucous Membranes Neck: Present: Normal Range of Motion Respiratory/Chest: Present: Clear to Auscultation, Good Air Exchange. No: Respiratory Distress, Accessory Muscle Use Cardiovascular: Present: Regular Rate and Rhythm, Normal S1, S2. No: Murmurs Abdomen: Present: Normal Bowel Sounds. No: Tenderness, Distention, Peritoneal Signs Back: Present: CVA Tenderness (LEft sided parathoracic tenderness). No: Normal Inspection, Midline Tenderness, Pain with Leg Raise Upper Extremity: Present: Normal Inspection. No: Cyanosis, Edema Lower Extremity: Present: Normal Inspection. No: Edema Neurological: Present: GCS=15, CN II-XII Intact, Speech Normal Skin: Present: Warm, Dry, Normal Color. No: Rashes Psychiatric: Present: Alert, Oriented x 3, Normal Insight, Normal Concentration Medical Decision Making ED Course and Treatment: 12/05/17 21:36 Pt's pain mildly improved in ED with tramdaol. LS xray - Negative Thoracic spine xray - Compression deformity of undeterminable age Head CT- Negative Case was DW Dr. Richardson. PT admitted for compression fracture of the thoracic spine and further evaluation with MRI in the morning Plan was DW both pt and the daughter's and they agreed. - RAD Interpretation Radiology Orders: 12/05/17 17:32 HEAD W/O CONTRAST [CT] Stat 12/05/17 17:34 DORSAL (THORACIC) SPINE [RAD] Stat LS SPINE WITH OBL > 18 YRS OLD [RAD] Stat - Medication Orders Current Medication Orders: Discontinued Medications Tramadol HCl (Ultram) 50 mg PO STAT STA Stop: 12/05/17 18:00 Last Admin: 12/05/17 18:06 Dose: 50 mg Comments: no scanner [facility] Pain Assessment Document 12/05/17 18:06 SE (Rec: 12/05/17 18:06 SE [id number]) Pain Reassessment Is this a pain reassessment? No Sleep Is patient sleeping during reassessment? No Presence of Pain Presence of Pain Yes Pain Scale Used Pain Scale Used Numeric Disposition/Present on Arrival - Present on Arrival Any Indicators Present on Arrival: No History of DVT/PE: No History of Uncontrolled Diabetes: Yes Urinary Catheter: No History of Decub. Ulcer: No History Surgical Site Infection Following: None - Disposition Have Diagnosis and Disposition been Completed?: Yes Diagnosis: Back pain, Compression fracture Disposition: HOSPITALIZED Disposition Time: 21:00 Patient Plan: Admission Patient Problems: Current Active Problems Problem Status Onset Back pain Acute Compression fracture Acute Condition: FAIR Referrals: Giovany Richardson MD [Primary Care Provider] - Follow up with primary Forms: [place] (Guyanese)
--- NOTE | 2017-12-05 20:35 | RAD ---
EXAM: XR Thoracic Spine, 2 Views CLINICAL HISTORY: 72 years old, female; Pain; Pain in thoracic spine; Additional info: Back pain TECHNIQUE: Frontal and lateral views of the thoracic spine. COMPARISON: No relevant prior studies available. FINDINGS: Vertebrae: Mild compression deformity T6 vertebral body, age indeterminate. Normal alignment. Disc spaces: No significant narrowing. Soft tissues: Unremarkable. IMPRESSION: 1. T6 compression deformity, age indeterminate. Consider CT.
--- NOTE | 2017-12-05 20:35 | RAD ---
EXAM: XR Lumbar Spine, 4 or 5 Views CLINICAL HISTORY: 72 years old, female; Pain; Low back pain; Additional info: Back pain S/P trauma TECHNIQUE: Frontal, lateral and oblique views of the lumbar spine. COMPARISON: No relevant prior studies available. FINDINGS: Vertebrae: No acute fracture. Facet osteoarthrosis within lower lumbar spine. Normal alignment. Disc spaces: No acute findings. No significant narrowing. Soft tissues: Unremarkable. IMPRESSION: 1. No fracture. 2. Incidental/non-acute findings are described above.
--- NOTE | 2017-12-05 20:38 | CT ---
EXAM: CT Head Without Intravenous Contrast CLINICAL HISTORY: 72 years old, female; Injury or trauma; Fall; Initial encounter; Blunt trauma (contusions or hematomas); Consciousness not specified; Additional info: S/P head injury TECHNIQUE: Axial computed tomography images of the head/brain without intravenous contrast. All CT scans at this facility use one or more dose reduction techniques, viz.: automated exposure control; ma/kV adjustment per patient size (including targeted exams where dose is matched to indication; i.e. head); or iterative reconstruction technique. COMPARISON: CT - HEAD W/O CONTRAST 2017-03-22 18:57 FINDINGS: Limitations: Motion artifact - mild. Brain: Eeqc-bo-eeuzgpps atrophy. No definite intracranial hemorrhage. No mass. Several scattered foci of decreased attenuation within periventricular/subcortical white matter. No definite edema. Ventricles: No hydrocephalus. Bones/joints: No acute fracture. Soft tissues: Unremarkable. Vasculature: Minimal atherosclerotic disease of intracranial arteries. Sinuses: Scattered minimal mucosal thickening. RIGHT maxillary retention cyst. Mastoid air cells: No mastoid effusion. Orbits: Unremarkable as visualized. IMPRESSION: 1. No definite intracranial hemorrhage. 2. Nonspecific white matter changes. 3. Incidental/non-acute findings are described above.
[2017-12-05 21:39] LABS: BASO # 0.01 K/mm3 (0.0-2.0); BASO % 0.3 % (0.0-3.0); EOS # 0.3 (0.0-0.7); EOS % 7.7 % (1.5-5.0); GRAN # 1.32 (1.4-6.5); GRAN % 36.3 % (50.0-68.0); HEMOGLOBIN 10.6 g/dL (12.0-16.0); LYMPH # 1.7 (1.2-3.4); LYMPH % 46.4 % (22.0-35.0); MEAN CELL VOLUME 98.1 fl (80.0-105.0); MEAN CORPUSCULAR HEMOGLOBIN 32.9 pg (25.0-35.0); MEAN CORPUSCULAR HGB CONC 33.5 g/dl (31.0-37.0); MEAN PLATELET VOLUME 12.5 fl (7.0-11.0); MONO # 0.3 (0.1-0.6); MONO % 9.3 % (1.0-6.0); RBC 3.22 10^6/uL (3.5-6.1); RED CELL DISTRIBUTION WIDTH 15.4 % (11.5-14.5); WHITE BLOOD COUNT 3.6 10^3/ul (4.5-11.0)
[2017-12-05 21:48] LABS: ALB/GLOB RATIO 0.7 (1.1-1.8); ALBUMIN 2.6 g/dL (3.0-4.8); CALCIUM 9.1 mg/dL (8.4-10.5)
[2017-12-05 22:05] LABS: INR 1.25 (0.93-1.08); PARTIAL THROMBOPLASTIN TIME 36.1 Seconds (25.1-36.5); PROTHROMBIN TIME 14.3 SECONDS (9.4-12.5)
[2017-12-06] MEDS: Insulin Reg-LOW-Coverage SC SCH ×3 (08:39→18:54)
--- NOTE | 2017-12-06 09:43 | CARD ---
APPROVED REPORT EKG Measurement Heart [id number] <Conclusion> Normal sinus rhythm LVH by voltage
[2017-12-06] MEDS ORDERED: INSULIN GLARGINE HUM REC ANLOG 15 UNIT SQ SCH (14:15)
[2017-12-06] MEDS ORDERED: Levothyroxine 25 MCG TAB PO SCH (14:15)
[2017-12-06] MEDS ORDERED: Levothyroxine 25 MCG TAB PO ONE (14:45)
[2017-12-06] MEDS: Potassium Chloride 10 mEq ER Tab PO SCH (15:32)
[2017-12-06 17:11] VITALS: BMI 30.1
[2017-12-06] MEDS ORDERED: Pneumococcal 23-Valent Vaccine IM ONE (17:13)
[2017-12-06] MEDS ORDERED: Influenza Vaccine 60 mcg/0.5 mL SYR (4YR UP) IM ONE (17:13)
[2017-12-06] MEDS ORDERED: Insulin Regular 1 UNITS/0.01 ML ML ONE (18:44)
[2017-12-06] MEDS: Insulin Detemir 100 units/ml Vial (Levemir) SC SCH (22:02)
[2017-12-07] MEDS: Insulin Reg-LOW-Coverage SC SCH ×4 (03:11→17:33)
--- NOTE | 2017-12-07 07:46 | HP ---
REASON FOR ADMISSION: The patient fell, hit her back. She has severe back pain. HISTORY OF PRESENT ILLNESS: This is a 72-year-old female, history of stroke, has ambulation problem, using walker, it seems according to her, she tumbled and she fell on the bathroom and she fell in the bathtub on her back. She hit her head, her back. She came into the ER with severe back pain where she had a CT of the head, which was negative for any active bleeding and the x-ray of the chest, the spine shows compression fractures. The patient denied any fever, chills, nausea, vomiting or dizziness prior to that or any chest pain or shortness of breath. She does take her medicines. She has a very supportive daughter and family. PAST MEDICAL HISTORY: She had a CVA, maybe more than 8 months ago, was hypertensive that lead to cerebral bleed. She does have chronic hepatitis C, has severe liver disease with liver cirrhosis, portal hypertension, ascites, history of recurrent ammoniacal encephalopathy, hypothyroidism, hypertension, difficulty ambulation, incontinence, diabetes, insulin dependent. HOME MEDICATIONS: She takes multiple medications including insulin, she takes Xifaxan 550 b.i.d., vitamin B complex, potassium 10 mEq once a day, Protonix 20 once a day, Lopressor 25 b.i.d., losartan 25 mg p.o. daily, Synthroid 25 mcg daily, lactulose 10 g daily or t.i.d., folic acid 1 mg daily, insulin Lantus exact dose unknown, probably taking 15 units, iron pills once a day, Lexapro 5 mg once a day, Voltaren pill, ammonium lactate for both lower extremity. She also sometimes take tramadol for severe pain. ALLERGIES: NO KNOWN ALLERGIES. SOCIAL HISTORY: She lives with herself. She has supportive family members. There is no drinking, no smoking. REVIEW OF SYSTEMS: As in the present illness. PHYSICAL EXAMINATION: VITAL SIGNS: Temperature is 98, heart rate 98, blood pressure 161/74, respirations 17, and saturation 99%. HEAD AND NECK: Normal. No JVD. No thyromegaly. CHEST: Clear. Good air entry. CARDIAC: First sound and second sound normal. ABDOMEN: Soft and nontender. EXTREMITIES: No edema. NEUROLOGIC: Normal except weakness on the left side of the body. LABORATORY DATA: Shows white count 3.6, hemoglobin 10.6, hematocrit 31.6, platelet is 54. Her chemistry is noted for sodium 141, potassium 4.6, chloride 106, bicarbonate 28, BUN 24, creatinine 1.2, blood sugar 163, calcium 9.1, total bilirubin 1.7. AST 89, ALT 72, alkaline phosphatase is normal. Coagulation: PT is 14.3, PT/INR 1.25, PTT 36.1. The patient also had x-ray showing compression fracture of the thoracic vertebrae T6, and also lumbar spine - no fractures. The patient had also a head CT, which was showing no definite intracranial bleed, nonspecific white matter changes. Otherwise negative. There is dguj-am-lixilggq atrophy. Minimal atherosclerosis of intracranial artery. IMPRESSION AND PLAN: 1. This is a 72-year-old female, diabetic, hypertensive, history of stroke, fell, hit her head and hit her back. She has acute compression fracture. Most likely, we will get an MRI of her spine. If possible, we will also admit her for observations. We will also continue all her previous medications for her liver, diabetes, hypertension. Monitor her blood pressure. We will repeat her labs in the morning. We will get a Neurology consult, and Dr. Marko Fernandes, embroidery worker to see these fracture of the spine, and we will go from there. We will continue current therapy. We will follow up clinically. 2. The patient has hepatic encephalopathy, hepatitis C, liver cirrhosis, diabetes, insulin dependent, hypertension, osteosclerosis, dementia. Plan: Continue the rest of the medication. Follow up clinically. Giovany Richardson MD
[2017-12-07] MEDS: Levothyroxine 25 MCG TAB PO SCH (09:29)
[2017-12-07] MEDS: Insulin Detemir 100 units/ml Vial (Levemir) SC SCH ×2 (09:29→21:14)
[2017-12-07] MEDS: Potassium Chloride 10 mEq ER Tab PO SCH (09:29)
--- NOTE | 2017-12-07 10:27 | MRI ---
PROCEDURE: MR THORACIC SPINE WITHOUT CONTRAST HISTORY: frature t6 COMPARISON: Thoracic spine radiograph series 38614. TECHNIQUE: Multiecho multiplanar sequences were performed through the thoracic spine without the use of intravenous contrast. FINDINGS: ALIGNMENT: Normal thoracic curvature is appreciated without spondylolisthesis. Marrow edema seen related to the upper endplate and mid vertebral body of the T6 vertebral body which is diminished in height and anteriorly wedged compatible with a moderate compression fracture. Trace edema is seen anterior to the T6 vertebral body. Prevertebral paraspinal soft tissues are otherwise unremarkable. There has been no retropulsed component or other fragmentation of the T6 vertebral body. No additional compression fracture seen throughout the thoracic spine or other suspicious matter signal change. Incidental note is made edema at the upper endplate of the L1 vertebral body without height loss suggestive of probable endplate degenerative change rather than minimal fracture. Clinically correlate here. PARASPINAL SOFT TISSUES: As above. CORD: Unremarkable thoracic cord. No volume loss, signal abnormality or syrinx. DISCS: No disc herniation, spinal canal stenosis, or neuroforaminal narrowing. OTHER FINDINGS: Incidental mild right and trace left pleural effusions are identified. IMPRESSION: 1. A znei-gf-qbyqfhgq acute to subacute compression fracture of the T6 vertebral body is identified without fragmentation or resulting stenosis. Trace prevertebral edema is related. 2. No central canal or neural foraminal stenosis appreciated throughout the examination. No definite disc herniation. 3. Incidental mild right and trace left pleural effusions are identified. Concordant preliminary report from [facility], 12/05/2017.
[2017-12-07] MEDS ORDERED: HYDROmorphone 0.5 mg/0.5 ml ISec IVP PRN (12:42)
--- NOTE | 2017-12-07 15:56 | CP.PCM.PCO ---
Physician Communication Note - Physician Communication Note Physician Communication Note: rec: PT/FRANCESCO/ consider lyrica 50 mg po qhs for pain /lidoderm patch
[2017-12-07] MEDS: Morphine 2 mg/ml ISec IVP PRN (21:04)
[2017-12-08] MEDS: Morphine 2 mg/ml ISec IVP PRN ×3 (02:30→16:17)
--- NOTE | 2017-12-08 03:34 | CON ---
DATE: HISTORY OF PRESENT ILLNESS: This is a 72-year old female with past medical history of stroke and patient fell in the bathroom into the bathtub and hit her head and her back. Patient's CAT scan of the head was negative and x-ray of the thoracic spine showed compression fracture of T6 vertebrae. PAST MEDICAL HISTORY: Past medical history of CVA 8 months ago, and she has hepatitis C and hypothyroidism, hypertension, incontinence, diabetes. ALLERGIES: NO KNOWN DRUG ALLERGY. SOCIAL HISTORY: Does not smoke, does not drink. REVIEW OF SYSTEMS: A 10-point review of system was negative PHYSICAL EXAMINATION: HEENT: Normocephalic, atraumatic. NECK: Supple. NEUROLOGIC: Awake, oriented to self and place. Cranial nerves II through XII were tested. Pupils reactive. EOM intact. Visual field full. No facial asymmetry. Tongue midline. Motor examination, moves all the extremities spontaneously. Deep tendon reflexes are 1+. Both plantars are downgoing. Sensory appears intact. Cerebellar, gait deferred. IMPRESSION: A 72-year-old female with past medical history of diabetes, hypertension, stroke, fell in the bathroom and hit her head and back, sustained T6 compression fracture, and the patient is tolerating pain with medication and Dr. Marko Fernandes is on consult and workup in progress. Continue present management. We will follow up. Romain Arredondo MD
--- NOTE | 2017-12-08 05:54 | CON ---
DATE: 12/07/2017 HISTORY OF PRESENT ILLNESS: This is a 72-year-old [place] woman with a fairly extensive past medical history who fell approximately 5 days ago. She has been complaining of severe mid thoracic pain since that time. She was admitted for her back pain. PAST MEDICAL HISTORY: Significant for advanced hepatitis C cirrhosis. She also has diabetes, hypertension and a gait abnormality. There is history of a CVA approximately 8 months ago. ASSESSMENT: I reviewed her imaging. She has an acute T6 compression fracture with edema. No retropulsion is noted. The patient is tender to palpation at that level. PLAN: I had a lengthy discussion with her daughter. Anatomically, she is a candidate for a T6 kyphoplasty, which could significantly improve her pain. She has some comorbidities related to her age and liver disease. Her daughter would tentatively like to schedule kyphoplasty for Monday when she can be available at the hospital. She would also like to talk to Dr. Richardson before the procedure. We discussed all options including conservative management. Marko Fernandes MD
[2017-12-08 06:52] LABS: BASO # 0.01 K/mm3 (0.0-2.0); BASO % 0.3 % (0.0-3.0); EOS # 0.3 (0.0-0.7); EOS % 8.1 % (1.5-5.0); GRAN # 1.61 (1.4-6.5); GRAN % 40.5 % (50.0-68.0); HEMOGLOBIN 11.1 g/dL (12.0-16.0); LYMPH # 1.6 (1.2-3.4); LYMPH % 39.5 % (22.0-35.0); MEAN CORPUSCULAR HEMOGLOBIN 32.2 pg (25.0-35.0); MEAN CORPUSCULAR HGB CONC 32.8 g/dl (31.0-37.0); MEAN PLATELET VOLUME 11.5 fl (7.0-11.0); MONO # 0.5 (0.1-0.6); MONO % 11.6 % (1.0-6.0); RBC 3.45 10^6/uL (3.5-6.1); RED CELL DISTRIBUTION WIDTH 14.9 % (11.5-14.5)
[2017-12-08 06:58] LABS: ALB/GLOB RATIO 0.6 (1.1-1.8); ALBUMIN 2.5 g/dL (3.0-4.8); CALCIUM 8.9 mg/dL (8.4-10.5)
[2017-12-08] MEDS: Pantoprazole 20 mg EC Tab PO SCH (07:32)
[2017-12-08] MEDS: Levothyroxine 25 MCG TAB PO SCH (07:32)
[2017-12-08] MEDS: Insulin Reg-LOW-Coverage SC SCH ×5 (07:35→22:00)
--- NOTE | 2017-12-08 08:59 | CON ---
DATE: 12/07/2017 This is [facility] consult for Dr. Espinoza. CHIEF COMPLAINT: Fall, compression fracture of T6. HISTORY OF PRESENT ILLNESS: The patient is a 72-year-old Romanian speaking female with her family to bedside as translators with known history of CVA with dementia and is unable to participate and in answering questions. Her daughter at the bedside does this for her. The patient had fallen at home, hit her head in her back with severe pain in the low back, which continues at present, unrelieved by tramadol; however, morphine does relieve the pain. With this the patient is otherwise resting comfortably, in no acute distress with significant thrombocytopenic indices noted with pancytopenic indices, possibly related to her underlying disease processes, which include cirrhosis, severe liver disease, portal hypertension. At present, she is in no acute distress. ALLERGIES: NO KNOWN ALLERGIES. MEDICATIONS: Include insulin, Xifaxan, vitamin D, potassium, Protonix, Lopressor, losartan, Synthroid, lactulose, folic acid, Lexapro, Voltaren, ammonium lactate, tramadol. PAST MEDICAL HISTORY: Significant for items as above including recent CVA with right side weakness, residual, hypertensive bleed. Chronic hepatitis C with liver disease, cirrhosis, portal hypertension, ascites, encephalopathy with elevated ammonia levels, hypothyroidism, hypertension, diabetes mellitus, insulin dependent; incontinence, gait disturbance, obesity. FAMILY HISTORY AND SOCIAL HISTORY: The patient is reportedly lives alone with significant support of her family including her daughter at the bedside, grandson, and other family members. The family denies any EtOH abuse or smoking history. REVIEW OF SYSTEMS: A 12-point review of systems was done, which was negative to questioning except for items mentioned in the history of present illness. PHYSICAL EXAMINATION: VITAL SIGNS: Temperature is 98, pulse 66, respirations 18, blood pressure 141/66, pulse ox 100%. HEENT: Unremarkable with mild icteric tinge to her sclerae. Tongues is dry, moist and midline. NECK: Supple. HEART: Regular rate. LUNGS: Minimal decreased breath sound at the bases. ABDOMEN: Obese, soft with minimal tenderness to gentle palpation, generalized. EXTREMITIES: No edema. SKIN: Warm and dry. NEUROLOGIC: Awake, alert with significant decreased strength, right greater than left to chief librarian circulation department and weakness of the right lower extremity greater than the left lower extremity. LABORATORY DATA: The patient's labs were done with a white blood cell count of 3.6, hemoglobin 10.6, hematocrit 31.6, platelet count of 54,000 with absolute neutrophil count 1.32. Her INR is 1.25 with chem metabolic panel showing a BUN of 34, normal creatinine of 1.2, non-fasting glucose is 187. Total bilirubin 1.7, AST of 89, ALT of 72. There are no previous reports for . The patient was previously admitted in April of last year with an INR at that point of 1.48. Her LFTs were within normal range in April with abnormal values at this time with the total bilirubin the same at 1.7. The patient has significant workup done at that time and I have seen Dr. Hernandez with a liver screen scan done, with an evaluation at that time in 03/2017 by myself. The patient's other testing included an MRI of thoracic spine, which was significant for [id number] acute to subacute compression fracture of the T6 vertebral body without fragmentation or resulting stenosis, trace prevertebral edema is related, no central canal and neural foraminal stenosis appreciated throughout the examination. No definite disk herniation, incidental mild right trace left pleural effusion are identified. She also had an EKG done, which shows read as normal sinus rhythm, LVH. CT of her head was also done, which was read as no definite intracranial hemorrhage, nonspecific white matter changes, incidental findings. ASSESSMENT: Pancytopenia possibly secondary to sequestration, history of cirrhosis with portal hypertension, chronic hepatitis C, new acute compression fracture with history of cerebrovascular accident, status post fall, diabetes mellitus, hypothyroidism, hypertension, gait disturbance, constipation. PLAN: Continue present medical regimen as per Dr. Richardson, consults with Dr. Hernandez, Gastrointestinal, for her severe liver disease. We will monitor clinically with labs with kyphoplasty planned as per Dr. Marko Fernandes for T6 as indicated. We will continue pain medications as indicated with prognosis for this patient guarded. This was communicated to the family. This is a complex patient with comprehensive medically necessary and appropriate visit carried out of the bedside in excess of 60 minutes [id number] time with the patient and her family. All questions are answered to their satisfaction. We will monitor clinically with labs. Gavin MD Shaina [facility] # [phone]
[2017-12-08] MEDS: Potassium Chloride 10 mEq ER Tab PO SCH (09:35)
[2017-12-08] MEDS: Insulin Detemir 100 units/ml Vial (Levemir) SC SCH ×2 (11:33→21:44)
[2017-12-08] MEDS ORDERED: Lidocaine 2% Inj (20ml) ONE (13:37)
[2017-12-08] MEDS ORDERED: Midazolam 2 MG/2 ML VIAL ONE ×2 (13:37→14:13)
[2017-12-08] MEDS ORDERED: HEPARIN SODIUM/NS 2,000 ML IV ONE (13:39)
[2017-12-08] MEDS ORDERED: Iohexol 350mgl/ml 50 ML ONE (14:00)
[2017-12-08] MEDS ORDERED: Sodium Chloride 0.45% 1,000 ML IV SCH (15:00)
--- NOTE | 2017-12-08 16:16 | VASCULAR ---
PROCEDURE: 1. T6 kyphoplasty HISTORY: Recent fall. Severe, refractory back pain. Unresponsive to bed rest and analgesics. Acute T6 compression fracture on MRI. PHYSICIAN(S): Marko Fernandes MD. TECHNIQUE: he relative risks and indications of the procedure were explained to the patient's son and informed written consent obtained. The patient was placed prone on the arteriography table and the thoracolumbar spine prepped and draped in the usual sterile fashion. Conscious sedation and monitoring were provided throughout the procedure by a nurse. The T6 vertebral body was carefully localized with fluoroscopy. The skin and soft tissues were anesthetized with 1% Xylocaine. Under direct fluoroscopic guidance, a single transpedicular bone needle was placed through the left pedicle into the posterior vertebral body. A curette was utilized. 10 mm bone balloon was used to raise the fracture and create a space for cement placement. 3 cc of barium -impregnated PMMA cement was placed in the T6 vertebral body. No significant extravasation was encounter. The patient tolerated the procedure well P IMPRESSION: 1. T6 kyphoplasty.
--- NOTE | 2017-12-08 16:38 | PN ---
DATE: 12/07/2017 SUBJECTIVE: This is a 72-year-old female patient. The patient is lying in bed, cannot get up due to pain in her back, mid-thoracic area, especially with moving. She is in severe pain. She cannot walk and have difficulty sitting up even for breakfast. No respiratory distress, no chest pain. PHYSICAL EXAMINATION: GENERAL: The patient is alert, awake, oriented x3, she is talking to me, responding properly. VITAL SIGNS: Temperature is 98.8, heart rate 65, blood pressure 143/64, respirations 18, and saturation 99% on room air. HEAD AND NECK: Normal. No JVD. No thyromegaly. CHEST: Clear. CARDIAC: First sound and second sound normal. ABDOMEN: Soft, obese, and nontender. EXTREMITIES: No edema. NEUROLOGIC: Noted for left-sided weakness, otherwise normal. There is severe tenderness in mid-thoracic region with painful ambulation. LABORATORY STUDIES: Noted for blood sugar of 180 to 200 and labs have been ordered for the next day. MRI shows acute compression fracture of T6. IMPRESSION AND PLAN: 1. Acute severe mid thoracic pain secondary to acute compression fracture. Dr. Marko Fernandes seen the patient. We will do kyphoplasty in the next couple of days. The patient has severe pain, cannot ambulate, cannot be going home due to severe pain and intensity of pain. We will give her morphine sulfate 2 mg, watching her mental status because of her comorbid illnesses, her age, and liver cirrhosis. 2. Severe liver disease, cirrhosis, portal hypertension. Continue lactulose, continue Xifaxan, and monitor on a regular basis. 3. Hypothyroidism, chronic osteoarthritis. Plan is to continue Synthroid and continue Ultran p.r.n. 4. Hypertension, history of cerebrovascular accident with left hemiplegia. Continue Cozaar. The question of aspirin, this particular patient with low platelets, is not advisable and we will discuss that with Hematology on the case whether later on before discharge we will give her aspirin, may be once a week or twice a week to prevent any thrombosis or any strokes. We will discuss further with Hematology of this particular patient. At this time, we will not give anything, she is going for surgery on Monday. We will observe. 5. Diabetes, insulin dependent. Continue insulin as it is plus coverage. Continue Lasix and potassium for leg edema and portal hypertension. 6. Arthritis. Follow up clinically. Giovany Richardson MD
--- NOTE | 2017-12-08 17:51 | CP.PCM.CON ---
<Letha Lopez - Last Filed: 12/08/17 17:51> History of Present Illness - History of Present Illness History of Present Illness: Seen and examined at the bedside earlier today, chart reviewed. Request for GI consult is forliver cirrhosis, chronic hepatitis C. HPI: This is a 72-year-old female with a past medical history of CVA with dementia, chronic hepatitis C with liver cirrhosis, portal hypertension, insulin -dependent diabetes came to the emergency room status post fall found to have compression fracture of T6. This patient is Croatian speaking, daughter just left bedside no family currently at bedside. Information obtained from medical chart and nursing staff. Patient apparently status post fall at home hit her head and back and now complaining of severe low back pain. The patient had an MRI of the thoracic spine which showed mild to moderate acute to subacute compression fracture of T6. The patient also had a CT scan of the head which was negative for infarct or bleed. This patient is known to us from previous admission. The patient with no reports of nausea, vomiting, or abdominal pain as per nursing staff had increased back pain this morning. Patient was medicated finally with relief. No appetite for breakfast this morning. No reports of diarrhea, melena or any overt GI bleed. Patient is noted to have elevated ammonia level at 76, on lactulose and Xifaxan. PMH: hepatitis C, cirrhosis with portal hypertension, hepatic encephalopathy, ascites,hypertension, CVA with right-sided weakness, diabetes mellitus PSH: bilateral cataracts, hysterectomy Social history: Denies tobacco EtOH, or drugs. Allergies: No known drug allergies Family history: Hypertension/diabetes mellitus Medications: Reviewed as per MAR ROS: Systems reviewed with positive finding see HPI Past Patient History - Infectious Disease Hx of Infectious Diseases: None - Tetanus Immunizations Tetanus Immunization: Unknown - Past Social History Smoking Status: Never Smoked - CARDIAC Hx Cardiac Disorders: Yes Hx Hypertension: Yes - PULMONARY Hx Respiratory Disorders: No Hx Chronic Obstructive Pulmonary Disease (COPD): No - NEUROLOGICAL Hx Neurological Disorder: Yes (headaches) HX Cerebrovascular Accident: Yes (R sided weakness/deficit) Hx Seizures: Yes - HEENT Hx HEENT Problems: Yes ([place]) Hx Cataracts: Yes (BILATERAL SX) - RENAL Hx Renal Failure: No - ENDOCRINE/METABOLIC Hx Endocrine Disorders: Yes Hx Diabetes Mellitus Type 2: Yes Hx Hypothyroidism: Yes - HEMATOLOGICAL/ONCOLOGICAL Hx Blood Disorders: No Hx Anemia: Yes (bloot transfusion in [place] 1972) Hx Cancer: No Hx Hepatitis C: Yes - INTEGUMENTARY Hx Dermatological Problems: Yes Other/Comment: multiple light brown skin discolorations to left buttock and left back , left hip, not from fall 3 days ago as per daughter jil - MUSCULOSKELETAL/RHEUMATOLOGICAL Hx Falls: Yes (fell 12/03/17) - GASTROINTESTINAL Hx Gastrointestinal Disorders: No Hx Gastroesophageal Reflux: No Hx Liver Failure: Yes (hepatic encephalopathy, cirrhosis) - GENITOURINARY/GYNECOLOGICAL Hx Genitourinary Disorders: No - PSYCHIATRIC Hx Substance Use: No - SURGICAL HISTORY Hx Surgeries: Yes (c section) Hx Hysterectomy: Yes (1971) - ANESTHESIA Hx Anesthesia: Yes Hx Anesthesia Reactions: No Hx Malignant Hyperthermia: No Meds Allergies/Adverse Reactions: Allergies Allergy/AdvReac Type Severity Reaction Status Date / Time No Known Allergies Allergy Verified 12/05/17 17:32 - Medications Medications: Current Medications Acetaminophen (Tylenol 325mg Tab) 650 mg PO Q4 PRN PRN Reason: Pain, Mild (1-3) Folic Acid (Folic Acid) 1 mg PO DAILY [facility] Last Admin: 12/08/17 11:26 Dose: 1 mg Furosemide (Lasix) 20 mg PO DAILY [facility] Last Admin: 12/08/17 09:35 Dose: Not Given Sodium Chloride (Sodium Chloride 0.45%) 1,000 mls @ 80 mls/hr IV .[id number] [facility] Stop: 12/08/17 23:59 Insulin Detemir (Levemir) 8 unit SC DAILY [facility] Last Admin: 12/08/17 11:33 Dose: 8 unit Insulin Detemir (Levemir) 7 unit SC HS [facility] Last Admin: 12/07/17 21:14 Dose: 7 unit Insulin Human Regular (Humulin R Low) 0 units SC ACHS [facility] Last Admin: 12/08/17 11:36 Dose: Not Given Lactulose (Enulose) 15 gm PO TID [facility] Last Admin: 12/08/17 09:26 Dose: Not Given Levothyroxine Sodium (Synthroid) 25 mcg PO DAILY [facility] Last Admin: 12/08/17 07:32 Dose: Not Given Losartan Potassium (Cozaar) 25 mg PO DAILY [facility] Last Admin: 12/08/17 11:26 Dose: 25 mg Metoprolol Tartrate (Lopressor) 25 mg PO DAILY [facility] Last Admin: 12/08/17 11:30 Dose: 25 mg Morphine Sulfate (Morphine) 2 mg IVP Q6H PRN PRN Reason: Pain, severe (8-10) Last Admin: 12/08/17 09:01 Dose: 2 mg Ondansetron HCl (Zofran Inj) 4 mg IVP Q8H PRN PRN Reason: Nausea/Vomiting Last Admin: 12/08/17 09:01 Dose: 4 mg Pantoprazole Sodium (Protonix Ec Tab) 20 mg PO ACB [facility] Last Admin: 12/08/17 07:32 Dose: Not Given Potassium Chloride (Klor-Con 10) 10 meq PO DAILY [facility] Last Admin: 12/08/17 09:35 Dose: Not Given Rifaximin (Xifaxan) 550 mg PO BID [facility] PRN Reason: Protocol Last Admin: 12/08/17 09:33 Dose: Not Given Tramadol HCl (Ultram) 50 mg PO Q6 PRN PRN Reason: Pain, moderate (4-7) Physical Exam - Constitutional Appears: No Acute Distress - Head Exam Head Exam: NORMOCEPHALIC - Eye Exam Eye Exam: Normal appearance. absent: Scleral icterus - ENT Exam ENT Exam: Mucous Membranes Moist - Neck Exam Neck exam: Positive for: Normal Inspection - Respiratory Exam Respiratory Exam: Decreased Breath Sounds, NORMAL BREATHING PATTERN. absent: Respiratory Distress - Cardiovascular Exam Cardiovascular Exam: +S1, +S2 - GI/Abdominal Exam GI & Abdominal Exam: Distended, Normal Bowel Sounds, Soft. absent: Guarding, Organomegaly, Rebound, Tenderness - Extremities Exam Extremities exam: Positive for: pedal pulses present. Negative for: calf tenderness, pedal edema - Neurological Exam Neurological exam: Alert (awake, noted right sided weakness, h/o CVA) - Skin Skin Exam: Dry, Warm Results - Vital Signs Recent Vital Signs: Last Vital Signs Temp 98.8 F 12/08/17 15:20 Pulse 89 12/08/17 15:20 Resp 18 12/08/17 15:20 BP 141/64 12/08/17 15:20 Pulse Ox 99 12/08/17 15:20 - Labs Result Diagrams: 12/08/17 06:15 12/08/17 06:15 Labs: Laboratory Results - last 24 hr 12/07/17 12/07/17 12/08/17 16:22 21:05 06:15 WBC 4.0 L RBC 3.45 L Hgb 11.1 L Hct 33.8 L MCV 98.0 MCH 32.2 MCHC 32.8 RDW 14.9 H Plt Count 48 L* MPV 11.5 H Gran % 40.5 L Lymph % (Auto) 39.5 H [place] % (Auto) 11.6 H Eos % (Auto) 8.1 H Baso % (Auto) 0.3 Gran # 1.61 Lymph # (Auto) 1.6 [place] # (Auto) 0.5 Eos # (Auto) 0.3 Baso # (Auto) 0.01 Sodium Potassium Chloride Carbon Dioxide Anion Gap BUN Creatinine Est GFR ( Amer) Est GFR (Non-Af Amer) POC Glucose (mg/dL) 187 H 218 H Random Glucose Calcium Total Bilirubin AST ALT Alkaline Phosphatase Ammonia Total Protein Albumin Globulin Albumin/Globulin Ratio 12/08/17 12/08/17 12/08/17 06:15 06:30 07:20 WBC RBC Hgb Hct MCV MCH MCHC RDW Plt Count MPV Gran % Lymph % (Auto) [place] % (Auto) Eos % (Auto) Baso % (Auto) Gran # Lymph # (Auto) [place] # (Auto) Eos # (Auto) Baso # (Auto) Sodium 146 Potassium 4.2 Chloride 108 H Carbon Dioxide 33 Anion Gap 10 BUN 24 H Creatinine 1.1 Est GFR ( Amer) 59 Est GFR (Non-Af Amer) 49 POC Glucose (mg/dL) 124 H Random Glucose 119 H Calcium 8.9 Total Bilirubin 1.8 H AST 77 H ALT 68 H Alkaline Phosphatase 78 Ammonia 71 H Total Protein 6.7 Albumin 2.5 L Globulin 4.2 Albumin/Globulin Ratio 0.6 L 12/08/17 11:24 WBC RBC Hgb Hct MCV MCH MCHC RDW Plt Count MPV Gran % Lymph % (Auto) [place] % (Auto) Eos % (Auto) Baso % (Auto) Gran # Lymph # (Auto) [place] # (Auto) Eos # (Auto) Baso # (Auto) Sodium Potassium Chloride Carbon Dioxide Anion Gap BUN Creatinine Est GFR ( Amer) Est GFR (Non-Af Amer) POC Glucose (mg/dL) 163 H Random Glucose Calcium Total Bilirubin AST ALT Alkaline Phosphatase Ammonia Total Protein Albumin Globulin Albumin/Globulin Ratio Assessment & Plan - Assessment and Plan (Free Text) Assessment: Assessment: Chronic hepatitis C with liver cirrhosis and portal gastropathy Status post fall with T6 compression fracture History of dementia History of CVA with right-sided weakness Elevated ammonia level History of dementia Elevated LFTs Plan: Continue lactulose and Xifaxan Recheck ammonia level in a.m. Monitor electrolytes Follow-up LFTs abdominal doppler/abdominal US AFP Continue PPI DVT prophylaxis Pain management Plan for kyphoplasty on Monday Thank you for this consult and for allowing us to participate in your patient's care, further recommendations based upon clinical course. Seen and discussed with . <Dante Hernandez V - Last Filed: 12/09/17 01:48> Meds - Medications Medications: Current Medications Acetaminophen (Tylenol 325mg Tab) 650 mg PO Q4 PRN PRN Reason: Pain, Mild (1-3) Folic Acid (Folic Acid) 1 mg PO DAILY [facility] Last Admin: 12/08/17 11:26 Dose: 1 mg Furosemide (Lasix) 20 mg PO DAILY [facility] Last Admin: 12/08/17 09:35 Dose: Not Given Insulin Detemir (Levemir) 8 unit SC DAILY [facility] Last Admin: 12/08/17 11:33 Dose: 8 unit Insulin Detemir (Levemir) 7 unit SC HS [facility] Last Admin: 12/08/17 21:44 Dose: 7 unit Insulin Human Regular (Humulin R Low) 0 units SC ACHS [facility] Last Admin: 12/08/17 17:04 Dose: Not Given Lactulose (Enulose) 15 gm PO TID [facility] Last Admin: 12/08/17 19:48 Dose: 15 gm Levothyroxine Sodium (Synthroid) 25 mcg PO DAILY [facility] Last Admin: 12/08/17 07:32 Dose: Not Given Losartan Potassium (Cozaar) 25 mg PO DAILY [facility] Last Admin: 12/08/17 11:26 Dose: 25 mg Metoprolol Tartrate (Lopressor) 25 mg PO DAILY [facility] Last Admin: 12/08/17 11:30 Dose: 25 mg Morphine Sulfate (Morphine) 2 mg IVP Q6H PRN PRN Reason: Pain, severe (8-10) Last Admin: 12/08/17 16:17 Dose: 2 mg Ondansetron HCl (Zofran Inj) 4 mg IVP Q8H PRN PRN Reason: Nausea/Vomiting Last Admin: 12/08/17 09:01 Dose: 4 mg Oxycodone HCl (Oxycodone Immediate Release Tab) 5 mg PO Q6H PRN PRN Reason: Pain, moderate (4-7) Last Admin: 12/08/17 19:57 Dose: 5 mg Pantoprazole Sodium (Protonix Ec Tab) 20 mg PO ACB [facility] Last Admin: 12/08/17 07:32 Dose: Not Given Potassium Chloride (Klor-Con 10) 10 meq PO DAILY [facility] Last Admin: 12/08/17 09:35 Dose: Not Given Rifaximin (Xifaxan) 550 mg PO BID [facility] PRN Reason: Protocol Last Admin: 12/08/17 19:48 Dose: 550 mg Tramadol HCl (Ultram) 50 mg PO Q6 PRN PRN Reason: Pain, moderate (4-7) Results - Vital Signs Recent Vital Signs: Last Vital Signs Temp 98.8 F 12/08/17 15:35 Pulse 92 H 12/08/17 15:35 Resp 18 12/08/17 15:35 BP 143/65 12/08/17 15:35 Pulse Ox 98 12/08/17 15:35 - Labs Result Diagrams: 12/08/17 06:15 12/08/17 06:15 Labs: Laboratory Results - last 24 hr 12/08/17 12/08/17 12/08/17 06:15 06:15 06:30 WBC 4.0 L RBC 3.45 L Hgb 11.1 L Hct 33.8 L MCV 98.0 MCH 32.2 MCHC 32.8 RDW 14.9 H Plt Count 48 L* MPV 11.5 H Gran % 40.5 L Lymph % (Auto) 39.5 H [place] % (Auto) 11.6 H Eos % (Auto) 8.1 H Baso % (Auto) 0.3 Gran # 1.61 Lymph # (Auto) 1.6 [place] # (Auto) 0.5 Eos # (Auto) 0.3 Baso # (Auto) 0.01 Sodium 146 Potassium 4.2 Chloride 108 H Carbon Dioxide 33 Anion Gap 10 BUN 24 H Creatinine 1.1 Est GFR ( Amer) 59 Est GFR (Non-Af Amer) 49 POC Glucose (mg/dL) Random Glucose 119 H Calcium 8.9 Total Bilirubin 1.8 H AST 77 H ALT 68 H Alkaline Phosphatase 78 Ammonia 71 H Total Protein 6.7 Albumin 2.5 L Globulin 4.2 Albumin/Globulin Ratio 0.6 L 12/08/17 12/08/17 12/08/17 07:20 11:24 16:20 WBC RBC Hgb Hct MCV MCH MCHC RDW Plt Count MPV Gran % Lymph % (Auto) [place] % (Auto) Eos % (Auto) Baso % (Auto) Gran # Lymph # (Auto) [place] # (Auto) Eos # (Auto) Baso # (Auto) Sodium Potassium Chloride Carbon Dioxide Anion Gap BUN Creatinine Est GFR ( Amer) Est GFR (Non-Af Amer) POC Glucose (mg/dL) 124 H 163 H 148 H Random Glucose Calcium Total Bilirubin AST ALT Alkaline Phosphatase Ammonia Total Protein Albumin Globulin Albumin/Globulin Ratio Attending/Attestation - Attestation I have personally seen and examined this patient.: Yes I have fully participated in the care of the patient.: Yes I have reviewed all pertinent clinical information: Yes Notes (Text): This is an addendum to GI consult report dictated by Letha Lopez APN.The patient was seen and examined earlier. Medical records, lab studies, imagings were reviewed. Last 24 hours events reviewed. Agreed with the above treatment plan as outlined in Letha Lopez APN's notes the with the addition of the following 12/09/17 01:48
--- NOTE | 2017-12-08 18:37 | PN ---
DATE: NEUROLOGY FOLLOWUP CHIEF COMPLAINT: Status post compression fracture in T6. SUBJECTIVE: The patient is status post kyphoplasty, is doing much better. She is on p.r.n. morphine for acute onset of pain. Being followed by Hematology for pancytopenia. ALLERGIES: NO KNOWN DRUG ALLERGIES. SOCIAL HISTORY: No illicit drug use, smoking, or EtOH abuse at this time. 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 FAMILY HISTORY: Noncontributory. REVIEW OF SYSTEMS: A 14-point review of systems is negative except as per the HPI. PHYSICAL EXAMINATION VITAL SIGNS: Temperature 98, pulse rate 92, blood pressure 150/65, respiratory rate of 18, oxygen saturation 98% by room air. GENERAL: The patient is lying in bed flat, in no acute distress. HEENT: Atraumatic, normocephalic. PERRLA. Extraocular muscles intact. NECK: Supple. No JVD, no adenopathy noted. LUNGS: Clear to auscultation. No adventitious sounds. HEART: S1 and S2. Normal rate and rhythm. No murmurs, rubs, or gallops. ABDOMEN: Soft, nontender, and nondistended. Bowel sounds are present. EXTREMITIES: No clubbing. No cyanosis. Peripheral pulses 2+ felt bilaterally. NEUROLOGIC: The patient is alert and oriented to person and place. Recall after 5 minutes, 0/3. Poor attention span and slow thought process. Cranial nerves II through XII intact. Motor exam: Has right-sided residual weakness from prior left basal ganglia CVA. Left side is intact. Sensory: Decreased light touch and pinprick up to the calves bilaterally. Decreased vibration of the toes. DTRs are 2+ throughout, 1 at both knees and ankles. Coordination: [id number] intact with mild dysmetria on the right due to residual right-sided weakness from prior CVA. LABORATORY DATA: Sodium is 146, potassium 4.2, chloride 108, carbon dioxide 33, BUN of 24, and creatinine 1.1. Random glucose is 119. Ammonia level 71. ASSESSMENT AND PLAN: This is a 72-year-old [place]ik speaking woman with left basal ganglia bleed with residual mild right-sided weakness from 2017, history of hypertension, chronic hepatitis C with liver cirrhosis, hepatic encephalopathy of elevated ammonia levels, poor hypertension, ascites, hypothyroidism, hypertension, insulin-dependent diabetes mellitus, diabetic peripheral neuropathy, gait disturbance, who had status post fall at home, came with severe low back pain, had subacute T6 vertebral fracture, status post kyphoplasty and pancytopenia secondary to sequestration and chronic cirrhosis. At this time, we will recommend physical therapy, subacute rehab, Lidoderm patch for pain, Ultram 50 mg p.o. q. 6 hours and p.r.n. morphine for the acute onset of pain, could consider Lyrica 50 mg p.o. b.i.d. for neuropathic relief, and physical therapy and occupational therapy. Follow up with Hematology in regards to her pancytopenia. Once again, thank you for this followup. Micha Arredondo MD
[2017-12-08] MEDS ORDERED: oxyCODONE 5 mg Immediate Release Tab PO PRN (18:52)
--- NOTE | 2017-12-09 00:12 | US ---
EXAM: US Abdomen Complete CLINICAL HISTORY: 72 years old, female; Abnormal findings; Abnormal lab test; Elevated liver enzymes; Additional info: Hepatitis c/liver hepatitis TECHNIQUE: Real-time ultrasound of the abdomen (complete) with image documentation. COMPARISON: US - ABDOMEN COMPLETE 2017-05-12 11:18 FINDINGS: Liver: Liver measures 13.8 CM longitudinally. Increased echogenicity consistent with hepatic steatosis with common bile duct measures Portal vein is patent with normal direction of flow. Gallbladder: Cholelithiasis. No gallbladder wall thickening. No pericholecystic fluid. Common bile duct: Common bile duct is mildly dilated at 8.4 mm in diameter. Pancreas: Pancreas is not well-visualized. Kidneys: Right kidney measures 9.5 CM longitudinally.Left kidney measures 10.9 CM longitudinally. Spleen: Spleen is enlarged measuring 13.7 CM longitudinally. Aorta: Aorta and IVC are unremarkable as visualized. Inferior vena cava: See above. IMPRESSION: 1. Cholelithiasis. 2. Mildly prominent common bile duct at 8.4 mm. No definite intraluminal filling defects visualized. Cannot exclude tiny distal common duct stone or lesion. Correlate with LFTs. MRCP can be performed if necessary. 3. Splenomegaly. 4. Hepatic steatosis.
[2017-12-09 04:52] LABS: HEMOGLOBIN 11.9 g/dL (12.0-16.0); MEAN CELL VOLUME 98.3 fl (80.0-105.0); MEAN CORPUSCULAR HEMOGLOBIN 32.8 pg (25.0-35.0); MEAN CORPUSCULAR HGB CONC 33.3 g/dl (31.0-37.0); MEAN PLATELET VOLUME 11.5 fl (7.0-11.0); RBC 3.63 10^6/uL (3.5-6.1); RED CELL DISTRIBUTION WIDTH 15.2 % (11.5-14.5); WHITE BLOOD COUNT 5.8 10^3/ul (4.5-11.0)
[2017-12-09 05:18] LABS: ALB/GLOB RATIO 0.6 (1.1-1.8); ALBUMIN 2.7 g/dL (3.0-4.8); CALCIUM 8.7 mg/dL (8.4-10.5)
[2017-12-09 08:00] VITALS: RESP 20
[2017-12-09] MEDS: Insulin Reg-LOW-Coverage SC SCH ×3 (08:26→16:54)
[2017-12-09] MEDS: Pantoprazole 20 mg EC Tab PO SCH (08:27)
[2017-12-09] MEDS: Insulin Detemir 100 units/ml Vial (Levemir) SC SCH ×2 (09:25→21:48)
[2017-12-09] MEDS: Levothyroxine 25 MCG TAB PO SCH (09:26)
[2017-12-09] MEDS: Potassium Chloride 10 mEq ER Tab PO SCH (09:27)
--- NOTE | 2017-12-09 15:28 | US ---
PROCEDURE: Portal vein duplex ultrasound. CLINICAL HISTORY: Cirrhosis. Deteriorating liver function. Evaluate for portal vein thrombosis. PHYSICIAN(S): Marko Fernandes M.D. FINDINGS: The exam is very limited by bowel gas. The extrahepatic portal vein is small in caliber but patent with hepatopetal flow. The hepatic artery is hypertrophied. Limited imaging of the central patent veins are patent. There is a recannulized umbilical vein present The spleen is prominent. No significant ascites is noted IMPRESSION: 1. Small patent portal vein with hepatopetal flow 2. Recannulized umbilical vein
[2017-12-09] MEDS: Morphine 2 mg/ml ISec IVP PRN (20:51)
--- NOTE | 2017-12-10 00:58 | PN ---
DATE: 12/09/2017 SUBJECTIVE: This patient was seen and evaluated earlier today. The patient is more alert. The patient's daughter was at bedside. PHYSICAL EXAMINATION: VITAL SIGNS: Temperature is 98.6, pulse 100, blood pressure is 116/72. HEENT: Atraumatic and anicteric. NECK: Supple. HEART: S1 and S2 heard. LUNGS: Bilateral air entry present. ABDOMEN: Soft. There is no tenderness. EXTREMITIES: No cyanosis. No clubbing. LABORATORY DATA: Hemoglobin is 11.9, hematocrit 35.7, WBC 5.6, platelets 46. BUN 23, creatinine 1.1. Ammonia level was 84. IMPRESSION: This is a 72-year-old patient with decompensated cirrhosis, hepatic encephalopathy, diabetes mellitus, and cirrhosis secondary to hepatitis C, admitted following a fall with a compression fracture of the T6. The patient had a kyphoplasty done. No bowel movements since admission. On lactulose twice day along with Xifaxan. Ammonia level is elevated but could not demonstrate obvios asterixis. Would recommend to increase the lactulose to 3 to 4 times a day. We will hold off giving other laxatives for bowel movements. Lactulose may be appropriate in view of the constipation. In view of the encephalopathy, it is reasonable to increase the dose rather than adding the laxatives. Other comorbiditiesinclude hypertension, ascites, and cerebrovascular accident, status post right-sided weakness. Thank you very much for allowing me to participate in the care of the patient. Dante Hernandez MD MTDD
--- NOTE | 2017-12-10 03:19 | PN ---
DATE: 12/09/2017 SUBJECTIVE: The patient was seen on 12/09/2017. She complained of back pain, is less than before, 40% better, but she still has significant pain. Daughter next to the mother, who is the patient, at the bedside. She mentioned about the IV site bleeding, but not anymore. Everything is stable now. She has no chest pain, no shortness of breath, and no other complaint. PHYSICAL EXAMINATION: VITAL SIGNS: Temperature 98.9, heart rate 83, blood pressure 167/79, respirations 20, and saturation 95% on room air. HEAD AND NECK: Normal. No JVD. No thyromegaly. CHEST: Clear. Good air entry. CARDIAC: First sound and second sound normal. No murmur, rub, or gallop. ABDOMEN: Soft, nontender. EXTREMITIES: No edema. NEUROLOGIC: She has left-sided weakness. Also her back has decreased range of motion due to a recent compression fracture and pain. LABORATORY DATA: White count 5.8, hemoglobin 11.9, hematocrit 35.7, and platelets 46. Chemistries: Noted for blood sugar 122, sodium 143, potassium 4.1, chloride 106, bicarbonate 27, BUN 23, creatinine 1.1, blood sugar 141. Total bilirubin 2.2. AST and ALT are elevated. IMPRESSION: 1. Status post kyphoplasty by Dr. Marko Fernandes. She is doing better. Continue current management. The patient will need physical therapy at the Transitional Care Unit. 2. Hypertension. Seems elevated in the 160 range. We will give clonidine 0.1 mg p.o. q.6 hours p.r.n. for systolic 170 and above. 3. Cirrhosis, chronic hepatitis C, and thrombocytopenia. Seen by Hematology consult, Dr. Espinoza. 4. Diabetes, insulin-dependent. Continue current therapy. Continue metformin and insulin coverage. 5. Cerebrovascular accident, old. Stable. 6. Constipation, chronic. We will continue lactulose. Continue MiraLax. Dulcolax suppository p.r.n. 7. Hypothyroidism. PLAN: Continue gastric prophylaxis and current medications. Cozaar 25 mg p.o. daily; lactulose; folic acid; insulin coverage; potassium 10; Lasix 20; Levemir 8 in the morning, 7 at night; Lopressor 25 mg b.i.d.; morphine 2 mg IV q.4 hours p.r.n. plus oxycodone was added q.6 hours; continue Protonix 20 mg p.o. daily; Synthroid 25 mcg daily; tramadol p.r.n.; Xifaxan 550 mg b.i.d. and Zofran 4 mg IV q.8 p.r.n. Continue current therapy. We will follow up clinically. Giovany Richardson MD
[2017-12-10 07:32] VITALS: TEMP 98.9
[2017-12-10] MEDS: Pantoprazole 20 mg EC Tab PO SCH (08:30)
[2017-12-10] MEDS: Potassium Chloride 10 mEq ER Tab PO SCH (09:27)
[2017-12-10] MEDS: Levothyroxine 25 MCG TAB PO SCH (09:27)
[2017-12-10] MEDS: Insulin Reg-LOW-Coverage SC SCH ×2 (09:29→13:20)
[2017-12-10] MEDS: Insulin Detemir 100 units/ml Vial (Levemir) SC SCH (09:29)
[2017-12-10 10:27] VITALS: BP 131/60; PULSE 70; O2SAT 96
--- NOTE | 2017-12-10 20:54 | CP.PCM.PN ---
Subjective - Date & Time of Evaluation Date of Evaluation: 12/09/17 Time of Evaluation: 21:00 - Subjective Subjective: Patient states she has no pain. No BM in 4 days. Some bleeding at previous IV cite ROS :12 ROS otherwise negative Pain: denies Objective - Vital Signs/Intake and Output Vital Signs (last 24 hours): Temp Pulse Resp BP Pulse Ox 98.9 F 70 20 131/60 96 12/10/17 07:30 12/10/17 10:27 12/10/17 10:27 12/10/17 10:27 12/10/17 10:27 Intake and Output: 12/10/17 12/11/17 18:59 06:59 Intake Total 480 Balance 480 - Labs Labs: 12/09/17 04:45 12/09/17 04:45 PT 14.3 SECONDS (9.4-12.5) H 12/05/17 21:45 INR 1.25 (0.93-1.08) H 12/05/17 21:45 APTT 36.1 Seconds (25.1-36.5) 12/05/17 21:45 - Constitutional Appears: Well - Respiratory Exam Respiratory Exam: Clear to Ausculation Bilateral, NORMAL BREATHING PATTERN - Cardiovascular Exam Cardiovascular Exam: REGULAR RHYTHM, +S1, +S2. absent: Murmur - Extremities Exam Extremities Exam: Full ROM, Normal Capillary Refill, Normal Inspection. absent : Joint Swelling, Pedal Edema Assessment and Plan - Assessment and Plan (Free Text) Assessment: Ms. Coker is a 72 y/o woman unique pmhx significant for HCV, Cirhosis, pHTN, splenomegaly admitted for vertebral fracture now s/p kyphoplasty with hematology consulted regarding cytopenias. Cytopenias are stable and likely secondary to underlying liver disease and splenic sequestration. patient should have out patient hematology f/u upon discharge. Saul Espinoza MD Hematology Service
== END 2017-12-10 16:34 | DRG 516 ==
LOC: ED 17:18 → ERH 21:38 → 5RNO 12-06 21:33 → OBSVTOIN 12-07 12:00
PROVIDERS: ADMIT Internal Medicine; ATTEND Internal Medicine
PROC: 0PS43ZZ Reposition Thoracic Vertebra, Percutaneous Approach (ICD-10-PCS; principal; 2017-12-08)
PROC: 0PU43JZ Supplement Thoracic Vertebra with Synthetic Substitute, Percutaneous Approach (ICD-10-PCS; 2017-12-08)
DX: M48.54XA Collapsed vertebra, not elsewhere classified, thoracic region, initial encounter for fracture (principal); D61.818 Other pancytopenia; E11.42 Type 2 diabetes mellitus with diabetic polyneuropathy; K76.6 Portal hypertension; Q78.2 Osteopetrosis; I69.351 Hemiplegia and hemiparesis following cerebral infarction affecting right dominant side; I69.954 Hemiplegia and hemiparesis following unspecified cerebrovascular disease affecting left non-dominant side; R18.8 Other ascites; W19.XXXA Unspecified fall, initial encounter; B18.2 Chronic viral hepatitis C; E03.9 Hypothyroidism, unspecified; F03.90 Unspecified dementia, unspecified severity, without behavioral disturbance, psychotic disturbance, mood disturbance, and anxiety; I10 Essential (primary) hypertension; K31.89 Other diseases of stomach and duodenum; K59.00 Constipation, unspecified; K72.90 Hepatic failure, unspecified without coma; K74.60 Unspecified cirrhosis of liver; M19.90 Unspecified osteoarthritis, unspecified site; Y92.009 Unspecified place in unspecified non-institutional (private) residence as the place of occurrence of the external cause; Z79.4 Long term (current) use of insulin; Z79.899 Other long term (current) drug therapy; Z90.710 Acquired absence of both cervix and uterus; Z98.42 Cataract extraction status, left eye; Z98.41 Cataract extraction status, right eye

== ENCOUNTER 2017-12-10 16:35 | Inpatient (IN) | payer OTHER, MEDICAID ==
[2017-12-10] MEDS: oxyCODONE 5 mg Immediate Release Tab PO SCH (18:20)
[2017-12-10] MEDS: Insulin Reg-LOW-Coverage SC SCH (21:21)
[2017-12-10] MEDS: Insulin Detemir 100 units/ml Vial (Levemir) SC SCH (21:48)
[2017-12-11] MEDS: Morphine 2 mg/ml ISec IVP PRN ×2 (04:16→23:31)
[2017-12-11] MEDS: Levothyroxine 25 MCG TAB PO SCH (05:47)
[2017-12-11] MEDS: Pantoprazole 20 mg EC Tab PO SCH (05:47)
[2017-12-11] MEDS: Insulin Reg-LOW-Coverage SC SCH ×4 (06:35→21:28)
[2017-12-11 07:29] LABS: EOS # 0.4 (0.0-0.7); EOS % 11.9 % (1.5-5.0); GRAN # 1.31 (1.4-6.5); GRAN % 38.1 % (50.0-68.0); LYMPH # 1.3 (1.2-3.4); LYMPH % 37.5 % (22.0-35.0); MEAN CELL VOLUME 96.1 fl (80.0-105.0); MEAN CORPUSCULAR HEMOGLOBIN 32.1 pg (25.0-35.0); MEAN CORPUSCULAR HGB CONC 33.4 g/dl (31.0-37.0); MEAN PLATELET VOLUME 10.8 fl (7.0-11.0); MONO # 0.4 (0.1-0.6); MONO % 12.5 % (1.0-6.0); RBC 3.08 10^6/uL (3.5-6.1); RED CELL DISTRIBUTION WIDTH 14.7 % (11.5-14.5); WHITE BLOOD COUNT 3.4 10^3/ul (4.5-11.0)
[2017-12-11] MEDS: Albuterol-Ipratrop 3 mg / 0.5 (3 ml) UD IH SCH ×4 (07:33→22:09)
[2017-12-11 07:53] LABS: HEMOGLOBIN 9.9 g/dL (12.0-16.0)
[2017-12-11 07:57] LABS: BLOOD UREA NITROGEN 24 mg/dL (7-21); CALCIUM 8.3 mg/dL (8.4-10.5); GFR AFRICAN-AMERICAN > 60; GFR NON-AFRICAN AMERICAN 54
[2017-12-11] MEDS: Potassium Chloride 10 mEq ER Tab PO SCH (08:22)
[2017-12-11] MEDS: oxyCODONE 5 mg Immediate Release Tab PO SCH ×2 (10:02→17:16)
[2017-12-11] MEDS: Insulin Detemir 100 units/ml Vial (Levemir) SC SCH ×2 (10:04→21:27)
[2017-12-11] MEDS: Lidocaine 5% Patch TD SCH (17:18)
[2017-12-12] MEDS: Pantoprazole 20 mg EC Tab PO SCH (05:37)
[2017-12-12] MEDS: Levothyroxine 25 MCG TAB PO SCH (05:38)
[2017-12-12] MEDS: Morphine 2 mg/ml ISec IVP PRN (06:17)
[2017-12-12] MEDS: Insulin Reg-LOW-Coverage SC SCH ×4 (06:41→21:12)
--- NOTE | 2017-12-12 06:59 | CP.PCM.PN ---
Subjective - Date & Time of Evaluation Date of Evaluation: 12/12/17 Time of Evaluation: 06:59 - Subjective Subjective: # 24 angiocath was inserted in right hand. Objective - Vital Signs/Intake and Output Vital Signs (last 24 hours): Temp Pulse Resp BP Pulse Ox 97.1 F L 65 18 135/77 100 12/11/17 18:00 12/11/17 18:00 12/11/17 18:00 12/11/17 18:00 12/11/17 18:00 Intake and Output: 12/11/17 12/12/17 18:59 06:59 Intake Total 500 Balance 500 - Medications Medications: Current Medications Albuterol/Ipratropium (Duoneb 3 Mg/0.5 Mg (3 Ml) Ud) 3 ml IH QIDRESP [facility] Last Admin: 12/11/17 22:09 Dose: Not Given Clonidine HCl (Catapres) 0.1 mg PO BID PRN; Protocol PRN Reason: Systolic Blood Pressure Docusate Sodium (Colace) 100 mg PO BID MELINA PRN Reason: Protocol Last Admin: 12/11/17 18:24 Dose: 100 mg Folic Acid (Folic Acid) 1 mg PO DAILY MELINA PRN Reason: Protocol Last Admin: 12/11/17 10:06 Dose: 1 mg Furosemide (Lasix) 20 mg PO DAILY MELINA PRN Reason: Protocol Last Admin: 12/11/17 10:07 Dose: 20 mg Insulin Detemir (Levemir) 8 unit SC DAILY MELINA PRN Reason: Protocol Last Admin: 12/11/17 10:04 Dose: 8 unit Insulin Detemir (Levemir) 7 unit SC HS MELINA PRN Reason: Protocol Last Admin: 12/11/17 21:27 Dose: 7 unit Insulin Human Regular (Humulin R Low) 0 units SC ACHS MELINA PRN Reason: Protocol Last Admin: 12/12/17 06:41 Dose: Not Given Lactulose (Enulose) 30 gm PO TID MELINA PRN Reason: Protocol Last Admin: 12/11/17 18:25 Dose: Not Given Levothyroxine Sodium (Synthroid) 25 mcg PO 0600 MELINA PRN Reason: Protocol Last Admin: 12/12/17 05:38 Dose: 25 mcg Lidocaine (Lidoderm) 1 ea TD DAILY MELINA Last Admin: 12/11/17 17:18 Dose: 1 ea Losartan Potassium (Cozaar) 25 mg PO DAILY MELINA PRN Reason: Protocol Last Admin: 12/11/17 10:07 Dose: 25 mg Metoprolol Tartrate (Lopressor) 25 mg PO 0800,1800 MELINA PRN Reason: Protocol Last Admin: 12/11/17 17:19 Dose: 25 mg Morphine Sulfate (Morphine) 2 mg IVP Q6H PRN; Protocol PRN Reason: Pain, severe (8-10) Last Admin: 12/12/17 06:17 Dose: 2 mg Ondansetron HCl (Zofran Inj) 4 mg IVP Q8H PRN; Protocol PRN Reason: Nausea/Vomiting Oxycodone HCl (Oxycodone Immediate Release Tab) 5 mg PO BID MELINA PRN Reason: Protocol Last Admin: 12/11/17 17:16 Dose: 5 mg Pantoprazole Sodium (Protonix Ec Tab) 20 mg PO 0600 MELINA PRN Reason: Protocol Last Admin: 12/12/17 05:37 Dose: 20 mg Potassium Chloride (Klor-Con 10) 10 meq PO 0800 MELINA PRN Reason: Protocol Last Admin: 12/11/17 08:22 Dose: 10 meq Pregabalin (Lyrica) 25 mg PO BID [facility] Last Admin: 12/11/17 18:25 Dose: 25 mg Rifaximin (Xifaxan) 550 mg PO BID MELINA PRN Reason: Protocol Last Admin: 12/11/17 17:17 Dose: 550 mg Tramadol HCl (Ultram) 50 mg PO Q6H PRN; Protocol PRN Reason: Pain, moderate (4-7) Last Admin: 12/11/17 21:27 Dose: 50 mg - Labs Labs: 12/11/17 06:45 12/11/17 06:45
[2017-12-12] MEDS: Albuterol-Ipratrop 3 mg / 0.5 (3 ml) UD IH SCH ×4 (07:12→20:40)
[2017-12-12] MEDS: Potassium Chloride 10 mEq ER Tab PO SCH (07:56)
[2017-12-12] MEDS: Insulin Detemir 100 units/ml Vial (Levemir) SC SCH ×2 (09:51→21:12)
[2017-12-12] MEDS: oxyCODONE 5 mg Immediate Release Tab PO SCH ×2 (09:56→17:49)
[2017-12-12] MEDS: Lidocaine 5% Patch TD SCH (12:39)
--- NOTE | 2017-12-12 21:30 | HP ---
DATE OF EXAM: 12/11/2017 REASON FOR ADMISSION: The patient is status post kyphoplasty for compression fracture of T6, generalized weakness. HISTORY OF PRESENT ILLNESS: This is a 72-year-old female with chronic hepatitis C, hypertension, CVA, diabetes. She had a fall which had resulted in a T6 fracture. Dr. Marko Fernandes did kyphoplasty. The patient did improve 40% to 50%. She still has some pain. She still has difficulty ambulation. The patient states she has no nausea, no vomiting. No other complaints. She did have constipation which resolved. The patient is coming here to the CCU for rehab and get training and also pain management. PAST MEDICAL HISTORY: As I mentioned, she does have chronic hepatitis C; history of hepatic encephalopathy; history of hypertension; diabetes type 2, using insulin; chronic back pain, with compression fracture recently; kyphoplasty; COPD; hypertension; hypothyroidism; chronic constipation. ALLERGIES: NO KNOWN ALLERGIES. SOCIAL HISTORY: No smoking or drinking. No history of drugs. She lives alone, but she has a supportive care and she has very supportive daughter. REVIEW OF SYSTEMS: As in the present illness, she does have difficulty ambulation, back pain, on and off mental changes, generalized weakness, diarrhea associated with lactulose, osteoarthritis, incontinence, left-sided weakness, and gait disorder. Otherwise review of systems is negative. LABORATORY DATA: White count 3.4, hemoglobin 9.9, hematocrit 29.6, and platelets 40. Chemistry: Sodium 142, potassium 4.1, chloride 105, bicarbonate 30. BUN 24, creatinine 1. Blood sugar 98. Calcium 8.3. IMPRESSION: A 72-year-old female; 1. status post fall, history of gait disorder resulting in compression fracture of T6, status post kyphoplasty. The patient will be admitted to CCU for the management, physical therapy, gait training, and medical management for underlying medical problems. 2. Constipation. We will give the patient lactulose increased dose and follow up on that and Colace on daily basis. We will consider 4 mg every other day if she does have persistent constipation or tap water enema. 3. Thrombocytopenia secondary to liver cirrhosis. 4. Hypertension. 5. Hypothyroidism. 6. History of cerebrovascular accident, stable. Cannot give aspirin, platelets so low. 7. Chronic hepatitis C with hepatic encephalopathy, continue lactulose. PLAN: Continue current management. Follow up clinically. Giovany Richardson MD [facility] # [id number]
[2017-12-13] MEDS: Morphine 2 mg/ml ISec IVP PRN ×2 (01:53→20:37)
[2017-12-13] MEDS: Pantoprazole 20 mg EC Tab PO SCH (05:18)
[2017-12-13] MEDS: Levothyroxine 25 MCG TAB PO SCH (05:18)
[2017-12-13] MEDS: Insulin Reg-LOW-Coverage SC SCH ×4 (06:39→22:25)
[2017-12-13] MEDS: Albuterol-Ipratrop 3 mg / 0.5 (3 ml) UD IH SCH ×4 (07:11→20:19)
[2017-12-13] MEDS: Potassium Chloride 10 mEq ER Tab PO SCH (09:00)
[2017-12-13] MEDS: oxyCODONE 5 mg Immediate Release Tab PO SCH (11:00)
[2017-12-13] MEDS: Lidocaine 5% Patch TD SCH (11:00)
[2017-12-13] MEDS: Insulin Detemir 100 units/ml Vial (Levemir) SC SCH ×2 (11:00→22:26)
--- NOTE | 2017-12-13 14:40 | PN ---
DATE: SUBJECTIVE: A 72-year-old female, status post kyphoplasty, complaining of back pain. Pain is better. She did have some walking today with some pain, no difficulty, but she is able to walk few steps with the physical therapy better than before. Patient has no chest pain. She feels generally weak and no other complaints. PHYSICAL EXAMINATION: VITAL SIGNS: Please be advised date is for 12/12/2017. Temperature 98, heart rate 73, blood pressure 122/64, respirations 18, saturations 100%. HEAD AND NECK: Normal. No JVD. No thyromegaly. CHEST: Clear. Good air entry. CARDIAC: First sound and second sound normal. ABDOMEN: Soft, nontender. EXTREMITIES: Mild edema. BACK: Tender at the thoracic spine T6 level. NEUROLOGIC: Normal. LABORATORY DATA: White count 3.4, hemoglobin 9.9, hematocrit 29.6, platelets 40. Chemistry noted for blood sugar in the 100s to 200s, sodium 142, potassium 4.1, chloride 106, bicarbonate 30, BUN 24, creatinine 1, glucose 80 and calcium 8.3. IMPRESSION AND PLAN: 1. Severe acute low back pain due to T6 fracture, status post kyphoplasty. Continue Lidoderm patch. Continue oxycodone p.r.n. for pain. Continue physical therapy. 2. Liver cirrhosis and hepatic failure. Continue lactulose. Continue Xifaxan 550 b.i.d. and lactulose 30 g t.i.d. Patient seems doing well. She is feeling okay. She is alert, awake and oriented. 3. Chronic constipation. Continue lactulose. She did move her bowel today and she seems doing well with that. Continue Colace. 4. Hypertension. Patient is getting Catapres 0.1 mg b.i.d., Cozaar 25 mg p.o. daily and Lopressor 25 mg b.i.d. Plan, continue current blood pressure medicine and follow up clinically. 5. Hypothyroidism. Patient getting 25 mcg with tomorrow. Maybe, she need more thyroid pills. At this time, continue current medicine, continue Lyrica, oxycodone, Protonix, Synthroid, Xifaxan and Zofran in addition to insulin and Lasix 20 on daily basis. Continue DuoNeb for wheezing. We will follow up clinically. Giovany Richardson MD [facility] # [id number]
[2017-12-14] MEDS: oxyCODONE 5 mg Immediate Release Tab PO PRN (01:33)
[2017-12-14] MEDS: Morphine 2 mg/ml ISec IVP PRN ×2 (02:24→21:34)
[2017-12-14] MEDS: Pantoprazole 20 mg EC Tab PO SCH (05:13)
[2017-12-14] MEDS: Levothyroxine 25 MCG TAB PO SCH (05:13)
[2017-12-14] MEDS: Insulin Reg-LOW-Coverage SC SCH ×4 (06:53→21:33)
[2017-12-14] MEDS: Albuterol-Ipratrop 3 mg / 0.5 (3 ml) UD IH SCH ×4 (07:46→19:46)
[2017-12-14] MEDS: Potassium Chloride 10 mEq ER Tab PO SCH (08:57)
[2017-12-14] MEDS: Insulin Detemir 100 units/ml Vial (Levemir) SC SCH ×2 (11:10→21:33)
[2017-12-14] MEDS: Lidocaine 5% Patch TD SCH (11:11)
--- NOTE | 2017-12-14 15:45 | PN ---
DATE: 12/13/2017 SUBJECTIVE: A 72-year-old female. Patient seems comfortable, better than before, less pain, require less pain medicine, daughter next to the bed, and CT was done of the spine. There is no nausea, no vomiting, no other complaints. She needs physical therapy for walking later today with a walker. PHYSICAL EXAMINATION: VITAL SIGNS: Temperature is 97.6, heart rate 75, blood pressure 138/71, respirations 19, and saturation 100%. HEAD AND NECK: Normal. No JVD. No thyromegaly. CHEST: Clear with good air entry. CARDIAC: First sound and second sound normal. ABDOMEN: Soft, obese, and nontender. EXTREMITIES: No edema. NEUROLOGIC: Normal. LABORATORY STUDY: Noted for sugar in the 200s and we will monitor that. IMPRESSION AND PLAN: 1. Acute severe back pain, mid thoracic area, status post kyphoplasty, stable, less pain, improved. Repeat CT of the chest shows status post kyphoplasty done and no bleeding and no other findings. 2. Diabetes, insulin-dependent. We will increase the night dose of Levemir by 2 or 3 more units and we will monitor her sugar, she may need more and we will follow up on that. 3. Hypertension, stable. Blood pressure seems stable. Continue current medication. The patient is getting clonidine p.r.n. Continue Cozaar 25 mg daily and metoprolol 25 mg b.i.d. 4. Patient has history of liver cirrhosis, chronic hepatitis C, stable. Continue on Lasix. Continue on potassium p.r.n. 5. Hypothyroidism. Continue Synthroid 25 mcg. We will repeat TSH in the morning. 6. History of portal hypertension, cirrhosis, and hepatitic C. The patient is stable on medication, diuretics plus Xifaxan and lactulose for hepatic encephalopathy, which seems doing well. 7. Chronic constipation, doing better with the lactulose 30 g t.i.d. Continue current therapy, continue physical therapy, and we will change pain meds only p.r.n. Giovany Richardson MD
[2017-12-15] MEDS: Pantoprazole 20 mg EC Tab PO SCH (05:06)
[2017-12-15] MEDS: Levothyroxine 25 MCG TAB PO SCH (05:06)
[2017-12-15] MEDS: Insulin Reg-LOW-Coverage SC SCH ×4 (06:50→22:14)
[2017-12-15] MEDS: Albuterol-Ipratrop 3 mg / 0.5 (3 ml) UD IH SCH ×4 (07:48→22:04)
[2017-12-15] MEDS: Potassium Chloride 10 mEq ER Tab PO SCH (08:14)
[2017-12-15] MEDS: Insulin Detemir 100 units/ml Vial (Levemir) SC SCH ×2 (09:45→22:15)
[2017-12-15] MEDS: Lidocaine 5% Patch TD SCH (09:45)
--- NOTE | 2017-12-15 16:02 | PN ---
DATE: 12/14/2017 SUBJECTIVE: The patient doing better, status post kyphoplasty at T6. Today, she did good physical therapy. She walked around with a walker more than before and pain severity is much better, it is 70% to 80% better than before. The patient is otherwise stable. She had a bowel movement, tolerating diet well. Her mental status seems stable. PHYSICAL EXAMINATION: VITAL SIGNS: Temperature 98.2, heart rate 89, blood pressure 126/52, respirations 18, saturations 100%. HEAD AND NECK: Normal. No JVD. No thyromegaly. CHEST: Clear. Good air entry. CARDIAC: First sound and second sound normal. ABDOMEN: Soft, nontender. EXTREMITIES: No edema. NEUROLOGIC: Seems normal except general weakness and gait disorder due to generalized weakness and back pain with acute compression fractures. LABORATORY STUDY: Hemoglobin A1c is 7. TSH is 1.01 which is normal. Blood sugar is improving to level of 200 and increased the insulin to 10 units daily. IMPRESSION: 1. Acute severe low back pain secondary to acute T6 fracture. 2. Status post kyphoplasty, improving pain. 3. Chronic back pain improving with current medication, tramadol twice a day only and morphine p.r.n. She does not ask for morphine. 4. Constipation, better by lactulose. 5. Hepatic cirrhosis with chronic hepatitis C. 6. Portal hypertension, ascites, history of hepatic encephalopathy. Continue Xifaxan. Continue lactulose. 7. Thrombocytopenia secondary to chronic hepatitis, hypersplenism, and seems her platelets are stable. 8. Hypothyroidism. TSH was in normal range. Continue 25 mcg once a day. 9. Hypertension, stable on metoprolol 25 mg b.i.d. and Cozaar 25 mg p.o. daily. CURRENT MEDICATIONS: As follows; clonidine 0.1 mg b.i.d. p.r.n., Colace 100 mg b.i.d., Cozaar 25 p.o. daily, DuoNeb, lactulose 30 g p.o. t.i.d., folic acid 1 mg daily, insulin coverage low algorithm, potassium 10 mEq p.o. daily, Lasix 20 mg p.o. daily, Levemir 10 units at night and 7 units in the morning, Lidoderm patch only to affected fracture site area of T6, Lopressor 25 mg b.i.d., Lyrica 25 mg b.i.d., morphine 2 mg IV q.6 p.r.n., oxycodone 5 mg q.12, Protonix 20 p.o. daily, Synthroid 25 mcg daily, Ultram 50 b.i.d., Xifaxan 550 b.i.d., and Zofran p.r.n. 4 mg. PLAN: Continue current therapy. Follow up clinically. Doing better. Giovany Richardson MD [facility] # [id number]
[2017-12-16] MEDS: Morphine 2 mg/ml ISec IVP PRN ×2 (00:13→20:33)
[2017-12-16] MEDS: Levothyroxine 25 MCG TAB PO SCH (05:25)
[2017-12-16] MEDS: Pantoprazole 20 mg EC Tab PO SCH (05:26)
[2017-12-16] MEDS: Insulin Reg-LOW-Coverage SC SCH ×3 (07:04→21:34)
[2017-12-16] MEDS: Albuterol-Ipratrop 3 mg / 0.5 (3 ml) UD IH SCH ×4 (07:34→20:35)
[2017-12-16] MEDS: Potassium Chloride 10 mEq ER Tab PO SCH (09:59)
[2017-12-16] MEDS: Lidocaine 5% Patch TD SCH (10:01)
[2017-12-16] MEDS: Insulin Detemir 100 units/ml Vial (Levemir) SC SCH ×2 (10:01→21:36)
[2017-12-16] MEDS: oxyCODONE 5 mg Immediate Release Tab PO PRN (16:05)
[2017-12-17] MEDS: Levothyroxine 25 MCG TAB PO SCH (05:43)
[2017-12-17] MEDS: Pantoprazole 20 mg EC Tab PO SCH (05:43)
[2017-12-17] MEDS: Insulin Reg-LOW-Coverage SC SCH ×4 (06:45→22:04)
[2017-12-17] MEDS: Albuterol-Ipratrop 3 mg / 0.5 (3 ml) UD IH SCH ×5 (07:02→18:57)
[2017-12-17] MEDS: Potassium Chloride 10 mEq ER Tab PO SCH (08:50)
[2017-12-17] MEDS: Lidocaine 5% Patch TD SCH (10:47)
[2017-12-17] MEDS: Insulin Detemir 100 units/ml Vial (Levemir) SC SCH ×2 (10:51→22:05)
[2017-12-17 12:37] VITALS: RESP 16; TEMP 98.2; O2SAT 94
[2017-12-17 17:36] VITALS: PULSE 83
[2017-12-17] MEDS ORDERED: Promethazine DM 6.25 mg-15 mg/5 ml Syrup PO PRN (18:23)
--- NOTE | 2017-12-18 01:47 | PN ---
DATE: SUBJECTIVE: The patient does have a little bit of cough, otherwise stable. She is sitting on a chair, better than before. Gets physical therapy and seems doing well. She is alert and awake, oriented. She had a bowel movement. Patient is doing very well. PHYSICAL EXAMINATION: VITAL SIGNS: As follows; temperature 98.2, heart rate 86, blood pressure 125/63, respirations 16, saturations 94% on room air. HEAD AND NECK: Normal. No JVD. No thyromegaly. CHEST: Clear. Good air entry. CARDIAC: First sound and second sound normal. ABDOMEN: Soft, nontender. EXTREMITIES: No edema. NEUROLOGIC: Normal except right-sided weakness from previous stroke. IMPRESSION: 1. Cough, we will give cough medicine, Promethazine DM. Continue nebulizer treatment. We will get a chest x-ray in the morning to make sure no pneumonia. Patient is afebrile, seems comfortable breathing. Continue current therapy. 2. Hypertension, stable. Patient does have a history of cerebrovascular accident. Cannot give any antiplatelets platelets 40. 3. Diabetes, insulin dependent. Continue Levemir and insulin coverage. 4. Chronic hepatitis C, cirrhosis, hepatic encephalopathy. Continue lactulose. Continue Xifaxan. 5. Hypothyroidism. Continue Synthroid. PLAN: Continue current therapy. Follow up clinically. We will repeat lab in the morning, chest x-ray in the morning. Giovany Richardson MD
--- NOTE | 2017-12-18 01:55 | PN ---
DATE: 12/15/2017 SUBJECTIVE: The patient is doing well. No chest pain. No short of breath. No new complaints. PHYSICAL EXAMINATION: VITAL SIGNS: Temperature 98.6, heart rate 87, blood pressure 134/55, respirations 18, saturations 96%. HEAD AND NECK: Normal. No JVD. No thyromegaly. CHEST: Clear. Good air entry. CARDIAC: First sound and second sound normal. ABDOMEN: Soft, nontender. EXTREMITIES: No edema. NEUROLOGIC: Normal. LABORATORY DATA: Blood sugar runs 150 to 200. IMPRESSION AND PLAN: 1. Status post thoracic spine T6 fractures. Continue morphine p.r.n. Continue physical therapy. 2. Hepatic encephalopathy, liver cirrhosis, chronic hepatitis C. Continue lactulose. Continue Xifaxan. 3. Insulin-dependent diabetes. Continue Levemir plus insulin coverage. 4. Hypertension, stable, on Cozaar and metoprolol. 5. Hypothyroidism. Continue levothyroxine. Continue current management. Continue physical therapy and follow up clinically. Giovany Richardson MD
--- NOTE | 2017-12-18 02:00 | PN ---
DATE: 12/16/2017 SUBJECTIVE: The patient seems better. Her pain is less than before. She is eating. She had a bowel movement. No new complaints. PHYSICAL EXAMINATION: VITAL SIGNS: Temperature 98, heart rate 79, blood pressure 124/56, respirations 20, saturation 100%. HEAD AND NECK: Normal. No JVD. No thyromegaly. CHEST: Clear, good air entry. CARDIAC: First sound and second sound normal. ABDOMEN: Soft, nontender. EXTREMITIES: No edema. NEUROLOGIC: Normal. LABORATORY DATA: Blood sugar runs 150 to 200. IMPRESSION: 1. Acute back pain secondary to thoracic spine T6 fracture, status post kyphoplasty. Patient seems to be doing better, less pain, able to sit down on the chair more comfortable than before. Continue physical therapy. Continue Lidoderm patch and morphine p.r.n. 2. Chronic hepatitis C liver cirrhosis, hepatic encephalopathy. Continue Xifaxan and lactulose. Bowel movement is good. She is doing well. 3. Hypertension. Continue metoprolol, Cozaar. 4. Hypothyroidism. Continue Synthroid. 5. Cough. Continue DuoNeb for now. Patient is stable. There is not any fever. Lung exam is normal. 6. Insulin-dependent diabetes. Continue Levemir plus insulin coverage. Giovany Richardson MD
[2017-12-18] MEDS: Morphine 2 mg/ml ISec IVP PRN (02:03)
[2017-12-18] MEDS: Pantoprazole 20 mg EC Tab PO SCH (05:10)
[2017-12-18] MEDS: Levothyroxine 25 MCG TAB PO SCH (05:11)
[2017-12-18] MEDS: Insulin Reg-LOW-Coverage SC SCH ×2 (06:46→11:30)
[2017-12-18] MEDS: Albuterol-Ipratrop 3 mg / 0.5 (3 ml) UD IH SCH ×3 (06:51→15:32)
[2017-12-18 07:05] LABS: BLOOD UREA NITROGEN 23 mg/dL (7-21); CALCIUM 8.7 mg/dL (8.4-10.5); GFR AFRICAN-AMERICAN > 60; GFR NON-AFRICAN AMERICAN > 60
[2017-12-18] MEDS: Lidocaine 5% Patch TD SCH (11:03)
[2017-12-18] MEDS: Insulin Detemir 100 units/ml Vial (Levemir) SC SCH (11:04)
[2017-12-18] MEDS: Potassium Chloride 10 mEq ER Tab PO SCH (11:04)
[2017-12-18 11:06] VITALS: BP 126/70
--- NOTE | 2017-12-18 11:21 | RAD ---
HISTORY: cough COMPARISON: 05/16/2017 TECHNIQUE: Chest PA and lateral FINDINGS: LUNGS: No active pulmonary disease. PLEURA: No significant pleural effusion identified. No pneumothorax apparent. CARDIOVASCULAR: Mild cardiomegaly OSSEOUS STRUCTURES: No significant abnormalities. VISUALIZED UPPER ABDOMEN: Normal. OTHER FINDINGS: None. IMPRESSION: No active disease.
--- NOTE | 2017-12-20 04:40 | DS ---
HISTORY OF PRESENT ILLNESS: The patient in CCU. She did very well. She had a compression fracture with kyphoplasty by Marko Fernandes for T6 and pain management while she is there in CCU. The patient did well. She was afebrile, she did have some cough, otherwise she did very well. There is no fever, no nausea, no vomiting. The patient had some constipation treated with lactulose 10 g twice a day p.r.n. She had mild cough, was given Robitussin. Chest x-ray reported no acute disease. The patient did well and she was discharged to home with follow up in the office. The patient was given a wheelchair and hospital bed due to her current medical conditions. The patient does have severe pain in her back with chronic osteoarthritis and difficulty getting out of bed to chair due to her current severe pain. The patient also does have some acid reflux and she does need to have head of the bed to be elevated 45 degrees to prevent the acid reflux symptoms and for that reason she has taken Protonix and acid suppressive therapy. The patient also had possibly sleep apnea and she is advised to keep the head of bed elevated at 45 degrees. We will advise the patient to continue her nebulizer treatment, continue cough medicine for underlying chronic obstructive pulmonary disease and continue Lasix, which helped her symptoms of breathing due to ascites and cirrhosis of the liver and will follow up clinically. PHYSICAL EXAMINATION: On discharge VITAL SIGNS: Stable. Temperature 98, heart rate 83, blood pressure 130/69. HEAD AND NECK: Normal. No JVD. No thyromegaly. CHEST: Clear bilaterally. CARDIAC: First sound and second sound normal. ABDOMEN: Soft, obese, nontender. EXTREMITIES: Mild edema. NEUROLOGIC: Normal. The patient was advised to continue oxycodone twice a day p.r.n. for her pain, Robitussin DM was given for her symptoms of cough and continue Ventolin 2 puffs q.i.d. nebulizer treatment at home. Also, the patient was given Lyrica 25 mg b.i.d. for her back pain; Protonix 20 mg p.o. daily for acid reflux symptoms; for her chronic constipation and hepatic encephalopathy, to continue lactulose 3 g t.i.d.; and also Lidoderm patch topically, if , we will give her lidocaine cream to her back. The patient also will continue Voltaren p.r.n. for her back pain, Lexapro 5 mg p.o. daily, iron pills once a day, folic acid once a day, Lasix 20 mg p.o. daily, insulin SoloSTAR, she takes 10 units twice a day, Synthroid 1 tablet once a day, losartan 25 p.o. daily, potassium 10 mEq once a day, vitamin B complex once a day, Xifaxan 550 mg p.o. b.i.d., and Desyrel or trazodone 50 mg p.o. daily. We will discharge the patient home. Follow up with home physical therapy, [place] visiting nurse. All prescriptions given to the patient. DISCHARGE DIAGNOSES: 1. Thoracic spine T6 fracture with status post kyphoplasty. 2. Chronic osteoarthritis of her back pain. 3. Cirrhosis of the liver, ascites. 4. Hepatic encephalopathy. 5. Chronic obstructive pulmonary disease, chronic cough. 6. Chronic constipation. 7. Hypertension. 8. Cerebrovascular accident with difficulty ambulation, need assistance. 9. Depression. Continue Lexapro and trazodone. 10. Hypothyroidism. 11. Chronic anemia. 12. Chronic thrombocytopenia. PLAN: Discharge home with current medications and home physical therapy. The patient advised to use a hospital bed, keep the head of the bed 45 degrees due to her current back pain and respiratory symptoms due to underlying COPD, chronic ascites and possible obstructive sleep apnea. Continue current therapy. Giovany Richardson MD
== END 2017-12-18 16:30 | disposition home or self-care (01) | DRG 945 ==
LOC: TRCU 16:35
PROVIDERS: ADMIT Internal Medicine; ATTEND Internal Medicine
PROC: F07Z9FZ Gait Training/Functional Ambulation Treatment using Assistive, Adaptive, Supportive or Protective Equipment (ICD-10-PCS; principal; 2017-12-11)
PROC: F08Z4FZ Home Management Treatment using Assistive, Adaptive, Supportive or Protective Equipment (ICD-10-PCS; 2017-12-11)
PROC: 3E0F7GC Introduction of Other Therapeutic Substance into Respiratory Tract, Via Natural or Artificial Opening (ICD-10-PCS; 2017-12-11)
DX: R53.1 Weakness (principal); R18.8 Other ascites; D69.59 Other secondary thrombocytopenia; K76.6 Portal hypertension; J44.9 Chronic obstructive pulmonary disease, unspecified; E11.9 Type 2 diabetes mellitus without complications; B18.2 Chronic viral hepatitis C; D64.9 Anemia, unspecified; S22.059D Unspecified fracture of T5-T6 vertebra, subsequent encounter for fracture with routine healing; K72.90 Hepatic failure, unspecified without coma; K74.60 Unspecified cirrhosis of liver; I10 Essential (primary) hypertension; E03.9 Hypothyroidism, unspecified; K59.09 Other constipation; K21.9 Gastro-esophageal reflux disease without esophagitis; F32.9 Major depressive disorder, single episode, unspecified; M47.819 Spondylosis without myelopathy or radiculopathy, site unspecified; Z79.4 Long term (current) use of insulin; D73.1 Hypersplenism; W19.XXXD Unspecified fall, subsequent encounter; Z98.890 Other specified postprocedural states; Z86.73 Personal history of transient ischemic attack (TIA), and cerebral infarction without residual deficits

== ENCOUNTER 2019-02-01 10:01 | Outpatient (CLI) | payer MEDICARE, MEDICAID | END 2019-02-01 10:02 | disposition home or self-care (01) | LOC: RAD 10:01 ==